=== PATIENT | female | born 1955 | race Caucasian/White ===

== ENCOUNTER 2017-03-30 16:39 | Inpatient (IN) | payer OTHER ==
[2017-03-30 17:48] LABS: ABSOLUTE EOSINOPHILS # (AUTO) 0.2 10^3/uL (0.0-0.6); ABSOLUTE LYMPHOCYTES (AUTO) 2.2 10^3/uL (0.5-4.7); ABSOLUTE MONOCYTES (AUTO) 0.6 10^3/uL (0.1-1.4); ABSOLUTE NEUT (AUTO) 4.8 10^3/uL (1.7-8.2); BASOPHILS % (AUTO) 0.4 % (0-2); EOSINOPHILS % (AUTO) 2.4 % (0-6); HEMATOCRIT 32.3 % (36.0-47.0); HGB HCT DIFFERENCE 0.7; LYMPHOCYTES % (AUTO) 27.9 % (13-45); MEAN CORPUSCULAR HEMOGLOBIN 29.4 pg (27.0-33.4); MEAN CORPUSCULAR VOLUME 87 fl (80-97); MONOCYTES % (AUTO) 7.8 % (3-13); RED BLOOD COUNT 3.74 10^6/uL (3.72-5.28); RED CELL DISTRIBUTION WIDTH 15.4 % (11.5-14.0); SEGMENTED NEUTROPHILS % (AUTO) 61.5 % (42-78); WHITE BLOOD COUNT 7.9 10^3/uL (4.0-10.5)
[2017-03-30 18:05] LABS: ALANINE AMINOTRANSFERASE 32 U/L (9-52); ALKALINE PHOSPHATASE 68 U/L (38-126); ANION GAP 16 (5-19); ASPARTATE AMINO TRANSFERASE 29 U/L (14-36); BILIRUBIN,DIRECT 0.1 mg/dL (0.0-0.4); BILIRUBIN,TOTAL 0.4 mg/dL (0.2-1.3); BLOOD UREA NITROGEN 16 mg/dL (7-20); CALCIUM 9.5 mg/dL (8.4-10.2); CARBON DIOXIDE 19 mmol/L (22-30); CHLORIDE 106 mmol/L (98-107); GLUCOSE 95 mg/dL (75-110); POTASSIUM 5.2 mmol/L (3.6-5.0); SODIUM 140.5 mmol/L (137-145); TOTAL PROTEIN 7.1 g/dL (6.3-8.2)
[2017-03-30] MEDS ORDERED: VANCOMYCIN HCL 0 MG in DEXTROSE 5%-WATER 250 ML IV NR (19:00)
[2017-03-30 19:21] LABS: APPEARANCE,URINE SLIGHTLY-CLOUDY; BILIRUBIN,URINE NEGATIVE (NEGATIVE); GLUCOSE, URINE NEGATIVE (NEGATIVE); KETONES,URINE NEGATIVE (NEGATIVE); LEUKOCYTE ESTERASE,URINE SMALL (NEGATIVE); NITRITE,URINE NEGATIVE (NEGATIVE); PROTEIN,URINE NEGATIVE (NEGATIVE); URINE SPECIFIC GRAVITY 1.008; UROBILINOGEN,URINE NEGATIVE mg/dL (<2.0)
--- NOTE | 2017-03-30 20:20 | PDOC H&P ---
History of Present Illness Admission Date/PCP: 03/30/17 16:39 XIMENA ISAAC MD History of Present Illness: JOSIE BAIRES is a 61 year old female, she was admitted because of severe cellulitis of the left leg and big toe, she was treated in the office for about a week with dual antibiotic when she presented with cellulitis of the left big toe with an ulcer at the base of the toe,, she is a diabetic with history of CVA with right-sided hemiplegia .she was admitted to the hospital for IV antibiotic and also for consultation from surgery for possible debridement. The arterial Doppler was done showed normal velocity, monophasic waveforms at the common femoral artery, occluded femoral artery with monophasic spectrally broadened and diminished reconstituted waveform from the popliteal to the infra geniculate vessels Past Medical History Cardiac Medical History: Reports: Coronary Artery Disease, Myocardial Infarction - STENT X 1, Hyperlipidema, Hypertension - MEDICATED Pulmonary Medical History: Reports: Asthma, Pneumonia Neurological Medical History: Reports: Ischemic CVA Endocrine Medical History: Reports: Diabetes Mellitus Type 2, Hypothyroidism GI Medical History: Reports: Diverticulitis Musculoskeltal Medical History: Reports: Arthritis Psychiatric Medical History: Reports: Depression Hematology: Reports: Anemia - TAKES B12 SHOTS Q MONTH Past Surgical History Past Surgical History: Reports: Cardiac Catheterization, Cholecystectomy, Coronary Stent, Orthopedic Surgery, Tonsillectomy Social History Smoking Status: Never Smoker Frequency of Alcohol Use: Rare Hx Recreational Drug Use: No Hx Prescription Drug Abuse: No Family History Family History: Reviewed & Not Pertinent Parental Family History Reviewed: Yes Children Family History Reviewed: Yes Sibling(s) Family History Reviewed.: Yes Medication/Allergy Home Medications: Alprazolam [Xanax 0.5 mg Tablet] 0.5 mg PO QID PRN 03/21/13 Ferrous Sulfate [Iron] 325 mg PO DAILY 03/21/13 Levothyroxine Sodium [Synthroid] 75 mcg PO DAILY 03/21/13 Metformin HCl [Glumetza] 500 mg PO BID 03/21/13 Metoprolol Succinate [Toprol Xl] 25 mg PO DAILY 03/21/13 Valsartan [Diovan 80 mg Tablet] 160 mg PO DAILY 03/21/13 Atorvastatin Calcium [Lipitor 20 mg Tablet] 20 mg PO QHS 07/26/13 Levocetirizine Dihydrochloride [Xyzal 5 mg Tablet] 5 mg PO QHS 07/26/13 Albuterol Sulfate [Albuterol Sulfate 2.5mg/3 mL] 2 puff IH PRN PRN 12/11/15 Aspirin [Aspirin 325 mg Tablet] 325 mg PO DAILY 12/11/15 Cyanocobalamin (Vitamin B-12) [Vitamin B-12 Inj 1000 Mcg/1 ml Vial] 1,000 mcg IM Q30D 12/11/15 Insulin Glargine,Hum.rec.anlog [Lantus Insulin 100 Unit/mL] 35 unit SUBCUT QHS 12/11/15 Pantoprazole Sodium [Protonix] 40 mg PO DAILY 12/11/15 Calcium Carbonate/Vitamin D3 [Calcium + Vitamin D Tablet] 1 tab PO DAILY Citalopram Hydrobromide [Celexa 20 mg Tablet] 20 mg PO DAILY 02/04/16 Clopidogrel Bisulfate [Plavix 75 mg Tablet] 75 mg PO DAILY 02/04/16 Melatonin 1 mg PO DAILY 02/04/16 Lennon-3 Acid Ethyl Esters [Lovaza 1 gm Capsule] 1 gm PO BID 02/04/16 Exenatide Microspheres [Bydureon Pen] 2 mg SUBCUT TU 03/30/17 Allergies/Adverse Reactions: No Known Allergies Allergy (Verified 02/26/16 16:09) Physical Exam Vital Signs: Intake & Output 03/29/17 03/30/17 03/31/17 06:59 06:59 06:59 Weight 128 kg General appearance: PRESENT: no acute distress, well-developed, well-nourished Head exam: PRESENT: atraumatic, normocephalic Eye exam: PRESENT: conjunctiva pink, EOMI, PERRLA. ABSENT: scleral icterus Ear exam: PRESENT: normal external ear exam Mouth exam: PRESENT: moist, tongue midline Neck exam: PRESENT: full ROM Respiratory exam: PRESENT: clear to auscultation urvashi Cardiovascular exam: PRESENT: RRR, +S1, +S2 Vascular exam: PRESENT: normal capillary refill GI/Abdominal exam: PRESENT: normal bowel sounds, soft Rectal exam: PRESENT: deferred Extremities exam: PRESENT: other - There is redness of the left leg, there is an eschar on the plantar surface of the first digit of the left foot Neurological exam: PRESENT: alert, other - Right-sided paralysis. ABSENT: motor sensory deficit Psychiatric exam: PRESENT: appropriate affect, normal mood Skin exam: PRESENT: dry, intact, warm Results Laboratory Results: 03/30/17 17:35 03/30/17 17:35 03/30/17 03/30/17 03/30/17 17:35 17:35 18:50 WBC 7.9 RBC 3.74 Hgb 11.0 L Hct 32.3 L MCV 87 MCH 29.4 MCHC 34.0 RDW 15.4 H Plt Count 244 Seg Neutrophils % 61.5 Lymphocytes % 27.9 Monocytes % 7.8 Eosinophils % 2.4 Basophils % 0.4 Absolute Neutrophils 4.8 Absolute Lymphocytes 2.2 Absolute Monocytes 0.6 Absolute Eosinophils 0.2 Absolute Basophils 0.0 Sodium 140.5 Potassium 5.2 H Chloride 106 Carbon Dioxide 19 L Anion Gap 16 BUN 16 Creatinine 1.10 Est GFR ( Amer) > 60 Est GFR (Non-Af Amer) 50 L Glucose 95 Calcium 9.5 Total Bilirubin 0.4 AST 29 ALT 32 Alkaline Phosphatase 68 Total Protein 7.1 Albumin 4.0 Urine Color YELLOW Urine Appearance SLIGHTLY-CLOUDY Urine pH 5.0 Ur Specific [place] 1.008 Urine Protein NEGATIVE Urine Glucose (UA) NEGATIVE Urine Ketones NEGATIVE Urine Blood SMALL H Urine Nitrite NEGATIVE Ur Leukocyte Esterase SMALL H Urine WBC (Auto) 6 Urine RBC (Auto) 3 Assessment & Plan - Diagnosis (1) Cellulitis of leg, left Is this a current diagnosis for this admission?: YesPlan: Patient was treated outpatient with IV antibiotic without improvement, she is admitted to the hospital to be treated with IV antibiotic (2) Cellulitis and abscess of toe of left foot Is this a current diagnosis for this admission?: Yes (3) Personal history of cerebrovascular accident with residual effects Is this a current diagnosis for this admission?: Yes (4) Type 2 diabetes mellitus Qualifiers: Diabetes mellitus complication status: with neurologic complications Diabetes mellitus complication detail: with polyneuropathy Diabetes mellitus technician terminal and repeater insulin use: without fpc use Qualified Code(s): E11.42 - Type 2 diabetes mellitus with diabetic polyneuropathy Is this a current diagnosis for this admission?: Yes (5) Failure of outpatient treatment Is this a current diagnosis for this admission?: Yes (6) Peripheral vascular disease due to secondary diabetes Is this a current diagnosis for this admission?: Yes
[2017-03-30] MEDS ORDERED: (PENDING PHARMACY ID) (Melatonin [Melatonin] 1 MG) PO SCH (20:30)
[2017-03-30] MEDS ORDERED: METFORMIN HCL 500 MG PO SCH (20:30)
[2017-03-30] MEDS ORDERED: LEVOTHYROXINE SODIUM 75 MCG PO SCH (20:30)
[2017-03-30] MEDS: OMEGA-3 ACID ETHYL ESTERS 1 GM CAPSULE PO SCH (21:50)
[2017-03-30] MEDS: ATORVASTATIN CALCIUM 20 MG TABLET PO SCH (21:50)
[2017-03-30] MEDS: INSULIN GLARGINE,HUM.REC.ANLOG 300 UNIT/3 ML INSULN.PEN SUBCUT SCH (21:57)
[2017-03-30] MEDS ORDERED: CYANOCOBALAMIN (VITAMIN B-12) INJ 1000 MCG/1 ML VIAL IM SCH (22:00)
[2017-03-30] MEDS ORDERED: (PENDING PHARMACY ID) (Levocetirizine Dihydrochloride [Xyzal 5 Mg Tablet] 5 MG) PO SCH (22:00)
[2017-03-30] MEDS ORDERED: DEXTROSE 50%-WATER 25 GM/50 ML DISP.SYRIN IV PRN ×2 (22:02)
[2017-03-30] MEDS ORDERED: GLUCAGON,HUMAN RECOMB 1 MG INJ SUBCUT PRN (22:02)
[2017-03-30] MEDS ORDERED: DEXTROSE 40% GEL 15 GM TUBE PO PRN ×2 (22:02)
[2017-03-30] MEDS: VANCOMYCIN HCL 1,500 MG in DEXTROSE 5%-WATER 250 ML IV SCH (22:06)
[2017-03-30] MEDS: PIPERACILLIN SODIUM/TAZOBACTAM 3.375 GM in NORMAL SALINE 100 ML IV SCH (22:07)
[2017-03-31] MEDS: PIPERACILLIN SODIUM/TAZOBACTAM 3.375 GM in NORMAL SALINE 100 ML IV SCH ×4 (04:29→22:07)
[2017-03-31] MEDS ORDERED: ONDANSETRON HCL INJ/PF 4 MG/2 ML SDV ONE (07:59)
[2017-03-31] MEDS ORDERED: METOCLOPRAMIDE HCL INJ/PF 10 MG/2 ML SDV ONE (07:59)
[2017-03-31] MEDS ORDERED: LIDOCAINE 2% INJ-PF (20 MG/ML) 10 ML AMPUL ONE (07:59)
[2017-03-31] MEDS: METFORMIN HCL 500 MG TABLET PO SCH ×2 (08:10→16:18)
[2017-03-31] MEDS ORDERED: CYANOCOBALAMIN (VITAMIN B-12) INJ 1000 MCG/1 ML VIAL IM ONE (09:00)
[2017-03-31] MEDS: OMEGA-3 ACID ETHYL ESTERS 1 GM CAPSULE PO SCH ×2 (09:38→22:08)
[2017-03-31] MEDS: VALSARTAN 80 MG TABLET PO SCH (09:38)
[2017-03-31] MEDS: CITALOPRAM HYDROBROMIDE 20 MG TABLET PO SCH (09:38)
[2017-03-31] MEDS: METOPROLOL SUCCINATE 50 MG TAB.SR.24H PO SCH (09:38)
[2017-03-31] MEDS: FERROUS SULFATE 325 MG TABLET PO SCH (09:39)
[2017-03-31] MEDS: LANSOPRAZOLE 30 MG TAB.RAP.DR PO SCH (09:39)
[2017-03-31] MEDS: LEVOTHYROXINE SODIUM 0.075 MG TABLET PO SCH (09:40)
[2017-03-31] MEDS: VANCOMYCIN HCL 1,500 MG in DEXTROSE 5%-WATER 250 ML IV SCH ×2 (09:46→22:08)
[2017-03-31] MEDS ORDERED: CLOPIDOGREL BISULFATE 75 MG TABLET PO SCH (10:00)
[2017-03-31] MEDS ORDERED: ASPIRIN 325 MG TABLET PO SCH (10:00)
[2017-03-31] MEDS ORDERED: INSULIN LISPRO 100 UNIT/ML 3 ML VIAL SUBCUT PRN (11:29)
[2017-03-31] MEDS: TRAMADOL HCL 50 MG TABLET PO PRN (11:40)
--- NOTE | 2017-03-31 13:27 | EKG REPORT ---
SEVERITY:- BORDERLINE ECG - SINUS RHYTHM : Confirmed by: Malcolm Pizarro MD 31-Mar-2017 13:26:43
[2017-03-31] MEDS ORDERED: LIDOCAINE 1% INJ-PF (10 MG/ML) 30 ML SDV ONE (14:04)
[2017-03-31] MEDS ORDERED: BUPIVACAINE HCL 0.5%-EPI 1:200000 INJ/PF 30 ML VIAL ONE (14:04)
[2017-03-31] MEDS ORDERED: FENTANYL CITRATE INJ/PF 100 MCG/2 ML AMPUL ONE (14:06)
[2017-03-31] MEDS ORDERED: PROPOFOL INJ 200 MG/20 ML VIAL IV ONE (14:07)
[2017-03-31] MEDS ORDERED: MIDAZOLAM 2 MG/2 ML INJ ONE (14:07)
[2017-03-31] MEDS ORDERED: DIPHENHYDRAMINE HCL 50 MG/ML VIAL IV PRN (14:36)
[2017-03-31] MEDS ORDERED: FENTANYL CITRATE INJ/PF 100 MCG/2 ML AMPUL IV PRN ×3 (14:36)
[2017-03-31] MEDS ORDERED: MEPERIDINE HCL/PF INJ 25 MG/1 ML DISP.SYRIN IV PRN (14:36)
[2017-03-31] MEDS ORDERED: ONDANSETRON HCL INJ/PF 4 MG/2 ML SDV IV PRN (14:36)
[2017-03-31] MEDS ORDERED: MORPHINE SULFATE 10 MG/ML INJ IV PRN (14:36)
[2017-03-31] MEDS ORDERED: PROMETHAZINE HCL INJ 25 MG/1 ML VIAL IV PRN ×2 (14:36)
--- NOTE | 2017-03-31 15:21 | XCELERA REPORT ---
[address] [address] Lower Extremity Arterial Evaluation Name: JOSIE BAIRES Age: 61 yrs Gender: Female : 1955 Patient Status: Inpatient Patient Location: 4S\S\426\S\B Study Date: 03/31/2017 10:14 AM Procedure: A color flow and duplex scan of the lower extremity arteries was performed on the left with velocity and waveform anaylsis. Reason For Study: left toe cellulitis, diabetic foot Ordering Physician: XIMENA ISAAC Performed By: Abena Ibarra Measurements and Calculations Right Left WAISTLINE JOINER LOCKSTITCH PSV 162.4 cm/sec Prox PFA PSV 123.6 cm/sec Dist SFA PSV -28.3 cm/sec Prox Pop A PSV 53.0 cm/sec Dist GRANT PSV 47.4 cm/sec Prox CATERPILLAR OPERATOR PSV 12.2 cm/sec Mid CATERPILLAR OPERATOR PSV 12.0 cm/sec Dist CATERPILLAR OPERATOR PSV 11.8 cm/sec Andrzej Pedis PSV 29.5 51.1 cm/sec Right Side Arterial Evaluation Limited evaluation, monophasic signal at the Dorsalis Pedis artery. Left Side Arterial Evaluation Normal velocity Monophasic waveforms at the Common Femoral artery. Occluded Femoral artery with monophasic spectrally broadened and diminished reconstituted waveform from the Popliteal to the infrageniculate vessels. 20-49 % stenosis at the inflow with severe sequential disease. Ankle Brachial index was not obtained. Interpretation Summary Severe hemodynamically significant lesions in the left lower extremity only, on duplex imaging, at rest. : XIMENA ISAAC > Judd Agrawal
--- NOTE | 2017-03-31 15:32 | OPERATIVE REPORT E ---
Operative Report NAME: JOSIE BAIRES : 1955 AGE: 61Y DATE OF SURGERY: ROOM: 426 PREOPERATIVE DIAGNOSIS: Left foot infection, mainly first digit, along with eschar. POSTOPERATIVE DIAGNOSIS: Infection, left foot, mainly first digit, without abscess. OPERATION: 1. Debridement of eschar, left foot, plantar surface, first digit. 2. Incision and exploration of left foot first digit infection. SURGEON: CHRIS ABREU M.D. ANESTHESIA: Monitored anesthesia care. INDICATION FOR PROCEDURE: Patient is a 61-year-old female who has diabetes. She has had previous osteo, undergoing surgery many years ago in the left foot first digit. She now presents with pain, swelling, and erythema. She has an eschar being present on the plantar surface of the first toe, along with swelling and erythema. Along the medial portion of the first digit is swelling and some discoloration of tissue worrisome for an abscess. FINDINGS AT SURGERY: The patient had a 2 x 2 cm eschar removed from the plantar surface of the first digit. Incision was made over the area of discoloration of the first digit with no abscess being identified. Cultures were sent, however in case there was an infection that was not able to visualize. PROCEDURE: After informed consent was obtained, the patient was taken to the operating room and placed in a supine position. MAC anesthesia was administered. Her left foot was then prepped and draped in the usual sterile fashion. Patient was essentially insensate in the left foot. The eschar was then removed sharply from the first digit, plantar surface. An incision was then made over the discolored swollen area in the medial portion of the first digit. I did not see any purulent fluid. There was no significant bleeding noted. Neosporin was applied along with a dry dressing. The patient was then awakened and taken from the procedure room in stable condition. ESTIMATED BLOOD LOSS: Minimal. COMPLICATIONS: None. CONDITION OF THE PATIENT DURING THE PROCEDURE: Stable. SPECIMENS: Fluid for Gram stain culture and sensitivity. DICTATING PHYSICIAN: CHRIS ABREU M.D. [id number] PHY#: [id number] ID: [id number] JOB#: [id number] ACCT: [id number] cc:CHRIS ABREU M.D. >
[2017-03-31] MEDS ORDERED: ALBUTEROL SULFATE 0.083% NEB 2.5 MG/3 ML AMPUL NEB PRN (17:37)
[2017-03-31] MEDS ORDERED: ALPRAZOLAM 0.5 MG TABLET PO PRN (17:37)
[2017-03-31] MEDS ORDERED: ALBUTEROL SULFATE HFA (90 MCG/PUFF) 200 PUFF/8.5 GM MDI IH PRN (17:44)
[2017-03-31] MEDS ORDERED: (PENDING PHARMACY ID) (Exenatide Microspheres [Bydureon Pen] 2 MG) SUBCUT SCH (17:45)
[2017-03-31] MEDS ORDERED: (PENDING PHARMACY ID) (Calcium Carbonate/Vitamin D3 [Calcium 600-Vit D3 200 Tablet] 1 TAB) PO SCH (17:45)
[2017-03-31] MEDS ORDERED: CALCIUM CARBONATE 250 MG/VITAMIN D3 125 UNIT TABLET PO ONE (18:30)
--- NOTE | 2017-03-31 19:56 | PDOC PROGRESS REPORT ---
Subjective Progress Note for:: 03/31/17 Subjective:: Patient was admitted yesterday because of cellulitis, she had debridement of eschar the left foot done today by the surgeon Physical Exam Vital Signs: Temp Pulse Resp BP Pulse Ox 98.1 F 73 16 109/46 L 99 03/31/17 17:25 03/31/17 17:25 03/31/17 17:25 03/31/17 17:25 03/31/17 17:25 Intake & Output 03/30/17 03/31/17 04/01/17 06:59 06:59 06:59 Intake Total 1450 Output Total 800 1 Balance -800 1449 Weight 128 kg General appearance: PRESENT: no acute distress Head exam: PRESENT: atraumatic, normocephalic Eye exam: PRESENT: conjunctiva pink, EOMI, PERRLA Ear exam: PRESENT: normal external ear exam Mouth exam: PRESENT: moist, tongue midline Neck exam: PRESENT: full ROM Cardiovascular exam: PRESENT: RRR, +S1, +S2 Vascular exam: PRESENT: normal capillary refill GI/Abdominal exam: PRESENT: normal bowel sounds, soft Rectal exam: PRESENT: deferred Neurological exam: PRESENT: alert Psychiatric exam: PRESENT: appropriate affect, normal mood Skin exam: PRESENT: dry, intact, warm Results Laboratory Results: 03/30/17 17:35 03/31/17 12:57 03/31/17 12:57 Potassium 5.4 H Assessment & Plan - Diagnosis (1) Cellulitis of leg, left Is this a current diagnosis for this admission?: YesPlan: She will continue IV antibiotic (2) Cellulitis and abscess of toe of left foot Is this a current diagnosis for this admission?: Yes (3) Personal history of cerebrovascular accident with residual effects Is this a current diagnosis for this admission?: Yes (4) Type 2 diabetes mellitus Qualifiers: Diabetes mellitus complication status: with neurologic complications Diabetes mellitus complication detail: with polyneuropathy Diabetes mellitus intermediate insulin use: without termite control representative use Qualified Code(s): E11.42 - Type 2 diabetes mellitus with diabetic polyneuropathy; Z79.4 - snf (current) use of insulin Is this a current diagnosis for this admission?: Yes (5) Failure of outpatient treatment Is this a current diagnosis for this admission?: Yes (6) Peripheral vascular disease due to secondary diabetes Is this a current diagnosis for this admission?: Yes
[2017-03-31] MEDS: ATORVASTATIN CALCIUM 20 MG TABLET PO SCH (22:08)
[2017-03-31] MEDS: INSULIN GLARGINE,HUM.REC.ANLOG 300 UNIT/3 ML INSULN.PEN SUBCUT SCH (22:09)
[2017-03-31] MEDS: CETIRIZINE 10 MG TABLET PO SCH (22:09)
[2017-04-01] MEDS: PIPERACILLIN SODIUM/TAZOBACTAM 3.375 GM in NORMAL SALINE 100 ML IV SCH ×4 (04:11→20:25)
[2017-04-01] MEDS: METFORMIN HCL 500 MG TABLET PO SCH ×2 (08:08→15:49)
[2017-04-01] MEDS: METOPROLOL SUCCINATE 50 MG TAB.SR.24H PO SCH (09:24)
[2017-04-01] MEDS: FERROUS SULFATE 325 MG TABLET PO SCH (09:24)
[2017-04-01] MEDS: OMEGA-3 ACID ETHYL ESTERS 1 GM CAPSULE PO SCH ×2 (09:24→22:11)
[2017-04-01] MEDS: CITALOPRAM HYDROBROMIDE 20 MG TABLET PO SCH (09:25)
[2017-04-01] MEDS: LANSOPRAZOLE 30 MG TAB.RAP.DR PO SCH (09:25)
[2017-04-01] MEDS: CALCIUM CARBONATE 250 MG/VITAMIN D3 125 UNIT TABLET PO SCH (09:25)
[2017-04-01] MEDS: VALSARTAN 80 MG TABLET PO SCH (09:25)
[2017-04-01] MEDS: LEVOTHYROXINE SODIUM 0.075 MG TABLET PO SCH (09:25)
[2017-04-01] MEDS: VANCOMYCIN HCL 1,500 MG in DEXTROSE 5%-WATER 250 ML IV SCH (10:15)
--- NOTE | 2017-04-01 16:03 | PDOC PROGRESS REPORT ---
Subjective Progress Note for:: 04/01/17 Subjective:: Patient was seen by the bedside, she will continue IV antibiotic for a few more days before discharge. She has PAD involving the left leg, hopefully on discharge she will will be referred to vascular surgery Physical Exam Vital Signs: Temp Pulse Resp BP Pulse Ox 98.1 F 78 18 137/53 H 99 04/01/17 11:24 04/01/17 11:24 04/01/17 11:24 04/01/17 11:24 04/01/17 11:24 Intake & Output 03/31/17 04/01/17 04/02/17 06:59 06:59 06:59 Intake Total 2125 790 Output Total 800 1 1590 Balance -800 2124 -800 Weight 128 kg General appearance: PRESENT: no acute distress Eye exam: PRESENT: PERRLA Respiratory exam: PRESENT: clear to auscultation urvashi Cardiovascular exam: PRESENT: +S1, +S2 GI/Abdominal exam: PRESENT: soft Neurological exam: PRESENT: alert Results Laboratory Results: 03/30/17 17:35 03/31/17 12:57 03/31/17 04:15 Nasophary (Mrsa Only) MRSA Surveillance Culture - Final NO MRSA RECOVERED Assessment & Plan - Diagnosis (1) Cellulitis of leg, left Is this a current diagnosis for this admission?: Yes (2) Cellulitis and abscess of toe of left foot Is this a current diagnosis for this admission?: Yes (3) Personal history of cerebrovascular accident with residual effects Is this a current diagnosis for this admission?: Yes (4) Type 2 diabetes mellitus Qualifiers: Diabetes mellitus complication status: with neurologic complications Diabetes mellitus complication detail: with polyneuropathy Diabetes mellitus equipment operator intermodal yard insulin use: without equipment operator intermodal yard use Qualified Code(s): E11.42 - Type 2 diabetes mellitus with diabetic polyneuropathy; Z79.4 - termite control representative (current) use of insulin Is this a current diagnosis for this admission?: Yes (5) Failure of outpatient treatment Is this a current diagnosis for this admission?: Yes (6) Peripheral vascular disease due to secondary diabetes Is this a current diagnosis for this admission?: Yes - Plan Summary Plan Summary: Continue IV antibiotic and other treatment
[2017-04-01] MEDS: ATORVASTATIN CALCIUM 20 MG TABLET PO SCH (22:11)
[2017-04-01] MEDS: CETIRIZINE 10 MG TABLET PO SCH (22:12)
[2017-04-01] MEDS: INSULIN GLARGINE,HUM.REC.ANLOG 300 UNIT/3 ML INSULN.PEN SUBCUT SCH (22:12)
--- NOTE | 2017-04-01 23:39 | PROGRESS NOTE E ---
Progress Note NAME: JOSIE BAIRES : 1955 AGE: 61Y DATE: 04/01/2017 ROOM: 426 Patient is postop day 1 of debridement of an eschar on the right foot first digit, along with exploration for infection. SUBJECTIVE: No complaints of pain at the surgical site. OBJECTIVE: Patient has less swelling and almost no erythema in the left foot first digit. ASSESSMENT: 1. Cellulitis with eschar left foot first digit status post debridement and exploration. It does seem to be improving on IV antibiotics. Continue local wound care and IV antibiotics. 2. Severe peripheral vascular disease being present with an arterial exam showing an occluded femoral artery and distal infrageniculate vessels. If she should have trouble healing her wound on the left foot, then consideration for vascular surgery needs to be done. PLAN: 1. Continue local wound care. 2. IV antibiotics. 3. Keep the leg elevated when in bed. DICTATING PHYSICIAN: CHRIS ABREU M.D. [id number] PHY#: [id number] ID: [id number] JOB#: [id number] ACCT: [id number] cc: >
[2017-04-02] MEDS: PIPERACILLIN SODIUM/TAZOBACTAM 3.375 GM in NORMAL SALINE 100 ML IV SCH ×4 (04:01→21:33)
[2017-04-02] MEDS: METFORMIN HCL 500 MG TABLET PO SCH ×2 (08:15→15:11)
[2017-04-02] MEDS: CALCIUM CARBONATE 250 MG/VITAMIN D3 125 UNIT TABLET PO SCH (12:20)
[2017-04-02] MEDS: VALSARTAN 80 MG TABLET PO SCH (12:24)
[2017-04-02] MEDS: LANSOPRAZOLE 30 MG TAB.RAP.DR PO SCH (12:25)
[2017-04-02] MEDS: METOPROLOL SUCCINATE 50 MG TAB.SR.24H PO SCH (12:25)
[2017-04-02] MEDS: FERROUS SULFATE 325 MG TABLET PO SCH (12:25)
[2017-04-02] MEDS: OMEGA-3 ACID ETHYL ESTERS 1 GM CAPSULE PO SCH ×2 (12:25→21:33)
[2017-04-02] MEDS: LEVOTHYROXINE SODIUM 0.075 MG TABLET PO SCH (12:26)
[2017-04-02] MEDS: CITALOPRAM HYDROBROMIDE 20 MG TABLET PO SCH (12:26)
[2017-04-02] MEDS: TRAMADOL HCL 50 MG TABLET PO PRN ×2 (12:26→21:43)
--- NOTE | 2017-04-02 12:44 | PROGRESS NOTE E ---
Progress Note NAME: JOSIE BAIRES : 1955 AGE: 61Y DATE: 04/02/2017 ROOM: 426 SUBJECTIVE: Patient is a 61-year-old diabetic who had an ulceration on her left big toe. It was treated with debridement and incision and drainage. She was noted to have cellulitis on admission. The cellulitis has resolved and the patient has an increased sense of wellbeing. OBJECTIVE: The wound is examined. It is approximately a 1.5 cm area with healthy granulating base. There is no necrosis. Reportedly, this is much improved from before. PLAN: At the present time, we will continue IV antibiotics and local wound care. DICTATING PHYSICIAN: LIZA HOLT M.D. [id number] PHY#: [id number] ID: [id number] JOB#: [id number] ACCT: [id number] cc: >
[2017-04-02] MEDS: VANCOMYCIN HCL 1,000 MG in DEXTROSE 5%-WATER 250 ML IV SCH ×2 (13:21→22:56)
--- NOTE | 2017-04-02 19:15 | PDOC PROGRESS REPORT ---
Subjective Progress Note for:: 04/02/17 Subjective:: Patient seen by the bedside, she was seen by the surgeon hopefully to be discharged home with p.o. antibiotic. Physical Exam Vital Signs: Temp Pulse Resp BP Pulse Ox 98.5 F 75 20 125/54 L 99 04/02/17 15:57 04/02/17 15:57 04/02/17 15:57 04/02/17 15:57 04/02/17 15:57 Intake & Output 04/01/17 04/02/17 04/03/17 06:59 06:59 06:59 Intake Total 2124 175 360 Output Total 1991 1100 Balance 6788 -771 -034 General appearance: PRESENT: no acute distress Eye exam: PRESENT: PERRLA Respiratory exam: PRESENT: clear to auscultation urvashi Cardiovascular exam: PRESENT: +S1, +S2 GI/Abdominal exam: PRESENT: soft Neurological exam: PRESENT: alert, CN II-XII grossly intact Results Laboratory Results: 03/30/17 17:35 03/31/17 12:57 Assessment & Plan - Diagnosis (1) Cellulitis of leg, left Is this a current diagnosis for this admission?: Yes (2) Cellulitis and abscess of toe of left foot Is this a current diagnosis for this admission?: Yes (3) Personal history of cerebrovascular accident with residual effects Is this a current diagnosis for this admission?: Yes (4) Type 2 diabetes mellitus Qualifiers: Diabetes mellitus complication status: with neurologic complications Diabetes mellitus complication detail: with polyneuropathy Diabetes mellitus detention insulin use: without animal trainer use Qualified Code(s): E11.42 - Type 2 diabetes mellitus with diabetic polyneuropathy; 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
[2017-04-02] MEDS: INSULIN GLARGINE,HUM.REC.ANLOG 300 UNIT/3 ML INSULN.PEN SUBCUT SCH (21:32)
[2017-04-02] MEDS: CETIRIZINE 10 MG TABLET PO SCH (21:33)
[2017-04-02] MEDS: ATORVASTATIN CALCIUM 20 MG TABLET PO SCH (21:33)
[2017-04-03] MEDS: PIPERACILLIN SODIUM/TAZOBACTAM 3.375 GM in NORMAL SALINE 100 ML IV SCH ×3 (03:55→14:48)
[2017-04-03] MEDS: LANSOPRAZOLE 30 MG TAB.RAP.DR PO SCH (09:55)
[2017-04-03] MEDS: OMEGA-3 ACID ETHYL ESTERS 1 GM CAPSULE PO SCH (09:55)
[2017-04-03] MEDS: METFORMIN HCL 500 MG TABLET PO SCH ×2 (09:55→15:26)
[2017-04-03] MEDS: LEVOTHYROXINE SODIUM 0.075 MG TABLET PO SCH (09:55)
[2017-04-03] MEDS: FERROUS SULFATE 325 MG TABLET PO SCH (09:55)
[2017-04-03] MEDS: METOPROLOL SUCCINATE 50 MG TAB.SR.24H PO SCH (09:55)
[2017-04-03] MEDS: CALCIUM CARBONATE 250 MG/VITAMIN D3 125 UNIT TABLET PO SCH (09:55)
[2017-04-03] MEDS: VALSARTAN 80 MG TABLET PO SCH (09:55)
[2017-04-03] MEDS: CITALOPRAM HYDROBROMIDE 20 MG TABLET PO SCH (09:55)
[2017-04-03] MEDS: VANCOMYCIN HCL 1,000 MG in DEXTROSE 5%-WATER 250 ML IV SCH (09:56)
--- NOTE | 2017-04-03 11:08 | PROGRESS NOTE E ---
Progress Note NAME: JOSIE BAIRES : 1955 AGE: 61Y DATE: 04/03/2017 ROOM: 426 SUBJECTIVE: Patient's wound is again examined today and appears to be skin loss, but no deep abscess. The toe is slightly red and swollen, but does not indicate any osteomyelitis or further infection. PLAN: 1. We will change her to damp gauze dressings. The patient and nurse indicated that her primary care doctor will followup with her. 2. She also should followup with the surgical clinic for wound care. 3. She should be discharged on wound care with wet-to-dry dressing t.i.d. and an oral antibiotic. DICTATING PHYSICIAN: LIZA HOLT M.D. [id number] PHY#: [id number] ID: [id number] JOB#: [id number] ACCT: [id number] cc: >
--- NOTE | 2017-04-03 18:19 | PDOC DISCHARGE SUMMARY ---
General - Admit/Disc Date/PCP Admission Date/Primary Care Provider: 03/30/17 16:39 XIMENA ISAAC MD Discharge Date: 04/03/17 - Discharge Diagnosis (1) Cellulitis of leg, left Is this a current diagnosis for this admission?: Yes (2) Cellulitis and abscess of toe of left foot Is this a current diagnosis for this admission?: Yes (3) Personal history of cerebrovascular accident with residual effects Is this a current diagnosis for this admission?: Yes (4) Type 2 diabetes mellitus Is this a current diagnosis for this admission?: Yes (5) Failure of outpatient treatment Is this a current diagnosis for this admission?: Yes (6) Peripheral vascular disease due to secondary diabetes Is this a current diagnosis for this admission?: Yes - Additional Information Resuscitation Status: Full Code Discharge Activity: Activity As Tolerated Home Medications: Alprazolam [Xanax 0.5 mg Tablet] 0.5 mg PO QID PRN 03/21/13 Ferrous Sulfate [Iron] 325 mg PO DAILY 03/21/13 Levothyroxine Sodium [Synthroid] 75 mcg PO DAILY 03/21/13 Metformin HCl [Glumetza] 500 mg PO BID 03/21/13 Metoprolol Succinate [Toprol Xl] 25 mg PO DAILY 03/21/13 Valsartan [Diovan 80 mg Tablet] 160 mg PO DAILY 03/21/13 Atorvastatin Calcium [Lipitor 20 mg Tablet] 20 mg PO QHS 07/26/13 Levocetirizine Dihydrochloride [Xyzal 5 mg Tablet] 5 mg PO QHS 07/26/13 Albuterol Sulfate [Albuterol Sulfate 2.5mg/3 mL] 2 puff IH PRN PRN 12/11/15 Aspirin [Aspirin 325 mg Tablet] 325 mg PO DAILY 12/11/15 Cyanocobalamin (Vitamin B-12) [Vitamin B-12 Inj 1000 Mcg/1 ml Vial] 1,000 mcg IM Q30D 12/11/15 Insulin Glargine,Hum.rec.anlog [Lantus Insulin 100 Unit/mL] 35 unit SUBCUT QHS 12/11/15 Pantoprazole Sodium [Protonix] 40 mg PO DAILY 12/11/15 Calcium Carbonate/Vitamin D3 [Calcium 600-Vit D3 200 Tablet] 1 tab PO DAILY 06/14 Citalopram Hydrobromide [Celexa 20 mg Tablet] 20 mg PO DAILY 02/04/16 Clopidogrel Bisulfate [Plavix 75 mg Tablet] 75 mg PO DAILY 02/04/16 Melatonin 1 mg PO DAILY 02/04/16 [place]asnor-3 Acid Ethyl Esters [Lovaza 1 gm Capsule] 1 gm PO BID 02/04/16 Exenatide Microspheres [Bydureon Pen] 2 mg SUBCUT TU 03/30/17 Doxycycline Monohydrate [Mondoxyne Nl] 100 mg PO BID #20 capsule 04/03/17 History of Present Illness History of Present Illness: JOSIE BAIRES is a 61 year old female, she was admitted because of severe cellulitis of the left leg and big toe, she was treated in the office for about a week with dual antibiotic when she presented with cellulitis of the left big toe with an ulcer at the base of the toe,, she is a diabetic with history of CVA with right-sided hemiplegia .she was admitted to the hospital for IV antibiotic and also for consultation from surgery for possible debridement. The arterial Doppler was done showed normal velocity, monophasic waveforms at the common femoral artery, occluded femoral artery with monophasic spectrally broadened and diminished reconstituted waveform from the popliteal to the infra geniculate vessels Hospital Course Hospital Course: She was admitted because of severe cellulitis of left leg,ulcerated left big toe, she was seen by the surgeon and debridement of the foot was done. She was empirically treated with IV antibiotic, Zosyn and vancomycin. She was treated outpatient for 1 week which p.o. antibiotic without improvement and she was admitted to the hospital for IV antibiotic and also to be seen by the surgeon for debridement. Physical Exam Vital Signs: Temp Pulse Resp BP Pulse Ox 98.4 F 76 20 112/54 L 94 04/03/17 15:54 04/03/17 15:54 04/03/17 15:54 04/03/17 15:54 04/03/17 15:54 Intake & Output 04/02/17 04/03/17 04/04/17 06:59 06:59 06:59 Intake Total 1695 1435 510 Output Total 1991 6520 700 Balance -237 -465 -190 General appearance: PRESENT: no acute distress Eye exam: PRESENT: PERRLA Respiratory exam: PRESENT: clear to auscultation urvashi Cardiovascular exam: PRESENT: +S1, +S2 GI/Abdominal exam: PRESENT: soft Neurological exam: PRESENT: alert Results Laboratory Results: 03/30/17 17:35 03/31/17 12:57
[2017-04-03 18:25] LABS: ABSOLUTE EOSINOPHILS # (AUTO) 0.2 10^3/uL (0.0-0.6); ABSOLUTE LYMPHOCYTES (AUTO) 2.4 10^3/uL (0.5-4.7); ABSOLUTE MONOCYTES (AUTO) 0.7 10^3/uL (0.1-1.4); ABSOLUTE NEUT (AUTO) 5.1 10^3/uL (1.7-8.2); BASOPHILS % (AUTO) 0.5 % (0-2); EOSINOPHILS % (AUTO) 2.5 % (0-6); HEMATOCRIT 32.9 % (36.0-47.0); HEMOGLOBIN 11.1 g/dL (12.0-15.5); HGB HCT DIFFERENCE 0.4; LYMPHOCYTES % (AUTO) 28.3 % (13-45); MEAN CORPUSCULAR HEMOGLOBIN 29.4 pg (27.0-33.4); MEAN CORPUSCULAR HGB CONC 33.8 g/dL (32.0-36.0); MEAN CORPUSCULAR VOLUME 87 fl (80-97); MONOCYTES % (AUTO) 8.2 % (3-13); RED BLOOD COUNT 3.77 10^6/uL (3.72-5.28); RED CELL DISTRIBUTION WIDTH 14.8 % (11.5-14.0); SEGMENTED NEUTROPHILS % (AUTO) 60.5 % (42-78); WHITE BLOOD COUNT 8.5 10^3/uL (4.0-10.5)
[2017-04-03 18:42] VITALS: BP 136/56
[2017-04-03 18:51] LABS: ALANINE AMINOTRANSFERASE 33 U/L (9-52); ALBUMIN 3.6 g/dL (3.5-5.0); ALKALINE PHOSPHATASE 56 U/L (38-126); ANION GAP 15 (5-19); ASPARTATE AMINO TRANSFERASE 22 U/L (14-36); BILIRUBIN,DIRECT 0.2 mg/dL (0.0-0.4); BILIRUBIN,TOTAL 0.3 mg/dL (0.2-1.3); BLOOD UREA NITROGEN 11 mg/dL (7-20); CALCIUM 8.9 mg/dL (8.4-10.2); CARBON DIOXIDE 19 mmol/L (22-30); CHLORIDE 109 mmol/L (98-107); CREATININE RESULT 1.04 mg/dL (0.52-1.25); GLUCOSE 117 mg/dL (75-110); POTASSIUM 4.2 mmol/L (3.6-5.0); SODIUM 142.6 mmol/L (137-145); TOTAL PROTEIN 6.7 g/dL (6.3-8.2)
== END 2017-04-03 19:59 | disposition home or self-care (01) | DRG 623 ==
LOC: 4S 16:39
PROVIDERS: ADMIT Internal Medicine; ATTEND Internal Medicine
PROC: 0HBNXZZ Excision of Left Foot Skin, External Approach (ICD-10-PCS; principal; 2017-03-30)
DX: E11.621 Type 2 diabetes mellitus with foot ulcer (principal); L03.116 Cellulitis of left lower limb; L02.612 Cutaneous abscess of left foot; I69.351 Hemiplegia and hemiparesis following cerebral infarction affecting right dominant side; L03.032 Cellulitis of left toe; E11.51 Type 2 diabetes mellitus with diabetic peripheral angiopathy without gangrene; L97.529 Non-pressure chronic ulcer of other part of left foot with unspecified severity; I25.10 Atherosclerotic heart disease of native coronary artery without angina pectoris; E78.5 Hyperlipidemia, unspecified; I10 Essential (primary) hypertension; J45.909 Unspecified asthma, uncomplicated; E03.9 Hypothyroidism, unspecified; M19.90 Unspecified osteoarthritis, unspecified site; F32.9 Major depressive disorder, single episode, unspecified; D64.9 Anemia, unspecified; I25.2 Old myocardial infarction; Z79.4 Long term (current) use of insulin; Z79.82 Long term (current) use of aspirin; Z79.899 Other long term (current) drug therapy
CPT/HCPCS: 36415; 400; 80048; 80053; 80076; 80202; 81001; 82962; 83036; 84132; 85025; 87070; 87075; 87077; 87186; 87205; 93005; 93010; 93926; J1815; J2250; J2405; J2543; J2704; J2765; J3010; J3370; J3490; J7060

== ENCOUNTER → 2017-03-30 | Outpatient (CLI) | payer OTHER | LOC: WI 13:34 | PROVIDERS: ATTEND Internal Medicine | DX: Z12.31 Encounter for screening mammogram for malignant neoplasm of breast (principal) | CPT/HCPCS: 77067; G0202 ==

== ENCOUNTER → 2017-05-19 | Outpatient (CLI) | payer OTHER ==
[2017-05-19 11:51] LABS: CREATININE RESULT 0.99 mg/dL (0.52-1.25)
== END ==
LOC: LB 11:00
PROVIDERS: ATTEND Surgery Vascular Surgery
DX: Z51.81 Encounter for therapeutic drug level monitoring (principal); Z79.899 Other long term (current) drug therapy
CPT/HCPCS: 36415; 82565

== ENCOUNTER → 2017-05-22 | Outpatient (CLI) | payer OTHER ==
--- NOTE | 2017-05-22 18:57 | RADIOLOGY REPORT (SQ) ---
EXAM DESCRIPTION: CHEST PA/LAT COMPLETED DATE/TIME: 05/22/2017 6:14 pm REASON FOR STUDY: Encounter for other preprocedural examination;Non-pressure chronic ulcer of COMPARISON: 12/11/2015 EXAM PARAMETERS: NUMBER OF VIEWS: two views TECHNIQUE: Digital Frontal and Lateral radiographic views of the chest acquired. RADIATION DOSE: NA LIMITATIONS: none FINDINGS: LUNGS AND PLEURA: No opacities, masses or pneumothorax. No pleural effusion. MEDIASTINUM AND HILAR STRUCTURES: No masses or contour abnormalities. HEART AND VASCULAR STRUCTURES: Heart normal size. No evidence for failure. BONES: No acute findings. HARDWARE: Sternotomy wires. OTHER: No other significant finding. IMPRESSION: NO SIGNIFICANT RADIOGRAPHIC FINDING IN THE CHEST. TECHNICAL DOCUMENTATION: JOB ID: [id number] [employer]- All Rights Reserved
--- NOTE | 2017-05-22 18:59 | RADIOLOGY REPORT (SQ) ---
EXAM DESCRIPTION: FOOT LEFT COMPLETE COMPLETED DATE/TIME: 05/22/2017 6:14 pm REASON FOR STUDY: Encounter for other preprocedural examination;Non-pressure chronic ulcer of COMPARISON: None. NUMBER OF VIEWS: Three views. TECHNIQUE: AP, lateral and oblique radiographic images acquired of the left foot. LIMITATIONS: None. FINDINGS: MINERALIZATION: Osteopenia. BONES: No acute fracture or dislocation. There are large plantar and dorsal calcaneal spurs. JOINTS: Mild degenerative joint changes seen in the 1st metatarsal-phalangeal joint. SOFT TISSUES: Dense calcifications are seen in the plantar fascia. OTHER: No other significant finding. IMPRESSION: There is no acute abnormality in the foot. Findings as described. TECHNICAL DOCUMENTATION: JOB ID: [id number] [employer]- All Rights Reserved
== END ==
LOC: RAD 17:31
PROVIDERS: ATTEND Surgery
DX: Z01.818 Encounter for other preprocedural examination (principal); L97.522 Non-pressure chronic ulcer of other part of left foot with fat layer exposed; M77.32 Calcaneal spur, left foot
CPT/HCPCS: 71020

== ENCOUNTER → 2017-05-22 | Outpatient (CLI) | payer OTHER ==
[2017-05-22 19:04] LABS: ABSOLUTE EOSINOPHILS # (AUTO) 0.2 10^3/uL (0.0-0.6); ABSOLUTE LYMPHOCYTES (AUTO) 2.4 10^3/uL (0.5-4.7); ABSOLUTE MONOCYTES (AUTO) 0.5 10^3/uL (0.1-1.4); ABSOLUTE NEUT (AUTO) 3.7 10^3/uL (1.7-8.2); BASOPHILS % (AUTO) 0.3 % (0-2); EOSINOPHILS % (AUTO) 2.5 % (0-6); HEMATOCRIT 31.4 % (36.0-47.0); HEMOGLOBIN 10.3 g/dL (12.0-15.5); HGB HCT DIFFERENCE -0.5; LYMPHOCYTES % (AUTO) 35.3 % (13-45); MEAN CORPUSCULAR HEMOGLOBIN 29.2 pg (27.0-33.4); MEAN CORPUSCULAR HGB CONC 32.6 g/dL (32.0-36.0); MEAN CORPUSCULAR VOLUME 90 fl (80-97); MONOCYTES % (AUTO) 7.8 % (3-13); RED BLOOD COUNT 3.51 10^6/uL (3.72-5.28); RED CELL DISTRIBUTION WIDTH 14.1 % (11.5-14.0); SEGMENTED NEUTROPHILS % (AUTO) 54.1 % (42-78); WHITE BLOOD COUNT 6.9 10^3/uL (4.0-10.5)
[2017-05-22 19:40] LABS: ERYTHROCYTE SEDIMENTATION RATE 69 mm/hr (0-30)
== END ==
LOC: WC 18:14
PROVIDERS: ATTEND Surgery
DX: E10.21 Type 1 diabetes mellitus with diabetic nephropathy (principal); L97.522 Non-pressure chronic ulcer of other part of left foot with fat layer exposed
CPT/HCPCS: 36415; 83036; 85025; 85652; 86140

== ENCOUNTER 2017-09-09 17:27 | Emergency (ER) | payer OTHER ==
[2017-09-09] MEDS ORDERED: METOCLOPRAMIDE HCL INJ/PF 10 MG/2 ML SDV IV ONE (18:02)
--- NOTE | 2017-09-09 18:13 | ER Document Report ---
ED General - General Chief Complaint: Nausea/Vomiting Stated Complaint: ABDOMINAL PAIN Time Seen by Provider: 09/09/17 17:41 Mode of Arrival: Ambulatory Information source: Patient Notes: 61-year-old female who has been in either the hospital or a care facility for the past month and half presents with complaints of nausea vomiting and diarrhea. Patient states she had normal bowel movements a few days ago but over the past 5 days she has been been vomiting multiple times denies any fevers or chills TRAVEL OUTSIDE OF THE [place] IN LAST 30 DAYS: No - HPI Onset: Last week Onset/Duration: Persistent Quality of pain: Cramping Severity: Mild Pain Level: 1 Associated symptoms: Diarrhea, Nausea, Vomiting Exacerbated by: Denies Relieved by: Denies Similar symptoms previously: No Recently seen / treated by doctor: No - Related Data Allergies/Adverse Reactions: No Known Allergies Allergy (Verified 02/26/16 16:09) Past Medical History - Social History Smoking Status: Never Smoker Cigarette use (# per day): No Chew tobacco use (# tins/day): No Smoking Education Provided: No Family History: Reviewed & Not Pertinent - Past Medical History Cardiac Medical History: Reports: Hx Coronary Artery Disease, Hx Heart Attack - STENT X 1, Hx Hypercholesterolemia, Hx Hypertension - MEDICATED Pulmonary Medical History: Reports: Hx Asthma, Hx Pneumonia Denies: Hx Bronchitis, Hx COPD Neurological Medical History: Reports: 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 Denies: Hx Seizures Endocrine Medical History: Reports: Hx Diabetes Mellitus Type 2, Hx Graves' Disease, Hx Hypothyroidism GI Medical History: Reports: Hx Diverticulitis, Hx Gastritis. Denies: Hx Hepatitis, Hx Hiatal Hernia, Hx Ulcer Musculoskeltal Medical History: Reports Hx Arthritis, Reports Hx Musculoskeletal Deformity, Reports Hx Musculoskeletal Trauma Psychiatric Medical History: Reports: Hx Depression Traumatic Medical History: Reports: Hx Fractures Infectious Medical History: Denies: Hx Hepatitis Past Surgical History: Reports: Hx Cardiac Catheterization, Hx Cholecystectomy, Hx Coronary Stent, Hx Dilation and Curettage, Hx Orthopedic Surgery, Hx Tonsillectomy. Denies: Hx Hysterectomy, Hx Mastectomy, Hx Open Heart Surgery, Hx Pacemaker - Immunizations Immunizations up to date: No Hx Diphtheria, Pertussis, Tetanus Vaccination: No Hx Pneumococcal Vaccination: 09/30/12 Review of Systems - Review of Systems Notes: REVIEW OF SYSTEMS: CONSTITUTIONAL : Denies fever, chills, or sweats. Denies recent illness. EENT: Denies eye, ear, throat, or mouth pain or symptoms. Denies nasal or sinus congestion or discharge. Denies throat, tongue, or mouth swelling or difficulty swallowing. CARDIOVASCULAR: Denies chest pain. Denies palpitations or racing or irregular heart beat. Denies ankle edema. RESPIRATORY: Denies cough, cold, or chest congestion. Denies shortness of breath, difficulty breathing, or wheezing. GASTROINTESTINAL: Admits to abdominal cramping nausea vomiting diarrhea GENITOURINARY: Denies difficulty urinating, painful urination, burning, frequency, blood in urine, or discharge. FEMALE GENITOURINARY: Denies vaginal bleeding, heavy or abnormal periods, irregular periods. Denies vaginal discharge or odor. MUSCULOSKELETAL: Denies back or neck pain or stiffness. Denies joint pain or swelling. SKIN: Denies rash, lesions or sores. HEMATOLOGIC : Denies easy bruising or bleeding. LYMPHATIC: Denies swollen, enlarged glands. NEUROLOGICAL: Denies confusion or altered mental status. Denies passing out or loss of consciousness. Denies dizziness or lightheadedness. Denies headache. Denies weakness or paralysis or loss of use of either side. Denies problems with gait or speech. Denies sensory loss, numbness, or tingling. Denies seizures. PSYCHIATRIC: Denies anxiety or stress. Denies depression, suicidal ideation, or homicidal ideation. ALL OTHER SYSTEMS REVIEWED AND NEGATIVE. PHYSICAL EXAMINATION: GENERAL: Well-appearing, well-nourished and in no acute distress. HEAD: Atraumatic, normocephalic. EYES: Pupils equal round and reactive to light, extraocular movements intact, conjunctiva are normal. ENT: Nares patent, oropharynx clear without exudates. Moist mucous membranes. NECK: Normal range of motion, supple without lymphadenopathy LUNGS: Breath sounds clear to auscultation bilaterally and equal. No wheezes rales or rhonchi. HEART: Regular rate and rhythm without murmurs ABDOMEN: Soft, nontender, nondistended abdomen. No guarding, no rebound. No masses appreciated. Female : deferred Musculoskeletal: Normal range of motion, no pitting or edema. No cyanosis. NEUROLOGICAL: Cranial nerves grossly intact. Normal speech, normal gait. Normal sensory, motor exams PSYCH: Normal mood, normal affect. SKIN: Warm, Dry, normal turgor, no rashes or lesions noted. Dictation was performed using [employer] voice recognition software Physical Exam - Vital signs Vitals: Temp Pulse Resp BP Pulse Ox 98.5 F 85 18 174/85 H 98 09/09/17 17:35 09/09/17 17:35 09/09/17 17:35 09/09/17 17:35 09/09/17 17:35 Course - Re-evaluation Re-evalutation: 09/09/17 18:13 Initial concern for obstruction, however patient denies any difficulty with bowel movements 09/09/17 23:29 Patient noted to have high white count, I believe this is all secondary to nausea vomiting and pain. CT was performed no acute abnormality was noted patient was given 2 L of IV fluids wishes to be discharged home and will be discharged with Zofran at her request After performing a Medical Screening Examination, I estimate there is LOW risk for ACUTE APPENDICITIS, BOWEL OBSTRUCTION, ACUTE CHOLECYSTITIS, PERFORATED DIVERTICULITIS, INCARCERATED HERNIA, PANCREATITIS, PELVIC INFLAMMATORY DISEASE, PERFORATED ULCER, ECTOPIC , or TUBO-OVARIAN ABSCESS, thus I consider the discharge disposition reasonable. Also, there is no evidence or peritonitis , sepsis, or toxicity. I have reevaluated this patient multiple times and no significant life threatening changes are noted. The patient and I have discussed the diagnosis and risks, and we agree with discharging home with close follow-up with the understanding that symptoms and presentations can change. We also discussed returning to the Emergency Department immediately if new or worsening symptoms occur. We have discussed the symptoms which are most concerning (e.g., bloody stool, fever, changing or worsening pain, vomiting) that necessitate immediate return. - Vital Signs Vital signs: Temp Pulse Resp BP Pulse Ox 98.5 F 85 18 174/85 H 98 09/09/17 17:35 09/09/17 17:35 09/09/17 17:35 09/09/17 17:35 09/09/17 17:35 - Laboratory Result Diagrams: 09/09/17 20:10 09/09/17 21:00 Laboratory results interpreted by me: 09/09/17 09/09/17 20:10 21:00 WBC 20.4 H RBC 3.31 L Hgb 9.7 L Hct 28.9 L RDW 14.1 H Plt Count 542 H Seg Neuts % (Manual) 86 H Lymphocytes % (Manual) 10 L Abs Neuts (Manual) 17.5 H Carbon Dioxide 18 L BUN 29 H Est GFR ( Amer) 55 L Est GFR (Non-Af Amer) 45 L Glucose 141 H Direct Bilirubin 0.5 H Albumin 3.4 L - Diagnostic Test Radiology reviewed: Image reviewed, Reports reviewed - No acute abnormality Discharge - Discharge Clinical Impression: Dehydration Nausea & vomiting Qualifiers: Vomiting type: unspecified Vomiting Intractability: non-intractable Qualified Code(s): R11.2 - Nausea with vomiting, unspecified Condition: Stable Disposition: HOME, SELF-CARE Instructions: Vomiting ([facility]) Prescriptions: Hydrocodone/Acetaminophen [[place]on 5-325 mg Tablet] 1 tab PO Q6 #10 tablet Ondansetron [Zofran Odt 4 mg Tablet] 1 - 2 tab PO Q4H PRN #20 tab.rapdis PRN Reason: For Nausea/Vomiting Promethazine HCl 25 mg PO Q6 #14 tablet Promethazine HCl 25 mg RC Q6 #14 supp.rect Referrals: JERAD HA, [facility] [Primary Care Provider] - Follow up tomorrow
--- NOTE | 2017-09-09 19:19 | RADIOLOGY REPORT (SQ) ---
EXAM DESCRIPTION: ACUTE ABDOMEN SERIES COMPLETED DATE/TIME: 09/09/2017 6:57 pm REASON FOR STUDY: vomiting COMPARISON: None. NUMBER OF VIEWS: Three views. TECHNIQUE: PA chest, supine abdomen and upright/decubitus abdomen radiographic images acquired. LIMITATIONS: None. FINDINGS: CHEST: Lungs clear of infiltrates. FREE AIR: None. No abnormal gas collections. BOWEL GAS PATTERN: Few scattered small bowel loops with air fluid levels. No distended large or small bowel loops. CALCIFICATIONS: No suspicious calcifications. HARDWARE: Cholecystectomy clips. SOFT TISSUES: No gross mass or suggestion of organomegaly. BONES: No acute fracture. No worrisome bone lesions. OTHER: No other significant finding. IMPRESSION: NONSPECIFIC BOWEL GAS PATTERN WITHOUT EVIDENCE FOR OBSTRUCTION. TECHNICAL DOCUMENTATION: JOB ID: [id number] [employer]- All Rights Reserved
[2017-09-09] MEDS ORDERED: KETOROLAC TROMETHAMINE 60 MG/2 ML SDV IM ONE (19:59)
[2017-09-09] MEDS ORDERED: ONDANSETRON 4 MG TAB.RAPDIS PO ONE (19:59)
[2017-09-09] MEDS ORDERED: METOCLOPRAMIDE HCL INJ/PF 10 MG/2 ML SDV ONE (20:02)
[2017-09-09] MEDS ORDERED: ONDANSETRON HCL INJ/PF 4 MG/2 ML SDV ONE (20:05)
[2017-09-09] MEDS ORDERED: ONDANSETRON HCL INJ/PF 4 MG/2 ML SDV IV ONE (20:15)
[2017-09-09] MEDS ORDERED: DICYCLOMINE HCL INJ 20 MG/2 ML AMPULE IM ONE (20:16)
[2017-09-09 20:33] LABS: HEMATOCRIT 28.9 % (36.0-47.0); HEMOGLOBIN 9.7 g/dL (12.0-15.5); HGB HCT DIFFERENCE 0.2; MEAN CORPUSCULAR HEMOGLOBIN 29.2 pg (27.0-33.4); MEAN CORPUSCULAR HGB CONC 33.5 g/dL (32.0-36.0); MEAN CORPUSCULAR VOLUME 87 fl (80-97); RED BLOOD COUNT 3.31 10^6/uL (3.72-5.28); RED CELL DISTRIBUTION WIDTH 14.1 % (11.5-14.0); WHITE BLOOD COUNT 20.4 10^3/uL (4.0-10.5)
[2017-09-09] MEDS ORDERED: MORPHINE SULFATE 10 MG/ML INJ IV ONE (20:57)
[2017-09-09 20:58] LABS: BASOPHILS % (MANUAL) 0 % (0-2); EOSINOPHILS % (MANUAL) 0 % (0-6); LYMPHOCYTES % (MANUAL) 10 % (13-45); TOTAL CELLS COUNTED 100
[2017-09-09 21:00] LABS: ANISOCYTOSIS SLIGHT; OVALOCYTES SLIGHT; POLYCHROMASIA SLIGHT
[2017-09-09 21:25] LABS: ALANINE AMINOTRANSFERASE 27 U/L (9-52); ALBUMIN 3.4 g/dL (3.5-5.0); ALKALINE PHOSPHATASE 60 U/L (38-126); ANION GAP 17 (5-19); ASPARTATE AMINO TRANSFERASE 17 U/L (14-36); BILIRUBIN,DIRECT 0.5 mg/dL (0.0-0.4); BILIRUBIN,TOTAL 0.8 mg/dL (0.2-1.3); BLOOD UREA NITROGEN 29 mg/dL (7-20); CALCIUM 8.9 mg/dL (8.4-10.2); CARBON DIOXIDE 18 mmol/L (22-30); CHLORIDE 102 mmol/L (98-107); GLUCOSE 141 mg/dL (75-110); LIPASE 64.2 U/L (23-300); POTASSIUM 4.8 mmol/L (3.6-5.0); SODIUM 137.2 mmol/L (137-145); TOTAL PROTEIN 6.6 g/dL (6.3-8.2)
[2017-09-09] MEDS ORDERED: NORMAL SALINE 1000 ML 1,000 ML IV PRN (21:26)
--- NOTE | 2017-09-09 22:55 | RADIOLOGY REPORT (SQ) ---
EXAM DESCRIPTION: CT ABD/PELVIS WITH IV ONLY COMPLETED DATE/TIME: 09/09/2017 10:34 pm REASON FOR STUDY: abd pain COMPARISON: None. TECHNIQUE: CT scan of the abdomen and pelvis performed using helical scanning technique with dynamic intravenous contrast injection. No oral contrast. Images reviewed with lung, soft tissue, and bone windows. Reconstructed coronal and sagittal MPR images reviewed. Delayed images for evaluation of the urinary system also acquired. All images stored on PACS. All CT scanners at this facility use dose modulation, iterative reconstruction, and/or weight based d osing when appropriate to reduce radiation dose to as low as reasonably achievable (ALARA). [facility]: Dose Right [facility]: CareDose [facility]: Dose Right [facility]: Teradose 4D [facility]: Locaweb CONTRAST TYPE AND DOSE: contrast/concentration: Isovue 370.00 mg/ml; Total Contrast Delivered: 100.0 ml; Total Saline Delivered: 35.0 ml RENAL FUNCTION: GFR > 60. RADIATION DOSE: Up-to-date CT equipment and radiation dose reduction techniques were employed. CTDIv ol: 21.1 - 21.1 mGy. DLP: 2250 mGy-cm.. LIMITATIONS: None. FINDINGS: LOWER CHEST: Minimal linear subsegmental atelectasis in the left lower lobe. LIVER: Normal size. No masses. No dilated ducts. SPLEEN: Normal size. No focal lesions. PANCREAS: No masses. No significant calcifications. No adjacent inflammation or peripancreatic fluid collections. Pancreatic duct not dilated. GALLBLADDER: Surgically absent. ADRENAL GLANDS: No significant masses or asymmetry. RIGHT KIDNEY AND URETER: No solid masses. No significant calcifications. No hydronephrosis or hyd roureter. LEFT KIDNEY AND URETER: No solid masses. No significant calcifications. No hydronephrosis or hydr oureter. AORTA AND VESSELS: No aneurysm. No dissection. Renal arteries, SMA, celiac without stenosis. RETROPERITONEUM: No retroperitoneal adenopathy, hemorrhage or masses. BOWEL AND PERITONEAL CAVITY: No masses or inflammatory changes. No free fluid or peritoneal masses. APPENDIX: Normal. PELVIS: No mass. No free fluid. Normal bladder. ABDOMINAL WALL: No masses. No hernias. BONES: No acute findings. OTHER: No other significant finding. IMPRESSION: NO ACUTE FINDING IN THE ABDOMEN OR PELVIS ON CT SCAN WITH IV CONTRAST. TECHNICAL DOCUMENTATION: JOB ID: [id number] Quality ID # [id number]: Final reports with documentation of one or more dose reduction techniques (e.g., Au tomated exposure control, adjustment of the mA and/or kV according to patient size, use of iterative reconstruction technique) 2010 [employer]- All Rights Reserved
[2017-09-09 23:37] VITALS: BP 145/90
== END 2017-09-09 23:46 | disposition home or self-care (01) ==
LOC: ER 17:27
DX: E86.0 Dehydration (principal); R11.2 Nausea with vomiting, unspecified; R10.9 Unspecified abdominal pain
CPT/HCPCS: 99284; 96372; 96361; 96374; 96375; 36415; 83690; 85025; 80053; 74022; 74177; J0500; J1885; J2270; J2405; J7030

== ENCOUNTER 2017-09-11 14:40 | Emergency (ER) | payer OTHER ==
[2017-09-11] MEDS ORDERED: ONDANSETRON HCL 8 MG TABLET PO ONE (18:45)
[2017-09-11] MEDS ORDERED: NORMAL SALINE 500 ML IV ONE (18:45)
[2017-09-11] MEDS ORDERED: MORPHINE SULFATE 10 MG/ML INJ IM ONE (18:45)
[2017-09-11 19:30] LABS: APPEARANCE,URINE SLIGHTLY-CLOUDY; BILIRUBIN,URINE NEGATIVE (NEGATIVE); GLUCOSE, URINE NEGATIVE (NEGATIVE); KETONES,URINE 20 mg/dL (NEGATIVE); LEUKOCYTE ESTERASE,URINE NEGATIVE (NEGATIVE); NITRITE,URINE NEGATIVE (NEGATIVE); PROTEIN,URINE NEGATIVE (NEGATIVE); URINE SPECIFIC GRAVITY 1.015; UROBILINOGEN,URINE NEGATIVE mg/dL (<2.0)
--- NOTE | 2017-09-11 19:49 | ER Document Report ---
ED Medical Screen (RME) - General Mode of Arrival: Ambulatory Information source: Patient TRAVEL OUTSIDE OF THE [place] IN LAST 30 DAYS: No - General Chief Complaint: Nausea/Vomiting Stated Complaint: NAUSEA, STOMACH PAIN Time Seen by Provider: 09/11/17 18:45 Notes: Patient reports 2 days of persistent vomiting. Patient states she was seen here 2 days ago for the same thing and was discharged home with Zofran and "another medication" but she reports that she has not been getting her medications very often from staff at [facility]. Patient had recent vascular surgery on the 25 of August secondary to poor perfusion to toes on the left foot. Patient denies abdominal pain. (ROB RUSSELL) - Related Data Allergies/Adverse Reactions: metoclopramide [From Reglan] Allergy (Verified 09/11/17 15:37) Past Medical History - General Information source: COUNT INCLUDES THE [facility] Records - Social History Cigarette use (# per day): No Chew tobacco use (# tins/day): No Frequency of alcohol use: None Drug Abuse: None - Past Medical History Cardiac Medical History: Reports: Hx Coronary Artery Disease, Hx Heart Attack - STENT X 1, Hx Hypercholesterolemia, Hx Hypertension - MEDICATED Pulmonary Medical History: Reports: Hx Asthma, Hx Pneumonia Denies: Hx Bronchitis, Hx COPD Neurological Medical History: Reports: 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 Denies: Hx Seizures Endocrine Medical History: Reports: Hx Diabetes Mellitus Type 2, Hx Graves' Disease, Hx Hypothyroidism Renal/ Medical History: Denies: Hx Peritoneal Dialysis GI Medical History: Reports: Hx Diverticulitis, Hx Gastritis. Denies: Hx Hepatitis, Hx Hiatal Hernia, Hx Ulcer Musculoskeltal Medical History: Reports Hx Arthritis, Reports Hx Musculoskeletal Deformity, Reports Hx Musculoskeletal Trauma Psychiatric Medical History: Reports: Hx Depression Traumatic Medical History: Reports: Hx Fractures Infectious Medical History: Denies: Hx Hepatitis Past Surgical History: Reports: Hx Cardiac Catheterization, Hx Cholecystectomy, Hx Coronary Stent, Hx Dilation and Curettage, Hx Orthopedic Surgery, Hx Tonsillectomy. Denies: Hx Hysterectomy, Hx Mastectomy, Hx Open Heart Surgery, Hx Pacemaker - Immunizations Immunizations up to date: No Hx Diphtheria, Pertussis, Tetanus Vaccination: No Review of Systems - Review of Systems Gastrointestinal: See HPI, Vomiting. denies: Abdominal pain Musculoskeletal: See HPI, Other - left leg pain Physical Exam - Vital signs Vitals: Temp Pulse Resp BP Pulse Ox 99.3 F 69 16 168/108 H 100 09/11/17 15:37 09/11/17 15:37 09/11/17 15:37 09/11/17 15:37 09/11/17 15:37 - Notes Notes: Physical Exam: General: Alert, appears well. HEENT: Normocephalic. Atraumatic. PERRLA. Extraocular movements intact. Oropharynx clear. Neck: Supple. Respiratory: No respiratory distress. Abdominal: Normal Inspection. No distension. Extremities: Fresh stabled incisions to left leg. Moves all four extremities. Neurological: Normal cognition. AAOx4. Normal speech. Psychological: Normal affect. Normal Mood. Skin: Warm. Dry. Normal color. (ROB RUSSELL) Course - Re-evaluation Re-evalutation: 09/11/17 21:10 I have greeted this patient and performed a rapid initial assessment. A comprehensive evaluation will be performed by another physician within the emergency department, including review of any tests I may have ordered. ( LIZA EGAN) - Vital Signs Vital signs: Temp Pulse Resp BP Pulse Ox 99.3 F 69 16 168/108 H 100 09/11/17 15:37 09/11/17 15:37 09/11/17 15:37 09/11/17 15:37 09/11/17 15:37 - Laboratory Laboratory results interpreted by me: 09/11/17 18:50 Urine Ketones 20 H Urine Blood SMALL H Scribe Documentation - Scribe Written by Scribe:: Rob Russell, Flores, [id number]/11/20171951 acting as scribe for :: Alicia
[2017-09-11 23:04] LABS: ABSOLUTE BASOPHILS # (AUTO) 0.1 10^3/uL (0.0-0.2); ABSOLUTE EOSINOPHILS # (AUTO) 0.1 10^3/uL (0.0-0.6); ABSOLUTE MONOCYTES (AUTO) 0.9 10^3/uL (0.1-1.4); ABSOLUTE NEUT (AUTO) 6.4 10^3/uL (1.7-8.2); BASOPHILS % (AUTO) 0.8 % (0-2); EOSINOPHILS % (AUTO) 1.4 % (0-6); HEMATOCRIT 29.4 % (36.0-47.0); HEMOGLOBIN 10.1 g/dL (12.0-15.5); HGB HCT DIFFERENCE 0.9; LYMPHOCYTES % (AUTO) 28.7 % (13-45); MEAN CORPUSCULAR HEMOGLOBIN 29.7 pg (27.0-33.4); MEAN CORPUSCULAR HGB CONC 34.4 g/dL (32.0-36.0); MEAN CORPUSCULAR VOLUME 87 fl (80-97); MONOCYTES % (AUTO) 8.2 % (3-13); RED CELL DISTRIBUTION WIDTH 13.8 % (11.5-14.0); SEGMENTED NEUTROPHILS % (AUTO) 60.9 % (42-78); WHITE BLOOD COUNT 10.6 10^3/uL (4.0-10.5)
[2017-09-11 23:09] LABS: ALANINE AMINOTRANSFERASE 24 U/L (9-52); ALBUMIN 3.7 g/dL (3.5-5.0); ALKALINE PHOSPHATASE 64 U/L (38-126); ANION GAP 17 (5-19); ASPARTATE AMINO TRANSFERASE 25 U/L (14-36); BILIRUBIN,DIRECT 0.6 mg/dL (0.0-0.4); BILIRUBIN,TOTAL 0.7 mg/dL (0.2-1.3); BLOOD UREA NITROGEN 21 mg/dL (7-20); CALCIUM 9.7 mg/dL (8.4-10.2); CARBON DIOXIDE 18 mmol/L (22-30); CHLORIDE 107 mmol/L (98-107); CREATININE RESULT 1.05 mg/dL (0.52-1.25); GLUCOSE 77 mg/dL (75-110); LIPASE 185.3 U/L (23-300); POTASSIUM 4.6 mmol/L (3.6-5.0); SODIUM 141.5 mmol/L (137-145); TOTAL PROTEIN 7.1 g/dL (6.3-8.2)
--- NOTE | 2017-09-12 01:01 | ER Document Report ---
ED General - General Chief Complaint: Nausea/Vomiting Stated Complaint: NAUSEA, STOMACH PAIN Time Seen by Provider: 09/11/17 18:45 Mode of Arrival: Ambulatory Notes: Patient is a 61-year-old female sent from senior living because of vomiting. Patient says that since her surgery she has had nausea and some vomiting. She says when she gets Zofran the nausea goes away and she is able to hold down foods. She is prescribed Zofran however she says senior living is only given it to her once a day. I did review her Brenden from the senior living and it also shows that she only received it once today. According to the senior living paperwork is prescribed every 6 hours. She did recently have surgery on her left leg. She has a wound VAC over left inguinal area. She denies any recent fevers. She was on antibiotics but no longer is. She admits to some mild abdominal pain and left upper quadrant. TRAVEL OUTSIDE OF THE [place] IN LAST 30 DAYS: No - Related Data Allergies/Adverse Reactions: metoclopramide [From Reglan] Allergy (Verified 09/11/17 15:37) Past Medical History - General Information source: [facility] Records - Social History Smoking Status: Never Smoker Cigarette use (# per day): No Chew tobacco use (# tins/day): No Frequency of alcohol use: None Drug Abuse: None Family History: Reviewed & Not Pertinent Patient has suicidal ideation: No Patient has homicidal ideation: No - Past Medical History Cardiac Medical History: Reports: Hx Coronary Artery Disease, Hx Heart Attack - STENT X 1, Hx Hypercholesterolemia, Hx Hypertension - MEDICATED Pulmonary Medical History: Reports: Hx Asthma, Hx Pneumonia Denies: Hx Bronchitis, Hx COPD Neurological Medical History: Reports: 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 Denies: Hx Seizures Endocrine Medical History: Reports: Hx Diabetes Mellitus Type 2, Hx Graves' Disease, Hx Hypothyroidism Renal/ Medical History: Denies: Hx Peritoneal Dialysis GI Medical History: Reports: Hx Diverticulitis, Hx Gastritis. Denies: Hx Hepatitis, Hx Hiatal Hernia, Hx Ulcer Musculoskeltal Medical History: Reports Hx Arthritis, Reports Hx Musculoskeletal Deformity, Reports Hx Musculoskeletal Trauma Psychiatric Medical History: Reports: Hx Depression Traumatic Medical History: Reports: Hx Fractures Infectious Medical History: Denies: Hx Hepatitis Past Surgical History: Reports: Hx Cardiac Catheterization, Hx Cholecystectomy, Hx Coronary Stent, Hx Dilation and Curettage, Hx Orthopedic Surgery, Hx Tonsillectomy. Denies: Hx Hysterectomy, Hx Mastectomy, Hx Open Heart Surgery, Hx Pacemaker - Immunizations Immunizations up to date: No Hx Diphtheria, Pertussis, Tetanus Vaccination: No Hx Pneumococcal Vaccination: 09/30/12 Review of Systems - Review of Systems Notes: My Normal Review Basic REVIEW OF SYSTEMS: CONSTITUTIONAL : Denies fever, chills, or sweats. Denies recent illness. RESPIRATORY: Denies cough, cold, or chest congestion. Denies shortness of breath, difficulty breathing, or wheezing. GASTROINTESTINAL: Some left upper quadrant abdominal pain. Nausea vomiting.: GENITOURINARY: Denies difficulty urinating, painful urination, burning, frequency, or blood in urine. MUSCULOSKELETAL: Denies neck or back pain or joint pain or swelling. SKIN: Denies rash or skin lesions. NEUROLOGICAL: Denies altered mental status or loss of consciousness. Denies headache. Denies weakness or paralysis or loss of use of either side. Denies problems with gait or speech. Denies sensory or motor loss. ALL OTHER SYSTEMS REVIEWED AND NEGATIVE. Physical Exam - Vital signs Vitals: Temp Pulse Resp BP Pulse Ox 99.3 F 69 16 168/108 H 100 09/11/17 15:37 09/11/17 15:37 09/11/17 15:37 09/11/17 15:37 09/11/17 15:37 - Notes Notes: General Appearance: Well nourished, alert, cooperative, no acute distress, no obvious discomfort. Well-appearing. Vitals: reviewed, See vital signs table. Head: no swelling or tenderness to the head Eyes: PERRL, EOMI, Conjuctiva clear Mouth: No decreasd moisture Lungs: No wheezing, No rales, No rhonci, No accessory muscle use, good air exchange bilaterally. Heart: Normal rate, Regular rythm, No murmur, no rub Abdomen: Normal BS, soft, No rigidity, when I push over the patient's abdomen she is says that it just makes her feel nauseous but does not actually hurt., No guarding, no rebound, no abdominal masses, no organomegaly Extremities: strength 5/5 in all extremities, good pulses in all extremities, patient has 2 incision sites on the left leg as well as a wound with a wound VAC. Skin edges around the wound VAC sponge are normal appearing. The surgical incision sites have just very mild localized erythema which is expected postoperatively. No spreading erythema. No abnormal drainage. No signs of infection. Skin: warm, dry, appropriate color, no rash Neuro: speech clear, oriented x 3, normal affect, responds appropriately to questions. Course - Re-evaluation Re-evalutation: 09/12/17 05:52 Kael the patient safe to be discharged home. She says her nausea is completely resolved after the Zofran we gave her here. I did give her some IV fluids asked her chemistry panel showed a mild acidosis suggesting some dehydration. I did call and speak with Marisa Son. I informed him the importance of actually giving the patient the medication as as prescribed. I will increase to every 4 hours. They agreed to start giving the patient her medication for her nausea as it is prescribed. Encourage patient to return to ER if she has recurrent vomiting, pain in her abdomen, fevers, or she feels unwell. Patient agrees with plan will be discharged home. Dictation of this chart was performed using voice recognition software; therefore, there may be some unintended grammatical errors. - Vital Signs Vital signs: Temp Pulse Resp BP Pulse Ox 98.4 F 69 18 142/81 H 100 09/12/17 01:00 09/11/17 15:37 09/12/17 01:01 09/12/17 01:01 09/12/17 01:01 - Laboratory Result Diagrams: 09/11/17 22:48 09/11/17 22:48 Laboratory results interpreted by me: 09/11/17 09/11/17 09/11/17 18:50 22:48 22:48 WBC 10.6 H RBC 3.40 L Hgb 10.1 L Hct 29.4 L Carbon Dioxide 18 L BUN 21 H Est GFR (Non-Af Amer) 53 L Direct Bilirubin 0.6 H Urine Ketones 20 H Urine Blood SMALL H Discharge - Discharge Clinical Impression: Vomiting Qualifiers: Vomiting type: unspecified Vomiting Intractability: unspecified Nausea presence : with nausea Qualified Code(s): R11.2 - Nausea with vomiting, unspecified Condition: Good Disposition: HOME, SELF-CARE Additional Instructions: Please take your Zofran every 4 hours to help prevent nausea and vomiting. Please return to the ER immediately if you have intractable vomiting, abdominal pain, fevers, or feel that you are worsening. Prescriptions: Ondansetron [Zofran Odt 4 mg Tablet] 1 tab PO Q4H PRN #30 tab.rapdis PRN Reason: For Nausea/Vomiting Referrals: XIMENA ISAAC MD [Primary Care Provider] - Follow up as needed
[2017-09-12 01:16] VITALS: BP 142/81
== END 2017-09-12 01:15 | disposition home or self-care (01) ==
LOC: ER 14:40
DX: R11.2 Nausea with vomiting, unspecified (principal); R10.12 Left upper quadrant pain; I25.10 Atherosclerotic heart disease of native coronary artery without angina pectoris; E78.00 Pure hypercholesterolemia, unspecified; I10 Essential (primary) hypertension; E11.9 Type 2 diabetes mellitus without complications; I69.954 Hemiplegia and hemiparesis following unspecified cerebrovascular disease affecting left non-dominant side; Z90.49 Acquired absence of other specified parts of digestive tract; I25.2 Old myocardial infarction
CPT/HCPCS: 99284; 96372; 36415; 83690; 85025; 80053; 81001; J2270; S0119

== ENCOUNTER 2017-11-08 15:40 | Observation (INO) | payer OTHER ==
[2017-11-08 17:31] LABS: ABSOLUTE EOSINOPHILS # (AUTO) 0.1 10^3/uL (0.0-0.6); ABSOLUTE LYMPHOCYTES (AUTO) 1.2 10^3/uL (0.5-4.7); ABSOLUTE MONOCYTES (AUTO) 0.4 10^3/uL (0.1-1.4); ABSOLUTE NEUT (AUTO) 3.1 10^3/uL (1.7-8.2); BASOPHILS % (AUTO) 0.5 % (0-2); EOSINOPHILS % (AUTO) 2.8 % (0-6); HEMATOCRIT 29.1 % (36.0-47.0); HEMOGLOBIN 9.7 g/dL (12.0-15.5); LYMPHOCYTES % (AUTO) 24.7 % (13-45); MEAN CORPUSCULAR HEMOGLOBIN 30.3 pg (27.0-33.4); MEAN CORPUSCULAR HGB CONC 33.3 g/dL (32.0-36.0); MEAN CORPUSCULAR VOLUME 91 fl (80-97); MONOCYTES % (AUTO) 7.3 % (3-13); RED CELL DISTRIBUTION WIDTH 19.3 % (11.5-14.0); SEGMENTED NEUTROPHILS % (AUTO) 64.7 % (42-78); WHITE BLOOD COUNT 4.9 10^3/uL (4.0-10.5)
[2017-11-08 17:41] LABS: ANION GAP 13 (5-19); BLOOD UREA NITROGEN 17 mg/dL (7-20); CALCIUM 9.5 mg/dL (8.4-10.2); CARBON DIOXIDE 25 mmol/L (22-30); CHLORIDE 103 mmol/L (98-107); CREATININE RESULT 0.99 mg/dL (0.52-1.25); GLUCOSE 166 mg/dL (75-110); POTASSIUM 4.7 mmol/L (3.6-5.0); SODIUM 141.2 mmol/L (137-145)
--- NOTE | 2017-11-08 17:48 | ER Document Report ---
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 Patient was discharged from rehab a few days ago. Patient states she changes her bandages daily herself. Patient states she developed a fever today. Patient states she has had some dysuria and suprapubic discomfort with urination for 8-9 weeks. For the last 3 days she has aslo had some slight pain and some redness around the scar site. She denies any discharge to the site. She states she has a chronic appearing ulcer to the anterior part of her jamison. She states that has not changed in size. She states she did have a fever of 101 today. Patient denies any fever sore such as runny nose, congestion, sore throat, or cough. She states she was treated for urinary tract infection but the pain is persisted since that time. She denies any nausea, vomiting, or diarrhea. She states the surgeon at [facility] was Dr. Erickson. TRAVEL OUTSIDE OF THE [place] IN LAST 30 DAYS: No - HPI Onset: Other - See above Onset/Duration: Gradual Quality of pain: Achy Severity: Mild Pain Level: 1 Associated symptoms: Other - See above Exacerbated by: Denies Relieved by: Denies Similar symptoms previously: Yes Recently seen / treated by doctor: Yes - Related Data Allergies/Adverse Reactions: metoclopramide [From Reglan] Allergy (Verified 09/11/17 15:37) Past Medical History - General Information source: Patient - Social History Smoking Status: Former Smoker Cigarette use (# per day): No Chew tobacco use (# tins/day): No Smoking Education Provided: No Frequency of alcohol use: None Drug Abuse: None Family History: Reviewed & Not Pertinent Patient has suicidal ideation: No Patient has homicidal ideation: No - Past Medical History Cardiac Medical History: Reports: Hx Coronary Artery Disease, Hx Heart Attack - STENT X 1, Hx Hypercholesterolemia, Hx Hypertension - MEDICATED Pulmonary Medical History: Reports: Hx Asthma, Hx Pneumonia Denies: Hx Bronchitis, Hx COPD Neurological Medical History: Reports: 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 Denies: Hx Seizures Endocrine Medical History: Reports: Hx Diabetes Mellitus Type 2, Hx Graves' Disease, Hx Hypothyroidism Renal/ Medical History: Denies: Hx Peritoneal Dialysis GI Medical History: Reports: Hx Diverticulitis, Hx Gastritis. Denies: Hx Hepatitis, Hx Hiatal Hernia, Hx Ulcer Musculoskeltal Medical History: Reports Hx Arthritis, Reports Hx Musculoskeletal Deformity, Reports Hx Musculoskeletal Trauma Psychiatric Medical History: Reports: Hx Depression Traumatic Medical History: Reports: Hx Fractures Infectious Medical History: Denies: Hx Hepatitis Past Surgical History: Reports: Hx Cardiac Catheterization, Hx Cholecystectomy, Hx Coronary Stent, Hx Dilation and Curettage, Hx Orthopedic Surgery, Hx Tonsillectomy. Denies: Hx Hysterectomy, Hx Mastectomy, Hx Open Heart Surgery, Hx Pacemaker - Immunizations Immunizations up to date: No Hx Diphtheria, Pertussis, Tetanus Vaccination: No Hx Pneumococcal Vaccination: 09/30/12 Review of Systems - Review of Systems Constitutional: Fever EENT: denies: Eye discharge, Nose congestion, Nose discharge Cardiovascular: denies: Chest pain, Palpitations, Dizziness, Lightheaded Respiratory: denies: Cough, Short of breath Gastrointestinal: denies: Vomiting Genitourinary: Dysuria Musculoskeletal: denies: Leg swelling Skin: Other - no hives. denies: Rash Neurological/Psychological: Other - no slurred speech -: Yes All other systems reviewed and negative Physical Exam - Vital signs Notes: Reviewed vital signs and nursing note as charted by RN. CONSTITUTIONAL: Alert and oriented and responds appropriately to questions. Well -appearing; well-nourished HEAD: Normocephalic; atraumatic EYES: PERRL; Conjunctivae clear, sclerae non-icteric ENT: Normal nose; no rhinorrhea; moist mucous membranes; pharynx without lesions noted NECK: Supple without meningismus; non-tender CARD: Regular rate and rhythm; no murmurs; pt has excellent capillary refill to bilateral hands and right foot RESP: Normal chest excursion without splinting or tachypnea; breath sounds clear and equal bilaterally; no wheezes, no rhonchi, no rales ABD/GI: Normal bowel sounds; non-distended; soft, non-tender BACK: The back appears normal and is non-tender to palpation, there is no CVA tenderness EXT: Patient has a left BKA. Arash are clean dry and intact. There is minimal erythema without fluctuance or discharge around the wound closure site. There is a left anterior medial ulcer-like lesion that the patient states has not increased in size recently and is actually shrunken since surgery SKIN: See above NEURO: Moves all other extremities equally; Motor and sensory function intact PSYCH: The patient's mood and manner are appropriate. Grooming and personal hygiene are appropriate. Course - Re-evaluation Re-evalutation: 11/08/17 17:46 Given the above history and physical examination, we will perform basic labs, blood cultures, catheterized urine specimen, and an x-ray of the left BKA. I would like to evaluate for any possible obvious osteomyelitis. I would also like to determine if the patient's fever source is urinary tract infection. 11/08/17 18:16 I do not detect any pelvic lesions, prolapse, or skin breakdown at this time on exam. 11/08/17 18:35 X-ray shows no obvious osteomyelitis. Normal white blood cell count. Normal chemistry. 11/08/17 18:58 Lactic acid is recorded. We are still awaiting the urine analysis. 11/08/17 19:07 Patient's catheterized urine shows a urinalysis as recorded with white blood cell clumps. BP is stable. Given the catheterized urine analysis as recorded, urine culture has been sent. Rocephin has been started. No obvious osteomyelitis on x-ray. I believe given the catheterized urine analysis site, and the appearance of the left leg, that we were able to be able to treat the patient at this facility at this time. 11/08/17 19:20 Dr. Bishop has accepted for Dr. Hernandez. Patient states she has a history of mild congestive heart failure. I have provided two Liters of fluid and believe that this is sufficient at this time. - Laboratory Result Diagrams: 11/08/17 16:22 11/08/17 16:22 Laboratory results interpreted by me: 11/08/17 11/08/17 11/08/17 16:22 16:22 16:22 RBC 3.20 L Hgb 9.7 L Hct 29.1 L RDW 19.3 H Est GFR (Non-Af Amer) 57 L Glucose 166 H Lactic Acid 2.3 H Urine Protein Urine Blood Ur Leukocyte Esterase 11/08/17 18:16 RBC Hgb Hct RDW Est GFR (Non-Af Amer) Glucose Lactic Acid Urine Protein 100 H Urine Blood MODERATE H Ur Leukocyte Esterase LARGE H Discharge - Discharge Clinical Impression: UTI (urinary tract infection) Qualifiers: Urinary tract infection type: site unspecified Hematuria presence: without hematuria Qualified Code(s): N39.0 - Urinary tract infection, site not specified Sepsis Qualifiers: Sepsis type: sepsis due to unspecified organism Qualified Code(s): A41.9 - Sepsis, unspecified organism Condition: Fair Disposition: ADMITTED INPATIENT Admitting Provider: [facility] Admitted: Medical Floor Referrals: XIMENA ISAAC MD [Primary Care Provider] - Follow up as needed
[2017-11-08] MEDS ORDERED: ACETAMINOPHEN 325 MG TABLET PO ONE (18:17)
[2017-11-08] MEDS ORDERED: MORPHINE SULFATE 10 MG/ML INJ IV ONE (18:19)
--- NOTE | 2017-11-08 18:33 | RADIOLOGY REPORT (SQ) ---
EXAM DESCRIPTION: KNEE LEFT 4 VIEW COMPLETED DATE/TIME: 11/08/2017 6:23 pm REASON FOR STUDY: 8, eval for osteo s/p AKA COMPARISON: None. NUMBER OF VIEWS: Four views. TECHNIQUE: AP, lateral, and both oblique radiographic images acquired of the left knee. LIMITATIONS: None. FINDINGS: MINERALIZATION: Normal. BONES: No acute fracture or dislocation. No radiographic evidence for osteomyelitis.. JOINT: No effusion. SOFT TISSUES: Mild soft tissue swelling. Postsurgical changes from recent below the knee amputation. Multiple vascular clips and surgical citlali. OTHER: No other significant finding. IMPRESSION: No radiographic evidence for osteomyelitis. TECHNICAL DOCUMENTATION: JOB ID: [id number] [id number] 2010 [employer]- All Rights Reserved
[2017-11-08 18:55] LABS: APPEARANCE,URINE CLOUDY; BILIRUBIN,URINE NEGATIVE (NEGATIVE); GLUCOSE, URINE NEGATIVE (NEGATIVE); KETONES,URINE NEGATIVE (NEGATIVE); LEUKOCYTE ESTERASE,URINE LARGE (NEGATIVE); NITRITE,URINE NEGATIVE (NEGATIVE); PROTEIN,URINE 100 mg/dL (NEGATIVE); URINE SPECIFIC GRAVITY 1.019; UROBILINOGEN,URINE NEGATIVE mg/dL (<2.0)
[2017-11-08] MEDS ORDERED: CEFTRIAXONE 1 GM/D5W RTU 1 GM/50 ML RTUPB IV ONE (18:58)
[2017-11-08] MEDS ORDERED: NORMAL SALINE 1000 ML 1,000 ML IV ONE ×2 (19:03→19:13)
[2017-11-09] MEDS ORDERED: OXYCODONE-ACETAMINOPHEN 5-325 MG TABLET ONE (04:39)
[2017-11-09] MEDS: OXYCODONE-ACETAMINOPHEN 5-325 MG TABLET PO PRN ×4 (04:47→20:36)
[2017-11-09] MEDS ORDERED: INSULIN LISPRO 100 UNIT/ML 3 ML VIAL SUBCUT PRN (13:06)
[2017-11-09] MEDS ORDERED: DEXTROSE 40% GEL 15 GM TUBE PO PRN ×2 (13:06)
[2017-11-09] MEDS ORDERED: DEXTROSE 50%-WATER 25 GM/50 ML DISP.SYRIN IV PRN ×2 (13:06)
[2017-11-09] MEDS ORDERED: GLUCAGON,HUMAN RECOMB 1 MG INJ IM PRN (13:06)
[2017-11-09] MEDS ORDERED: NORMAL SALINE 1000 ML 1,000 ML IV PRN (13:13)
[2017-11-09] MEDS: HEPARIN SOD (PORCINE) 5,000 UNIT/ML 1 ML SYRINGE SUBCUT SCH ×2 (16:13→21:22)
[2017-11-09] MEDS ORDERED: ALBUTEROL SULFATE HFA (90 MCG/PUFF) 8 GM MDI (1 MDI/ER DISP) IH PRN (16:28)
[2017-11-09] MEDS ORDERED: ALPRAZOLAM 0.5 MG TABLET PO PRN (16:28)
[2017-11-09] MEDS ORDERED: DOCUSATE SODIUM 100 MG CAPSULE PO PRN (16:28)
[2017-11-09] MEDS ORDERED: (PENDING PHARMACY ID) (Solifenacin Succinate [Vesicare] 10 MG) PO SCH (16:30)
[2017-11-09] MEDS ORDERED: (PENDING PHARMACY ID) (Levothyroxine Sodium [Synthroid] 175 MCG) PO SCH (16:30)
[2017-11-09] MEDS ORDERED: (PENDING PHARMACY ID) (Iron Ps Complex/B12/Folic Acid [Poly-Iron 150 Forte Capsule] 1 CAP) PO SCH (16:30)
--- NOTE | 2017-11-09 17:08 | PDOC H&P ---
History of Present Illness Admission Date/PCP: 11/08/17 19:27 XIMENA ISAAC MD History of Present Illness: JOSIE BAIRES is a 61 year old female, she recently had a left [id number] amputation she could emergency room last night because she feels feverish and because there is erythema at the stump, there is still citlali in place from recent surgery. He was also found to have abnormal urinalysis that suggest urinary tract infection. She was evaluated in the emergency room, there was no leukocytosis when she arrived, the electrolytes are normal. She has no chest pain or shortness of breath Past Medical History Cardiac Medical History: Reports: Coronary Artery Disease, Myocardial Infarction , Hyperlipidema, Hypertension Pulmonary Medical History: Reports: Asthma, Pneumonia Endocrine Medical History: Reports: Diabetes Mellitus Type 2, Hypothyroidism GI Medical History: Reports: Diverticulitis Musculoskeltal Medical History: Reports: Arthritis Hematology: Reports: Anemia Past Surgical History Past Surgical History: Reports: Cardiac Catheterization, Cholecystectomy, Coronary Stent, Orthopedic Surgery, Tonsillectomy Social History Smoking Status: Never Smoker Frequency of Alcohol Use: Rare Hx Recreational Drug Use: No Drugs: None Hx Prescription Drug Abuse: No Family History Family History: Reviewed & Not Pertinent Parental Family History Reviewed: Yes Children Family History Reviewed: Yes Sibling(s) Family History Reviewed.: Yes Medication/Allergy Home Medications: Albuterol Sulfate [Proventil Hfa] 2 puff IN Q4HP PRN 11/09/17 Alprazolam [Xanax 0.5 mg Tablet] 0.5 mg PO Q8HP PRN 11/09/17 Atorvastatin Calcium [Lipitor 20 mg Tablet] 20 mg PO QHS 11/09/17 Citalopram Hydrobromide [Celexa 20 mg Tablet] 20 mg PO DAILY 11/09/17 Clopidogrel Bisulfate [Plavix 75 mg Tablet] 75 mg PO DAILY 11/09/17 Cyanocobalamin (Vitamin B-12) [Vitamin B-12 Inj 1000 Mcg/1 ml Vial] 1,000 mcg IM [id number] 11/09/17 Docusate Sodium [Colace 100 mg Capsule] 100 mg PO DAILYP PRN 11/09/17 Insulin Glargine,Hum.rec.anlog [Lantus Insulin 100 Unit/1 ml 10 ml] 35 unit SQ DAILY 11/09/17 Iron Ps Complex/B12/Folic Acid [Poly-Iron 150 Forte Capsule] 1 cap PO DAILY 10/16 Isosorbide Mononitrate [Imdur 60 mg Tablet.er] 60 mg PO DAILY 11/09/17 Levocetirizine Dihydrochloride [Xyzal] 5 mg PO QPM 11/09/17 Levothyroxine Sodium [Synthroid] 175 mcg PO Q6AM 11/09/17 Linaclotide [Linzess] 290 mcg PO DAILY 11/09/17 Lisinopril [Prinivil] 20 mg PO DAILY 11/09/17 Metoprolol Tartrate [Lopressor 25 mg Tablet] 37.5 mg PO Q12 11/09/17 Montelukast Sodium [Singulair 10 mg Tablet] 10 mg PO QPM 11/09/17 [place]-3 Acid Ethyl Esters [Lovaza 1 gm Capsule] 2 gm PO BID 11/09/17 Pantoprazole Sodium [Protonix] 40 mg PO DAILY 11/09/17 Solifenacin Succinate [Vesicare] 10 mg PO DAILY 11/09/17 Valsartan [Diovan 160 mg Tablet] 160 mg PO DAILY 11/09/17 Allergies/Adverse Reactions: metoclopramide [From Reglan] Allergy (Verified 09/11/17 15:37) Review of Systems Constitutional: PRESENT: fever(s) Eyes: ABSENT: visual disturbances Ears: ABSENT: hearing changes Cardiovascular: ABSENT: chest pain, dyspnea on exertion, edema, orthropnea, palpitations Respiratory: ABSENT: cough, hemoptysis Gastrointestinal: ABSENT: abdominal pain, constipation, diarrhea, hematemesis, hematochezia, nausea, vomiting Genitourinary: PRESENT: dysuria Musculoskeletal: ABSENT: joint swelling Integumentary: ABSENT: rash, wounds Neurological: ABSENT: abnormal gait, abnormal speech, confusion, dizziness, focal weakness, syncope Psychiatric: ABSENT: anxiety, depression, homidical ideation, suicidal ideation Endocrine: ABSENT: cold intolerance, heat intolerance, menstrual abnormalities, polydipsia, polyuria Hematologic/Lymphatic: ABSENT: easy bleeding, easy bruising, lymphadenopathy Physical Exam Vital Signs: Temp Pulse Resp BP Pulse Ox 98.2 F 85 18 116/96 H 100 11/09/17 13:53 11/09/17 14:00 11/09/17 13:53 11/09/17 13:53 11/09/17 13:53 General appearance: PRESENT: no acute distress, well-developed, well-nourished Head exam: PRESENT: atraumatic, normocephalic Eye exam: PRESENT: PERRLA Ear exam: PRESENT: normal external ear exam Mouth exam: PRESENT: moist, tongue midline Neck exam: PRESENT: full ROM Respiratory exam: PRESENT: clear to auscultation urvashi Cardiovascular exam: PRESENT: RRR, +S1, +S2 Pulses: PRESENT: normal dorsalis pedis pul, +2 pedal pulses bilateral Vascular exam: PRESENT: normal capillary refill GI/Abdominal exam: PRESENT: normal bowel sounds, soft Rectal exam: PRESENT: deferred Extremities exam: PRESENT: right BKA, other - There is erythema, oval shaped ulcer in the medial aspect of the stump, it is well granulated, there is stapled in place Neurological exam: PRESENT: alert, other - Left sided weakness. ABSENT: motor sensory deficit Psychiatric exam: PRESENT: appropriate affect, normal mood. ABSENT: homicidal ideation, suicidal ideation Skin exam: PRESENT: dry, intact, warm. ABSENT: cyanosis, rash Results Laboratory Results: 11/08/17 22:30 Lactic Acid 1.1 Impressions: Knee X-Ray 11/08/17 17:11 IMPRESSION: No radiographic evidence for osteomyelitis. Assessment & Plan - Diagnosis (1) UTI (urinary tract infection) Qualifiers: Urinary tract infection type: site unspecified Hematuria presence: without hematuria Qualified Code(s): N39.0 - Urinary tract infection, site not specified Is this a current diagnosis for this admission?: Yes Plan: Patient is admitted into the hospital for management with IV antibiotic for observation (2) Wound cellulitis Is this a current diagnosis for this admission?: Yes Plan: Consultation will be requested from surgery for evaluation of this stump (3) Status post below knee amputation of left lower extremity Is this a current diagnosis for this admission?: Yes
[2017-11-09] MEDS ORDERED: ALBUTEROL SULFATE HFA (90 MCG/PUFF) 200 PUFF/8.5 GM MDI IH PRN (17:29)
[2017-11-09] MEDS ORDERED: VALSARTAN 160 MG TABLET PO ONE (17:30)
[2017-11-09] MEDS ORDERED: CITALOPRAM HYDROBROMIDE 20 MG TABLET PO ONE (17:30)
[2017-11-09] MEDS ORDERED: CLOPIDOGREL BISULFATE 75 MG TABLET PO ONE (17:30)
[2017-11-09] MEDS ORDERED: INSULIN GLARGINE,HUM.REC.ANLOG 1,000 UNIT/10 ML UNIT SUBCUT ONE (18:00)
[2017-11-09] MEDS ORDERED: ISOSORBIDE MONONITRATE 60 MG TAB.ER.24H PO ONE (18:00)
[2017-11-09] MEDS ORDERED: LEVOTHYROXINE SODIUM 0.1 MG TABLET PO ONE (18:00)
[2017-11-09] MEDS ORDERED: LEVOTHYROXINE SODIUM 0.075 MG TABLET PO ONE (18:00)
[2017-11-09] MEDS: MONTELUKAST SODIUM 10 MG TABLET PO SCH (18:24)
[2017-11-09] MEDS: METOPROLOL TARTRATE 25 MG TABLET PO SCH (18:25)
[2017-11-09] MEDS: OMEGA-3 ACID ETHYL ESTERS 1 GM CAPSULE PO SCH (18:26)
[2017-11-09] MEDS: CEFTRIAXONE 1 GM/D5W RTU 1 GM/50 ML RTUPB IV SCH (18:28)
[2017-11-09] MEDS ORDERED: LANSOPRAZOLE 30 MG TAB.RAP.DR PO ONE (18:30)
[2017-11-09] MEDS ORDERED: IRON POLYSACCHARIDES COMPLEX 150 MG CAPSULE PO ONE (18:30)
[2017-11-09] MEDS ORDERED: CETIRIZINE 5 MG TABLET PO ONE (19:00)
[2017-11-09] MEDS ORDERED: LIDOCAINE 1% INJ-PF (10 MG/ML) 30 ML SDV ONE (19:07)
--- NOTE | 2017-11-09 20:50 | Operative Report ---
Operative Report DATE OF SURGERY: 11/09/17 PREOPERATIVE DIAGNOSIS: Status post left BKA with wound infection and eschar POSTOPERATIVE DIAGNOSIS: Same OPERATION: Excisional debridement of wound eschar, washout wound and packing. SURGEON: WILLIAM GARCIA ANESTHESIA: Local TISSUE REMOVED OR ALTERED: tissue COMPLICATIONS: None ESTIMATED BLOOD LOSS: Scant INTRAOPERATIVE FINDINGS: See below PROCEDURE: Patient was evaluated at bedside on the evening of 11/09/2017. Patient status post left below the knee amputation by Larissa Montgomery. She is status post failed revascularization attempts of the left lower extremity. These procedures were performed approximately 1 month ago at [facility]. Patient recovered at a fdc and was discharged to her house approximately 3 days ago. She fell on her stump, developed pain and redness and was admitted to the hospital for stump complications. Consent was provided. The patient's left BKA stump was exposed. All citlali in place. Inferior skin flap viable however there is a triangular-shaped nonviable section of tissue midsection of the superior skin flap. There is generalized erythema of the stump. The medial aspect of the stump has an open wound 2 x 4 cm consistent with open chronically granulating wound by secondary intention at the site of previous pass grafting; some nonviable eschar in this wound One half of all citlali removed. Skin anesthetized with 1% plain lidocaine. Using pickups and #10 blade, nonviable eschar from the medial wound was excisionally debrided. Also the triangular-shaped tissue approximately 2 x 2 x 2 cm involving the superior skin flap prolate was debrided. Underlying subcutaneous tissue at some which was evacuated. This was cultured sent for Gram stain and sensitivity. Wounds are irrigated with saline, packed with moist gauze and Xeroform through the approximated staple lines. 4 x 4's Kerlix applied. Tolerated procedure well Orders for dressing changes
[2017-11-09] MEDS: ATORVASTATIN CALCIUM 20 MG TABLET PO SCH (21:22)
[2017-11-09] MEDS: TOLTERODINE TARTRATE 1 MG TABLET PO SCH (21:23)
[2017-11-10] MEDS ORDERED: LANSOPRAZOLE 30 MG TAB.RAP.DR PO SCH (06:00)
[2017-11-10] MEDS: HEPARIN SOD (PORCINE) 5,000 UNIT/ML 1 ML SYRINGE SUBCUT SCH ×3 (06:44→21:04)
[2017-11-10] MEDS: METOPROLOL TARTRATE 25 MG TABLET PO SCH ×2 (06:44→17:51)
[2017-11-10] MEDS: LEVOTHYROXINE SODIUM 0.1 MG TABLET PO SCH (06:45)
[2017-11-10] MEDS: LEVOTHYROXINE SODIUM 0.075 MG TABLET PO SCH (06:45)
[2017-11-10] MEDS: OXYCODONE-ACETAMINOPHEN 5-325 MG TABLET PO PRN ×2 (06:46→15:58)
[2017-11-10] MEDS: LANSOPRAZOLE 30 MG TAB.RAP.DR PO SCH (06:46)
--- NOTE | 2017-11-10 08:51 | Physician Advisory Note ---
Physician Advisor ProgressNote .: Pursuant to the plan for [facility], I have reviewed the medical record for this patient. Physician Advisor Statement: Please consider documenting, if you agree: 1. "Left hemiparesis due to CVA" [chronic) 2. "Obesity with BMI 42.7" STatus: pt with relatively low severity of illness initially. Appropriately brought in as Obs status. If pt cannot go home today for clinical reasons, please document clearly the issues requiring ongoing hospital care & monitoring , such as "cellulitis not yet sufficiently improved", "I am concerned about ____ ". Behavioral Services Tech: pt really doesn't appear to have had sepsis this visit from review of documentation so far. I would not query for that. CK
[2017-11-10] MEDS: INSULIN GLARGINE,HUM.REC.ANLOG 1,000 UNIT/10 ML UNIT SUBCUT SCH (10:06)
[2017-11-10] MEDS: CITALOPRAM HYDROBROMIDE 20 MG TABLET PO SCH (10:09)
[2017-11-10] MEDS: ISOSORBIDE MONONITRATE 60 MG TAB.ER.24H PO SCH (10:09)
[2017-11-10] MEDS: VALSARTAN 160 MG TABLET PO SCH (10:10)
[2017-11-10] MEDS: OMEGA-3 ACID ETHYL ESTERS 1 GM CAPSULE PO SCH ×2 (10:11→17:50)
[2017-11-10] MEDS: TOLTERODINE TARTRATE 1 MG TABLET PO SCH ×2 (10:11→21:04)
[2017-11-10] MEDS: IRON POLYSACCHARIDES COMPLEX 150 MG CAPSULE PO SCH (10:12)
[2017-11-10] MEDS: CLOPIDOGREL BISULFATE 75 MG TABLET PO SCH (10:12)
[2017-11-10] MEDS: CEFTRIAXONE 1 GM/D5W RTU 1 GM/50 ML RTUPB IV SCH (17:50)
[2017-11-10] MEDS: MONTELUKAST SODIUM 10 MG TABLET PO SCH (17:51)
[2017-11-10] MEDS ORDERED: CETIRIZINE 5 MG TABLET PO SCH (18:00)
[2017-11-10] MEDS: ATORVASTATIN CALCIUM 20 MG TABLET PO SCH (21:04)
--- NOTE | 2017-11-10 21:06 | PDOC DISCHARGE SUMMARY ---
General - Admit/Disc Date/PCP Admission Date/Primary Care Provider: 11/08/17 19:27 XIMENA ISAAC MD Discharge Date: 11/11/17 - Discharge Diagnosis (1) UTI due to Klebsiella species Is this a current diagnosis for this admission?: Yes (2) UTI (urinary tract infection) Is this a current diagnosis for this admission?: Yes (3) Wound cellulitis Is this a current diagnosis for this admission?: Yes (4) Status post below knee amputation of left lower extremity Is this a current diagnosis for this admission?: Yes - Additional Information Discharge Diet: Diabetic Home Medications: Albuterol Sulfate [Proventil Hfa] 2 puff IN Q4HP PRN 11/09/17 Alprazolam [Xanax 0.5 mg Tablet] 0.5 mg PO Q8HP PRN 11/09/17 Atorvastatin Calcium [Lipitor 20 mg Tablet] 20 mg PO QHS 11/09/17 Citalopram Hydrobromide [Celexa 20 mg Tablet] 20 mg PO DAILY 11/09/17 Clopidogrel Bisulfate [Plavix 75 mg Tablet] 75 mg PO DAILY 11/09/17 Cyanocobalamin (Vitamin B-12) [Vitamin B-12 Inj 1000 Mcg/1 ml Vial] 1,000 mcg IM [id number] 11/09/17 Docusate Sodium [Colace 100 mg Capsule] 100 mg PO DAILYP PRN 11/09/17 Insulin Glargine,Hum.rec.anlog [Lantus Insulin 100 Unit/1 ml 10 ml] 35 unit SQ DAILY 11/09/17 Iron Ps Complex/B12/Folic Acid [Poly-Iron 150 Forte Capsule] 1 cap PO DAILY 10/16 Isosorbide Mononitrate [Imdur 60 mg Tablet.er] 60 mg PO DAILY 11/09/17 Levocetirizine Dihydrochloride [Xyzal] 5 mg PO QPM 11/09/17 Levothyroxine Sodium [Synthroid] 175 mcg PO Q6AM 11/09/17 Linaclotide [Linzess] 290 mcg PO DAILY 11/09/17 Lisinopril [Prinivil] 20 mg PO DAILY 11/09/17 Metoprolol Tartrate [Lopressor 25 mg Tablet] 37.5 mg PO Q12 11/09/17 Montelukast Sodium [Singulair 10 mg Tablet] 10 mg PO QPM 11/09/17 [place]-3 Acid Ethyl Esters [Lovaza 1 gm Capsule] 2 gm PO BID 11/09/17 Pantoprazole Sodium [Protonix] 40 mg PO DAILY 11/09/17 Solifenacin Succinate [Vesicare] 10 mg PO DAILY 11/09/17 Valsartan [Diovan 160 mg Tablet] 160 mg PO DAILY 11/09/17 Ciprofloxacin HCl [Cipro 500 mg Tablet] 500 mg PO BID #20 tablet 11/10/17 History of Present Illness History of Present Illness: JOSIE BAIRES is a 61 year old female, she recently had a left [id number] amputation she could emergency room last night because she feels feverish and because there is erythema at the stump, there is still citlali in place from recent surgery. He was also found to have abnormal urinalysis that suggest urinary tract infection. She was evaluated in the emergency room, there was no leukocytosis when she arrived, the electrolytes are normal. She has no chest pain or shortness of breath Hospital Course Hospital Course: Patient was admitted for the management of urinary tract infection and wound infection of the left AKA stump. She was treated empirically with IV antibiotic , Rocephin, the urine culture grew Klebsiella specie with significant colonic count. She was seen in consultation by the surgeon regarding the wound infection of the stump, she underwent excisional debridement of the stump, culture from the wound infection is growing gram-negative rods specific species pending. She was admitted for observation, she will be discharged home with home health, physical therapy, she will follow with wound clinic Physical Exam Vital Signs: Temp Pulse Resp BP Pulse Ox 98.5 F 80 16 147/59 H 99 11/10/17 15:53 11/10/17 19:00 11/10/17 15:53 11/10/17 15:53 11/10/17 15:53 Intake & Output 11/09/17 11/10/17 11/11/17 06:59 06:59 06:59 Intake Total 1657 896 Balance 1657 896 Weight 116.3 kg Eye exam: PRESENT: PERRLA Respiratory exam: PRESENT: clear to auscultation urvashi Cardiovascular exam: PRESENT: +S1, +S2 GI/Abdominal exam: PRESENT: soft Neurological exam: PRESENT: alert Results Impressions: Knee X-Ray 11/08/17 17:11 IMPRESSION: No radiographic evidence for osteomyelitis.
[2017-11-11] MEDS: HEPARIN SOD (PORCINE) 5,000 UNIT/ML 1 ML SYRINGE SUBCUT SCH (06:27)
[2017-11-11] MEDS: METOPROLOL TARTRATE 25 MG TABLET PO SCH (06:27)
[2017-11-11] MEDS: LEVOTHYROXINE SODIUM 0.075 MG TABLET PO SCH (06:27)
[2017-11-11] MEDS: LANSOPRAZOLE 30 MG TAB.RAP.DR PO SCH (06:28)
[2017-11-11] MEDS: LEVOTHYROXINE SODIUM 0.1 MG TABLET PO SCH (06:28)
[2017-11-11] MEDS: INSULIN GLARGINE,HUM.REC.ANLOG 1,000 UNIT/10 ML UNIT SUBCUT SCH (10:20)
[2017-11-11] MEDS: CITALOPRAM HYDROBROMIDE 20 MG TABLET PO SCH (10:23)
[2017-11-11] MEDS: TOLTERODINE TARTRATE 1 MG TABLET PO SCH (10:23)
[2017-11-11] MEDS: OMEGA-3 ACID ETHYL ESTERS 1 GM CAPSULE PO SCH (10:23)
[2017-11-11] MEDS: CLOPIDOGREL BISULFATE 75 MG TABLET PO SCH (10:24)
[2017-11-11] MEDS: ISOSORBIDE MONONITRATE 60 MG TAB.ER.24H PO SCH (10:24)
[2017-11-11] MEDS: IRON POLYSACCHARIDES COMPLEX 150 MG CAPSULE PO SCH (10:24)
[2017-11-11] MEDS: VALSARTAN 160 MG TABLET PO SCH (10:24)
[2017-11-11 12:28] VITALS: BP 116/96
[2017-11-30] MEDS ORDERED: CYANOCOBALAMIN (VITAMIN B-12) INJ 1000 MCG/1 ML VIAL IM SCH (10:00)
== END 2017-11-11 13:13 | disposition home health service (06) ==
LOC: ER 15:40 → INTOOBSV 19:27 → EH 19:27 → UNDOADMIN 19:27 → 3N 11-09 13:51
PROVIDERS: ADMIT Internal Medicine; ATTEND Internal Medicine
PROC: 0JBP0ZZ Excision of Left Lower Leg Subcutaneous Tissue and Fascia, Open Approach (ICD-10-PCS; principal; 2017-11-09)
DX: N39.0 Urinary tract infection, site not specified (principal); B96.1 Klebsiella pneumoniae [K. pneumoniae] as the cause of diseases classified elsewhere; T87.44 Infection of amputation stump, left lower extremity; L03.116 Cellulitis of left lower limb; W19.XXXA Unspecified fall, initial encounter; I25.10 Atherosclerotic heart disease of native coronary artery without angina pectoris; E11.52 Type 2 diabetes mellitus with diabetic peripheral angiopathy with gangrene; I11.0 Hypertensive heart disease with heart failure; I50.9 Heart failure, unspecified; I69.354 Hemiplegia and hemiparesis following cerebral infarction affecting left non-dominant side; Z95.5 Presence of coronary angioplasty implant and graft; Z90.49 Acquired absence of other specified parts of digestive tract; Z79.4 Long term (current) use of insulin; Z79.899 Other long term (current) drug therapy; Z79.02 Long term (current) use of antithrombotics/antiplatelets; Z87.891 Personal history of nicotine dependence
CPT/HCPCS: 99285; 96374; 36415; 87040; 87086; 87070 ×2; 87205; 82962 ×3; 85025; 87077; 87088; 80048; 81001; 87186 ×2; 83605; 73562; 97110; 97163; 11042; G0378 ×4; J1815 ×2; J1644 ×3; J3490 ×3; J2270; J7030 ×2; J0696 ×3

== ENCOUNTER 2017-11-29 00:16 | Emergency (ER) | payer OTHER ==
--- NOTE | 2017-11-29 01:28 | ER Document Report ---
HPI - HPI Pain Level: 3 Notes: Patient is a 61-year-old female who presents to the ED with a chronic BKA amputation wound since early August status post surgery. Patient has a medical history significant for hypertension, cardiac bypass, cardiac stent placement, diabetes, and peripheral artery disease. Patient states that she has been seeing her surgeon in [place] for her wound. She is scheduled to see him again early next week. Patient states that she was admitted about a week and a half ago for a urinary infection and mild cellulitis to that area. Patient states that she finished Cipro about 4 days ago for a urine infection. Patient states that she has noticed some increased redness and serous drainage to her wound. Patient has also noticed increased swelling and increased pain. Patient states that otherwise she has felt well and is eating and drinking without any difficulties. She has not had any other recent illness. She is urinating normally and having normal bowel movements. Denies any headache, fever, neck pain, URI, sore throat, chest pain, palpitations, syncope, cough, shortness of breath, wheeze, dyspnea, abdominal pain, nausea/vomiting/diarrhea, urinary retention, dysuria, hematuria. - ROS Notes: REVIEW OF SYSTEMS: CONSTITUTIONAL : Denies fever, chills, or sweats. Denies recent illness. EENT: Denies eye, ear, throat, or mouth pain or symptoms. Denies nasal or sinus congestion or discharge. Denies throat, tongue, or mouth swelling or difficulty swallowing. CARDIOVASCULAR: Denies chest pain. Denies palpitations or racing or irregular heart beat. Denies ankle edema. RESPIRATORY: Denies cough, cold, or chest congestion. Denies shortness of breath, difficulty breathing, or wheezing. GASTROINTESTINAL: Denies abdominal pain or distention. Denies nausea, vomiting , or diarrhea. Denies blood in vomitus, stools, or per rectum. Denies black, tarry stools. Denies constipation. GENITOURINARY: Denies difficulty urinating, painful urination, burning, frequency, blood in urine, or discharge. MUSCULOSKELETAL: see hpi SKIN: see hpi NEUROLOGICAL: Denies passing out or loss of consciousness. Denies dizziness or lightheadedness. Denies headache. ALL OTHER SYSTEMS REVIEWED AND NEGATIVE. Dictation was performed using [employer] voice recognition software - REPRODUCTIVE LMP: na Reproductive: DENIES: : Past Medical History - Social History Smoking Status: Unknown if Ever Smoked Family History: Reviewed & Not Pertinent - Past Medical History Cardiac Medical History: Reports: Hx Coronary Artery Disease, Hx Heart Attack, Hx Hypercholesterolemia, Hx Hypertension Denies: Hx Congestive Heart Failure Pulmonary Medical History: Reports: Hx Asthma, Hx Pneumonia Denies: Hx Bronchitis, Hx COPD, Hx Tuberculosis Neurological Medical History: Reports: 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 Denies: Hx Seizures Endocrine Medical History: Reports: Hx Diabetes Mellitus Type 2, Hx Graves' Disease, Hx Hypothyroidism Renal/ Medical History: Denies: Hx End Stage Renal Disease, Hx Kidney Stones, Hx Peritoneal Dialysis GI Medical History: Reports: Hx Diverticulitis, Hx Gastritis, Hx Ulcer. Denies : Hx Cirrhosis, Hx Gastroesophageal Reflux Disease, Hx Hepatitis, Hx Hiatal Hernia Musculoskeltal Medical History: Reports Hx Arthritis, Denies Hx Multiple Sclerosis, Reports Hx Musculoskeletal Deformity, Reports Hx Musculoskeletal Trauma Psychiatric Medical History: Reports: Hx Depression Denies: Hx Bipolar Disorder, Hx Schizophrenia Traumatic Medical History: Reports: Hx Fractures Infectious Medical History: Denies: Hx Hepatitis Past Surgical History: Reports: Hx Cardiac Catheterization, Hx Cholecystectomy, Hx Coronary Stent, Hx Dilation and Curettage, Hx Orthopedic Surgery, Hx Tonsillectomy. Denies: Hx Hysterectomy, Hx Mastectomy, Hx Open Heart Surgery, Hx Pacemaker - Immunizations Immunizations up to date: No Hx Diphtheria, Pertussis, Tetanus Vaccination: No Hx Pneumococcal Vaccination: 09/30/15 Vertical Provider Document - CONSTITUTIONAL Agree With Documented VS: Yes Notes: PHYSICAL EXAMINATION: GENERAL: Well-appearing, well-nourished and in no acute distress. A&Ox4 LUNGS: Breath sounds clear to auscultation bilaterally and equal. No wheezes rales or rhonchi. HEART: Regular rate and rhythm without murmurs, rubs, gallops. Musculoskeletal: Left BKA noted. See skin exam. Extremities: No cyanosis, clubbing, or edema b/l. Peripheral pulses 2+. Capillary refill less than 3 seconds. NEUROLOGICAL: Cranial nerves grossly intact. Normal speech, normal gait. Normal sensory, motor exams PSYCH: Normal mood, normal affect. SKIN: Lt BKA: There are several large open chronic wounds noted with healthy granular tissue noted and serous drainage. There are several areas around the wound that have mild erythema, w/o streaks. There is + warmth and mild swelling noted to those areas w/o signs of abscess or purulence. - INFECTION CONTROL TRAVEL OUTSIDE OF THE [place] IN LAST 30 DAYS: No - RESPIRATORY O2 Sat by Pulse Oximetry: 96 Course - Re-evaluation Re-evalutation: 11/29/17 01:32 Patient is an afebrile, well-hydrated, 61-year-old female who presents to the ED with a mild cellulitis to the wound of her left BKA. Vitals are stable. PE is otherwise unremarkable. I have a low suspicion for any sepsis, osteomyelitis , lymphangitis, severe dehydration, or other systemic emergent condition at this time. No other labs or imaging warranted at this time based on H&P. Patient is scheduled to meet with the surgeon on Thursday (3 days from now). Patient is tolerating p.o. and has not been running any fevers. There is no evidence of streaks, abscess, or large necrotic areas. I will send her home with a prescription for clindamycin to take as directed. Wound dressing was placed today. Wound instructions reviewed. Recheck with the surgeon on Thursday as scheduled. Recheck with your PCM next week as well. Return to the ED with any worsening/concerning symptoms otherwise as reviewed in discharge. Patient is in agreement. - Vital Signs Vital signs: Temp Pulse Resp BP Pulse Ox 99 F 75 18 152/57 H 96 11/29/17 00:46 11/29/17 00:46 11/29/17 00:46 11/29/17 00:46 11/29/17 00:46 Discharge - Discharge Clinical Impression: Infection of left below knee amputation Condition: Stable Disposition: HOME, SELF-CARE Instructions: Soap Cleansing ([facility]) Additional Instructions: Keep the skin clean Wash with soap and water Tylenol/ibuprofen if needed wound dressing as directed Take medication as directed Monitor for any worsening symptoms Recheck with your PCM in 3-5 days Keep appointment with your Surgeon next week Return to the ED with any worsening symptoms and/or development of fever, headache, chest pain, palpitations, syncope, shortness of breath, trouble breathing, abdominal pain, n/v/d, abscess, purulent discharge, red streaks, worsening swelling, or other worsening symptoms that are concerning to you. Prescriptions: Clindamycin HCl [Cleocin 300 mg Capsule] 300 mg PO TID #30 capsule Forms: Elevated Blood Pressure Referrals: XIMENA ISAAC MD [Primary Care Provider] - Follow up in 1 week
[2017-11-29 02:27] VITALS: BP 153/50
== END 2017-11-29 02:25 | disposition home or self-care (01) ==
LOC: ER 00:16
DX: T87.44 Infection of amputation stump, left lower extremity (principal); Z89.519 Acquired absence of unspecified leg below knee
CPT/HCPCS: 99283

== ENCOUNTER 2017-12-04 23:19 | Inpatient (IN) | payer OTHER ==
--- NOTE | 2017-12-04 23:50 | ER Document Report ---
ED Medical Screen (RME) - General Chief Complaint: Post Surgical Pain Stated Complaint: POSSIBLE WOUND INFECTION Time Seen by Provider: 12/04/17 23:49 Mode of Arrival: Wheelchair Information source: Patient Notes: 61-year-old diabetic obese female complaining of increased malodorous drainage and pain from her chronic wound of the left below the knee amputation done in [place] by Dr. Geronimo Dias, symptoms worsened tonight. PCP is Dr. Haynes. She was admitted early October until the treated with antibiotics. She came to the emergency room November 29 and was seen by Dr. Ordaz for drainage. No wound cx done since 11-09, taking clindamycin po at this time. TRAVEL OUTSIDE OF THE [place] IN LAST 30 DAYS: No - Related Data Allergies/Adverse Reactions: metoclopramide [From Reglan] Allergy (Verified 09/11/17 15:37) Past Medical History - Past Medical History Cardiac Medical History: Reports: Hx Coronary Artery Disease, Hx Heart Attack, Hx Hypercholesterolemia, Hx Hypertension Denies: Hx Congestive Heart Failure Pulmonary Medical History: Reports: Hx Asthma, Hx Pneumonia Denies: Hx Bronchitis, Hx COPD, Hx Tuberculosis Neurological Medical History: Reports: 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 Denies: Hx Seizures Endocrine Medical History: Reports: Hx Diabetes Mellitus Type 2, Hx Graves' Disease, Hx Hypothyroidism Renal/ Medical History: Denies: Hx End Stage Renal Disease, Hx Kidney Stones, Hx Peritoneal Dialysis GI Medical History: Reports: Hx Diverticulitis, Hx Gastritis, Hx Ulcer. Denies : Hx Cirrhosis, Hx Gastroesophageal Reflux Disease, Hx Hepatitis, Hx Hiatal Hernia Musculoskeltal Medical History: Reports Hx Arthritis, Denies Hx Multiple Sclerosis, Reports Hx Musculoskeletal Deformity, Reports Hx Musculoskeletal Trauma Psychiatric Medical History: Reports: Hx Depression Denies: Hx Bipolar Disorder, Hx Schizophrenia Traumatic Medical History: Reports: Hx Fractures Infectious Medical History: Denies: Hx Hepatitis Past Surgical History: Reports: Hx Cardiac Catheterization, Hx Cholecystectomy, Hx Coronary Stent, Hx Dilation and Curettage, Hx Orthopedic Surgery, Hx Tonsillectomy. Denies: Hx Hysterectomy, Hx Mastectomy, Hx Open Heart Surgery, Hx Pacemaker - Immunizations Immunizations up to date: No Hx Diphtheria, Pertussis, Tetanus Vaccination: No History of Influenza Vaccine for 08/2017 - 01/2018 Season: Refused Physical Exam - Vital signs Vitals: Temp Pulse Resp BP Pulse Ox 99.1 F 65 18 141/62 H 100 12/04/17 23:28 12/04/17 23:28 12/04/17 23:28 12/04/17 23:28 12/04/17 23:28 Course - Vital Signs Vital signs: Temp Pulse Resp BP Pulse Ox 99.1 F 65 18 141/62 H 100 12/04/17 23:28 12/04/17 23:28 12/04/17 23:28 12/04/17 23:28 12/04/17 23:28
[2017-12-05 00:39] LABS: ALANINE AMINOTRANSFERASE 15 U/L (9-52); ALBUMIN 3.7 g/dL (3.5-5.0); ALKALINE PHOSPHATASE 80 U/L (38-126); ANION GAP 11 (5-19); ASPARTATE AMINO TRANSFERASE 19 U/L (14-36); BILIRUBIN,DIRECT 0.1 mg/dL (0.0-0.4); BILIRUBIN,TOTAL 0.1 mg/dL (0.2-1.3); BLOOD UREA NITROGEN 15 mg/dL (7-20); CARBON DIOXIDE 24 mmol/L (22-30); CHLORIDE 102 mmol/L (98-107); GLUCOSE 149 mg/dL (75-110); POTASSIUM 5.1 mmol/L (3.6-5.0); SODIUM 136.6 mmol/L (137-145); TOTAL PROTEIN 7.4 g/dL (6.3-8.2)
[2017-12-05] MEDS ORDERED: PIPERACILLIN/TAZOBACTAM 3.375 GM VIAL IV ONE ×2 (01:24→05:50)
[2017-12-05] MEDS ORDERED: VANCOMYCIN HCL INJ 1000 MG VIAL IV ONE (01:24)
--- NOTE | 2017-12-05 01:27 | ER Document Report ---
ED General - General Chief Complaint: Post Surgical Pain Stated Complaint: POSSIBLE WOUND INFECTION Time Seen by Provider: 12/04/17 23:49 Mode of Arrival: Wheelchair Notes: Patient is a 61-year-old female who presents with several days of progressively worsening drainage and spreading redness from the wound on her left BKA. Patient was seen in the emergency room several days ago for this complaint which time she was placed on clindamycin. She states she has been taking his antibiotic as directed but has not noticed any improvement and is actually noted significant worsening of the drainage and redness from the area. She also noticed notes an increase in pain Over the past several days. She describes it as a dull, constant, throbbing pain. Nothing improves or worsens that pain. She denies any fever or constitutional symptoms. She has not yet followed up with her primary doctor regarding today's concerns. TRAVEL OUTSIDE OF THE [place] IN LAST 30 DAYS: No - Related Data Allergies/Adverse Reactions: metoclopramide [From Reglan] Allergy (Verified 09/11/17 15:37) Past Medical History - General Information source: Patient - Social History Smoking Status: Never Smoker Frequency of alcohol use: None Drug Abuse: None Lives with: Spouse/Significant other Family History: Reviewed & Not Pertinent Patient has suicidal ideation: No Patient has homicidal ideation: No - Past Medical History Cardiac Medical History: Reports: Hx Coronary Artery Disease, Hx Heart Attack, Hx Hypercholesterolemia, Hx Hypertension Denies: Hx Congestive Heart Failure Pulmonary Medical History: Reports: Hx Asthma, Hx Pneumonia Denies: Hx Bronchitis, Hx COPD, Hx Tuberculosis Neurological Medical History: Reports: 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 Denies: Hx Seizures Endocrine Medical History: Reports: Hx Diabetes Mellitus Type 2, Hx Graves' Disease, Hx Hypothyroidism Renal/ Medical History: Denies: Hx End Stage Renal Disease, Hx Kidney Stones, Hx Peritoneal Dialysis GI Medical History: Reports: Hx Diverticulitis, Hx Gastritis, Hx Ulcer. Denies : Hx Cirrhosis, Hx Gastroesophageal Reflux Disease, Hx Hepatitis, Hx Hiatal Hernia Musculoskeltal Medical History: Reports Hx Arthritis, Denies Hx Multiple Sclerosis, Reports Hx Musculoskeletal Deformity, Reports Hx Musculoskeletal Trauma Psychiatric Medical History: Reports: Hx Depression Denies: Hx Bipolar Disorder, Hx Schizophrenia Traumatic Medical History: Reports: Hx Fractures Infectious Medical History: Denies: Hx Hepatitis Past Surgical History: Reports: Hx Cardiac Catheterization, Hx Cholecystectomy, Hx Coronary Stent, Hx Dilation and Curettage, Hx Orthopedic Surgery, Hx Tonsillectomy. Denies: Hx Hysterectomy, Hx Mastectomy, Hx Open Heart Surgery, Hx Pacemaker - Immunizations Immunizations up to date: No Hx Diphtheria, Pertussis, Tetanus Vaccination: No Hx Pneumococcal Vaccination: 09/30/15 Review of Systems - Review of Systems Notes: Constitutional: Negative for fever. HENT: Negative for sore throat. Eyes: Negative for visual changes. Cardiovascular: Negative for chest pain. Respiratory: Negative for shortness of breath. Gastrointestinal: Negative for abdominal pain, vomiting or diarrhea. Genitourinary: Negative for dysuria. Musculoskeletal: Positive for left BKA pain Skin: Positive for rash. Neurological: Negative for headaches, weakness or numbness. 10 point ROS negative except as marked above and in HPI. Physical Exam - Vital signs Vitals: Temp Pulse Resp BP Pulse Ox 99.1 F 65 18 141/62 H 100 12/04/17 23:28 12/04/17 23:28 12/04/17 23:28 12/04/17 23:28 12/04/17 23:28 Interpretation: Normal Notes: PHYSICAL EXAMINATION: GENERAL: Well-appearing, well-nourished and in no acute distress. HEAD: Atraumatic, normocephalic. EYES: Pupils equal round and reactive to light, extraocular movements intact, sclera anicteric, conjunctiva are normal. ENT: nares patent, oropharynx clear without exudates. Moist mucous membranes. NECK: Normal range of motion, supple without lymphadenopathy LUNGS: Breath sounds clear to auscultation bilaterally and equal. No wheezes rales or rhonchi. HEART: Regular rate and rhythm without murmurs ABDOMEN: Soft, nontender, normoactive bowel sounds. No guarding, no rebound. No masses appreciated. EXTREMITIES: Left BKA stump with a gaping 5 x 7 cm wound with copious amounts of purulent drainage and spreading erythema from all wound edges. NEUROLOGICAL: No focal neurological deficits. Moves all extremities spontaneously and on command. PSYCH: Normal mood, normal affect. SKIN: Warm, Dry, normal turgor, no rashes or lesions noted. Course - Re-evaluation Re-evalutation: 12/05/17 01:30 Patient presents with a wound that appears acutely infected possibly with wet gangrene given the extremely strong odor, necrotic bone edges, and purulent drainage. There is a spreading cellulitis from the area. Patient is otherwise nontoxic in appearance but unfortunately has ready been on appropriate outpatient antibiotics for the past 1 week without any resolution is actually had significant worsening of spreading erythema from the wound as well as wound drainage. Patient was hospitalized several weeks ago for the same requiring IV antibiotics at that time. Will proceed with labs, x-ray and initiation of IV antibiotics 12/05/17 03:06 I have discussed the case with Dr. Shepherd who is accepted the patient for admission. He has discussed Dr. Puckett be consulted and I have also spoken with Dr. Puckett who will assess the patient. - Vital Signs Vital signs: Temp Pulse Resp BP Pulse Ox 99.1 F 65 18 141/62 H 100 12/04/17 23:28 12/04/17 23:28 12/04/17 23:28 12/04/17 23:28 12/04/17 23:28 - Laboratory Result Diagrams: 12/05/17 01:30 12/05/17 00:00 Laboratory results interpreted by me: 12/05/17 12/05/17 00:00 01:30 RBC 3.38 L Hgb 9.5 L Hct 28.8 L RDW 17.7 H Sodium 136.6 L Potassium 5.1 H Est GFR (Non-Af Amer) 55 L Glucose 149 H Total Bilirubin 0.1 L - Diagnostic Test Radiology reviewed: Image reviewed, Reports reviewed Radiology results interpreted by me: 12/05/17 03:06 Left knee x-ray: No acute osteomyelitis Discharge - Discharge Clinical Impression: Wound infection, Failure of outpatient treatment, Wound cellulitis, Cellulitis of leg, left Condition: Fair Disposition: ADMITTED INPATIENT Admitting Provider: Joao Unit Admitted: Medical Floor Referrals: XIMENA ISAAC MD [Primary Care Provider] - Follow up as needed
[2017-12-05 01:58] LABS: ABSOLUTE BASOPHILS # (AUTO) 0.1 10^3/uL (0.0-0.2); ABSOLUTE EOSINOPHILS # (AUTO) 0.2 10^3/uL (0.0-0.6); ABSOLUTE LYMPHOCYTES (AUTO) 2.6 10^3/uL (0.5-4.7); ABSOLUTE MONOCYTES (AUTO) 0.4 10^3/uL (0.1-1.4); ABSOLUTE NEUT (AUTO) 3.6 10^3/uL (1.7-8.2); BASOPHILS % (AUTO) 0.9 % (0-2); EOSINOPHILS % (AUTO) 3.5 % (0-6); HEMATOCRIT 28.8 % (36.0-47.0); HEMOGLOBIN 9.5 g/dL (12.0-15.5); MEAN CORPUSCULAR HEMOGLOBIN 28.1 pg (27.0-33.4); MONOCYTES % (AUTO) 6.3 % (3-13); PLATELET COUNT 405 10^3/uL (150-450); RED BLOOD COUNT 3.38 10^6/uL (3.72-5.28); RED CELL DISTRIBUTION WIDTH 17.7 % (11.5-14.0); SEGMENTED NEUTROPHILS % (AUTO) 52.3 % (42-78); TOTAL CELLS COUNTED % (AUTO) 100 %; WHITE BLOOD COUNT 6.9 10^3/uL (4.0-10.5)
[2017-12-05 02:03] LABS: MEAN CORPUSCULAR VOLUME 85 fl (80-97)
--- NOTE | 2017-12-05 02:45 | RADIOLOGY REPORT (SQ) ---
EXAM DESCRIPTION: KNEE LEFT 2 VIEWS CLINICAL HISTORY: 61 years, Female, osteomylitis? COMPARISON: 11.08.17 FINDINGS: No direct radiographic evidence of osteomyelitis, as queried. Amputation of the proximal left lower leg at the level of the proximal tibial and fibular shafts, skin clips at the amputation stump, atherosclerosis, surgical clips of the medial soft tissues, and intact left knee joint. IMPRESSION: No acute findings. 2010 [employer]- All Rights Reserved
[2017-12-05] MEDS ORDERED: ACETAMINOPHEN 325 MG TABLET PO PRN (03:41)
[2017-12-05] MEDS ORDERED: DEXTROSE 40% GEL 15 GM TUBE PO PRN ×2 (03:45)
[2017-12-05] MEDS ORDERED: GLUCAGON,HUMAN RECOMB 1 MG INJ IM PRN (03:45)
[2017-12-05] MEDS ORDERED: INSULIN LISPRO 100 UNIT/ML 3 ML VIAL SUBCUT PRN (03:45)
[2017-12-05] MEDS ORDERED: DEXTROSE 50%-WATER 25 GM/50 ML DISP.SYRIN IV PRN ×2 (03:45)
[2017-12-05] MEDS ORDERED: PIPERACILLIN/TAZOBACTAM 3.375 GM VIAL IV PRN (04:28)
[2017-12-05] MEDS: HEPARIN SOD (PORCINE) 5,000 UNIT/ML 1 ML SYRINGE SUBCUT SCH ×2 (06:12→13:15)
[2017-12-05] MEDS: PIPERACILLIN SODIUM/TAZOBACTAM 3.375 GM in NORMAL SALINE 100 ML IV SCH ×2 (06:18→12:24)
--- NOTE | 2017-12-05 08:11 | PDOC CONSULTATION ---
History of Present Illness Admission Date/PCP: 12/05/17 03:19 XIMENA ISAAC MD Patient complains of: pains left BKA stump and foul smelling discharge History of Present Illness: JOSIE BAIRES is a 61 year old female had failed revascularization left leg and had left BKA done in [place] in . She apparently fell on her stump int he [place] [facility] and got admitted to [facility] in . The left BKA stump was debrided by Dr Toledo and placed patient on antibiotics. Pt came back to the ED last night for increasing pains,redness and foul smelling discharge. Past Medical History Cardiac Medical History: Reports: Coronary Artery Disease, Myocardial Infarction , Hyperlipidema, Hypertension Denies: Congestive Heart Failure Pulmonary Medical History: Reports: Asthma, Pneumonia Denies: Bronchitis, Chronic Obstructive Pulmonary Disease (COPD), Tuberculosis Neurological Medical History: Denies: Seizures Endocrine Medical History: Reports: Diabetes Mellitus Type 2, Hypothyroidism Renal/ Medical History: Denies: End Stage Renal Disease GI Medical History: Reports: Diverticulitis Denies: Cirrhosis, Gastroesophageal Reflux Disease, Hepatitis, Hiatal Hernia Musculoskeltal Medical History: Reports: Arthritis Psychiatric Medical History: Reports: Depression Denies: Bipolar Disorder Hematology: Reports: Anemia Denies: Bleeding Tendencies Past Surgical History Past Surgical History: Reports: Cardiac Catheterization, Cholecystectomy, Coronary Stent, Orthopedic Surgery, Tonsillectomy Denies: Hysterectomy, Mastectomy, Pacemaker Social History Lives with: Spouse/Significant other Smoking Status: Never Smoker Frequency of Alcohol Use: None Hx Recreational Drug Use: No Drugs: None Hx Prescription Drug Abuse: No - Advance Directive Resuscitation Status: Full Code Family History Family History: Reviewed & Not Pertinent Parental Family History Reviewed: Yes Children Family History Reviewed: No Sibling(s) Family History Reviewed.: No Medication/Allergy Home Medications: Albuterol Sulfate [Proventil Hfa] 2 puff IH Q4HP PRN 12/05/17 Alprazolam [Xanax 0.5 mg Tablet] 0.5 mg PO QHS 12/05/17 Atorvastatin Calcium [Lipitor 20 mg Tablet] 20 mg PO QHS 12/05/17 Citalopram Hydrobromide [Celexa 20 mg Tablet] 20 mg PO DAILY 12/05/17 Clindamycin HCl [Cleocin 300 mg Capsule] 300 mg PO Q8 12/05/17 Clopidogrel Bisulfate [Plavix 75 mg Tablet] 75 mg PO DAILY 12/05/17 Cyanocobalamin (Vitamin B-12) [Vitamin B-12 Inj 1000 Mcg/1 ml Vial] 1,000 mcg IM .MONTHLY 12/05/17 Docusate Sodium [Colace 100 mg Capsule] 100 mg PO QHS 12/05/17 Exenatide Microspheres [Bydureon Pen] 2 mg SQ TU@0800 12/05/17 Iron Ps Complex/B12/Folic Acid [Poly-Iron 150 Forte Capsule] 1 ea PO DAILY 12/05 Isosorbide Mononitrate [Imdur 60 mg Tablet.er] 60 mg PO DAILY 12/05/17 Levocetirizine Dihydrochloride [Xyzal] 5 mg PO QHS 12/05/17 Levothyroxine Sodium [Synthroid] 175 mcg PO Q6AM 12/05/17 Linaclotide [Linzess] 290 mcg PO DAILY 12/05/17 Lisinopril [Prinivil] 20 mg PO DAILY 12/05/17 Metformin HCl [Glucophage 500 mg Tablet] 1,000 mg PO BIDACBS 12/05/17 Metoprolol Tartrate [Lopressor 25 mg Tablet] 37.5 mg PO Q12 12/05/17 Montelukast Sodium [Singulair 10 mg Tablet] 10 mg PO QHS 12/05/17 Bagley-3 Acid Ethyl Esters [Lovaza 1 gm Capsule] 2 gm PO BID 12/05/17 Pantoprazole Sodium [Protonix] 40 mg PO Q6AM 12/05/17 Solifenacin Succinate [Vesicare] 10 mg PO QAM 12/05/17 Valsartan [Diovan 160 mg Tablet] 160 mg PO DAILY 12/05/17 Allergies/Adverse Reactions: metoclopramide [From Reglan] Allergy (Verified 09/11/17 15:37) Review of Systems Constitutional: PRESENT: other - no fever/chills Eyes: PRESENT: other - no visual/hearing changes Nose, Mouth, and Throat: PRESENT: other - no sore throat Cardiovascular: PRESENT: other - no chest pains Respiratory: PRESENT: other - no cough Gastrointestinal: PRESENT: other - no abdominal pains,N/V Genitourinary: PRESENT: other - no dysuria Musculoskeletal: PRESENT: other - pains left BKA stump Integumentary: PRESENT: erythema - left BKA stump Neurological: PRESENT: weakness - left side Psychiatric: PRESENT: other - no hallucinations Endocrine: PRESENT: other - no polyuria Hematologic/Lymphatic: PRESENT: other - no easy bruisability Physical Exam Vital Signs: Temp Pulse Resp BP Pulse Ox 98.3 F 63 20 148/43 H 100 12/05/17 04:55 12/05/17 04:55 12/05/17 04:55 12/05/17 04:55 12/05/17 04:55 Intake & Output 12/04/17 12/05/17 12/06/17 06:59 06:59 06:59 Output Total 400 Balance -400 Weight 122 kg General appearance: PRESENT: mild distress Head exam: PRESENT: atraumatic Eye exam: PRESENT: conjunctiva pink Mouth exam: PRESENT: moist, tongue midline Neck exam: PRESENT: full ROM Respiratory exam: PRESENT: clear to auscultation urvashi Cardiovascular exam: PRESENT: RRR Pulses: PRESENT: normal radial pulses Vascular exam: PRESENT: normal capillary refill GI/Abdominal exam: PRESENT: soft - nontender Rectal exam: PRESENT: deferred Extremities exam: PRESENT: other - left BKA erythematous, with wound dehiscence and marked tenderness with foul smelling discharge Musculoskeletal exam: PRESENT: tenderness - left BKA stump Neurological exam: PRESENT: alert, oriented to person, oriented to place, oriented to time, oriented to situation Psychiatric exam: PRESENT: appropriate affect Skin exam: PRESENT: other - erythema left BKA stump with wound dehiscence. Very tender left lateral end of incision with dark discoloration with citlali about 3x3 cm. Results Impressions: Knee X-Ray 12/04/17 23:49 IMPRESSION: No acute findings. 2010 [employer]- All Rights Reserved Assessment & Plan - Diagnosis (1) cellulitis left BKA stump Is this a current diagnosis for this admission?: Yes - Time Time Spent: 30 to 50 Minutes - Inpatient Certification Medical Necessity: Failure to Improve With Outpatient Therapy, Need Close Monitoring Due to Risk of Patient Decompensation, Need For IV Fluids, Need for Pain Control, Need for IV Antibiotics, Need for Surgery, Risk of Diagnosis Which Will Require Inpatient Eval/Care/Monitoring - Plan Summary Plan Summary: Continue IV antibiotics. Gm stain showed 4+ g+ cocci. Will need definitive left AKA Had a lenthy discussion with the patient as far as options including debridement which unlikely going to save BKA vs definitive left AKA. Also given choice to transfer to [place] to her original surgeon but this needs to be done today because the danger of cellulitis going above the knee making left AKA wound closure questionable. Will also discuss with PMD.
--- NOTE | 2017-12-05 08:41 | RADIOLOGY REPORT (SQ) ---
EXAM DESCRIPTION: CHEST SINGLE VIEW COMPLETED DATE/TIME: 12/05/2017 8:30 am REASON FOR STUDY: preop COMPARISON: 05/22/2017 EXAM PARAMETERS: NUMBER OF VIEWS: One view. TECHNIQUE: Single frontal radiographic view of the chest acquired. RADIATION DOSE: NA LIMITATIONS: None. FINDINGS: LUNGS AND PLEURA: No new opacities, masses or pneumothorax. No pleural effusion. MEDIASTINUM AND HILAR STRUCTURES: No masses. Contour normal. HEART AND VASCULAR STRUCTURES: Heart stable in size. Normal vasculature. BONES: No acute findings. HARDWARE: Stable. OTHER: No other significant finding. IMPRESSION: NO ACUTE RADIOGRAPHIC FINDING IN THE CHEST. NO SIGNIFICANT CHANGE FROM PRIOR STUDY TECHNICAL DOCUMENTATION: JOB ID: [id number] [employer]- All Rights Reserved
[2017-12-05] MEDS: OXYCODONE-ACETAMINOPHEN 5-325 MG TABLET PO PRN ×2 (09:54→14:24)
[2017-12-05] MEDS ORDERED: DOCUSATE SODIUM 100 MG CAPSULE PO SCH (10:00)
[2017-12-05 11:22] LABS: CREATINE KINASE MB 0.56 ng/mL (<4.55)
[2017-12-05 11:27] LABS: TROPONIN I < 0.012 ng/mL
--- NOTE | 2017-12-05 11:47 | EKG REPORT ---
SEVERITY:- NORMAL ECG - SINUS RHYTHM : Confirmed by: Virgilio Nuñez 05-Dec-2017 11:47:38
--- NOTE | 2017-12-05 13:05 | PDOC H&P ---
History of Present Illness Admission Date/PCP: 12/05/17 03:19 XIMENA ISAAC MD Patient complains of: Lower extremity wound History of Present Illness: JOSIE BAIRES is a 61 year old female had failed revascularization left leg and had left BKA done in [place] in . She apparently fell on her stump int he intermediate and got admitted to [place] in . The left BKA stump was debrided by Dr [place] and placed patient on antibiotics. Pt came back to the ED last night for increasing pains,redness and foul smelling discharge. Patient also have a history of the coronary artery bypass surgery Currently all stable Patient's denied any chest pain denied any shortness of the breath Discussed with the surgeon and the patient's prefer to go back to the surgeon at [place] and the patient is waiting for the bed Past Medical History Cardiac Medical History: Reports: Coronary Artery Disease, Myocardial Infarction , Hyperlipidema, Hypertension Denies: Congestive Heart Failure Pulmonary Medical History: Reports: Asthma, Pneumonia Denies: Bronchitis, Chronic Obstructive Pulmonary Disease (COPD), Tuberculosis Neurological Medical History: Denies: Seizures Endocrine Medical History: Reports: Diabetes Mellitus Type 2, Hypothyroidism Renal/ Medical History: Denies: End Stage Renal Disease GI Medical History: Reports: Diverticulitis Denies: Cirrhosis, Gastroesophageal Reflux Disease, Hepatitis, Hiatal Hernia Musculoskeltal Medical History: Reports: Arthritis Psychiatric Medical History: Reports: Depression Denies: Bipolar Disorder Hematology: Reports: Anemia Denies: Bleeding Tendencies Past Surgical History Past Surgical History: Reports: Cardiac Catheterization, Cholecystectomy, Coronary Stent, Orthopedic Surgery, Tonsillectomy Denies: Hysterectomy, Mastectomy, Pacemaker Social History Lives with: Spouse/Significant other Smoking Status: Never Smoker Frequency of Alcohol Use: None Hx Recreational Drug Use: No Drugs: None Hx Prescription Drug Abuse: No - Advance Directive Resuscitation Status: Full Code Family History Family History: Reviewed & Not Pertinent Parental Family History Reviewed: Yes Children Family History Reviewed: Yes Sibling(s) Family History Reviewed.: Yes Medication/Allergy Home Medications: Albuterol Sulfate [Proventil Hfa] 2 puff IH Q4HP PRN 12/05/17 Alprazolam [Xanax 0.5 mg Tablet] 0.5 mg PO QHS 12/05/17 Atorvastatin Calcium [Lipitor 20 mg Tablet] 20 mg PO QHS 12/05/17 Citalopram Hydrobromide [Celexa 20 mg Tablet] 20 mg PO DAILY 12/05/17 Clindamycin HCl [Cleocin 300 mg Capsule] 300 mg PO Q8 12/05/17 Clopidogrel Bisulfate [Plavix 75 mg Tablet] 75 mg PO DAILY 12/05/17 Cyanocobalamin (Vitamin B-12) [Vitamin B-12 Inj 1000 Mcg/1 ml Vial] 1,000 mcg IM .MONTHLY 12/05/17 Docusate Sodium [Colace 100 mg Capsule] 100 mg PO QHS 12/05/17 Exenatide Microspheres [Bydureon Pen] 2 mg SQ TU@0800 12/05/17 Iron Ps Complex/B12/Folic Acid [Poly-Iron 150 Forte Capsule] 1 ea PO DAILY 12/05 Isosorbide Mononitrate [Imdur 60 mg Tablet.er] 60 mg PO DAILY 12/05/17 Levocetirizine Dihydrochloride [Xyzal] 5 mg PO QHS 12/05/17 Levothyroxine Sodium [Synthroid] 175 mcg PO Q6AM 12/05/17 Linaclotide [Linzess] 290 mcg PO DAILY 12/05/17 Lisinopril [Prinivil] 20 mg PO DAILY 12/05/17 Metformin HCl [Glucophage 500 mg Tablet] 1,000 mg PO BIDACBS 12/05/17 Metoprolol Tartrate [Lopressor 25 mg Tablet] 37.5 mg PO Q12 12/05/17 Montelukast Sodium [Singulair 10 mg Tablet] 10 mg PO QHS 12/05/17 [place]-3 Acid Ethyl Esters [Lovaza 1 gm Capsule] 2 gm PO BID 12/05/17 Pantoprazole Sodium [Protonix] 40 mg PO Q6AM 12/05/17 Solifenacin Succinate [Vesicare] 10 mg PO QAM 12/05/17 Valsartan [Diovan 160 mg Tablet] 160 mg PO DAILY 12/05/17 Allergies/Adverse Reactions: metoclopramide [From Reglan] Allergy (Verified 09/11/17 15:37) Review of Systems Constitutional: ABSENT: chills, fever(s), headache(s), weight gain, weight loss Eyes: ABSENT: visual disturbances Ears: ABSENT: hearing changes Cardiovascular: ABSENT: chest pain, dyspnea on exertion, edema, orthropnea, palpitations Respiratory: ABSENT: cough, hemoptysis Gastrointestinal: ABSENT: abdominal pain, constipation, diarrhea, hematemesis, hematochezia, nausea, vomiting Genitourinary: ABSENT: dysuria, hematuria Musculoskeletal: ABSENT: joint swelling Integumentary: ABSENT: rash, wounds Neurological: ABSENT: abnormal gait, abnormal speech, confusion, dizziness, focal weakness, syncope Psychiatric: ABSENT: anxiety, depression, homidical ideation, suicidal ideation Endocrine: ABSENT: cold intolerance, heat intolerance, menstrual abnormalities, polydipsia, polyuria Hematologic/Lymphatic: ABSENT: easy bleeding, easy bruising, lymphadenopathy Physical Exam Vital Signs: Temp Pulse Resp BP Pulse Ox 97.8 F 67 18 135/54 H 99 12/05/17 08:00 12/05/17 08:00 12/05/17 08:00 12/05/17 08:00 12/05/17 08:00 Intake & Output 12/04/17 12/05/17 12/06/17 06:59 06:59 06:59 Output Total 400 Balance -400 Weight 122 kg General appearance: PRESENT: no acute distress, well-developed, well-nourished Head exam: PRESENT: atraumatic, normocephalic Eye exam: PRESENT: conjunctiva pink, EOMI, PERRLA. ABSENT: scleral icterus Ear exam: PRESENT: normal external ear exam Mouth exam: PRESENT: moist, tongue midline Neck exam: PRESENT: full ROM. ABSENT: carotid bruit, JVD, lymphadenopathy, thyromegaly Respiratory exam: PRESENT: clear to auscultation urvashi Cardiovascular exam: PRESENT: RRR. ABSENT: diastolic murmur, rubs, systolic murmur Pulses: PRESENT: normal dorsalis pedis pul, +2 pedal pulses bilateral Vascular exam: PRESENT: normal capillary refill GI/Abdominal exam: PRESENT: normal bowel sounds, soft. ABSENT: distended, guarding, mass, organolmegaly, rebound, tenderness Rectal exam: PRESENT: deferred Extremities exam: PRESENT: left BKA Additional comments: On the left BKA stem some draining and the redness is present Neurological exam: PRESENT: alert, awake, oriented to person, oriented to place , oriented to time, oriented to situation, CN II-XII grossly intact. ABSENT: motor sensory deficit Psychiatric exam: PRESENT: appropriate affect, normal mood. ABSENT: homicidal ideation, suicidal ideation Skin exam: PRESENT: dry, intact, warm. ABSENT: cyanosis, rash Results Laboratory Results: 12/05/17 10:23 Blood Type AB NEGATIVE Antibody Screen NEGATIVE 12/05/17 12/05/17 10:23 10:23 Creatine Kinase 28 L CK-MB (CK-2) 0.56 Troponin I < 0.012 Impressions: Knee X-Ray 12/04/17 23:49 IMPRESSION: No acute findings. 2010 [employer]- All Rights Reserved Chest X-Ray 12/05/17 00:00 IMPRESSION: NO ACUTE RADIOGRAPHIC FINDING IN THE CHEST. NO SIGNIFICANT CHANGE FROM PRIOR STUDY Assessment & Plan - Diagnosis (1) cellulitis left BKA stump Is this a current diagnosis for this admission?: Yes Plan: Continues to IV antibiotic patient is transferring to the [place] (2) Coronary artery disease Qualifiers: Coronary Disease-Associated Artery/Lesion type: unspecified vessel or lesion type Is this a current diagnosis for this admission?: Yes Plan: all stable (3) Peripheral vascular disease due to secondary diabetes Is this a current diagnosis for this admission?: Yes Plan: Patient also see a vascular surgeon in [place] (5) Type 2 diabetes mellitus Qualifiers: Diabetes mellitus complication status: with neurologic complications Diabetes mellitus complication detail: with polyneuropathy Diabetes mellitus salvage determiner insulin use: without salvage determiner use Qualified Code(s): E11.42 - Type 2 diabetes mellitus with diabetic polyneuropathy Is this a current diagnosis for this admission?: Yes Plan: Continues a sliding scale with [facility] protocol - Time Time Spent: 30 to 50 Minutes Medications reviewed and adjusted accordingly: Yes Anticipated discharge: Home Within: Other - Inpatient Certification Medical Necessity: Need for IV Antibiotics Post Hospital Care: D/C Internal Review And Audit Compliance Documentation - Plan Summary Plan Summary: With the patient in telemetry bed consult the surgery
--- NOTE | 2017-12-05 13:07 | PDOC TRANSFER SUMMARY ---
General Admission Date/PCP: 12/05/17 03:19 XIMENA ISAAC MD Transfer Date: 12/05/17 Accepting Facility: [facility] Resuscitation Status: Full Code - Transfer Diagnosis (1) cellulitis left BKA stump Is this a current diagnosis for this admission?: Yes (2) Coronary artery disease Is this a current diagnosis for this admission?: Yes (3) Peripheral vascular disease due to secondary diabetes Is this a current diagnosis for this admission?: Yes (5) Type 2 diabetes mellitus Is this a current diagnosis for this admission?: Yes - Transfer Medications Home Medications: Albuterol Sulfate [Proventil Hfa] 2 puff IH Q4HP PRN 12/05/17 Alprazolam [Xanax 0.5 mg Tablet] 0.5 mg PO QHS 12/05/17 Atorvastatin Calcium [Lipitor 20 mg Tablet] 20 mg PO QHS 12/05/17 Citalopram Hydrobromide [Celexa 20 mg Tablet] 20 mg PO DAILY 12/05/17 Clindamycin HCl [Cleocin 300 mg Capsule] 300 mg PO Q8 12/05/17 Clopidogrel Bisulfate [Plavix 75 mg Tablet] 75 mg PO DAILY 12/05/17 Cyanocobalamin (Vitamin B-12) [Vitamin B-12 Inj 1000 Mcg/1 ml Vial] 1,000 mcg IM .MONTHLY 12/05/17 Docusate Sodium [Colace 100 mg Capsule] 100 mg PO QHS 12/05/17 Exenatide Microspheres [Bydureon Pen] 2 mg SQ TU@0800 12/05/17 Iron Ps Complex/B12/Folic Acid [Poly-Iron 150 Forte Capsule] 1 ea PO DAILY 12/05 Isosorbide Mononitrate [Imdur 60 mg Tablet.er] 60 mg PO DAILY 12/05/17 Levocetirizine Dihydrochloride [Xyzal] 5 mg PO QHS 12/05/17 Levothyroxine Sodium [Synthroid] 175 mcg PO Q6AM 12/05/17 Linaclotide [Linzess] 290 mcg PO DAILY 12/05/17 Lisinopril [Prinivil] 20 mg PO DAILY 12/05/17 Metformin HCl [Glucophage 500 mg Tablet] 1,000 mg PO BIDACBS 12/05/17 Metoprolol Tartrate [Lopressor 25 mg Tablet] 37.5 mg PO Q12 12/05/17 Montelukast Sodium [Singulair 10 mg Tablet] 10 mg PO QHS 12/05/17 [place]-3 Acid Ethyl Esters [Lovaza 1 gm Capsule] 2 gm PO BID 12/05/17 Pantoprazole Sodium [Protonix] 40 mg PO Q6AM 12/05/17 Solifenacin Succinate [Vesicare] 10 mg PO QAM 12/05/17 Valsartan [Diovan 160 mg Tablet] 160 mg PO DAILY 12/05/17 Transfer Medications: Current Medications Acetaminophen (Tylenol 325 Mg Tablet) 650 mg PO Q4HP PRN Stop: 01/04/18 03:40 Dextrose (Dextrose Inj 50% Syringe (25 Gm/50 Ml)) 25 gm IV PRN PRN PRN Reason: Protocol Stop: 01/04/18 03:44 Dextrose (Dextrose Inj 50% Syringe (25 Gm/50 Ml)) 12.5 gm IV PRN PRN; Protocol PRN Reason: FOR BG 50-69 IN ALERT PATIENT Stop: 01/04/18 03:44 Docusate Sodium (Colace 100 Mg Capsule) 100 mg PO DAILY [facility] Stop: 01/04/18 09:59 Last Admin: 12/05/17 09:56 Dose: Not Given Glucagon (Glucagen Inj 1 Mg Vial) 1 mg IM PRN PRN; Protocol PRN Reason: Evaluate for BG < 70 Stop: 01/04/18 03:44 Glucose (Glutose 40% Gel 15 Gm Tube) 15 gm PO PRN PRN; Protocol PRN Reason: FOR BG 50-69 IN ALERT PATIENT Stop: 01/04/18 03:44 Glucose (Glutose 40% Gel 15 Gm Tube) 30 gm PO PRN PRN; Protocol PRN Reason: FOR BG < 50 IN ALERT PATIENT Stop: 01/04/18 03:44 Heparin Sodium (Porcine) (Heparin Inj 5,000 Units/Ml 1 Ml Syringe) 5,000 unit SUBCUT Q8 [facility] Stop: 01/04/18 05:59 Last Admin: 12/05/17 06:12 Dose: 5,000 unit Piperacillin Sod/Tazobactam (Sod 3.375 gm/ Sodium Chloride) 100 mls @ 200 mls/ hr IV Q6 [facility] Stop: 12/12/17 05:59 Last Admin: 12/05/17 12:24 Dose: 3.375 gm Insulin Human Lispro (Humalog Insulin 100 Unit/1 Ml 3 Ml Vial) 0 - 12 unit SUBCUT [id number] PRN PRN Reason: Protocol Stop: 01/04/18 03:44 Oxycodone/Acetaminophen (Percocet 5-325 Mg Tablet) 1 tab PO Q4HP PRN PRN Reason: PAIN Stop: 12/12/17 03:40 Last Admin: 12/05/17 09:54 Dose: 1 tab - Allergies Allergies/Adverse Reactions: metoclopramide [From Reglan] Allergy (Verified 09/11/17 15:37) Hospital Course Hospital Course: This is a 61-year-old female with ongoing left BKA and with the draining wound and several wound dressing was done but is still not getting better and patients came to the emergency department with the above complaint and admitting in the hospital for IV antibiotic and further evaluations. General surgery was consulted and suggest the patient's need a above knee amputations and patients prefer to do that tertiary center at the [facility] see the vascular surgeon over there and patient's transfer procedures over the Is otherwise medically currently stable Physical Exam Vital Signs: Temp Pulse Resp BP Pulse Ox 97.8 F 67 18 135/54 H 99 12/05/17 08:00 12/05/17 08:00 12/05/17 08:00 12/05/17 08:00 12/05/17 08:00 Intake & Output 12/04/17 12/05/17 12/06/17 06:59 06:59 06:59 Output Total 400 Balance -400 Weight 122 kg General appearance: PRESENT: no acute distress, well-developed, well-nourished Head exam: PRESENT: atraumatic, normocephalic Eye exam: PRESENT: conjunctiva pink, EOMI, PERRLA. ABSENT: scleral icterus Ear exam: PRESENT: normal external ear exam Mouth exam: PRESENT: moist, tongue midline Neck exam: ABSENT: carotid bruit, JVD, lymphadenopathy, thyromegaly Respiratory exam: PRESENT: clear to auscultation urvashi. ABSENT: rales, rhonchi, wheezes Cardiovascular exam: PRESENT: RRR. ABSENT: diastolic murmur, rubs, systolic murmur Pulses: PRESENT: normal dorsalis pedis pul Vascular exam: PRESENT: normal capillary refill GI/Abdominal exam: PRESENT: normal bowel sounds, soft. ABSENT: distended, guarding, mass, organolmegaly, rebound, tenderness Rectal exam: PRESENT: deferred Extremities exam: ABSENT: calf tenderness, clubbing, pedal edema Musculoskeletal exam: PRESENT: deformity - Left BKA Neurological exam: PRESENT: alert, awake, oriented to person, oriented to place , oriented to time, oriented to situation, CN II-XII grossly intact. ABSENT: motor sensory deficit Psychiatric exam: PRESENT: appropriate affect, normal mood. ABSENT: homicidal ideation, suicidal ideation Skin exam: PRESENT: dry, intact, warm. ABSENT: cyanosis, rash Results Laboratory Results: 12/05/17 10:23 Blood Type AB NEGATIVE Antibody Screen NEGATIVE 12/05/17 12/05/17 10:23 10:23 Creatine Kinase 28 L CK-MB (CK-2) 0.56 Troponin I < 0.012 Impressions: Knee X-Ray 12/04/17 23:49 IMPRESSION: No acute findings. 2010 [employer]- All Rights Reserved Chest X-Ray 12/05/17 00:00 IMPRESSION: NO ACUTE RADIOGRAPHIC FINDING IN THE CHEST. NO SIGNIFICANT CHANGE FROM PRIOR STUDY Plan Time Spent: Less than 30 Minutes - Patient's transfer when the bed is available
[2017-12-05 13:46] VITALS: BP 143/48
== END 2017-12-05 15:37 | disposition short-term general hospital (02) | DRG 565 ==
LOC: ER 23:19 → EH 12-05 03:19 → 5 12-05 04:40
PROVIDERS: ADMIT Internal Medicine; ATTEND Internal Medicine
DX: T87.44 Infection of amputation stump, left lower extremity (principal); I69.354 Hemiplegia and hemiparesis following cerebral infarction affecting left non-dominant side; L03.116 Cellulitis of left lower limb; B99.8 Other infectious disease; G89.18 Other acute postprocedural pain; T81.4XXD Infection following a procedure, subsequent encounter; E11.42 Type 2 diabetes mellitus with diabetic polyneuropathy; E11.51 Type 2 diabetes mellitus with diabetic peripheral angiopathy without gangrene; E11.69 Type 2 diabetes mellitus with other specified complication; E03.9 Hypothyroidism, unspecified; I25.10 Atherosclerotic heart disease of native coronary artery without angina pectoris; E78.5 Hyperlipidemia, unspecified; I10 Essential (primary) hypertension; Z95.1 Presence of aortocoronary bypass graft; Z79.01 Long term (current) use of anticoagulants; Z79.84 Long term (current) use of oral hypoglycemic drugs; Z79.51 Long term (current) use of inhaled steroids; Z79.899 Other long term (current) drug therapy
CPT/HCPCS: 36415; 71045; 80053; 82550; 82553; 82962; 84484; 85025; 86850; 86900; 86901; 87040; 87070; 87077; 87186; 87205; 93005; 93010; 96365; 96367; 99285; J1644; J2543; J3370

== ENCOUNTER → 2018-05-31 | Outpatient (CLI) | payer OTHER ==
--- NOTE | 2018-06-01 12:08 | WOMENS IMAGING REPORT ---
EXAM DESCRIPTION: BILAT SCREENING MAMMO W/CAD COMPLETED DATE/TIME: 05/31/2018 3:10 pm REASON FOR STUDY: SCREENING MAMMO Z12.31 ENCNTR SCREEN MAMMOGRAM FOR MALIGNANT NEOPLASM OF SEVEN COMPARISON: 03/30/2017 and 04/17/2016 TECHNIQUE: Standard craniocaudal and mediolateral oblique views of each breast recorded using [employer] acquisition. LIMITATIONS: None. FINDINGS: Findings present which are benign by mammographic criteria. No suspicious masses, calcifi cations or architectural distortion. Read with the assistance of CAD. .[facility] - R2 [employer]ova Version 1.3 .[facility] Imaging - R2 Cenova Version 1.3 .[facility] - R2 Cenova Version 2.4 .[facility] - R2 Cenova Version 2.4 .[facility] - R2 [employer] Specialist Version 9.2 Benign mammographic findings may include one or more of the following: Smooth masses, popcorn/rim/co arse calcifications, asymmetries, post-procedure changes, and lesions with long-standing stability. IMPRESSION: BENIGN MAMMOGRAPHIC FINDINGS. BIRADS 2 BREAST DENSITY: a. The breasts are almost entirely fatty. BIRAD: 2 BENIGN FINDING(S) RECOMMENDATION: ROUTINE SCREENING COMMENT: The patient has been notified of the results by letter per SA requirements. Additional no tification policies are in place for contacting patient with suspicious or incomplete findings. Quality ID #[id number]: The [employer] recommends an annual screening mammogram for women aged 40 years or over. This facility utilizes a reminder system to ensure that all patients receive reminder letters, and/or direct phone calls for appointments. This includes reminders for routine scr eening mammograms, diagnostic mammograms, or other Breast Imaging Interventions when appropriate. Th is patient will be placed in the appropriate reminder system. The [employer] (ACR) has developed recommendations for screening MRI of the breast s in certain patient populations, to be used in conjunction with mammography. Breast MRI surveillanc e may be appropriate for women with more than 20% lifetime risk of developing breast cancer as deter mined by genetic testing, significant family history of the disease, or history of mantle radiation f or Hodgkins Disease. ACR Practice Guidelines 2008. TECHNICAL DOCUMENTATION: FINDING NUMBER: (1) ASSESSMENT: (1) JOB ID: [id number] [employer]- All Rights Reserved Reading location - IP/workstation name: [email or web address]
== END ==
LOC: WI 14:15
PROVIDERS: ATTEND Internal Medicine
DX: Z12.31 Encounter for screening mammogram for malignant neoplasm of breast (principal)
CPT/HCPCS: 77067

== ENCOUNTER → 2018-06-07 | Outpatient (CLI) | payer OTHER ==
--- NOTE | 2018-06-07 17:04 | RADIOLOGY REPORT (SQ) ---
EXAM DESCRIPTION: WRIST BILATERAL 2 VIEWS COMPLETED DATE/TIME: 06/07/2018 4:00 pm REASON FOR STUDY: M25.531, RIGHT WRIST PAIN M25.531 PAIN IN RIGHT WRIST COMPARISON: None. NUMBER OF VIEWS: Two views of each wrist TECHNIQUE: AP and lateral radiographic images acquired of the right and left wrist. LIMITATIONS: None. FINDINGS: MINERALIZATION: Normal. BONES: No acute fracture or dislocation. No worrisome bone lesions. Normal alignment. SOFT TISSUES: No metallic foreign bodies. Arterial calcification is noted. OTHER: If an occult fracture suspected clinically, consider followup imaging. IMPRESSION: Nothing acute. TECHNICAL DOCUMENTATION: JOB ID: [id number] [employer]- All Rights Reserved Reading location - IP/workstation name: [email or web address]
== END ==
LOC: OD 15:40
PROVIDERS: ATTEND Internal Medicine
DX: M25.531 Pain in right wrist (principal)

== ENCOUNTER 2018-08-28 16:53 | Emergency (ER) | payer OTHER ==
[2018-08-28] MEDS ORDERED: NORMAL SALINE 1000 ML 1,000 ML IV ONE ×2 (17:55)
--- NOTE | 2018-08-28 17:55 | ER Document Report ---
ED Medical Screen (RME) - General Chief Complaint: Vomiting Stated Complaint: VOMITING, BACK PAIN Time Seen by Provider: 08/28/18 17:47 Notes: 62 years old female with a history of diabetes, with complications, gastroparesis, presents today with nausea vomiting many times. Fearing dehydration. Having right flank pain. Morbid obesity, on powered wheelchair, left below-knee amputation TRAVEL OUTSIDE OF THE [place] IN LAST 30 DAYS: No - Related Data Allergies/Adverse Reactions: metoclopramide [From Reglan] Allergy (Verified 08/28/18 16:54) Past Medical History - Social History Chew tobacco use (# tins/day): No Frequency of alcohol use: None Drug Abuse: None - Past Medical History Cardiac Medical History: Reports: Hx Coronary Artery Disease, Hx Heart Attack, Hx Hypercholesterolemia, Hx Hypertension Denies: Hx Congestive Heart Failure Pulmonary Medical History: Reports: Hx Asthma, Hx Pneumonia Denies: Hx Bronchitis, Hx COPD, Hx Tuberculosis Neurological Medical History: Reports: 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 Denies: Hx Seizures Endocrine Medical History: Reports: Hx Diabetes Mellitus Type 2, Hx Graves' Disease, Hx Hypothyroidism Renal/ Medical History: Denies: Hx End Stage Renal Disease, Hx Kidney Stones, Hx Peritoneal Dialysis GI Medical History: Reports: Hx Diverticulitis, Hx Gastritis, Hx Ulcer. Denies : Hx Cirrhosis, Hx Gastroesophageal Reflux Disease, Hx Hepatitis, Hx Hiatal Hernia Musculoskeltal Medical History: Reports Hx Arthritis, Denies Hx Multiple Sclerosis, Reports Hx Musculoskeletal Deformity, Reports Hx Musculoskeletal Trauma Psychiatric Medical History: Reports: Hx Depression Denies: Hx Bipolar Disorder, Hx Schizophrenia Traumatic Medical History: Reports: Hx Fractures Infectious Medical History: Denies: Hx Hepatitis Past Surgical History: Reports: Hx Cardiac Catheterization, Hx Cholecystectomy, Hx Coronary Stent, Hx Dilation and Curettage, Hx Orthopedic Surgery, Hx Tonsillectomy. Denies: Hx Hysterectomy, Hx Mastectomy, Hx Open Heart Surgery, Hx Pacemaker - Immunizations Immunizations up to date: No Hx Diphtheria, Pertussis, Tetanus Vaccination: No History of Influenza Vaccine for 08/2017 - 01/2018 Season: Refused Physical Exam - Vital signs Vitals: Temp Pulse Resp BP Pulse Ox 98.5 F 82 18 170/85 H 96 08/28/18 16:56 08/28/18 16:56 08/28/18 16:56 08/28/18 16:56 08/28/18 16:56 Course - Vital Signs Vital signs: Temp Pulse Resp BP Pulse Ox 98.5 F 82 18 170/85 H 96 08/28/18 16:56 08/28/18 16:56 08/28/18 16:56 08/28/18 16:56 08/28/18 16:56 Doctor's Discharge - Discharge Referrals: XIMENA ISAAC MD [Primary Care Provider] - Follow up as needed
[2018-08-28] MEDS ORDERED: KETOROLAC TROMETHAMINE INJ/PF 30 MG/1 ML SDV IV ONE (18:20)
[2018-08-28] MEDS ORDERED: ONDANSETRON HCL INJ/PF 4 MG/2 ML SDV IV ONE ×2 (18:20→20:12)
--- NOTE | 2018-08-28 19:08 | ER Document Report ---
ED General - General Chief Complaint: Vomiting Stated Complaint: VOMITING, BACK PAIN Time Seen by Provider: 08/28/18 17:47 Notes: Patient is a 62-year-old female with past medical history of diabetes, peripheral vascular disease, hypertension, obesity, who presents with 24 hours of nausea, vomiting, and feelings of dehydration. She states she did have some mild abdominal pain earlier but that this has since resolved. Nothing improves or worsens her symptoms. She states that she has had similar symptoms many times in the past including a recent hospitalization at [facility] - [place], [place] for the same. She states that it has been diagnosed as being related to her gastroparesis. The patient states that she has been unable to tolerate oral intake since onset of her symptoms. She does have an abdominal surgical history of a cholecystectomy, prior C-sections but no additional abdominal surgeries. She has never had a bowel obstruction in the past. She has not contacted her general doctor regarding today's concerns. She denies fever or constitutional symptoms. TRAVEL OUTSIDE OF THE [place] IN LAST 30 DAYS: No - Related Data Allergies/Adverse Reactions: metoclopramide [From Reglan] Allergy (Verified 08/28/18 16:54) Past Medical History - General Information source: Patient - Social History Smoking Status: Never Smoker Chew tobacco use (# tins/day): No Frequency of alcohol use: None Drug Abuse: None Lives with: Spouse/Significant other Family History: Reviewed & Not Pertinent Patient has suicidal ideation: No Patient has homicidal ideation: No - Past Medical History Cardiac Medical History: Reports: Hx Coronary Artery Disease, Hx Heart Attack, Hx Hypercholesterolemia, Hx Hypertension Denies: Hx Congestive Heart Failure Pulmonary Medical History: Reports: Hx Asthma, Hx Pneumonia Denies: Hx Bronchitis, Hx COPD, Hx Tuberculosis Neurological Medical History: Reports: 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 Denies: Hx Seizures Endocrine Medical History: Reports: Hx Diabetes Mellitus Type 2, Hx Graves' Disease, Hx Hypothyroidism Renal/ Medical History: Denies: Hx End Stage Renal Disease, Hx Kidney Stones, Hx Peritoneal Dialysis GI Medical History: Reports: Hx Diverticulitis, Hx Gastritis, Hx Ulcer. Denies : Hx Cirrhosis, Hx Gastroesophageal Reflux Disease, Hx Hepatitis, Hx Hiatal Hernia Musculoskeletal Medical History: Reports Hx Arthritis, Denies Hx Multiple Sclerosis, Reports Hx Musculoskeletal Deformity, Reports Hx Musculoskeletal Trauma Psychiatric Medical History: Reports: Hx Depression Denies: Hx Bipolar Disorder, Hx Schizophrenia Traumatic Medical History: Reports: Hx Fractures Infectious Medical History: Denies: Hx Hepatitis Past Surgical History: Reports: Hx Cardiac Catheterization, Hx Cholecystectomy, Hx Coronary Stent, Hx Dilation and Curettage, Hx Orthopedic Surgery, Hx Tonsillectomy. Denies: Hx Hysterectomy, Hx Mastectomy, Hx Open Heart Surgery, Hx Pacemaker - Immunizations Immunizations up to date: No Hx Diphtheria, Pertussis, Tetanus Vaccination: No Hx Pneumococcal Vaccination: 09/30/15 Review of Systems - Review of Systems Notes: Constitutional: Negative for fever. HENT: Negative for sore throat. Eyes: Negative for visual changes. Cardiovascular: Negative for chest pain. Respiratory: Negative for shortness of breath. Gastrointestinal: Positive for abdominal pain and vomiting Genitourinary: Negative for dysuria. Musculoskeletal: Negative for back pain. Skin: Negative for rash. Neurological: Negative for headaches, weakness or numbness. 10 point ROS negative except as marked above and in HPI. Physical Exam - Vital signs Vitals: Temp Pulse Resp BP Pulse Ox 98.5 F 82 18 170/85 H 96 08/28/18 16:56 08/28/18 16:56 08/28/18 16:56 08/28/18 16:56 08/28/18 16:56 Interpretation: Hypertensive Notes: PHYSICAL EXAMINATION: GENERAL: Well-appearing, well-nourished and in no acute distress. HEAD: Atraumatic, normocephalic. EYES: Pupils equal round and reactive to light, extraocular movements intact, sclera anicteric, conjunctiva are normal. ENT: nares patent, oropharynx clear without exudates. Moderately dry mucous membranes. NECK: Normal range of motion, supple without lymphadenopathy LUNGS: Breath sounds clear to auscultation bilaterally and equal. No wheezes rales or rhonchi. HEART: Regular rate and rhythm without murmurs ABDOMEN: Soft, nontender, normoactive bowel sounds. No guarding, no rebound. No masses appreciated. EXTREMITIES: Left BKA. No cyanosis. NEUROLOGICAL: No focal neurological deficits. Moves all extremities spontaneously and on command. PSYCH: Normal mood, normal affect. SKIN: Warm, Dry, normal turgor, no rashes or lesions noted. Course - Re-evaluation Re-evalutation: 08/28/18 19:07 Patient presents with nausea, vomiting, feelings of dehydration. She reports that she has a history of similar symptoms many times in the past with epigastric region feels that this is likely the same. She denies any abdominal pain. Abdominal exam is benign without any focal areas of tenderness, rebound or guarding. She is status post cholecystectomy and has had several C-sections with denies additional abdominal surgeries. No history of bowel obstructions. On exam she is dehydrated but otherwise very well in appearance, conversing and very pleasant on exam. She denies chest pain or shortness of breath. No fever or constitutional symptoms. Vitals are within normal lives at the time my assessment. Will provide patient with IV fluids, antiemetics, and obtain a two- view of the abdomen to further exclude an acute bowel obstruction. Very low clinical suspicion for acute pancreatitis, appendicitis, nephrolithiasis, given the absence of any pain and her characterization of her symptoms as being repetitive in nature. 08/28/18 22:49 Patient's urinalysis is consistent with an acute urinary tract infection. Her x -ray does not show evidence of obstruction, does show evidence of significant constipation. Patient has now been able to tolerate oral intake. She has been given a dose of lactulose here in the emergency department and has been instructed to start MiraLAX at home. She is also been given a dose of IV ceftriaxone and will go home her repeat abdominal exam remains very benign. Vitals remain within normal limits. She is overall quite well in appearance. At this time will discharge with return precautions and follow-up recommendations. Verbal discharge instructions given a the bedside and opportunity for questions given. Medication warnings reviewed. Patient is in agreement with this plan and has verbalized understanding of return precautions and the need for primary care follow-up in the next 24-72 hours. - Vital Signs Vital signs: Temp Pulse Resp BP Pulse Ox 98.5 F 82 18 170/85 H 96 08/28/18 16:56 08/28/18 16:56 08/28/18 16:56 08/28/18 16:56 08/28/18 16:56 - Laboratory Result Diagrams: 08/28/18 19:40 08/28/18 19:40 Laboratory results interpreted by me: 08/28/18 08/28/18 19:40 20:24 Est GFR (Non-Af Amer) 53 L Glucose 150 H Direct Bilirubin 0.5 H AST 51 H ALT 65 H Urine Protein 100 H Urine Glucose (UA) 50 H Urine Ketones TRACE H Urine Blood MODERATE H Urine Nitrite POSITIVE H Ur Leukocyte Esterase MODERATE H - Diagnostic Test Radiology reviewed: Image reviewed, Reports reviewed Radiology results interpreted by me: 08/28/18 22:51 Abdominal 2 view: No evidence of obstruction or perforation Discharge - Discharge Clinical Impression: Nausea and vomiting Qualifiers: Vomiting type: unspecified Vomiting Intractability: non-intractable Qualified Code(s): R11.2 - Nausea with vomiting, unspecified Urinary tract infection Qualifiers: Urinary tract infection type: acute cystitis Hematuria presence: without hematuria Qualified Code(s): N30.00 - Acute cystitis without hematuria Type 2 diabetes mellitus Qualifiers: Diabetes mellitus long term care pharmacist insulin use: without senior care use Diabetes mellitus complication status: with unspecified complications Qualified Code(s): E11.8 - Type 2 diabetes mellitus with unspecified complications Condition: Good Disposition: HOME, SELF-CARE Additional Instructions: Your urine shows findings consistent with a urinary tract infection. Please take all the antibiotics as directed even if your symptoms have improved. Please follow-up with your primary care physician as needed. Return to emergency room if you develop fever >101F, persistent vomiting, become lethargic , have severe pain in your sides, or any other symptoms that are concerning to you. You have been seen in the Emergency Department (ED) today for nausea and vomiting. Your work up today has not shown a clear cause for your symptoms is likely related to underlying urinary tract infection and significant constipation. For your constipation: You should take 8 caps of MiraLAX and placed in 1 liter of Gatorade. Drink one half of the solution and wait 4 hours. If you do not have a bowel movement take the remaining half of the solution. You have been prescribed Zofran; please use as prescribed as needed for your nausea. Follow up with your doctor as soon as possible regarding today's emergent visit and your symptoms of nausea. Return to the Emergency Department (ED) if you develop abdominal pain, bloody vomiting, bloody diarrhea, if you are unable to tolerate fluids due to vomiting , or if you develop other symptoms that concern you. Prescriptions: Cephalexin Monohydrate [Keflex 500 mg Capsule] 500 mg PO Q6H 7 Days capsule Referrals: XIMENA ISAAC MD [Primary Care Provider] - Follow up tomorrow
[2018-08-28 19:56] LABS: ABSOLUTE EOSINOPHILS # (AUTO) 0.4 10^3/uL (0.0-0.6); ABSOLUTE LYMPHOCYTES (AUTO) 1.9 10^3/uL (0.5-4.7); ABSOLUTE MONOCYTES (AUTO) 0.4 10^3/uL (0.1-1.4); ABSOLUTE NEUT (AUTO) 4.9 10^3/uL (1.7-8.2); BASOPHILS % (AUTO) 0.5 % (0-2); EOSINOPHILS % (AUTO) 5.1 % (0-6); LYMPHOCYTES % (AUTO) 24.7 % (13-45); MEAN CORPUSCULAR HGB CONC 35.1 g/dL (32.0-36.0); MEAN CORPUSCULAR VOLUME 88 fl (80-97); MONOCYTES % (AUTO) 5.1 % (3-13); PLATELET COUNT 245 10^3/uL (150-450); RED BLOOD COUNT 4.19 10^6/uL (3.72-5.28); RED CELL DISTRIBUTION WIDTH 13.5 % (11.5-14.0); SEGMENTED NEUTROPHILS % (AUTO) 64.6 % (42-78); TOTAL CELLS COUNTED % (AUTO) 100 %; WHITE BLOOD COUNT 7.5 10^3/uL (4.0-10.5)
[2018-08-28 19:57] LABS: VENOUS BLOOD HCO3 24.7 mmol/L (20-32); VENOUS BLOOD PCO2 44.9 mmHg (35-63); VENOUS BLOOD PH 7.36 (7.30-7.42)
--- NOTE | 2018-08-28 20:07 | RADIOLOGY REPORT (SQ) ---
EXAM DESCRIPTION: ABDOMEN 2 VIEWS COMPLETED DATE/TIME: 08/28/2018 7:32 pm REASON FOR STUDY: n/v eval obstruction COMPARISON: 09/09/2017 NUMBER OF VIEWS: Three views. TECHNIQUE: Frontal chest, supine abdomen and upright/decubitus abdomen radiographic images acquired. LIMITATIONS: None. FINDINGS: CHEST: Lungs clear of infiltrates. FREE AIR: None. No abnormal gas collections. BOWEL GAS PATTERN: Nonobstructive pattern. No dilated loops or air fluid levels. CONSTIPATION: mild. CALCIFICATIONS: No suspicious calcifications. HARDWARE: None in the abdomen. SOFT TISSUES: No gross mass or suggestion of organomegaly. BONES: No acute fracture. No worrisome bone lesions. OTHER: No other significant finding. IMPRESSION: NO RADIOGRAPHIC EVIDENCE FOR ACUTE ABDOMINAL DISEASE. CONSTIPATION. TECHNICAL DOCUMENTATION: JOB ID: [id number] [id number] 2010 [employer]- All Rights Reserved Reading location - IP/workstation name: [email or web address]
[2018-08-28 20:18] LABS: ALANINE AMINOTRANSFERASE 65 U/L (9-52); ALBUMIN 4.3 g/dL (3.5-5.0); ALKALINE PHOSPHATASE 65 U/L (38-126); ANION GAP 12 (5-19); ASPARTATE AMINO TRANSFERASE 51 U/L (14-36); BILIRUBIN,DIRECT 0.5 mg/dL (0.0-0.4); BILIRUBIN,TOTAL 0.7 mg/dL (0.2-1.3); BLOOD UREA NITROGEN 20 mg/dL (7-20); CALCIUM 9.8 mg/dL (8.4-10.2); CARBON DIOXIDE 23 mmol/L (22-30); CHLORIDE 106 mmol/L (98-107); GLUCOSE 150 mg/dL (75-110); POTASSIUM 4.4 mmol/L (3.6-5.0); SODIUM 140.8 mmol/L (137-145)
[2018-08-28] MEDS ORDERED: MAGNESIUM CITRATE 296 ML BOTTLE PO ONE (21:00)
[2018-08-28 21:21] LABS: APPEARANCE,URINE CLOUDY; BILIRUBIN,URINE NEGATIVE (NEGATIVE); COLOR,URINE YELLOW; GLUCOSE, URINE 50 mg/dL (NEGATIVE); KETONES,URINE TRACE mg/dL (NEGATIVE); LEUKOCYTE ESTERASE,URINE MODERATE (NEGATIVE); NITRITE,URINE POSITIVE (NEGATIVE); PROTEIN,URINE 100 mg/dL (NEGATIVE); URINE SPECIFIC GRAVITY 1.019; UROBILINOGEN,URINE NEGATIVE mg/dL (<2.0)
[2018-08-28] MEDS ORDERED: LACTULOSE SYRUP 20 GM/30 ML UDCUP PO ONE (22:47)
[2018-08-28] MEDS ORDERED: CEFTRIAXONE INJ 1000 MG VIAL IV ONE (22:47)
[2018-08-28] MEDS ORDERED: ONDANSETRON ODT 4 MG TAB (6 TAB/ER DISP) PO PRN (22:55)
[2018-08-28 23:57] VITALS: BP 164/89
== END 2018-08-28 23:57 | disposition home or self-care (01) ==
LOC: ER 16:53
DX: E11.43 Type 2 diabetes mellitus with diabetic autonomic (poly)neuropathy (principal); K31.84 Gastroparesis; E11.51 Type 2 diabetes mellitus with diabetic peripheral angiopathy without gangrene; K59.00 Constipation, unspecified; N30.00 Acute cystitis without hematuria; R11.2 Nausea with vomiting, unspecified; E86.0 Dehydration; I10 Essential (primary) hypertension; I25.10 Atherosclerotic heart disease of native coronary artery without angina pectoris; J45.909 Unspecified asthma, uncomplicated; Z90.49 Acquired absence of other specified parts of digestive tract; Z88.8 Allergy status to other drugs, medicaments and biological substances
CPT/HCPCS: 36591; 96376; 99284; 96361; 96375; 96365; 36415; 87086; 83690; 85025; 87088; 80053; 81001; 87186; 82803; 74019; J3490; J1885; J0696; J2405

== ENCOUNTER 2018-12-23 18:13 | Observation (INO) | payer OTHER ==
--- NOTE | 2018-12-23 20:54 | ER Document Report ---
ED Medical Screen (RME) - General Chief Complaint: Eye Pain Stated Complaint: RIGHT EYE PAIN Time Seen by Provider: 12/23/18 20:50 Primary Care Provider: XIMENA ISAAC MD [Primary Care Provider] - Follow up as needed Mode of Arrival: Wheelchair Information source: Patient Notes: This is a 32-year-old female with a history of brainstem infarct, left hemiparesis, diabetes with left AKA. Patient presents to the emergency room with diplopia. Patient denies any vertigo. Patient denies any fever, chills, nausea or vomiting. Symptoms started earlier today. She does complain of some grittiness in the right eye. In triage: Patient appears to have monocular diplopia: Pt Has diplopia which is horizontal when both eyes are open. When the left eye is covered, the diplopia stays. When the right eye is covered, the diplopia goes away. It is in the right eye that the patient has grittiness. She has no pupil dilation and both her pupils are reactive to light. Sensory to the V1 and V2 distribution looks intact. Extraocular muscles are intact. There is no ptosis. She has left upper extremity hemiparesis after the stroke. She has left AKA. TRAVEL OUTSIDE OF THE [place] 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 Denies: Hx Seizures Endocrine Medical History: Reports: Hx Diabetes Mellitus Type 2, Hx Graves' Disease, Hx Hypothyroidism Renal/ Medical History: Denies: Hx End Stage Renal Disease, Hx Kidney Stones, Hx Peritoneal Dialysis GI Medical History: Reports: Hx Diverticulitis, Hx Gastritis, Hx Ulcer. Denies: Hx Cirrhosis, Hx Gastroesophageal Reflux Disease, Hx Hepatitis, Hx Hiatal Hernia Musculoskeltal Medical History: Reports Hx Arthritis, Denies Hx Multiple Sclerosis, Reports Hx Musculoskeletal Deformity, Reports Hx Musculoskeletal Tr auma Psychiatric Medical History: Reports: Hx Depression Denies: Hx Bipolar Disorder, Hx Schizophrenia Traumatic Medical History: Reports: Hx Fractures Infectious Medical History: Denies: Hx Hepatitis Past Surgical History: Reports: Hx Cardiac Catheterization, Hx Cholecystectomy, Hx Coronary Stent, Hx Dilation and Curettage, Hx Orthopedic Surgery, Hx Tonsillectomy. Denies: Hx Hysterectomy, Hx Mastectomy, Hx Open Heart Surgery, Hx Pacemaker - Immunizations Immunizations up to date: No Hx Diphtheria, Pertussis, Tetanus Vaccination: No History of Influenza Vaccine for 08/2017 - 01/2018 Season: Refused Physical Exam - Vital signs Vitals: Temp Pulse Resp BP Pulse Ox 99.7 F 76 16 142/61 H 97 12/23/18 18:37 12/23/18 18:37 12/23/18 18:37 12/23/18 18:37 12/23/18 18:37 Course - Vital Signs Vital signs: Temp Pulse Resp BP Pulse Ox 99.7 F 76 16 142/61 H 97 12/23/18 18:37 12/23/18 18:37 12/23/18 18:37 12/23/18 18:37 12/23/18 18:37 Doctor's Discharge - Discharge Referrals: XIMENA ISAAC MD [Primary Care Provider] - Follow up as needed
--- NOTE | 2018-12-23 21:53 | RADIOLOGY REPORT (SQ) ---
EXAM DESCRIPTION: CT HEAD WITHOUT IV CONTRAST COMPLETED DATE/TME: 12/23/2018 20:54 CLINICAL HISTORY: 62 years, Female, right sided headache, diplopia COMPARISON: Prior CT brain 12/11/2015 TECHNIQUE: 194 Images stored on PACS. All CT scanners at this facility use dose modulation, iterative reconstruction, and/or weight based dosing when appropriate to reduce radiation dose to as low as reasonably achievable (ALARA). [facility]: Dose Right [facility]: CareDose [facility]: Dose Right [facility]: Teradose 4D [facility]: [employer] LIMITATIONS: None. FINDINGS: Globes are intact. Mucosal thickening of the maxillary sinuses. No displaced or depressed skull fracture. No intra or extra-axial hemorrhage. CT is limited for evaluation of acute infarct. No CT evidence for large or territorial acute infarct. No mass or midline shift. IMPRESSION: Negative for acute intracranial abnormality TECHNICAL DOCUMENTATION: Quality ID # [id number]: Final reports with documentation of one or more dose reduction techniques (e.g., Automated exposure control, adjustment of the mA and/or kV according to patient size, use of iterative reconstruction technique) copyright 2011 [employer]- All Rights Reserved
[2018-12-23] MEDS ORDERED: TETRACAINE HCL 0.5% OPH SOLN 4 ML OD ONE (22:23)
--- NOTE | 2018-12-23 22:50 | ER Document Report ---
ED General - General Chief Complaint: Eye Pain Stated Complaint: RIGHT EYE PAIN Time Seen by Provider: 12/23/18 20:50 Primary Care Provider: XIMENA ISAAC MD [Primary Care Provider] - Follow up as needed Mode of Arrival: Wheelchair Notes: Patient is a 62-year-old female with a history of previous stroke who presents with diplopia in the right eye. It started earlier in the day today. Patient says that she stays [facility] in [place]. She saw the nurse to look at her eye and said that I looked fine. Symptoms continued therefore she eventually came to the ER. She says she is concerned because she has a history of a previous stroke that left her paralyzed on the left side. This previous stroke also started out with the probably in the eye. She says that she does not have any true pain in eye but says that the eye feels "a little bit gritty". She denies any focal neurologic deficits. She denies any recent trauma to the eye. TRAVEL OUTSIDE OF THE [place] IN LAST 30 DAYS: No - Related Data Allergies/Adverse Reactions: metoclopramide [From Reglan] Allergy (Verified 08/28/18 16:54) Past Medical History - General Information source: Patient - Social History Smoking Status: Never Smoker Frequency of alcohol use: Occasional Drug Abuse: None Family History: Reviewed & Not Pertinent Patient has suicidal ideation: No Patient has homicidal ideation: No - Past Medical History Cardiac Medical History: Reports: Hx Coronary Artery Disease, Hx Heart Attack, Hx Hypercholesterolemia, Hx Hypertension Denies: Hx Congestive Heart Failure Pulmonary Medical History: Reports: Hx Asthma, Hx Pneumonia Denies: Hx Bronchitis, Hx COPD, Hx Tuberculosis Neurological Medical History: Reports: 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 Denies: Hx Seizures Endocrine Medical History: Reports: Hx Diabetes Mellitus Type 2, Hx Graves' Disease, Hx Hypothyroidism Renal/ Medical History: Denies: Hx End Stage Renal Disease, Hx Kidney Stones, Hx Peritoneal Dialysis GI Medical History: Reports: Hx Diverticulitis, Hx Gastritis, Hx Ulcer. Denies: Hx Cirrhosis, Hx Gastroesophageal Reflux Disease, Hx Hepatitis, Hx Hiatal Hernia Musculoskeletal Medical History: Reports Hx Arthritis, Denies Hx Multiple Sclerosis, Reports Hx Musculoskeletal Deformity, Reports Hx Musculoskeletal Trauma Psychiatric Medical History: Reports: Hx Depression Denies: Hx Bipolar Disorder, Hx Schizophrenia Traumatic Medical History: Reports: Hx Fractures Infectious Medical History: Denies: Hx Hepatitis Past Surgical History: Reports: Hx Cardiac Catheterization, Hx Cholecystectomy, Hx Coronary Stent, Hx Dilation and Curettage, Hx Orthopedic Surgery, Hx Tonsillectomy. Denies: Hx Hysterectomy, Hx Mastectomy, Hx Open Heart Surgery, Hx Pacemaker - Immunizations Immunizations up to date: No Hx Diphtheria, Pertussis, Tetanus Vaccination: No Hx Pneumococcal Vaccination: 09/30/15 Review of Systems - Review of Systems Notes: My Normal Review Basic REVIEW OF SYSTEMS: CONSTITUTIONAL : Denies fever, chills, or sweats. Denies recent illness. EENT: Double vision in right eye. RESPIRATORY: Denies cough, cold, or chest congestion. Denies shortness of breath, difficulty breathing, or wheezing. GASTROINTESTINAL: Denies abdominal pain. Denies nausea, vomiting, or diarrhea. GENITOURINARY: Denies difficulty urinating, painful urination, burning, frequency, or blood in urine. MUSCULOSKELETAL: Denies neck or back pain or joint pain or swelling. SKIN: Denies rash or skin lesions. NEUROLOGICAL: Denies altered mental status or loss of consciousness. Denies headache. chronic left-sided weakness. No new weakness on the right side. ALL OTHER SYSTEMS REVIEWED AND NEGATIVE. Physical Exam - Vital signs Vitals: Temp Pulse Resp BP Pulse Ox 99.7 F 76 16 142/61 H 97 12/23/18 18:37 12/23/18 18:37 12/23/18 18:37 12/23/18 18:37 12/23/18 18:37 - Notes Notes: General Appearance: Well nourished, alert, cooperative, no acute distress, no obvious discomfort. Vitals: reviewed, See vital signs table. Head: no swelling or tenderness to the head Eyes: Conjunctive is clear bilaterally except for may be just very slight redness to the right conjunctival. Pupils are equal reactive to light. Good extraocular motion. Dani-Pen pressure of right eye is 18. Fluorescein staining shows no uptake of fluorescein stain and no evidence of corneal abrasions. Mouth: No decreasd moisture Throat: No tonsillar inflammation, No airway obstruction, No lymphadenopathy Neck: Supple, no neck tenderness, No thyromegaly Lungs: No wheezing, No rales, No rhonci, No accessory muscle use, good air exchange bilaterally. Heart: Normal rate, Regular rythm, No murmur, no rub Abdomen: Normal BS, soft, No rigidity, No abdominal tenderness, No guarding, no rebound, no abdominal masses, no organomegaly Extremities: good pulses in all extremities, no swelling or tenderness in the extremities, no edema. Patient has a amputation of left lower leg. Skin: warm, dry, appropriate color, no rash Neuro: speech clear, oriented x 3, normal affect, responds appropriately to questions. Patient cranial nerves II through XII are intact except for the probably in the right eye. Patient has good strength in right upper extremity. Good strength in right lower extremity. She has paralysis of her left upper and lower extremities from previous stroke that occurred in 2006. Course - Re-evaluation Re-evalutation: 12/24/18 00:19 Patient has the possibly of the right eye. She has no other associated symptoms. I did do fluorescein staining of the eye and there is no evidence of abrasions. I did do Dani-Pen pressures and her pressures are normal at 18. She has no other focal neurologic deficits; however, the concern is that with her previous stroke her symptoms started with isolated diplopia and eventually she progressed to having complete paralysis to the left side. I therefore is concerned that this could be signs of an stroke as per her history with her previous stroke. We will give her aspirin. I did discuss the case with Dr. Isaac who agrees to admit the patient for further workup. Dictation of this chart was performed using voice recognition software; therefore, there may be some unintended grammatical errors. - Vital Signs Vital signs: Temp Pulse Resp BP Pulse Ox 99.7 F 76 16 142/61 H 97 12/23/18 18:37 12/23/18 18:37 12/23/18 18:37 12/23/18 18:37 12/23/18 18:37 - Laboratory Result Diagrams: 12/23/18 22:55 12/23/18 22:55 Laboratory results interpreted by me: 12/23/18 12/23/18 22:55 22:55 Hct 35.1 L Seg Neutrophils % 39.9 L Lymphocytes % 48.2 H ESR 36 H BUN 24 H Est GFR (Non-Af Amer) 49 L Glucose 173 H Discharge - Discharge Clinical Impression: Diplopia Condition: Stable Disposition: ADMITTED OBSERVATION Admitting Provider: [facility] Admitted: Telemetry Referrals: XIMENA ISAAC MD [Primary Care Provider] - Follow up as needed
[2018-12-23 23:10] LABS: ABSOLUTE EOSINOPHILS # (AUTO) 0.2 10^3/uL (0.0-0.6); ABSOLUTE LYMPHOCYTES (AUTO) 3.1 10^3/uL (0.5-4.7); ABSOLUTE MONOCYTES (AUTO) 0.6 10^3/uL (0.1-1.4); ABSOLUTE NEUT (AUTO) 2.6 10^3/uL (1.7-8.2); BASOPHILS % (AUTO) 0.6 % (0-2); EOSINOPHILS % (AUTO) 2.4 % (0-6); HEMATOCRIT 35.1 % (36.0-47.0); HEMOGLOBIN 12.3 g/dL (12.0-15.5); LYMPHOCYTES % (AUTO) 48.2 % (13-45); MEAN CORPUSCULAR HGB CONC 35.1 g/dL (32.0-36.0); MEAN CORPUSCULAR VOLUME 88 fl (80-97); MONOCYTES % (AUTO) 8.9 % (3-13); PLATELET COUNT 238 10^3/uL (150-450); RED BLOOD COUNT 3.97 10^6/uL (3.72-5.28); RED CELL DISTRIBUTION WIDTH 13.1 % (11.5-14.0); SEGMENTED NEUTROPHILS % (AUTO) 39.9 % (42-78); TOTAL CELLS COUNTED % (AUTO) 100 %; WHITE BLOOD COUNT 6.5 10^3/uL (4.0-10.5)
[2018-12-23 23:24] LABS: ALANINE AMINOTRANSFERASE 44 U/L (9-52); ALBUMIN 4.2 g/dL (3.5-5.0); ALKALINE PHOSPHATASE 76 U/L (38-126); ANION GAP 11 (5-19); ASPARTATE AMINO TRANSFERASE 25 U/L (14-36); BILIRUBIN,DIRECT 0.1 mg/dL (0.0-0.4); BILIRUBIN,TOTAL 0.2 mg/dL (0.2-1.3); BLOOD UREA NITROGEN 24 mg/dL (7-20); CALCIUM 9.3 mg/dL (8.4-10.2); CARBON DIOXIDE 26 mmol/L (22-30); CHLORIDE 103 mmol/L (98-107); GLUCOSE 173 mg/dL (75-110); POTASSIUM 4.1 mmol/L (3.6-5.0); SODIUM 139.5 mmol/L (137-145); TOTAL PROTEIN 7.2 g/dL (6.3-8.2)
[2018-12-23 23:49] LABS: ERYTHROCYTE SEDIMENTATION RATE 36 mm/hr (0-30)
[2018-12-24] MEDS ORDERED: ASPIRIN 325 MG TABLET PO ONE (00:19)
[2018-12-24] MEDS ORDERED: LANSOPRAZOLE 30 MG TAB.RAP.DR PO SCH (06:00)
[2018-12-24] MEDS: LEVOTHYROXINE SODIUM 0.075 MG TABLET PO SCH (06:49)
[2018-12-24] MEDS: LEVOTHYROXINE SODIUM 0.1 MG TABLET PO SCH (06:50)
[2018-12-24] MEDS: METFORMIN HCL 500 MG TABLET PO SCH ×2 (07:02→16:01)
--- NOTE | 2018-12-24 08:48 | RADIOLOGY REPORT (SQ) ---
EXAM DESCRIPTION: MRI HEAD WITHOUT COMPLETED DATE/TIME: 12/24/2018 8:17 am REASON FOR STUDY: diplopia double vision started yesterday COMPARISON: MRI brain 12/11/2015, 03/21/2013 CT brain 12/23/2018 TECHNIQUE: Multiplanar imaging includes non-contrasted T1, T2, FLAIR, and diffusion with ADC map seq uences. Images stored on PACS. LIMITATIONS: None. FINDINGS: ANATOMY: No developmental anomalies. Normal vascular flow voids. Pituitary fossa normal. CSF SPACES: Normal in size and contour. No hemorrhage. CEREBRUM: No MR evidence of acute large territory ischemic change, acute intracranial hemorrhage, mas s effect, or midline shift. There is spotty increased FLAIR/T2 signal throughout temporal, parietal, and frontal deep white matter and subcortical white matter, from small vessel ischemic change or rem ote demyelinating disease. This is stable. POSTERIOR FOSSA: Focal encephalomalacia right cerebral peduncle/janeth axial image 12 unchanged. No he morrhage. No edema, masses or mass effect. Internal auditory canals, cerebello-pontine angles, masto ids normal. DIFFUSION IMAGING: Negative for acute or sub-acute infarction. ORBITS: Post cataract surgery bilaterally PARANASAL SINUSES: No fluid levels. Mucosa normal. OTHER: No other significant finding. IMPRESSION: Multiple white matter lesions likely old infarcts including of moderate size right ponti ne/ cerebral peduncle chronic infarct. No acute findings. EVIDENCE OF ACUTE STROKE: NO. TECHNICAL DOCUMENTATION: JOB ID: [id number] [employer]- All Rights Reserved Reading location - IP/workstation name: [email or web address]
[2018-12-24] MEDS ORDERED: TOLTERODINE TARTRATE 1 MG TABLET PO SCH (10:00)
[2018-12-24] MEDS ORDERED: CLOPIDOGREL BISULFATE 75 MG TABLET PO SCH (10:00)
[2018-12-24] MEDS ORDERED: ISOSORBIDE MONONITRATE 60 MG TAB.ER.24H PO SCH (10:00)
[2018-12-24] MEDS ORDERED: FERROUS SULFATE 325 MG TABLET PO SCH (10:00)
[2018-12-24] MEDS: TOLTERODINE TARTRATE 1 MG TABLET PO SCH ×2 (10:16→23:24)
[2018-12-24] MEDS: METOPROLOL TARTRATE 25 MG TABLET PO SCH (10:16)
[2018-12-24] MEDS: IRON POLYSACCHARIDES COMPLEX 150 MG CAPSULE PO SCH (10:16)
[2018-12-24] MEDS: LISINOPRIL 10 MG TABLET PO SCH (10:19)
[2018-12-24] MEDS: OMEGA-3 ACID ETHYL ESTERS 1 GM CAPSULE PO SCH ×2 (10:19→23:13)
[2018-12-24] MEDS ORDERED: ONDANSETRON 4 MG TAB.RAPDIS PO ONE (18:07)
[2018-12-24] MEDS ORDERED: DOCUSATE SODIUM 100 MG CAPSULE PO SCH (22:00)
[2018-12-24] MEDS ORDERED: CYANOCOBALAMIN (VITAMIN B-12) INJ 1000 MCG/1 ML VIAL IM SCH (22:00)
[2018-12-24] MEDS ORDERED: ALPRAZOLAM 0.5 MG TABLET PO SCH (22:00)
[2018-12-24] MEDS ORDERED: ATORVASTATIN CALCIUM 20 MG TABLET PO SCH (22:00)
[2018-12-24] MEDS: OXYCODONE-ACETAMINOPHEN 5-325 MG TABLET PO PRN (23:23)
[2018-12-24] MEDS ORDERED: GABAPENTIN 300 MG CAPSULE PO ONE (23:30)
[2018-12-25] MEDS: METOPROLOL TARTRATE 25 MG TABLET PO SCH (03:48)
[2018-12-25] MEDS: OXYCODONE-ACETAMINOPHEN 5-325 MG TABLET PO PRN (04:00)
[2018-12-25] MEDS: LEVOTHYROXINE SODIUM 0.075 MG TABLET PO SCH (05:04)
[2018-12-25] MEDS: LEVOTHYROXINE SODIUM 0.1 MG TABLET PO SCH (05:04)
[2018-12-25] MEDS: GABAPENTIN 300 MG CAPSULE PO SCH ×2 (05:04→13:14)
[2018-12-25] MEDS ORDERED: LEVOTHYROXINE SODIUM 0.075 MG TABLET PO SCH (06:00)
[2018-12-25] MEDS ORDERED: LANSOPRAZOLE 30 MG TAB.RAP.DR PO SCH ×2 (06:00)
[2018-12-25] MEDS ORDERED: METFORMIN HCL 500 MG TABLET PO SCH (08:00)
[2018-12-25] MEDS ORDERED: LOSARTAN POTASSIUM 50 MG TABLET PO SCH (10:00)
[2018-12-25] MEDS ORDERED: CITALOPRAM HYDROBROMIDE 20 MG TABLET PO SCH (10:00)
[2018-12-25] MEDS ORDERED: OMEGA-3 ACID ETHYL ESTERS 1 GM CAPSULE PO SCH (10:00)
[2018-12-25] MEDS ORDERED: ISOSORBIDE MONONITRATE 60 MG TAB.ER.24H PO SCH (10:00)
[2018-12-25] MEDS ORDERED: CLOPIDOGREL BISULFATE 75 MG TABLET PO SCH (10:00)
[2018-12-25] MEDS ORDERED: METOPROLOL TARTRATE 25 MG TABLET PO SCH (10:00)
[2018-12-25] MEDS: TOLTERODINE TARTRATE 1 MG TABLET PO SCH (10:47)
[2018-12-25] MEDS: IRON POLYSACCHARIDES COMPLEX 150 MG CAPSULE PO SCH (10:49)
--- NOTE | 2018-12-25 12:04 | PDOC H&P ---
History of Present Illness Admission Date/PCP: 12/24/18 00:41 XIMENA ISAAC MD History of Present Illness: JOSIE BAIRES is a 62 year old female, she has a history of CVA with residual left-sided hemiplegia, she came to the emergency room for evaluation of double vision in the right eye she was concerned because she stated that when she had previous stroke is started with visual symptoms with blurry vision and double vision. She is presently residing in assisted living facility when she was experiencing the symptoms she had a nurse look at the eyes and it was stated that they were normal so she came to the emergency room for evaluation. She had CT head done in the emergency room, it was negative, subsequent MRI done demonstrated no acute large territory ischemic change, no acute intracranial hemorrhage mass-effect or midline shift. There is spotty increased signal thr oughout the temporal, parietal or frontal deep white matter. There is focal encephalomalacia in the right cerebral peduncle Past Medical History Cardiac Medical History: Reports: Coronary Artery Disease, Myocardial Infarction, Hyperlipidema, Hypertension Pulmonary Medical History: Reports: Asthma, Pneumonia Endocrine Medical History: Reports: Diabetes Mellitus Type 2, Hypothyroidism GI Medical History: Reports: Diverticulitis Musculoskeltal Medical History: Reports: Arthritis Psychiatric Medical History: Reports: Depression Hematology: Reports: Anemia Past Surgical History Past Surgical History: Reports: Cardiac Catheterization, Cholecystectomy, Coronary Stent, Orthopedic Surgery, Tonsillectomy Social History Smoking Status: Never Smoker Frequency of Alcohol Use: None Hx Recreational Drug Use: No Drugs: None Hx Prescription Drug Abuse: No Family History Family History: Reviewed & Not Pertinent Parental Family History Reviewed: Yes Children Family History Reviewed: Yes Sibling(s) Family History Reviewed.: Yes Medication/Allergy Home Medications: Alprazolam [Xanax 0.5 mg Tablet] 0.5 mg PO QHS 12/05/17 Atorvastatin Calcium [Lipitor 20 mg Tablet] 40 mg PO QHS 12/05/17 Citalopram Hydrobromide [Celexa 20 mg Tablet] 20 mg PO DAILY 12/05/17 Clopidogrel Bisulfate [Plavix 75 mg Tablet] 75 mg PO DAILY 12/05/17 Cyanocobalamin (Vitamin B-12) [Vitamin B-12 Inj 1000 Mcg/1 ml Vial] 1,000 mcg IM .MONTHLY 12/05/17 Exenatide Microspheres [Bydureon Pen] 2 mg SQ TU@0800 12/05/17 Isosorbide Mononitrate [Imdur 60 mg Tablet.er] 60 mg PO DAILY 12/05/17 Levocetirizine Dihydrochloride [Xyzal] 5 mg PO QPM 12/05/17 Levothyroxine Sodium [Synthroid] 175 mcg PO Q6AM 12/05/17 Linaclotide [Linzess] 290 mcg PO DAILY 12/05/17 Metformin HCl [Glucophage 500 mg Tablet] 1,000 mg PO BIDACBS 12/05/17 Metoprolol Tartrate [Lopressor 25 mg Tablet] 37.5 mg PO Q12 12/05/17 Montelukast Sodium [Singulair 10 mg Tablet] 10 mg PO QHS 12/05/17 [place]-3 Acid Ethyl Esters [Lovaza 1 gm Capsule] 2 gm PO BID 12/05/17 Pantoprazole Sodium [Protonix] 40 mg PO Q6AM 12/05/17 Solifenacin Succinate [Vesicare] 10 mg PO QAM 12/05/17 Gabapentin [Neurontin 300 mg Capsule] 300 mg PO Q8 12/24/18 Losartan Potassium [Cozaar 100 mg Tablet] 100 mg PO DAILY 12/24/18 Allergies/Adverse Reactions: metoclopramide [From Reglan] Allergy (Verified 08/28/18 16:54) Review of Systems Constitutional: ABSENT: chills, fever(s), headache(s), weight gain, weight loss Eyes: ABSENT: visual disturbances Ears: ABSENT: hearing changes Cardiovascular: ABSENT: chest pain, dyspnea on exertion, edema, orthropnea, palpitations Respiratory: ABSENT: cough, hemoptysis Gastrointestinal: ABSENT: abdominal pain, constipation, diarrhea, hematemesis, hematochezia, nausea, vomiting Genitourinary: ABSENT: dysuria, hematuria Musculoskeletal: ABSENT: joint swelling Integumentary: ABSENT: rash, wounds Neurological: PRESENT: other - double vision. ABSENT: abnormal gait, abnormal speech, confusion, dizziness, focal weakness, syncope Psychiatric: ABSENT: anxiety, depression, homidical ideation, suicidal ideation Endocrine: ABSENT: cold intolerance, heat intolerance, menstrual abnormalities, polydipsia, polyuria Hematologic/Lymphatic: ABSENT: easy bleeding, easy bruising, lymphadenopathy Physical Exam Vital Signs: Temp Pulse Resp BP Pulse Ox 97.9 F 77 16 100/40 L 97 12/25/18 07:45 12/25/18 10:45 12/25/18 07:45 12/25/18 10:45 12/25/18 10:45 Intake & Output 12/24/18 12/25/18 12/26/18 06:59 06:59 06:59 Intake Total 200 Balance 200 Weight 124.1 kg 120 kg General appearance: PRESENT: no acute distress Head exam: PRESENT: atraumatic, normocephalic Eye exam: PRESENT: conjunctiva pink, EOMI, PERRLA Ear exam: PRESENT: normal external ear exam Mouth exam: PRESENT: moist, tongue midline Neck exam: PRESENT: full ROM Respiratory exam: PRESENT: clear to auscultation urvashi Cardiovascular exam: PRESENT: RRR, +S1, +S2 Pulses: PRESENT: normal dorsalis pedis pul, +2 pedal pulses bilateral Vascular exam: PRESENT: normal capillary refill GI/Abdominal exam: PRESENT: normal bowel sounds, soft Rectal exam: PRESENT: deferred Neurological exam: PRESENT: alert, motor sensory deficit - There is left-sided hemiplegia Psychiatric exam: PRESENT: appropriate affect, normal mood Skin exam: PRESENT: dry, intact, warm Results Laboratory Results: 12/23/18 22:55 12/23/18 22:55 Impressions: Head CT 12/23/18 20:54 IMPRESSION: Negative for acute intracranial abnormality TECHNICAL DOCUMENTATION: Quality ID # [id number]: Final reports with documentation of one or more dose reduction techniques (e.g., Automated exposure control, adjustment of the mA and/or kV according to patient size, use of iterative reconstruction technique) copyright 2011 [employer]- All Rights Reserved Head MRI 12/24/18 00:00 IMPRESSION: Multiple white matter lesions likely old infarcts including of moderate size right pontine/ cerebral peduncle chronic infarct. No acute findings. EVIDENCE OF ACUTE STROKE: NO. 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 Qualified Code(s): H49.21 - Sixth [abducent] nerve palsy, right eye Is this a current diagnosis for this admission?: Yes Plan: She has abducens nerve palsy, transient, she is regained full function, MRI nega tive for acute stroke, patient observed in the hospital (2) Personal history of cerebrovascular accident with current residual effects Is this a current diagnosis for this admission?: Yes (3) History of MD (myocardial infarction) Is this a current diagnosis for this admission?: Yes (4) Type 2 diabetes mellitus Qualifiers: Diabetes mellitus intermediate insulin use: with rat exterminator use Diabetes mellitus complication status: with neurologic complications Diabetes mellitus complication detail: with polyneuropathy Qualified Code(s): E11.42 - Type 2 diabetes mellitus with diabetic polyneuropathy; Z79.4 - long-term (current) use of insulin Is this a current diagnosis for this admission?: Yes
[2018-12-25] MEDS: LISINOPRIL 10 MG TABLET PO SCH (12:10)
--- NOTE | 2018-12-25 12:31 | PDOC TRANSFER SUMMARY ---
General - Admit/Disc Date/PCP Admission Date/Primary Care Provider: 12/24/18 00:41 XIMENA ISAAC MD Discharge Date: 12/25/18 - Discharge Diagnosis (1) Abducens nerve palsy Is this a current diagnosis for this admission?: Yes (2) Personal history of cerebrovascular accident with current residual effects Is this a current diagnosis for this admission?: Yes (3) History of NV (myocardial infarction) Is this a current diagnosis for this admission?: Yes (4) Type 2 diabetes mellitus Is this a current diagnosis for this admission?: Yes - Additional Information Home Medications: Alprazolam [Xanax 0.5 mg Tablet] 0.5 mg PO QHS 12/05/17 Atorvastatin Calcium [Lipitor 20 mg Tablet] 40 mg PO QHS 12/05/17 Citalopram Hydrobromide [Celexa 20 mg Tablet] 20 mg PO DAILY 12/05/17 Clopidogrel Bisulfate [Plavix 75 mg Tablet] 75 mg PO DAILY 12/05/17 Cyanocobalamin (Vitamin B-12) [Vitamin B-12 Inj 1000 Mcg/1 ml Vial] 1,000 mcg IM .MONTHLY 12/05/17 Exenatide Microspheres [Bydureon Pen] 2 mg SQ TU@0800 12/05/17 Isosorbide Mononitrate [Imdur 60 mg Tablet.er] 60 mg PO DAILY 12/05/17 Levocetirizine Dihydrochloride [Xyzal] 5 mg PO QPM 12/05/17 Levothyroxine Sodium [Synthroid] 175 mcg PO Q6AM 12/05/17 Linaclotide [Linzess] 290 mcg PO DAILY 12/05/17 Metformin HCl [Glucophage 500 mg Tablet] 1,000 mg PO BIDACBS 12/05/17 Metoprolol Tartrate [Lopressor 25 mg Tablet] 37.5 mg PO Q12 12/05/17 Montelukast Sodium [Singulair 10 mg Tablet] 10 mg PO QHS 12/05/17 [place]-3 Acid Ethyl Esters [Lovaza 1 gm Capsule] 2 gm PO BID 12/05/17 Pantoprazole Sodium [Protonix] 40 mg PO Q6AM 12/05/17 Solifenacin Succinate [Vesicare] 10 mg PO QAM 12/05/17 Gabapentin [Neurontin 300 mg Capsule] 300 mg PO Q8 12/24/18 Losartan Potassium [Cozaar 100 mg Tablet] 100 mg PO DAILY 12/24/18 History of Present Illness Admission Date/PCP: 12/24/18 00:41 XIMENA ISAAC MD History of Present Illness: JOSIE BAIRES is a 62 year old female, she has a history of CVA with residual left-sided hemiplegia, she came to the emergency room for evaluation of double vision in the right eye she was concerned because she stated that when she had previous stroke is started with visual symptoms with blurry vision and double vision. She is presently residing in assisted living facility when she was experiencing the symptoms she had a nurse look at the eyes and it was stated that they were normal so she came to the emergency room for evaluation. She had CT head done in the emergency room, it was negative, subsequent MRI done demonstrated no acute large territory ischemic change, no acute intracranial hemorrhage mass-effect or midline shift. There is spotty increased signal throughout the temporal, parietal or frontal deep white matter. There is focal encephalomalacia in the right cerebral peduncle Hospital Course Hospital Course: Patient was admitted for the management of diplopia due to abducens nerve palsy, she was managed conservatively, MRI brain negative for any acute pathology, patient is improved, she is no longer experiencing diplopia Physical Exam Vital Signs: Temp Pulse Resp BP Pulse Ox 97.9 F 77 16 100/40 L 97 12/25/18 07:45 12/25/18 10:45 12/25/18 07:45 12/25/18 10:45 12/25/18 10:45 Intake & Output 12/24/18 12/25/18 12/26/18 06:59 06:59 06:59 Intake Total 200 Balance 200 Weight 124.1 kg 120 kg General appearance: PRESENT: no acute distress Eye exam: PRESENT: PERRLA Respiratory exam: PRESENT: clear to auscultation urvashi Cardiovascular exam: PRESENT: +S1, +S2 GI/Abdominal exam: PRESENT: soft Neurological exam: PRESENT: alert Results Laboratory Results: 12/23/18 22:55 12/23/18 22:55 Impressions: Head CT 12/23/18 20:54 IMPRESSION: Negative for acute intracranial abnormality TECHNICAL DOCUMENTATION: Quality ID # 436: Final reports with documentation of one or more dose reduction techniques (e.g., Automated exposure control, adjustment of the mA and/or kV according to patient size, use of iterative reconstruction technique) copyright 2011 [employer]- All Rights Reserved Head MRI 12/24/18 00:00 IMPRESSION: Multiple white matter lesions likely old infarcts including of moderate size right pontine/ cerebral peduncle chronic infarct. No acute findings. EVIDENCE OF ACUTE STROKE: NO. Qualifiers - * PATIENT BEING DISCHARGED WITH ANY OF THE FOLLOWING DIAGNOSIS: No
[2018-12-25 13:52] VITALS: BP 95/71
[2018-12-25] MEDS ORDERED: CETIRIZINE 5 MG TABLET PO SCH (18:00)
[2018-12-25] MEDS ORDERED: ALPRAZOLAM 0.5 MG TABLET PO SCH (22:00)
[2018-12-25] MEDS ORDERED: MONTELUKAST SODIUM 10 MG TABLET PO SCH (22:00)
[2018-12-25] MEDS ORDERED: ATORVASTATIN CALCIUM 20 MG TABLET PO SCH (22:00)
[2018-12-28] MEDS ORDERED: (PENDING PHARMACY ID) (Exenatide Microspheres [Bydureon Pen] 2 MG) SQ SCH (08:00)
== END 2018-12-25 14:20 | disposition other institution (70) ==
LOC: ER 18:13 → UNDOADMOB 12-24 00:41 → EH 12-24 00:41 → 3W 12-24 23:43
PROVIDERS: ADMIT Emergency Medicine; ATTEND Internal Medicine
DX: H49.21 Sixth [abducent] nerve palsy, right eye (principal); E11.42 Type 2 diabetes mellitus with diabetic polyneuropathy; I69.354 Hemiplegia and hemiparesis following cerebral infarction affecting left non-dominant side; I25.10 Atherosclerotic heart disease of native coronary artery without angina pectoris; E78.5 Hyperlipidemia, unspecified; E03.9 Hypothyroidism, unspecified; I10 Essential (primary) hypertension; I25.2 Old myocardial infarction; Z79.899 Other long term (current) drug therapy; Z79.02 Long term (current) use of antithrombotics/antiplatelets; Z90.49 Acquired absence of other specified parts of digestive tract; Z95.5 Presence of coronary angioplasty implant and graft; Z79.84 Long term (current) use of oral hypoglycemic drugs; Z79.4 Long term (current) use of insulin; Z89.612 Acquired absence of left leg above knee; Z23 Encounter for immunization
CPT/HCPCS: 99285; 36415 ×2; 82962; 85025; 85652; 80053; 83036; 70551; 70450; 90686; G0378 ×2; S0119

== ENCOUNTER 2019-03-09 08:26 | Emergency (ER) | payer MEDICARE, OTHER ==
[2019-03-09] MEDS ORDERED: ACETAMINOPHEN SOLN 325 MG/10.15 ML UDCUP PO ONE (09:31)
[2019-03-09] MEDS ORDERED: KETOROLAC TROMETHAMINE 60 MG/2 ML SDV IM ONE (09:31)
--- NOTE | 2019-03-09 09:59 | ER Document Report ---
ED Hip Pain/Injury - General Chief Complaint: Hip Pain Stated Complaint: HIP PAIN Time Seen by Provider: 03/09/19 09:18 Primary Care Provider: XIMENA ISAAC MD [Primary Care Provider] - Follow up as needed Notes: Pleasant 63-year-old female who is a resident of the [facility] with history of a left leg amputation presents to the emergency department with times 1 week. She states it is much worse on the right side and saw Dr. Isaac a week ago when she was diagnosed with sciatica. She states the pain is the same. She is also complaining of right hand pain states it hurts to open and close her hand. No trauma or falls noted. She denies fever, chills, nausea, vomiting, diarrhea, urinary retention, saddle paresthesia. Patient states that she is not ambulatory, is incontinent of urine, has a prosthetic for which she has been going to physical therapy for but is not tolerating it at this time. TRAVEL OUTSIDE OF THE [place] IN LAST 30 DAYS: No - Related Data Allergies/Adverse Reactions: metoclopramide [From Reglan] Allergy (Verified 08/28/18 16:54) Past Medical History - Social History Smoking Status: Unknown if Ever Smoked Family History: Reviewed & Not Pertinent Patient has suicidal ideation: No Patient has homicidal ideation: No - Past Medical History Cardiac Medical History: Reports: Hx Coronary Artery Disease, Hx Heart Attack, Hx Hypercholesterolemia, Hx Hypertension Denies: Hx Congestive Heart Failure Pulmonary Medical History: Reports: Hx Asthma, Hx Pneumonia Denies: Hx Bronchitis, Hx COPD, Hx Tuberculosis Neurological Medical History: Reports: 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 Denies: Hx Seizures Endocrine Medical History: Reports: Hx Diabetes Mellitus Type 2, Hx Graves' Disease, Hx Hypothyroidism Renal/ Medical History: Denies: Hx End Stage Renal Disease, Hx Kidney Stones, Hx Peritoneal Dialysis GI Medical History: Reports: Hx Diverticulitis, Hx Gastritis, Hx Ulcer. Denies: Hx Cirrhosis, Hx Gastroesophageal Reflux Disease, Hx Hepatitis, Hx Hiatal Hernia Musculoskeletal Medical History: Reports Hx Arthritis, Denies Hx Multiple Sclerosis, Reports Hx Musculoskeletal Deformity, Reports Hx Musculoskeletal Tra ángel Psychiatric Medical History: Reports: Hx Depression Denies: Hx Bipolar Disorder, Hx Schizophrenia Traumatic Medical History: Reports: Hx Fractures Infectious Medical History: Denies: Hx Hepatitis Past Surgical History: Reports: Hx Cardiac Catheterization, Hx Cholecystectomy, Hx Coronary Stent, Hx Dilation and Curettage, Hx Orthopedic Surgery, Hx Tonsillectomy. Denies: Hx Hysterectomy, Hx Mastectomy, Hx Open Heart Surgery, Hx Pacemaker - Immunizations Immunizations up to date: No Hx Diphtheria, Pertussis, Tetanus Vaccination: No Hx Pneumococcal Vaccination: 09/30/15 Review of Systems - Review of Systems Constitutional: See HPI EENT: No symptoms reported Cardiovascular: See HPI Respiratory: See HPI Gastrointestinal: See HPI Genitourinary: No symptoms reported Female Genitourinary: No symptoms reported Musculoskeletal: See HPI Skin: No symptoms reported Hematologic/Lymphatic: No symptoms reported Neurological/Psychological: No symptoms reported Physical Exam - Vital signs Vitals: Temp Pulse Resp BP Pulse Ox 98.5 F 16 L 18 117/50 L 97 03/09/19 08:43 03/09/19 08:43 03/09/19 08:43 03/09/19 08:43 03/09/19 08:43 - Notes Notes: PHYSICAL EXAMINATION: Reviewed vital signs and charting by RN GENERAL: Alert, interacts well. No acute distress. HEAD: Normocephalic, atraumatic. EYES: Pupils equal and round. Extraocular movements intact. LUNGS: Clear to auscultation bilaterally, no wheezes, rales, or rhonchi. No respiratory distress. HEART: Regular rate and rhythm. No murmur ABDOMEN: soft, non-tender. Non-distended. Bowel sounds present. no McBurney's point tenderness, no Brown sign. EXTREMITIES: Moves all 4 extremities spontaneously with a left AKA. No edema, No cyanosis. Normal distal neurovascular exam BACK: No CVAT, point tenderness left ASIS with invoked radiating pain to left knee NEUROLOGIC: Oriented and appropriate. Normal speech. PSYCH: Normal affect, normal mood. Course - Re-evaluation Re-evalutation: 03/09/19 09:59 Overall well-appearing, symptoms most consistent with sciatic nerve pain. Patient is obese and sedentary. I will get a urinalysis 03/09/19 13:46 Urinalysis positive for UTI. We will give her a am here and a prescription for Keflex outpatient. Patient is stable for discharge and no concerns for any spinal injury like epidural abscess, meningitis or any other concerning infectious symptoms. Stable for discharge to facility. - Vital Signs Vital signs: Temp Pulse Resp BP Pulse Ox 98.5 F 16 L 18 117/50 L 97 03/09/19 08:43 03/09/19 08:43 03/09/19 08:43 03/09/19 08:43 03/09/19 08:43 - Laboratory Laboratory results interpreted by me: 03/09/19 12:45 Urine Protein 30 H Urine Blood LARGE H Urine Nitrite POSITIVE H Ur Leukocyte Esterase LARGE H Discharge - Discharge Clinical Impression: Back pain Qualifiers: Back pain location: low back pain Chronicity: acute Back pain laterality: left Sciatica presence: with sciatica Sciatica laterality: sciatica of left side Qualified Code(s): M54.42 - Lumbago with sciatica, left side Urinary tract infection Qualifiers: Urinary tract infection type: acute cystitis Hematuria presence: without hematuria Qualified Code(s): N30.00 - Acute cystitis without hematuria Condition: Good Disposition: HOME-SNF (ED ONLY) Instructions: Sciatica ([facility]), Urinary Tract Infection ([facility]), Cephalexin ([facility]) Additional Instructions: You have been seen in the Emergency Department (ED) today for back pain. Your workup and exam have not shown any acute abnormalities and you are likely suffering from muscle strain or possible problems with your discs, but there is no treatment that will fix your symptoms at this time. Please take the naproxen that has been prescribed as directed. You should also purchase a local lidocaine cream such as "aspercreme with lidocaine" and use per bottle instructions to the affected area. Apply heat to the area as often as you are able. Continue to keep active and avoid prolonged periods of bed rest. Please follow up with your doctor as soon as possible regarding today's ED visit and your back pain. Return to the ED for worsening back pain, fever, weakness or numbness of either leg, or if you develop either (1) an inability to urinate or have bowel movements, or (2) loss of your ability to control your bathroom functions (if you start having "accidents"), or if you develop other new symptoms that concern you.concern you. Your urine shows findings consistent with a urinary tract infection. Please take all the antibiotics as directed even if your symptoms have improved. Please follow-up with your primary care physician as needed. Return to emergency room if you develop fever >101F, persistent vomiting, become lethargic, have severe pain in your sides, or any other symptoms that are concerning to you. Prescriptions: Cephalexin Monohydrate [Keflex 500 mg Capsule] 500 mg PO BID 7 Days #14 capsule Referrals: XIMENA ISAAC MD [Primary Care Provider] - Follow up as needed
[2019-03-09] MEDS ORDERED: LIDOCAINE 5% (700 MG) TRANSDERMAL ADH..PATCH TP ONE (10:01)
[2019-03-09 13:11] LABS: APPEARANCE,URINE TURBID; BILIRUBIN,URINE NEGATIVE (NEGATIVE); GLUCOSE, URINE NEGATIVE (NEGATIVE); KETONES,URINE NEGATIVE (NEGATIVE); LEUKOCYTE ESTERASE,URINE LARGE (NEGATIVE); NITRITE,URINE POSITIVE (NEGATIVE); PROTEIN,URINE 30 mg/dL (NEGATIVE); URINE SPECIFIC GRAVITY 1.014; UROBILINOGEN,URINE NEGATIVE mg/dL (<2.0)
[2019-03-09 13:13] LABS: COLOR,URINE YELLOW
[2019-03-09] MEDS ORDERED: CEFTRIAXONE INJ 1000 MG VIAL IM ONE (13:44)
[2019-03-09 18:19] VITALS: BP 135/74
== END 2019-03-09 18:13 ==
LOC: ER 08:26
DX: N30.00 Acute cystitis without hematuria (principal); M54.42 Lumbago with sciatica, left side; M79.641 Pain in right hand; E66.9 Obesity, unspecified; R32 Unspecified urinary incontinence; I25.10 Atherosclerotic heart disease of native coronary artery without angina pectoris; I10 Essential (primary) hypertension; J45.909 Unspecified asthma, uncomplicated; E11.9 Type 2 diabetes mellitus without complications; Z89.612 Acquired absence of left leg above knee; Z88.8 Allergy status to other drugs, medicaments and biological substances
CPT/HCPCS: 99284; 96372; 81001; J1885; J0696; J3490

== ENCOUNTER 2019-04-12 11:54 | Inpatient (IN) | payer MEDICARE, OTHER ==
[2019-04-12] MEDS ORDERED: NORMAL SALINE 1000 ML 1,000 ML IV ONE ×2 (12:36→14:39)
--- NOTE | 2019-04-12 12:39 | ER Document Report ---
ED Medical Screen (RME) - General Chief Complaint: Abnormal Lab Results Stated Complaint: ABNORMAL LABS Time Seen by Provider: 04/12/19 12:33 Primary Care Provider: XIMENA ISAAC MD [Primary Care Provider] - Follow up as needed Mode of Arrival: Wheelchair Information source: Patient Notes: 63-year-old female presents to ED for abnormal labs sent by her MD. 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 She currently lives in assisted living due to the amputation and stroke with left-sided weakness hugh betes. Patient is alert and oriented multiple family members are with her. She has a Port-A-Cath which needs to be accessed blood work and IV fluids started. She does have an elevated potassium on the labs she has with her. She does need to be seen her port access labs sent and IV fluids started. I have informed the charge nurse that this patient needs a bed so she can get her labs drawn IV f luids started. I have greeted and performed a rapid initial assessment of this patient. A comprehensive ED assessment and evaluation of the patient, analysis of test results and completion of medical decision making process will be conducted by an additional ED providers. Dictation of this chart was performed using voice recognition software; therefore, there may be some unintended grammatical errors. TRAVEL OUTSIDE OF THE [place] IN LAST 30 DAYS: No - Related Data Allergies/Adverse Reactions: metoclopramide [From Reglan] Allergy (Verified 08/28/18 16:54) Past Medical History - Social History Frequency of alcohol use: None Drug Abuse: None - Past Medical History Cardiac Medical History: Reports: Hx Coronary Artery Disease, Hx Heart Attack, Hx Hypercholesterolemia, Hx Hypertension Denies: Hx Congestive Heart Failure Pulmonary Medical History: Reports: Hx Asthma, Hx Pneumonia Denies: Hx Bronchitis, Hx COPD, Hx Tuberculosis Neurological Medical History: Reports: 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 Denies: Hx Seizures Endocrine Medical History: Reports: Hx Diabetes Mellitus Type 2, Hx Graves' Disease, Hx Hypothyroidism Renal/ Medical History: Denies: Hx End Stage Renal Disease, Hx Kidney Stones, Hx Peritoneal Dialysis GI Medical History: Reports: Hx Diverticulitis, Hx Gastritis, Hx Ulcer. Denies: Hx Cirrhosis, Hx Gastroesophageal Reflux Disease, Hx Hepatitis, Hx Hiatal Hernia Musculoskeltal Medical History: Reports Hx Arthritis, Denies Hx Multiple Sclerosis, Reports Hx Musculoskeletal Deformity, Reports Hx Musculoskeletal Trauma Psychiatric Medical History: Reports: Hx Depression Denies: Hx Bipolar Disorder, Hx Schizophrenia Traumatic Medical History: Reports: Hx Fractures Infectious Medical History: Denies: Hx Hepatitis Past Surgical History: Reports: Hx Cardiac Catheterization, Hx Cardiac Surgery - single bypass, Hx Cholecystectomy, Hx Coronary Stent, Hx Dilation and Curettage, Hx Orthopedic Surgery - L leg amputation, Hx Tonsillectomy. Denies: Hx Hysterectomy, Hx Mastectomy, Hx Open Heart Surgery, Hx Pacemaker - Immunizations Immunizations up to date: No Hx Diphtheria, Pertussis, Tetanus Vaccination: No History of Influenza Vaccine for 08/2017 - 01/2018 Season: Refused Doctor's Discharge - Discharge Referrals: XIMENA ISAAC MD [Primary Care Provider] - Follow up as needed
[2019-04-12 13:39] LABS: ABSOLUTE BASOPHILS # (AUTO) 0.1 10^3/uL (0.0-0.2); ABSOLUTE EOSINOPHILS # (AUTO) 0.2 10^3/uL (0.0-0.6); ABSOLUTE LYMPHOCYTES (AUTO) 2.2 10^3/uL (0.5-4.7); ABSOLUTE MONOCYTES (AUTO) 0.6 10^3/uL (0.1-1.4); ABSOLUTE NEUT (AUTO) 5.7 10^3/uL (1.7-8.2); BASOPHILS % (AUTO) 0.6 % (0-2); HEMATOCRIT 33.8 % (36.0-47.0); HEMOGLOBIN 11.4 g/dL (12.0-15.5); LYMPHOCYTES % (AUTO) 24.9 % (13-45); MEAN CORPUSCULAR HEMOGLOBIN 30.2 pg (27.0-33.4); MEAN CORPUSCULAR HGB CONC 33.6 g/dL (32.0-36.0); MEAN CORPUSCULAR VOLUME 90 fl (80-97); MONOCYTES % (AUTO) 6.5 % (3-13); PLATELET COUNT 250 10^3/uL (150-450); RED BLOOD COUNT 3.76 10^6/uL (3.72-5.28); RED CELL DISTRIBUTION WIDTH 13.5 % (11.5-14.0); TOTAL CELLS COUNTED % (AUTO) 100 %; WHITE BLOOD COUNT 8.7 10^3/uL (4.0-10.5)
[2019-04-12 14:15] LABS: ALANINE AMINOTRANSFERASE 38 U/L (9-52); ALBUMIN 4.2 g/dL (3.5-5.0); ALKALINE PHOSPHATASE 81 U/L (38-126); ANION GAP 10 (5-19); ASPARTATE AMINO TRANSFERASE 23 U/L (14-36); BILIRUBIN,TOTAL 0.4 mg/dL (0.2-1.3); BLOOD UREA NITROGEN 45 mg/dL (7-20); CALCIUM 9.7 mg/dL (8.4-10.2); CARBON DIOXIDE 16 mmol/L (22-30); CHLORIDE 111 mmol/L (98-107); CREATINE KINASE 35 U/L (30-135); GLUCOSE 101 mg/dL (75-110); SODIUM 136.9 mmol/L (137-145)
[2019-04-12 14:26] LABS: POTASSIUM 6.8 mmol/L (3.6-5.0)
[2019-04-12] MEDS ORDERED: SODIUM BICARBONATE 8.4% INJ 50 MEQ/50 ML DISP.SYRIN IV ONE (14:41)
[2019-04-12] MEDS ORDERED: INSULIN REG, HUMAN 100 UNIT/ML 3 ML VIAL (PYX) IV ONE (14:41)
[2019-04-12] MEDS ORDERED: CALCIUM GLUCONATE 1000 MG/10 ML INJ IV ONE (14:41)
[2019-04-12] MEDS ORDERED: DEXTROSE 50%-WATER 25 GM/50 ML DISP.SYRIN IV ONE (14:41)
--- NOTE | 2019-04-12 14:43 | ER Document Report ---
ED General - General Chief Complaint: Abnormal Lab Results Stated Complaint: ABNORMAL LABS Time Seen by Provider: 04/12/19 12:33 Mode of Arrival: Wheelchair Notes: Patient is a 63-year-old female with diabetes mellitus and hypertension that presents to the emergency department for chief complaint of abnormal outpatient blood work. Patient states that she has been having blood work drawn, because she was noted to have an increase in her kidney function, and an elevation in potassium, most recently she had blood work done on Thursday, that demonstrated a potassium of 6.3, and a elevation in her creatinine, she is switched over to a new doctor and is why she is to have this blood work. She denies having any new nausea or vomiting, but states she has chronic diarrhea, and has been going on for about 6 months, she states that her p.o. intake has gone down over the last few days. She states she has a history of UTIs, but denies any dysuria or hematuria at this time. Denies any recent lightheadedness, dizziness, chest pain or shortness of breath. Past Medical History: Diabetes mellitus, hypertension, peripheral vascular disease Past Surgical History: [id number] amputation, CABG, cholecystectomy, C-se ction Social History: Denies tobacco, alcohol or drug use. Family History: Reviewed and noncontributory for presenting illness Allergies: Reviewed, see documented allergy list. REVIEW OF SYSTEMS: Other than noted above, the 12 point review of systems was reviewed with the patient and were negative, all pertinent findings are included in the HPI. PHYSICAL EXAMINATION: Vital signs reviewed, nursing noted reviewed. GENERAL: Well-appearing, well-nourished and in no acute distress. HEAD: Atraumatic, normocephalic. EYES: Eyes appear normal, extraocular movements intact, sclera anicteric, con junctiva are normal. ENT: nares patent, oropharynx clear without exudates. Moist mucous membranes. NECK: Normal range of motion, supple without lymphadenopathy LUNGS: Breath sounds clear to auscultation bilaterally and equal. No wheezes rales or rhonchi. HEART: Regular rate and rhythm without murmurs ABDOMEN: Soft, obese, nontender, normoactive bowel sounds. No rebound, guarding, or rigidity. No masses appreciated. EXTREMITIES: Left [id number] amputation, otherwise extremities are u nremarkable, good range of motion, nontender, distal pulses are palpable. NEUROLOGICAL: No focal neurological deficits. Moves all extremities spontaneously Motor and sensory grossly intact on exam. PSYCH: Normal mood, normal affect. SKIN: Warm, Dry, normal turgor, no rashes or lesions noted on exposed skin TRAVEL OUTSIDE OF THE [place] IN LAST 30 DAYS: No - Related Data Allergies/Adverse Reactions: metoclopramide [From Reglan] Allergy (Verified 08/28/18 16:54) Past Medical History - General Information source: Patient - Social History Smoking Status: Never Smoker Frequency of alcohol use: None Drug Abuse: None Family History: Reviewed & Not Pertinent Patient has suicidal ideation: No Patient has homicidal ideation: No - Past Medical History Cardiac Medical History: Reports: Hx Coronary Artery Disease, Hx Heart Attack, Hx Hypercholesterolemia, Hx Hypertension Denies: Hx Congestive Heart Failure Pulmonary Medical History: Reports: Hx Asthma, Hx Pneumonia Denies: Hx Bronchitis, Hx COPD, Hx Tuberculosis Neurological Medical History: Reports: 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 Denies: Hx Seizures Endocrine Medical History: Reports: Hx Diabetes Mellitus Type 2, Hx Graves' Disease, Hx Hypothyroidism Renal/ Medical History: Denies: Hx End Stage Renal Disease, Hx Kidney Stones, Hx Peritoneal Dialysis GI Medical History: Reports: Hx Diverticulitis, Hx Gastritis, Hx Ulcer. Denies: Hx Cirrhosis, Hx Gastroesophageal Reflux Disease, Hx Hepatitis, Hx Hiatal Hernia Musculoskeletal Medical History: Reports Hx Arthritis, Denies Hx Multiple Sclerosis, Reports Hx Musculoskeletal Deformity, Reports Hx Musculoskeletal Trauma Psychiatric Medical History: Reports: Hx Depression Denies: Hx Bipolar Disorder, Hx Schizophrenia Traumatic Medical History: Reports: Hx Fractures Infectious Medical History: Denies: Hx Hepatitis Past Surgical History: Reports: Hx Cardiac Catheterization, Hx Cardiac Surgery - single bypass, Hx Cholecystectomy, Hx Coronary Stent, Hx Dilation and Curettage, Hx Orthopedic Surgery - L leg amputation, Hx Tonsillectomy. Denies: Hx Hysterectomy, Hx Mastectomy, Hx Open Heart Surgery, Hx Pacemaker - Immunizations Immunizations up to date: No Hx Diphtheria, Pertussis, Tetanus Vaccination: No Hx Pneumococcal Vaccination: 09/30/15 Physical Exam - Vital signs Vitals: Temp Pulse Resp BP Pulse Ox 98.3 F 63 16 120/59 L 97 04/12/19 12:23 04/12/19 12:23 04/12/19 12:23 04/12/19 12:23 04/12/19 12:23 Course - Re-evaluation Re-evalutation: Patient seen and examined vital signs reviewed. Laboratory data and imaging were ordered as appropriate for the patient's presenting symptoms and complaint, with consideration of any critical or life threatening conditions that may be associated with their obtained history and exam as noted above. Patient was treated with IV fluids, IV calcium gluconate, IV bicarb, IV insulin, to acutely treat the patient's hyperkalemia and acute kidney injury. Results were reviewed when available and demonstrated hyperkalemia, of 6.8, elevated from her recent labs, and her creatinine had worsened as well to 1.9. The patient was re-evaluated and was stable Evaluation was most consistent with hyperkalemia, with acute kidney injury, requiring admission to the hospital, suspect that the patient's cause of hyperkalemia and FLORES secondary to prerenal azotemia, dehydration, as well as chronic bicarbonate losses secondary to chronic diarrhea. Results were discussed with the patient at this point after careful consideration I feel that that patient should be admitted to the hospital. This was discussed with the patient that it is in the best interest for their care to be admitted for further evaluation and management. Patient agreed with this plan of care. A call was placed to the admitted physician, Lorraine Sánchez CNP who graciously accepted the patient onto their service. *Note is created using voice recognition software and may contain spelling, syntax or grammatical errors. Laboratory 04/12/19 04/12/19 13:30 13:30 WBC 8.7 RBC 3.76 Hgb 11.4 L Hct 33.8 L MCV 90 MCH 30.2 MCHC 33.6 RDW 13.5 Plt Count 250 Seg Neutrophils % 66.0 Lymphocytes % 24.9 Monocytes % 6.5 Eosinophils % 2.0 Basophils % 0.6 Absolute Neutrophils 5.7 Absolute Lymphocytes 2.2 Absolute Monocytes 0.6 Absolute Eosinophils 0.2 Absolute Basophils 0.1 Sodium 136.9 L Potassium 6.8 H* Chloride 111 H Carbon Dioxide 16 L Anion Gap 10 BUN 45 H Creatinine 1.97 H Est GFR ( Amer) 31 L Est GFR (Non-Af Amer) 25 L Glucose 101 Calcium 9.7 Total Bilirubin 0.4 Direct Bilirubin 0.0 Neonat Total Bilirubin Not Reportable Neonat Direct Bilirubin Not Reportable Neonat Indirect Bili Not Reportable AST 23 ALT 38 Alkaline Phosphatase 81 Creatine Kinase 35 Total Protein 8.0 Albumin 4.2 - Vital Signs Vital signs: Temp Pulse Resp BP Pulse Ox 98.3 F 63 16 116/56 L 96 04/12/19 12:23 04/12/19 12:23 04/12/19 19:13 04/12/19 19:13 04/12/19 19:13 - Laboratory Result Diagrams: 04/12/19 13:30 04/12/19 22:22 Laboratory results interpreted by me: 04/12/19 04/12/19 13:30 13:30 Hgb 11.4 L Hct 33.8 L Sodium 136.9 L Potassium 6.8 H* Chloride 111 H Carbon Dioxide 16 L BUN 45 H Creatinine 1.97 H Est GFR ( Amer) 31 L Est GFR (Non-Af Amer) 25 L - EKG Interpretation by Me Additional EKG results interpreted by me: EKG demonstrates sinus rhythm with a ventricular rate of 63 bpm, normal axis, QTC 430 ms, no ST elevation on this EKG. Critical Care Note - Critical Care Note Total time excluding time spent on procedures (mins): 35 Comments: Critical care time 35 minutes exclusive from separate billable procedures for a patient requiring complex medical decision making, and high potential for clinical deterioration. In a patient with significant hyperkalemia requiring acute management, and admission to the hospital for further management and treatment. Time spent obtaining history from patient or surrogate, discussions with consultants, development of treatment plan with patient or surrogate, evaluation of patient's response to treatment, examination of patient, ordering and performing treatments and interventions, ordering and review of laboratory studies, re-evaluation of patient's condition, ordering and review of radiographic studies and review of old charts Discharge - Discharge Clinical Impression: Hyperkalemia, FLORES (acute kidney injury) Diarrhea Qualifiers: Diarrhea type: unspecified type Qualified Code(s): R19.7 - Diarrhea, unspecified Condition: Stable Disposition: ADMITTED INPATIENT Admitting Provider: LORRAINE SÁNCHEZ SMOKE EATER Unit Admitted: Telemetry
[2019-04-12] MEDS ORDERED: SODIUM BICARBONATE 8.4% INJ 50 MEQ/50 ML DISP.SYRIN ONE (15:03)
[2019-04-12] MEDS ORDERED: ONDANSETRON 4 MG TAB.RAPDIS PO PRN (16:00)
[2019-04-12] MEDS ORDERED: ACETAMINOPHEN 325 MG TABLET PO PRN (16:00)
--- NOTE | 2019-04-12 16:27 | PDOC H&P ---
History of Present Illness Admission Date/PCP: 04/12/19 15:30 CHUY Boyce KEIKO BRIANC Patient complains of: Abnormal labs History of Present Illness: JOSIE BAIRES is a 63 year old female with a PMH of diabetes type 2, hypertension, chronic back pain, CVA, left AKA. She was sent to the emergency department by her primary care doctor's office for abnormal labs. The patient recently switched physicians and Dr. Newberry ordered baseline lab work. 04/07/2019 Creatinine and serum potassium were both elevated (creatinine 1.4 potassium 5.9), on 04/11/2019 the patient's labs were done again and creatinine and serum potassium were worse (creatinine 1.5 potassium > 6.0). Dr. Newberry instructed the patient to come to the emergency department for evaluation. Upon arrival, labor atory studies reveal hyperkalemia (K 6.8), acute kidney injury (creatinine 1.9), hyponatremia (NA 134), metabolic acidosis (bicarb 16). EKG shows NSR, no evidence of ischemia or infarction. For hyperkalemia, the patient was treated with IV insulin, D50 and calcium gluconate. For her acidosis the patient was given bicarb. Upon assessment, the patient is resting comfortably in the bed on room air. She is awake, alert and oriented x3. She is able to answer all questions appropriately. The patient's only complaint is UTI-like symptoms. She endorses dysuria and frequency. Patient states that she has a history of urinary tract infections, has been to see a urologist "years ago" but all he told her to "drink more water." Additionally, the patient endorses a 6-month history of chronic diarrhea. She states that her stools are watery. Occur 3-5 times per 24 hours. The patient believes that her diarrhea is related to iron tablets that she recently started taking. I explained to her that iron typically causes constipation, but the patient states that her diarrhea began around the same time that she started taking these particular iron tablets. Plan to admit to hospitalist service for hyperkalemia and FLORES. Past Medical History Cardiac Medical History: Reports: Coronary Artery Disease, Myocardial Infarction, Hyperlipidema, Hypertension Denies: Congestive Heart Failure Pulmonary Medical History: Reports: Asthma, Pneumonia Denies: Bronchitis, Chronic Obstructive Pulmonary Disease (COPD), Tuberculosis Neurological Medical History: Denies: Seizures Endocrine Medical History: Reports: Diabetes Mellitus Type 2, Hypothyroidism Renal/ Medical History: Denies: End Stage Renal Disease GI Medical History: Reports: Diverticulitis Denies: Cirrhosis, Gastroesophageal Reflux Disease, Hepatitis, Hiatal Hernia Musculoskeltal Medical History: Reports: Arthritis Psychiatric Medical History: Reports: Depression Denies: Bipolar Disorder Hematology: Reports: Anemia Denies: Bleeding Tendencies Past Surgical History Past Surgical History: Reports: Cardiac Catheterization, Cholecystectomy, Coron mika Stent, Orthopedic Surgery - L leg amputation, Tonsillectomy Denies: Hysterectomy, Mastectomy, Pacemaker Social History Information Source: Patient Lives with: Family Smoking Status: Never Smoker Frequency of Alcohol Use: None Hx Recreational Drug Use: No Drugs: None Hx Prescription Drug Abuse: No - Advance Directive Resuscitation Status: Full Code Family History Family History: CAD, DM, Hyperlipidemia, Hypertension Parental Family History Reviewed: Yes Children Family History Reviewed: Unknown Sibling(s) Family History Reviewed.: Yes Medication/Allergy Home Medications: Alprazolam [Xanax 0.5 mg Tablet] 0.5 mg PO QHS 12/05/17 Atorvastatin Calcium [Lipitor 20 mg Tablet] 40 mg PO QHS 12/05/17 Citalopram Hydrobromide [Celexa 20 mg Tablet] 20 mg PO DAILY 12/05/17 Clopidogrel Bisulfate [Plavix 75 mg Tablet] 75 mg PO DAILY 12/05/17 Cyanocobalamin (Vitamin B-12) [Vitamin B-12 Inj 1000 Mcg/1 ml Vial] 1,000 mcg IM .MONTHLY 12/05/17 Exenatide Microspheres [Bydureon Pen] 2 mg SQ TU@0800 12/05/17 Isosorbide Mononitrate [Imdur 60 mg Tablet.er] 60 mg PO DAILY 12/05/17 Levocetirizine Dihydrochloride [Xyzal] 5 mg PO QPM 12/05/17 Levothyroxine Sodium [Synthroid] 175 mcg PO Q6AM 12/05/17 Linaclotide [Linzess] 290 mcg PO DAILY 12/05/17 Metformin HCl [Glucophage 500 mg Tablet] 1,000 mg PO BIDACBS 12/05/17 Metoprolol Tartrate [Lopressor 25 mg Tablet] 37.5 mg PO Q12 12/05/17 Montelukast Sodium [Singulair 10 mg Tablet] 10 mg PO QHS 12/05/17 [place]-3 Acid Ethyl Esters [Lovaza 1 gm Capsule] 2 gm PO BID 12/05/17 Pantoprazole Sodium [Protonix] 40 mg PO Q6AM 12/05/17 Solifenacin Succinate [Vesicare] 10 mg PO QAM 12/05/17 Gabapentin [Neurontin 300 mg Capsule] 300 mg PO Q8 12/24/18 Losartan Potassium [Cozaar 100 mg Tablet] 100 mg PO DAILY 12/24/18 Cephalexin Monohydrate [Keflex 500 mg Capsule] 500 mg PO BID 7 Days #14 capsule 03/09/19 Allergies/Adverse Reactions: metoclopramide [From Reglan] Allergy (Verified 08/28/18 16:54) Review of Systems All systems: reviewed and no additional remarkable complaints except as stated Physical Exam Vital Signs: Temp Pulse Resp BP Pulse Ox 98.3 F 63 16 120/59 L 97 04/12/19 12:23 04/12/19 12:23 04/12/19 12:23 04/12/19 12:23 04/12/19 12:23 Intake & Output 04/11/19 04/12/19 04/13/19 06:59 06:59 06:59 Intake Total 1000 Balance 1000 General appearance: PRESENT: morbidly obese Head exam: PRESENT: atraumatic Eye exam: PRESENT: conjunctiva pink, PERRLA Mouth exam: PRESENT: moist, tongue midline Teeth exam: ABSENT: dental caries Neck exam: PRESENT: full ROM Respiratory exam: PRESENT: clear to auscultation urvashi, symmetrical, unlabored Cardiovascular exam: PRESENT: RRR Pulses: PRESENT: normal radial pulses, normal dorsalis pedis pul Vascular exam: PRESENT: normal capillary refill GI/Abdominal exam: PRESENT: normal bowel sounds, soft, other - Obese. Rotund.. ABSENT: distended Rectal exam: PRESENT: deferred Extremities exam: PRESENT: full ROM Musculoskeletal exam: PRESENT: deformity - Left AKA, full ROM Neurological exam: PRESENT: alert, awake, oriented to person, oriented to place, oriented to time, oriented to situation Psychiatric exam: PRESENT: appropriate affect Skin exam: PRESENT: dry, intact, normal color Results Laboratory Results: 04/12/19 13:30 04/12/19 13:30 04/12/19 04/12/19 13:30 13:30 WBC 8.7 RBC 3.76 Hgb 11.4 L Hct 33.8 L MCV 90 MCH 30.2 MCHC 33.6 RDW 13.5 Plt Count 250 Seg Neutrophils % 66.0 Lymphocytes % 24.9 Monocytes % 6.5 Eosinophils % 2.0 Basophils % 0.6 Absolute Neutrophils 5.7 Absolute Lymphocytes 2.2 Absolute Monocytes 0.6 Absolute Eosinophils 0.2 Absolute Basophils 0.1 Sodium 136.9 L Potassium 6.8 H* Chloride 111 H Carbon Dioxide 16 L Anion Gap 10 BUN 45 H Creatinine 1.97 H Est GFR ( Amer) 31 L Est GFR (Non-Af Amer) 25 L Glucose 101 Calcium 9.7 Total Bilirubin 0.4 AST 23 ALT 38 Alkaline Phosphatase 81 Total Protein 8.0 Albumin 4.2 04/12/19 13:30 Creatine Kinase 35 Status: Imported from PACS Assessment and Plan - Diagnosis (1) FLORES (acute kidney injury) Is this a current diagnosis for this admission?: Yes Plan: Creatinine 1.9 baseline < 1.0 Likely secondary to dehydration stemming from chronic diarrhea as well as diabetes type 2 Plan for maintenance IVF Glucose control with [employer] coverage If creatinine remains elevated, consider consulting nephrology (2) Hyperkalemia Is this a current diagnosis for this admission?: Yes Plan: Secondary to dehydration and FLORES Received insulin, D50 and calcium gluconate in the emergency department Treating dehydration with maintenance IVF Continue to monitor with serial chemistries (3) Coronary artery disease Qualifiers: Coronary Disease-Associated Artery/Lesion type: bypass graft Is this a current diagnosis for this admission?: Yes Plan: Endorses history of single-vessel CABG and previous [place] Continue home dose antiplatelet agent, Plavix (4) Type 2 diabetes mellitus Qualifiers: Diabetes mellitus bulb brander insulin use: with bulb brander use Diabetes mellitus complication status: without complication Qualified Code(s): E11.9 - Type 2 diabetes mellitus without complications; 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 labs Accu-Cheks AC at bedtime Humalog sliding scale insulin (5) Diarrhea Qualifiers: Diarrhea type: unspecified type Qualified Code(s): R19.7 - Diarrhea, unspecified Is this a current diagnosis for this admission?: Yes Plan: Unclear etiology Patient believes diarrhea is related to iron tablets, although, these typically cause constipation - Time Time Spent with patient: 15-24 minutes Medications reviewed and adjusted accordingly: Yes Anticipated discharge: Home Within: within 48 hours - Inpatient Certification Based on my medical assessment, after consideration of the patient's comorbidities, presenting symptoms, or acuity I expect that the services needed warrant INPATIENT care.: Yes I certify that my determination is in accordance with my understanding of Medicare's requirements for reasonable and necessary INPATIENT services [42 CFR 412.3e].: Yes Medical Necessity: Need For Continuous Telemetry Monitoring, Risk of Complication if Not Cared For in Hospital
[2019-04-12] MEDS: ENOXAPARIN SODIUM INJ 30 MG/0.3 ML DISP.SYRIN SUBCUT SCH (19:10)
[2019-04-12 23:01] LABS: ANION GAP 10 (5-19); BLOOD UREA NITROGEN 41 mg/dL (7-20); CALCIUM 9.3 mg/dL (8.4-10.2); CARBON DIOXIDE 16 mmol/L (22-30); CHLORIDE 113 mmol/L (98-107); GLUCOSE 106 mg/dL (75-110); SODIUM 138.5 mmol/L (137-145)
[2019-04-12 23:04] LABS: POTASSIUM 6.1 mmol/L (3.6-5.0)
[2019-04-13 06:04] LABS: HEMATOCRIT 30.5 % (36.0-47.0); HEMOGLOBIN 10.2 g/dL (12.0-15.5); MEAN CORPUSCULAR HEMOGLOBIN 30.3 pg (27.0-33.4); MEAN CORPUSCULAR HGB CONC 33.4 g/dL (32.0-36.0); MEAN CORPUSCULAR VOLUME 91 fl (80-97); PLATELET COUNT 210 10^3/uL (150-450); RED BLOOD COUNT 3.37 10^6/uL (3.72-5.28); RED CELL DISTRIBUTION WIDTH 13.9 % (11.5-14.0); WHITE BLOOD COUNT 6.2 10^3/uL (4.0-10.5)
[2019-04-13 06:34] LABS: ALANINE AMINOTRANSFERASE 20 U/L (9-52); ALBUMIN 3.5 g/dL (3.5-5.0); ALKALINE PHOSPHATASE 71 U/L (38-126); ANION GAP 9 (5-19); ASPARTATE AMINO TRANSFERASE 17 U/L (14-36); BILIRUBIN,DIRECT 0.2 mg/dL (0.0-0.4); BILIRUBIN,TOTAL 0.3 mg/dL (0.2-1.3); BLOOD UREA NITROGEN 37 mg/dL (7-20); CALCIUM 9.2 mg/dL (8.4-10.2); CARBON DIOXIDE 17 mmol/L (22-30); CHLORIDE 115 mmol/L (98-107); CHOLESTEROL 159.67 mg/dL (0-200); GLUCOSE 113 mg/dL (75-110); PHOSPHORUS 4.2 mg/dL (2.5-4.5); SODIUM 141.1 mmol/L (137-145); TOTAL PROTEIN 6.8 g/dL (6.3-8.2); TRIGLYCERIDES 295 mg/dL (<150)
[2019-04-13 06:45] LABS: DIRECT LDL 43 mg/dL (<100)
--- NOTE | 2019-04-13 07:45 | EKG REPORT ---
SEVERITY:- OTHERWISE NORMAL ECG - SINUS RHYTHM BORDERLINE LEFT AXIS DEVIATION : Confirmed by: Malcolm Pizarro MD 13-Apr-2019 07:44:45
--- NOTE | 2019-04-13 07:45 | EKG REPORT ---
SEVERITY:- NORMAL ECG - SINUS RHYTHM : Confirmed by: Malcolm Pizarro MD 13-Apr-2019 07:44:54
[2019-04-13] MEDS: ENOXAPARIN SODIUM INJ 30 MG/0.3 ML DISP.SYRIN SUBCUT SCH (09:12)
[2019-04-13] MEDS: METOPROLOL TARTRATE 25 MG TABLET PO SCH ×2 (09:13→21:52)
[2019-04-13] MEDS: MULTIVITAMIN TABLET PO SCH (09:13)
[2019-04-13] MEDS: ASPIRIN 81 MG TABLET, ENT COATED PO SCH (09:13)
[2019-04-13] MEDS: ISOSORBIDE MONONITRATE 60 MG TAB.ER.24H PO SCH (09:13)
[2019-04-13] MEDS: FERROUS SULFATE 325 MG TABLET PO SCH (09:13)
[2019-04-13] MEDS: OMEGA-3 ACID ETHYL ESTERS 1 GM CAPSULE PO SCH ×2 (09:15→17:42)
[2019-04-13] MEDS: NORMAL SALINE 1000 ML 1,000 ML IV PRN (09:19)
[2019-04-13] MEDS ORDERED: SODIUM POLYSTYRENE SULFONATE 15 GM/60 ML PO ONE (09:45)
[2019-04-13] MEDS ORDERED: CALCIUM GLUCONATE 1000 MG/10 ML INJ IV ONE (09:45)
[2019-04-13] MEDS ORDERED: (PENDING PHARMACY ID) (Calcium Carbonate [Calcium] 600 MG) PO SCH (10:00)
[2019-04-13] MEDS ORDERED: DEXTROSE 50%-WATER 25 GM/50 ML DISP.SYRIN IV PRN ×2 (10:48)
[2019-04-13] MEDS ORDERED: GLUCAGON,HUMAN RECOMB 1 MG INJ IM PRN (10:48)
[2019-04-13] MEDS ORDERED: DEXTROSE 40% GEL 15 GM TUBE PO PRN ×2 (10:48)
--- NOTE | 2019-04-13 11:05 | PDOC PROGRESS REPORT ---
Subjective Progress Note for:: 04/13/19 Subjective:: JOSIE BAIRES is a 63 year old female with a PMH of diabetes type 2, hypertension, chronic back pain, CVA, left AKA. She was sent to the emergency department by her primary care doctor's office for abnormal labs. The patient recently switched physicians and Dr. Newberry ordered baseline lab work. 04/07/2019 Creatinine and serum potassium were both elevated (creatinine 1.4 potassium 5.9), on 04/11/2019 the patient's labs were done again and creatinine and serum potassium were worse (creatinine 1.5 potassium > 6.0). Dr. Newberry instructed the patient to come to the emergency department for evaluation. Upon arrival, laboratory studies reveal hyperkalemia (K 6.8), acute kidney injury (creatinine 1.9), hyponatremia (NA 134), metabolic acidosis (bicarb 16). EKG shows NSR, no evidence of ischemia or infarction. For hyperkalemia, the patient was treated with IV insulin, D50 and calcium gluconate. For her acidosis the patient was given bicarb. Upon assessment, the patient is resting comfortably in the bed on room air. She is awake, alert and oriented x3. She is able to answer all questions appropriately. The patient's only complaint is UTI-like symptoms. She endorses dysuria and frequency. Patient states that she has a history of urinary tract infections, has been to see a urologist "years ago" but all he told her to "drink more water." Additionally, the patient endorses a 6-month history of chronic diarrhea. She states that her stools are watery. Occur 3-5 times per 24 hours. The patient believes that her diarrhea is related to iron tablets therese t she recently started taking. I explained to her that iron typically causes constipation, but the patient states that her diarrhea began around the same time that she started taking these particular iron tablets. Plan to admit to hospitalist service for hyperkalemia and FLORES. Reason For Visit: AECOPD,HYPERTENSIVE URGENCY Physical Exam Vital Signs: Temp Pulse Resp BP Pulse Ox 99.1 F 73 18 154/52 H 98 04/13/19 03:47 04/13/19 03:47 04/13/19 03:47 04/13/19 03:47 04/13/19 03:47 Intake & Output 04/12/19 04/13/19 04/14/19 06:59 06:59 06:59 Intake Total 2119 Balance 2119 Weight 109.9 kg General appearance: PRESENT: no acute distress, obese, well-developed, well- nourished Head exam: PRESENT: atraumatic, normocephalic Neck exam: ABSENT: carotid bruit, JVD, lymphadenopathy, thyromegaly Respiratory exam: PRESENT: clear to auscultation urvashi. ABSENT: rales, rhonchi, wheezes Cardiovascular exam: PRESENT: RRR. ABSENT: diastolic murmur, rubs, systolic murmur GI/Abdominal exam: PRESENT: normal bowel sounds, soft. ABSENT: distended, guarding, mass, organolmegaly, rebound, tenderness Extremities exam: PRESENT: full ROM, other - Left AKA. Right anterior big toe necrotic skin, no active discharge Lateral malleolus scab.. ABSENT: calf tenderness, clubbing, pedal edema Skin exam: PRESENT: dry, intact, warm. ABSENT: cyanosis, rash Results Laboratory Results: 04/13/19 05:56 04/13/19 05:56 04/12/19 04/12/19 04/12/19 13:30 13:30 22:22 WBC 8.7 RBC 3.76 Hgb 11.4 L Hct 33.8 L MCV 90 MCH 30.2 MCHC 33.6 RDW 13.5 Plt Count 250 Seg Neutrophils % 66.0 Lymphocytes % 24.9 Monocytes % 6.5 Eosinophils % 2.0 Basophils % 0.6 Absolute Neutrophils 5.7 Absolute Lymphocytes 2.2 Absolute Monocytes 0.6 Absolute Eosinophils 0.2 Absolute Basophils 0.1 Sodium 136.9 L 138.5 Potassium 6.8 H* 6.1 H* Chloride 111 H 113 H Carbon Dioxide 16 L 16 L Anion Gap 10 10 BUN 45 H 41 H Creatinine 1.97 H 1.68 H Est GFR ( Amer) 31 L 37 L Est GFR (Non-Af Amer) 25 L 31 L Glucose 101 106 Calcium 9.7 9.3 Phosphorus Magnesium Total Bilirubin 0.4 AST 23 ALT 38 Alkaline Phosphatase 81 Total Protein 8.0 Albumin 4.2 Triglycerides Cholesterol LDL Cholesterol Direct VLDL Cholesterol HDL Cholesterol TSH 04/13/19 04/13/19 04/13/19 05:56 05:56 05:56 WBC 6.2 RBC 3.37 L Hgb 10.2 L Hct 30.5 L MCV 91 MCH 30.3 MCHC 33.4 RDW 13.9 Plt Count 210 Seg Neutrophils % Lymphocytes % Monocytes % Eosinophils % Basophils % Absolute Neutrophils Absolute Lymphocytes Absolute Monocytes Absolute Eosinophils Absolute Basophils Sodium 141.1 Potassium 6.0 H* Chloride 115 H Carbon Dioxide 17 L Anion Gap 9 BUN 37 H Creatinine 1.45 H Est GFR ( Amer) 44 L Est GFR (Non-Af Amer) 36 L Glucose 113 H Calcium 9.2 Phosphorus 4.2 Magnesium 1.4 L Total Bilirubin 0.3 AST 17 ALT 20 Alkaline Phosphatase 71 Total Protein 6.8 Albumin 3.5 Triglycerides 295 H Cholesterol 159.67 LDL Cholesterol Direct 43 VLDL Cholesterol 59.0 H HDL Cholesterol 27 L TSH 0.48 04/12/19 04/13/19 13:30 05:56 Creatine Kinase 35 NT-Pro-B Natriuret Pep 138 Assessment and Plan - Diagnosis (1) FLORES (acute kidney injury) Is this a current diagnosis for this admission?: Yes Plan: Nonoliguric. Most likely prerenal, caused by dehydration due to chronic diarrhea. Creatinine 1.9 on admission, baseline 1.45. Improving. 04/13/2019: Sodium 138.5, potassium 6.1, bicarb 16, creatinine 1.45 down from 1.97 on admission, baseline 1.45 Continue IV fluids, guided by volume status. Renal ultrasound. (2) Hyperkalemia Is this a current diagnosis for this admission?: Yes Plan: Secondary to #1. Hyperkalemia protocol. BMP at 1 PM. 04/13/2019: Sodium 138.5, potassium 6.1, bicarb 16, creatinine 1.45 down from 1.97 on admission, baseline (3) Chronic diarrhea Is this a current diagnosis for this admission?: Yes Plan: Patient endorses watery diarrhea for the last 6 months. No work-up has been done. Denies laxative abuse, recent travel laboratory bowel disease. Endorses history of recurrent UTIs and antibiotic use. Will order C. difficile stool parasite, stool white blood cell, stool culture, stool Gram stain. Continue IV fluids, monitor volume status. (4) Foot ulcer, right Qualifiers: Non-pressure ulcer stage: limited to breakdown of skin Qualified Code(s): L97.511 - Non-pressure chronic ulcer of other part of right foot limited to breakdown of skin Is this a current diagnosis for this admission?: Yes Plan: CRP, sed rate, x-ray to rule out osteomyelitis. Right lower extremity arterial Doppler to rule out PAD. Wound care for right now. (5) Coronary artery disease Qualifiers: Coronary Disease-Associated Artery/Lesion type: bypass graft Is this a current diagnosis for this admission?: Yes Plan: CABG and PCI status post stent placement. Continue DAPT, beta-blockers, statins. No recent echo available. Denies any anginal symptoms. Patient could benefit from MAYO however no echo available. Patient also has FLORES at this moment. Cardiac diet. Outpatient PCP and cardiology follow-up. (6) Peripheral vascular disease due to secondary diabetes Is this a current diagnosis for this admission?: No Plan: History of left AKA. Patient has a ulcer on the right big toe which is concerning for osteomyelitis. We will do CRP, sed rate, x-ray. Arterial Doppler to rule out any PAD. (7) Type 2 diabetes mellitus Qualifiers: Diabetes mellitus nursing home insulin use: with intermediate project manager use Diabetes mellitus complication status: without complication Qualified Code(s): E11.9 - Type 2 diabetes mellitus without complications; Z79.4 - intermodal customer service (current) use of insulin Is this a current diagnosis for this admission?: Yes Plan: Controlled. FBG 113, POC 123, A1c 69 point 0.9%, Diabetic diet, sliding scale insulin, pre-meal insulin, long-acting insulin. (8) Obesity, morbid, BMI 40.0-49.9 Is this a current diagnosis for this admission?: No Plan: Diet and lifestyle modification.
[2019-04-13] MEDS: INSULIN LISPRO 100 UNIT/ML 3 ML VIAL SUBCUT SCH ×3 (12:23→21:53)
[2019-04-13] MEDS: GABAPENTIN 300 MG CAPSULE PO SCH ×2 (13:51→21:52)
[2019-04-13 14:44] LABS: ANION GAP 10 (5-19); BLOOD UREA NITROGEN 31 mg/dL (7-20); CALCIUM 9.7 mg/dL (8.4-10.2); CARBON DIOXIDE 18 mmol/L (22-30); CHLORIDE 111 mmol/L (98-107); GLUCOSE 163 mg/dL (75-110); POTASSIUM 5.6 mmol/L (3.6-5.0); SODIUM 139.4 mmol/L (137-145)
--- NOTE | 2019-04-13 15:01 | RADIOLOGY REPORT (SQ) ---
EXAM DESCRIPTION: FOOT RIGHT 2 VIEWS COMPLETED DATE/TIME: 04/13/2019 2:19 pm REASON FOR STUDY: Rt Toe Ulcer r/o osteo COMPARISON: None. NUMBER OF VIEWS: Two views. TECHNIQUE: AP and lateral radiographic images acquired of the right foot. LIMITATIONS: None. FINDINGS: MINERALIZATION: Osteopenia. BONES: No acute fracture or dislocation. No worrisome bone lesions. Degenerative changes with midfo ot osteophytosis. Plantar and superior calcaneal enthesophytes. JOINTS: No effusions. SOFT TISSUES: Extensive vascular calcifications. 6 mm curvilinear metallic density overlies plantar aspect at the midfoot possibly foreign body. OTHER: No other significant finding. IMPRESSION: No acute bony abnormality. 6 mm curvilinear metallic density overlies plantar aspect at the midfoot, possibly foreign body. Osteopenia with degenerative changes at the midfoot. TECHNICAL DOCUMENTATION: JOB ID: [id number] [employer]- All Rights Reserved Reading location - IP/workstation name: [email or web address]
[2019-04-13 16:09] LABS: APPEARANCE,URINE CLOUDY; BILIRUBIN,URINE NEGATIVE (NEGATIVE); COLOR,URINE YELLOW; GLUCOSE, URINE >=500 mg/dL (NEGATIVE); KETONES,URINE NEGATIVE (NEGATIVE); LEUKOCYTE ESTERASE,URINE LARGE (NEGATIVE); NITRITE,URINE POSITIVE (NEGATIVE); PROTEIN,URINE NEGATIVE (NEGATIVE); URINE SPECIFIC GRAVITY 1.013; UROBILINOGEN,URINE NEGATIVE mg/dL (<2.0)
[2019-04-13] MEDS: CALCIUM CARBONATE 500 MG TABLET PO SCH (17:41)
[2019-04-13] MEDS: CLOPIDOGREL BISULFATE 75 MG TABLET PO SCH (17:42)
[2019-04-13] MEDS: ATORVASTATIN CALCIUM 20 MG TABLET PO SCH (21:52)
[2019-04-13] MEDS: MONTELUKAST SODIUM 10 MG TABLET PO SCH (21:52)
[2019-04-13] MEDS: ALPRAZOLAM 0.5 MG TABLET PO SCH (21:52)
[2019-04-13] MEDS: TOLTERODINE TARTRATE 1 MG TABLET PO SCH (21:52)
[2019-04-13] MEDS: MELATONIN 5 MG TABLET PO SCH (21:54)
[2019-04-14] MEDS: NORMAL SALINE 1000 ML 1,000 ML IV PRN ×2 (00:33→12:52)
--- NOTE | 2019-04-14 05:29 | RADIOLOGY REPORT (SQ) ---
CLINICAL DATA: Acute renal failure. TECHNICAL DATA: Grayscale and Doppler ultrasound imaging of the retroperitoneum was performed to further evaluate the kidneys and bladder. Comparison: The abdomen and pelvis performed on 09/09/2017. FINDINGS: The right kidney measures 11.5 x 4.2 x 4.8 cm. The renal cortex is grossly normal. There is no evidence of renal mass, calculi or perinephric fluid collection. There is no pelvocaliectasis. The left kidney measures 11.6 x 5.2 x 6.5 cm. The renal cortex is grossly normal. There is no evidence of renal mass, calculi or perinephric fluid collection. There is no pelvocaliectasis. There is no free fluid in the abdomen. The bladder is partially distended. The ureteral jets were not clearly demonstrated on this examination. IMPRESSION: No focal renal abnormality is identified as time.
[2019-04-14] MEDS ORDERED: (PENDING PHARMACY ID) (Levothyroxine Sodium [Synthroid] 175 MCG) PO SCH (06:00)
[2019-04-14] MEDS: PANTOPRAZOLE SODIUM 40 MG TABLET.DR PO SCH (06:03)
[2019-04-14] MEDS: LEVOTHYROXINE SODIUM 0.1 MG TABLET PO SCH (06:03)
[2019-04-14] MEDS: GABAPENTIN 300 MG CAPSULE PO SCH ×3 (06:03→21:16)
[2019-04-14] MEDS: LEVOTHYROXINE SODIUM 0.075 MG TABLET PO SCH (06:04)
[2019-04-14 06:57] LABS: ABSOLUTE EOSINOPHILS # (AUTO) 0.3 10^3/uL (0.0-0.6); ABSOLUTE LYMPHOCYTES (AUTO) 1.7 10^3/uL (0.5-4.7); ABSOLUTE MONOCYTES (AUTO) 0.6 10^3/uL (0.1-1.4); ABSOLUTE NEUT (AUTO) 3.5 10^3/uL (1.7-8.2); BASOPHILS % (AUTO) 0.6 % (0-2); EOSINOPHILS % (AUTO) 4.8 % (0-6); HEMATOCRIT 30.4 % (36.0-47.0); HEMOGLOBIN 10.2 g/dL (12.0-15.5); LYMPHOCYTES % (AUTO) 27.9 % (13-45); MEAN CORPUSCULAR HEMOGLOBIN 30.3 pg (27.0-33.4); MEAN CORPUSCULAR HGB CONC 33.6 g/dL (32.0-36.0); MEAN CORPUSCULAR VOLUME 90 fl (80-97); MONOCYTES % (AUTO) 10.4 % (3-13); PLATELET COUNT 216 10^3/uL (150-450); RED BLOOD COUNT 3.37 10^6/uL (3.72-5.28); RED CELL DISTRIBUTION WIDTH 13.9 % (11.5-14.0); SEGMENTED NEUTROPHILS % (AUTO) 56.3 % (42-78); TOTAL CELLS COUNTED % (AUTO) 100 %; WHITE BLOOD COUNT 6.2 10^3/uL (4.0-10.5)
[2019-04-14 07:16] LABS: ALANINE AMINOTRANSFERASE 26 U/L (9-52); ALBUMIN 3.6 g/dL (3.5-5.0); ALKALINE PHOSPHATASE 65 U/L (38-126); ANION GAP 10 (5-19); ASPARTATE AMINO TRANSFERASE 18 U/L (14-36); BILIRUBIN,DIRECT 0.2 mg/dL (0.0-0.4); BILIRUBIN,TOTAL 0.4 mg/dL (0.2-1.3); BLOOD UREA NITROGEN 25 mg/dL (7-20); CALCIUM 9.2 mg/dL (8.4-10.2); CARBON DIOXIDE 18 mmol/L (22-30); CHLORIDE 113 mmol/L (98-107); GLUCOSE 130 mg/dL (75-110); POTASSIUM 5.2 mmol/L (3.6-5.0); SODIUM 140.8 mmol/L (137-145); TOTAL PROTEIN 6.8 g/dL (6.3-8.2)
[2019-04-14] MEDS ORDERED: (PENDING PHARMACY ID) (Solifenacin Succinate [Vesicare] 10 MG) PO SCH (08:00)
[2019-04-14] MEDS: INSULIN LISPRO 100 UNIT/ML 3 ML VIAL SUBCUT SCH ×4 (08:17→22:57)
[2019-04-14] MEDS: CALCIUM CARBONATE 500 MG TABLET PO SCH ×2 (09:18→17:08)
[2019-04-14] MEDS: TOLTERODINE TARTRATE 1 MG TABLET PO SCH ×2 (09:18→21:16)
[2019-04-14] MEDS: OMEGA-3 ACID ETHYL ESTERS 1 GM CAPSULE PO SCH ×2 (09:18→17:08)
[2019-04-14] MEDS: ISOSORBIDE MONONITRATE 60 MG TAB.ER.24H PO SCH (09:19)
[2019-04-14] MEDS: ASPIRIN 81 MG TABLET, ENT COATED PO SCH (09:19)
[2019-04-14] MEDS: METOPROLOL TARTRATE 25 MG TABLET PO SCH ×2 (09:19→21:16)
[2019-04-14] MEDS: MULTIVITAMIN TABLET PO SCH (09:20)
[2019-04-14] MEDS: FERROUS SULFATE 325 MG TABLET PO SCH (09:20)
[2019-04-14] MEDS: ENOXAPARIN SODIUM INJ 30 MG/0.3 ML DISP.SYRIN SUBCUT SCH (09:24)
--- NOTE | 2019-04-14 09:25 | PDOC CONSULTATION ---
Consultation Consult Date: 04/14/19 Provider Consulted: CINDY SINGH Consult reason:: diabetic toe infection right foot History of Present Illness Admission Date/PCP: 04/12/19 15:30 CHUY BRIAN, KEIKOC History of Present Illness: JOSIE BAIRES is a 63 year old female, longtime diabetic is post left [id number] amputation who is managed with oral anti-hyperglycemics. Is been admitted to the hospital for treatment of her hypokalemia. Call physician this morning noticed a ulceration of the right great toe tip surgery was consulted for management and assessment. Currently she denies any pain in her right foot she states that it feels numb as it usually does secondary to her peripheral neuropathy. Also status post a left suewk-efy-nmba amputation done by Dr. Erickson and attempted a femoral-popliteal bypass surgery failed. Past Medical History Cardiac Medical History: Reports: Coronary Artery Disease, Myocardial Infarction, Hyperlipidema, Hypertension Denies: Congestive Heart Failure Pulmonary Medical History: Reports: Asthma, Pneumonia Denies: Bronchitis, Chronic Obstructive Pulmonary Disease (COPD), Tubercul osis Neurological Medical History: Denies: Seizures Endocrine Medical History: Reports: Diabetes Mellitus Type 2, Hypothyroidism Renal/ Medical History: Denies: End Stage Renal Disease GI Medical History: Reports: Diverticulitis Denies: Cirrhosis, Gastroesophageal Reflux Disease, Hepatitis, Hiatal Hernia Musculoskeltal Medical History: Reports: Arthritis Psychiatric Medical History: Reports: Depression Denies: Bipolar Disorder Hematology: Reports: Anemia Denies: Bleeding Tendencies Past Surgical History Past Surgical History: Reports: Cardiac Catheterization, Cholecystectomy, Coronary Stent, Orthopedic Surgery - L leg amputation, Tonsillectomy, Other - Left aspvp-uli-[id number] amputation status post failed revascularization Denies: Hysterectomy, Mastectomy, Pacemaker Social History Lives with: Family Smoking Status: Never Smoker Frequency of Alcohol Use: None Hx Recreational Drug Use: No Drugs: None Hx Prescription Drug Abuse: No - Advance Directive Resuscitation Status: Full Code Family History Family History: Reviewed & Not Pertinent Parental Family History Reviewed: No Children Family History Reviewed: NA Sibling(s) Family History Reviewed.: NA Medication/Allergy Home Medications: Alprazolam [Xanax 0.5 mg Tablet] 0.5 mg PO QHS 12/05/17 Clopidogrel Bisulfate [Plavix 75 mg Tablet] 75 mg PO QPM 12/05/17 Isosorbide Mononitrate [Imdur 60 mg Tablet.er] 60 mg PO DAILY 12/05/17 Levocetirizine Dihydrochloride [Xyzal] 5 mg PO QPM 12/05/17 Levothyroxine Sodium [Synthroid] 175 mcg PO Q6AM 12/05/17 Linaclotide [Linzess] 290 mcg PO DAILY 12/05/17 Metformin HCl [Glucophage 500 mg Tablet] 1,000 mg PO BIDACBS 12/05/17 Metoprolol Tartrate [Lopressor 25 mg Tablet] 37.5 mg PO Q12 12/05/17 Montelukast Sodium [Singulair 10 mg Tablet] 10 mg PO QHS 12/05/17 [place]-3 Acid Ethyl Esters [Lovaza 1 gm Capsule] 2 gm PO BID 12/05/17 Pantoprazole Sodium [Protonix] 40 mg PO Q6AM 12/05/17 Solifenacin Succinate [Vesicare] 10 mg PO QAM 12/05/17 Gabapentin [Neurontin 300 mg Capsule] 300 mg PO Q8 12/24/18 Aspirin [Ecotrin 81 mg EC Tablet] 81 mg PO DAILY 04/12/19 Atorvastatin Calcium [Lipitor 20 mg Tablet] 20 mg PO QHS 04/12/19 Calcium Carbonate [Calcium] 600 mg PO BID 04/12/19 Cranberry [Cranberry 1000 mg Capsule] 2,000 mg PO DAILY 04/12/19 Ferrous Sulfate [Feosol 325 mg Tablet] 325 mg PO DAILY 04/12/19 Loratadine [Claritin 10 mg Tablet] 10 mg PO DAILY 04/12/19 Melatonin [Melatonin 5 mg Tablet] 10 mg PO QHS 04/12/19 Multivitamin [Tab-A-Janeen (Multiple Vitamin) Tablet] 1 tab PO DAILY 04/12/19 Allergies/Adverse Reactions: metoclopramide [From Reglan] Allergy (Verified 08/28/18 16:54) Review of Systems Constitutional: PRESENT: weakness Eyes: ABSENT: visual disturbances Ears: ABSENT: hearing changes Nose, Mouth, and Throat: ABSENT: as per HPI, headache(s), mouth pain, sore throat, vertigo, other Breasts: ABSENT: as per HPI, other Cardiovascular: ABSENT: chest pain, dyspnea on exertion, edema, orthropnea, palpitations Respiratory: ABSENT: cough, hemoptysis Gastrointestinal: ABSENT: abdominal pain, constipation, diarrhea, hematemesis, hematochezia, nausea, vomiting Genitourinary: ABSENT: dysuria, hematuria Musculoskeletal: PRESENT: other - Peripheral numbness. ABSENT: joint swelling Neurological: PRESENT: numbness, weakness Psychiatric: ABSENT: anxiety, depression, homidical ideation, suicidal ideation Endocrine: ABSENT: cold intolerance, heat intolerance, polydipsia, polyuria Hematologic/Lymphatic: ABSENT: easy bleeding, easy bruising Physical Exam Vital Signs: Temp Pulse Resp BP Pulse Ox 98.3 F 62 17 106/47 L 97 04/14/19 04:30 04/14/19 07:00 04/14/19 04:30 04/14/19 04:30 04/14/19 04:30 Intake & Output 04/13/19 04/14/19 04/15/19 06:59 06:59 06:59 Intake Total 2120 1750 Output Total 600 Balance 2120 1150 Weight 109.9 kg 109.6 kg General appearance: PRESENT: no acute distress Head exam: PRESENT: normocephalic Eye exam: PRESENT: EOMI Ear exam: PRESENT: normal external ear exam Mouth exam: PRESENT: moist Teeth exam: PRESENT: poor dentation Neck exam: PRESENT: full ROM Respiratory exam: PRESENT: clear to auscultation urvashi Cardiovascular exam: PRESENT: RRR Pulses: PRESENT: normal radial pulses, other - Palpable right dorsal pedis pulse nonpalpable posterior tibial pulse plus popliteal pulse minimally palpable pulse GI/Abdominal exam: PRESENT: soft Rectal exam: PRESENT: deferred Extremities exam: PRESENT: full ROM, other - Status post left xobyg-nfg-fqpz amputation Right lower extremity has weakly palpable distal pulses she has a 1+ dorsal pedis pulse nonpalpable posterior tibial pulse she has a 1+ popliteal pulse I cannot palpate a femoral pulse She has a 2 cm diameter distal phalanx ulcer on her great toe on the right side is dry is no evidence of cellulitis or purulent drainage At the root on the right dorsum laterally there is a 0.5 to 1 cm area of skin necrosis that also is dry. No cellulitis or evidence of abscess. Skin exam: PRESENT: dry Results Laboratory Results: 04/14/19 06:02 04/14/19 06:02 04/13/19 04/13/19 04/13/19 12:00 13:49 13:49 WBC RBC Hgb Hct MCV MCH MCHC RDW Plt Count Seg Neutrophils % Lymphocytes % Monocytes % Eosinophils % Basophils % Absolute Neutrophils Absolute Lymphocytes Absolute Monocytes Absolute Eosinophils Absolute Basophils Sodium 139.4 Potassium 5.6 H Chloride 111 H Carbon Dioxide 18 L Anion Gap 10 BUN 31 H Creatinine 1.46 H Est GFR ( Amer) 44 L Est GFR (Non-Af Amer) 36 L Glucose 163 H Calcium 9.7 Magnesium Total Bilirubin AST ALT Alkaline Phosphatase C-Reactive Protein 25.8 H Total Protein Albumin Urine Color YELLOW Urine Appearance CLOUDY Urine pH 5.0 Ur Specific [place] 1.013 Urine Protein NEGATIVE Urine Glucose (UA) >=500 H Urine Ketones NEGATIVE Urine Blood LARGE H Urine Nitrite POSITIVE H Ur Leukocyte Esterase LARGE H Urine WBC (Auto) >182 Urine RBC (Auto) 51 04/14/19 04/14/19 06:02 06:02 WBC 6.2 RBC 3.37 L Hgb 10.2 L Hct 30.4 L MCV 90 MCH 30.3 MCHC 33.6 RDW 13.9 Plt Count 216 Seg Neutrophils % 56.3 Lymphocytes % 27.9 Monocytes % 10.4 Eosinophils % 4.8 Basophils % 0.6 Absolute Neutrophils 3.5 Absolute Lymphocytes 1.7 Absolute Monocytes 0.6 Absolute Eosinophils 0.3 Absolute Basophils 0.0 Sodium 140.8 Potassium 5.2 H Chloride 113 H Carbon Dioxide 18 L Anion Gap 10 BUN 25 H Creatinine 1.24 Est GFR ( Amer) 53 L Est GFR (Non-Af Amer) 43 L Glucose 130 H Calcium 9.2 Magnesium 1.3 L Total Bilirubin 0.4 AST 18 ALT 26 Alkaline Phosphatase 65 C-Reactive Protein Total Protein 6.8 Albumin 3.6 Urine Color Urine Appearance Urine pH Ur Specific [place] Urine Protein Urine Glucose (UA) Urine Ketones Urine Blood Urine Nitrite Ur Leukocyte Esterase Urine WBC (Auto) Urine RBC (Auto) 04/12/19 04/13/19 13:30 05:56 Creatine Kinase 35 NT-Pro-B Natriuret Pep 138 Impressions: Foot X-Ray 04/13/19 00:00 IMPRESSION: No acute bony abnormality. 6 mm curvilinear metallic density overlies plantar aspect at the midfoot, possibly foreign body. Osteopenia with degenerative changes at the midfoot. Renal Ultrasound 04/13/19 11:01 IMPRESSION: No focal renal abnormality is identified as time. 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 He is status post the a failed revascularization on her left leg was which resulted in a left zqesy-axo-tope amputation She has seen Dr. Erickson in [place] vascular surgeon she also has a organic search lead that she follows with. Recommend Would obtain the arterial studies are pending First treatment of the right great toe ulcer is no evidence of infection or drainage therefore consistent with dry gangrene would only do local wound care right foot there is no need for surgical intervention at this time The patient should follow-up with a vascular surgeon after the arterial studies are done.
--- NOTE | 2019-04-14 11:41 | XCELERA REPORT ---
[address] [address] Lower Extremity Arterial Evaluation Name: JOSIE BAIRES Age: 63 yrs Gender: Female : 1955 Patient Status: [facility] Study Date: 04/13/2019 02:13 PM Procedure: A color flow and duplex scan of the lower extremity arteries was performed on the right with velocity and waveform anaylsis. Reason For Study: Rt foot chronic wound r/o PAD Ordering Physician: DANDY SHARP Performed By: [place] Measurements and Calculations Right Left DIRECTOR OF GROUP SALES PSV 158.0 118.6 cm/sec Prox PFA PSV -84.9 cm/sec Prox SFA PSV 143.9 cm/sec Mid SFA PSV -211.0 cm/sec Dist SFA PSV -131.3 cm/sec Prox Pop A PSV 125.7 cm/sec Dist Pop A PSV -130.6 cm/sec Dist GRANT PSV 117.5 cm/sec Prox RECYCLING PROGRAM MANAGER PSV 28.7 cm/sec Mid RECYCLING PROGRAM MANAGER PSV 28.3 cm/sec Andrzej Pedis PSV 71.7 cm/sec Right Side Arterial Evaluation Normal velocity and triphasic waveforms noted in the Common Femoral artery. Biphasic with normal velocity to the Anterior Tibial. Occluded Posterior Tibial artery distally. Ankle Brachial index not obtained. Interpretation Summary Moderate hemodynamically significant lesions in the right lower extremity only, on duplex imaging, at rest. Multilevel disease, probably starting in the Femoral, sequential disease in the Posterior Tibial. : DANDY SHARP > Judd Agrawal
[2019-04-14] MEDS: PATIROMER 8.4 GM SUSP PACKET PO SCH (16:29)
[2019-04-14] MEDS: CLOPIDOGREL BISULFATE 75 MG TABLET PO SCH (17:07)
[2019-04-14] MEDS: MONTELUKAST SODIUM 10 MG TABLET PO SCH (21:16)
[2019-04-14] MEDS: ATORVASTATIN CALCIUM 20 MG TABLET PO SCH (21:17)
[2019-04-14] MEDS: ALPRAZOLAM 0.5 MG TABLET PO SCH (21:17)
[2019-04-14] MEDS: MELATONIN 5 MG TABLET PO SCH (22:54)
[2019-04-15] MEDS: LEVOTHYROXINE SODIUM 0.1 MG TABLET PO SCH (05:56)
[2019-04-15] MEDS: GABAPENTIN 300 MG CAPSULE PO SCH ×3 (05:56→22:49)
[2019-04-15] MEDS: PANTOPRAZOLE SODIUM 40 MG TABLET.DR PO SCH (05:56)
[2019-04-15] MEDS: LEVOTHYROXINE SODIUM 0.075 MG TABLET PO SCH (05:56)
[2019-04-15 06:22] LABS: ABSOLUTE EOSINOPHILS # (AUTO) 0.2 10^3/uL (0.0-0.6); ABSOLUTE LYMPHOCYTES (AUTO) 1.7 10^3/uL (0.5-4.7); ABSOLUTE MONOCYTES (AUTO) 0.5 10^3/uL (0.1-1.4); ABSOLUTE NEUT (AUTO) 2.6 10^3/uL (1.7-8.2); BASOPHILS % (AUTO) 0.7 % (0-2); EOSINOPHILS % (AUTO) 4.9 % (0-6); HEMATOCRIT 30.3 % (36.0-47.0); HEMOGLOBIN 10.2 g/dL (12.0-15.5); MEAN CORPUSCULAR HEMOGLOBIN 30.2 pg (27.0-33.4); MEAN CORPUSCULAR HGB CONC 33.8 g/dL (32.0-36.0); MEAN CORPUSCULAR VOLUME 90 fl (80-97); MONOCYTES % (AUTO) 10.4 % (3-13); PLATELET COUNT 217 10^3/uL (150-450); RED BLOOD COUNT 3.38 10^6/uL (3.72-5.28); RED CELL DISTRIBUTION WIDTH 13.8 % (11.5-14.0); TOTAL CELLS COUNTED % (AUTO) 100 %; WHITE BLOOD COUNT 5.1 10^3/uL (4.0-10.5)
[2019-04-15 06:40] LABS: ANION GAP 10 (5-19); BLOOD UREA NITROGEN 20 mg/dL (7-20); CALCIUM 9.1 mg/dL (8.4-10.2); CARBON DIOXIDE 19 mmol/L (22-30); CHLORIDE 113 mmol/L (98-107); GLUCOSE 143 mg/dL (75-110); POTASSIUM 4.6 mmol/L (3.6-5.0); SODIUM 141.5 mmol/L (137-145)
[2019-04-15] MEDS: INSULIN LISPRO 100 UNIT/ML 3 ML VIAL SUBCUT SCH ×4 (08:29→22:51)
[2019-04-15] MEDS: OMEGA-3 ACID ETHYL ESTERS 1 GM CAPSULE PO SCH ×2 (09:11→17:16)
[2019-04-15] MEDS: MULTIVITAMIN TABLET PO SCH (09:12)
[2019-04-15] MEDS: METOPROLOL TARTRATE 25 MG TABLET PO SCH ×2 (09:12→22:49)
[2019-04-15] MEDS: CALCIUM CARBONATE 500 MG TABLET PO SCH ×2 (09:12→17:16)
[2019-04-15] MEDS: FERROUS SULFATE 325 MG TABLET PO SCH (09:12)
[2019-04-15] MEDS: ASPIRIN 81 MG TABLET, ENT COATED PO SCH (09:13)
[2019-04-15] MEDS: ISOSORBIDE MONONITRATE 60 MG TAB.ER.24H PO SCH (09:13)
[2019-04-15] MEDS: TOLTERODINE TARTRATE 1 MG TABLET PO SCH ×2 (09:13→22:50)
[2019-04-15] MEDS: ENOXAPARIN SODIUM INJ 30 MG/0.3 ML DISP.SYRIN SUBCUT SCH (09:17)
[2019-04-15] MEDS: LEVOFLOXACIN 500 MG TABLET PO SCH (10:14)
[2019-04-15] MEDS ORDERED: MAGNESIUM SULFATE/D5W 1 GM/100 ML RTUPB IV ONE ×2 (10:30→14:45)
--- NOTE | 2019-04-15 15:42 | PDOC PROGRESS REPORT ---
Subjective Progress Note for:: 04/14/19 Subjective:: JOSIE BAIRES is a 63 year old female with a PMH of diabetes type 2, hypertension, chronic back pain, CVA, left AKA. She was sent to the emergency department by her primary care doctor's office for abnormal labs. The patient recently switched physicians and Dr. Newberry ordered baseline lab work. 04/07/2019 Creatinine and serum potassium were both elevated (creatinine 1.4 potassium 5.9), on 04/11/2019 the patient's labs were done again and creatinine and serum potassium were worse (creatinine 1.5 potassium > 6.0). Dr. Newberry instructed the patient to come to the emergency department for evaluation. Upon arrival, laboratory studies reveal hyperkalemia (K 6.8), acute kidney injury (creatinine 1.9), hyponatremia (NA 134), metabolic acidosis (bicarb 16). EKG shows NSR, no evidence of ischemia or infarction. For hyperkalemia, the patient was treated with IV insulin, D50 and calcium gluconate. For her acidosis the patient was given bicarb. Upon assessment, the patient is resting comfortably in the bed on room air. She is awake, alert and oriented x3. She is able to answer all questions appropriately. The patient's only complaint is UTI-like symptoms. She endorses dysuria and frequency. Patient states that she has a history of urinary tract infections, has been to see a urologist "years ago" but all he told her to "drink more water." Additionally, the patient endorses a 6-month history of chronic diarrhea. She states that her stools are watery. Occur 3-5 times per 24 hours. The patient believes that her diarrhea is related to iron tablets therese t she recently started taking. I explained to her that iron typically causes constipation, but the patient states that her diarrhea began around the same time that she started taking these particular iron tablets. Plan to admit to hospitalist service for hyperkalemia and FLORES. 04/14/2019. No acute events overnight. 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 Surgery was consulted for possible intervention right big toe ulcer. She was evaluated by them and it was determined that she had dry gangrene which did not need to be addressed at this point,just wound dressing. Arterial Doppler of the right lower extremity was done which showed severe artery stenosis. Arterial stent on the left lower extremity prior to amputation by Dr. Erickson at [facility] is recommending follow-up with him as outpatient. On admission patient was complaining of chronic diarrhea however since admission patient has not had any diarrhea. Stool work-up actually is pending because she has not had a bowel movement. Reason For Visit: AECOPD,HYPERTENSIVE URGENCY Physical Exam Vital Signs: Temp Pulse Resp BP Pulse Ox 98.5 F 64 18 115/56 L 95 04/15/19 12:00 04/15/19 14:00 04/15/19 12:00 04/15/19 12:00 04/15/19 12:00 Intake & Output 04/14/19 04/15/19 04/16/19 06:59 06:59 06:59 Intake Total 1750 924 100 Output Total 600 Balance 1150 924 100 Weight 109.6 kg 108.7 kg General appearance: PRESENT: no acute distress, obese, well-developed, well- nourished Head exam: PRESENT: atraumatic, normocephalic Respiratory exam: PRESENT: clear to auscultation urvashi. ABSENT: rales, rhonchi, wheezes Cardiovascular exam: PRESENT: RRR. ABSENT: diastolic murmur, rubs, systolic m urmur GI/Abdominal exam: PRESENT: normal bowel sounds, soft. ABSENT: distended, guarding, mass, organolmegaly, rebound, tenderness Extremities exam: PRESENT: full ROM, other - Left AKA. Right toe dorsal aspect dry gangrene, no active discharge no tenderness.. ABSENT: calf tenderness, clubbing, pedal edema Neurological exam: PRESENT: alert, awake, oriented to person, oriented to place, oriented to time, oriented to situation, CN II-XII grossly intact. ABSENT: motor sensory deficit Results Laboratory Results: 04/15/19 05:40 04/15/19 05:40 04/15/19 04/15/19 04/15/19 05:40 05:40 12:48 WBC 5.1 RBC 3.38 L Hgb 10.2 L Hct 30.3 L MCV 90 MCH 30.2 MCHC 33.8 RDW 13.8 Plt Count 217 Seg Neutrophils % 51.0 Lymphocytes % 33.0 Monocytes % 10.4 Eosinophils % 4.9 Basophils % 0.7 Absolute Neutrophils 2.6 Absolute Lymphocytes 1.7 Absolute Monocytes 0.5 Absolute Eosinophils 0.2 Absolute Basophils 0.0 Sodium 141.5 Potassium 4.6 Chloride 113 H Carbon Dioxide 19 L Anion Gap 10 BUN 20 Creatinine 1.20 Est GFR ( Amer) 55 L Est GFR (Non-Af Amer) 45 L Glucose 143 H Calcium 9.1 Magnesium 1.2 L* 1.5 L 04/12/19 04/13/19 13:30 05:56 Creatine Kinase 35 NT-Pro-B Natriuret Pep 138 Impressions: Foot X-Ray 04/13/19 00:00 IMPRESSION: No acute bony abnormality. 6 mm curvilinear metallic density overlies plantar aspect at the midfoot, possibly foreign body. Osteopenia with degenerative changes at the midfoot. Renal Ultrasound 04/13/19 11:01 IMPRESSION: No focal renal abnormality is identified as time. Assessment and Plan - Diagnosis (1) FLORES (acute kidney injury) Is this a current diagnosis for this admission?: Yes Plan: Nonoliguric. Most likely prerenal, caused by dehydration due to chronic diarrhea. Creatinine 1.9 on admission, baseline 1.45. Improving. 04/14/2019: Sodium 140.8, potassium 5.2, bicarb 18, creatinine 1.24, HBG 130, POC glucose 649884. A1c 6.9. 04/13/2019: Sodium 138.5, potassium 6.1, bicarb 16, creatinine 1.45 down from 1.97 on admission, baseline 1.45 Continue IV fluids, guided by volume status. 04/14/2019. Renal ultrasound negative for any acute abnormalities. (2) Hyperkalemia Is this a current diagnosis for this admission?: Yes Plan: Improving. Secondary to #1. Hyperkalemia protocol. 04/14/2019: Sodium 140.8, potassium 5.2, bicarb 18, creatinine 1.24, HBG 130, POC glucose 768651. A1c 6.9. 04/13/2019: Sodium 138.5, potassium 6.1, bicarb 16, creatinine 1.45 down from 1.97 on admission, baseline (3) Chronic diarrhea Is this a current diagnosis for this admission?: Yes Plan: Patient endorses watery diarrhea for the last 6 months. But has not had any diarrhea since admission. Denies laxative abuse, recent travel laboratory bowel disease. Endorses history of recurrent UTIs and antibiotic use. Work-up has been ordered for C. difficile stool parasite, stool white blood cell, stool culture, stool Gram stain patient has not had a bowel movement. Continue IV fluids, monitor volume status. (4) Foot ulcer, right Qualifiers: Non-pressure ulcer stage: limited to breakdown of skin Qualified Code(s): L97.511 - Non-pressure chronic ulcer of other part of right foot limited to breakdown of skin Is this a current diagnosis for this admission?: Yes Plan: ESR 48 right foot x-ray negative for any osteomyelitis. 04/14/2019: Right lower extremity arterial Doppler moderate hemodynamically sign ificant lesions in the right lower extremity only. Multivessel disease probably starting in the femoral, posterior tibial. Surgery was consulted and evaluated right foot and as per their note likely dry gangrene with no evidence of infection or drainage. Surgical intervention needed. Recommending outpatient local wound care. We will arrange to follow-up with rail car welder and Dr. Erickson vascular surgeon for possible vascular intervention. (5) Coronary artery disease Qualifiers: Coronary Disease-Associated Artery/Lesion type: bypass graft Is this a current diagnosis for this admission?: Yes Plan: CABG and PCI status post stent placement. Continue DAPT, beta-blockers, statins. No recent echo available. Denies any anginal symptoms. Patient could benefit from MAYO however no echo available. Patient also has FLORES at this moment. Cardiac diet. Outpatient PCP and cardiology follow-up. (6) Peripheral vascular disease due to secondary diabetes Is this a current diagnosis for this admission?: No Plan: History of left AKA due to PAD. 04/14/2019: Right lower extremity arterial Doppler moderate hemodynamically significant lesions in the right lower extremity only. Multivessel disease probably starting in the femoral, posterior tibial. Surgery was consulted and evaluated right foot and as per their note likely dry gangrene with no evidence of infection or drainage. Surgical intervention needed. Recommending outpatient local wound care. Will up with rail car welder and Dr. Erickson care surgeon at [facility] who had evaluated the patient and had done vascular intervention on the left lower extremity before AKA the past. We will arrange to follow-up with rail car welder and Dr. Erickson vascular surgeon for possible vascular intervention. (7) Type 2 diabetes mellitus Qualifiers: Diabetes mellitus manager long term care insulin use: with jail use Diabetes mellitus complication status: without complication Qualified Code(s): E11.9 - Type 2 diabetes mellitus without complications; Z79.4 - alf (current) use of insulin Is this a current diagnosis for this admission?: Yes Plan: Controlled. FBG 113, POC 123, A1c 6.9%, Diabetic diet, sliding scale insulin, pre-meal insulin, long-acting insulin. (8) Obesity, morbid, BMI 40.0-49.9 Is this a current diagnosis for this admission?: No Plan: Diet and lifestyle modification.
--- NOTE | 2019-04-15 16:05 | PDOC PROGRESS REPORT ---
Subjective Progress Note for:: 04/15/19 Subjective:: JOSIE BAIRES is a 63 year old female with a PMH of diabetes type 2, hypertension, chronic back pain, CVA, left AKA. She was sent to the emergency department by her primary care doctor's office for abnormal labs. The patient recently switched physicians and Dr. Newberry ordered baseline lab work. 04/07/2019 Creatinine and serum potassium were both elevated (creatinine 1.4 potassium 5.9), on 04/11/2019 the patient's labs were done again and creatinine and serum potassium were worse (creatinine 1.5 potassium > 6.0). Dr. Newberry instructed the patient to come to the emergency department for evaluation. Upon arrival, laboratory studies reveal hyperkalemia (K 6.8), acute kidney injury (creatinine 1.9), hyponatremia (NA 134), metabolic acidosis (bicarb 16). EKG shows NSR, no evidence of ischemia or infarction. For hyperkalemia, the patient was treated with IV insulin, D50 and calcium gluconate. For her acidosis the patient was given bicarb. Upon assessment, the patient is resting comfortably in the bed on room air. She is awake, alert and oriented x3. She is able to answer all questions appropriately. The patient's only complaint is UTI-like symptoms. She endorses dysuria and frequency. Patient states that she has a history of urinary tract infections, has been to see a urologist "years ago" but all he told her to "drink more water." Additionally, the patient endorses a 6-month history of chronic diarrhea. She states that her stools are watery. Occur 3-5 times per 24 hours. The patient believes that her diarrhea is related to iron tablets therese t she recently started taking. I explained to her that iron typically causes constipation, but the patient states that her diarrhea began around the same time that she started taking these particular iron tablets. Plan to admit to hospitalist service for hyperkalemia and FLORES. 04/14/2019. No acute events overnight. Potassium still high, Therapist Respiratory improving. Surgery was consulted for possible intervention right big toe ulcer. She was evaluated by them and it was determined that she had dry gangrene which did not need to be addressed at this point,just wound dressing. Arterial Doppler of the right lower extremity was done which showed severe artery stenosis. Arterial stent on the left lower extremity prior to amputation by Dr. Erickson at [facility] is recommending follow-up with him as outpatient. On admission patient was complaining of chronic diarrhea however since admission patient has not had any diarrhea. Stool work-up actually is pending because she has not had a bowel movement. 04/15/2019. No acute events overnight. Potassium within normal limits. Creatinine back. Low magnesium, will replace if normal will DC home today. Denies any fever, chills, nausea, vomiting, diarrhea or any urinary symptoms. Reason For Visit: AECOPD,HYPERTENSIVE URGENCY Physical Exam Vital Signs: Temp Pulse Resp BP Pulse Ox 98.6 F 65 16 101/71 96 04/15/19 15:08 04/15/19 15:08 04/15/19 15:08 04/15/19 15:08 04/15/19 15:08 Intake & Output 04/14/19 04/15/19 04/16/19 06:59 06:59 06:59 Intake Total 1750 924 100 Output Total 600 Balance 1150 924 100 Weight 109.6 kg 108.7 kg General appearance: PRESENT: no acute distress, well-developed, well-nourished Head exam: PRESENT: atraumatic, normocephalic Respiratory exam: PRESENT: clear to auscultation urvashi. ABSENT: rales, rhonchi, wheezes Cardiovascular exam: PRESENT: RRR. ABSENT: diastolic murmur, rubs, systolic murmur GI/Abdominal exam: PRESENT: normal bowel sounds, soft. ABSENT: distended, guarding, mass, organolmegaly, rebound, tenderness Musculoskeletal exam: PRESENT: other - LT AKA, Rt Toe dry gagnrene, no discharge, or sign of infection. Neurological exam: PRESENT: alert, awake, oriented to person, oriented to place, oriented to time, oriented to situation, CN II-XII grossly intact. ABSENT: motor sensory deficit Results Laboratory Results: 04/15/19 05:40 04/15/19 05:40 04/15/19 04/15/19 04/15/19 05:40 05:40 12:48 WBC 5.1 RBC 3.38 L Hgb 10.2 L Hct 30.3 L MCV 90 MCH 30.2 MCHC 33.8 RDW 13.8 Plt Count 217 Seg Neutrophils % 51.0 Lymphocytes % 33.0 Monocytes % 10.4 Eosinophils % 4.9 Basophils % 0.7 Absolute Neutrophils 2.6 Absolute Lymphocytes 1.7 Absolute Monocytes 0.5 Absolute Eosinophils 0.2 Absolute Basophils 0.0 Sodium 141.5 Potassium 4.6 Chloride 113 H Carbon Dioxide 19 L Anion Gap 10 BUN 20 Creatinine 1.20 Est GFR ( Amer) 55 L Est GFR (Non-Af Amer) 45 L Glucose 143 H Calcium 9.1 Magnesium 1.2 L* 1.5 L 04/12/19 04/13/19 13:30 05:56 Creatine Kinase 35 NT-Pro-B Natriuret Pep 138 Impressions: Foot X-Ray 04/13/19 00:00 IMPRESSION: No acute bony abnormality. 6 mm curvilinear metallic density overlies plantar aspect at the midfoot, possibly foreign body. Osteopenia with degenerative changes at the midfoot. Renal Ultrasound 04/13/19 11:01 IMPRESSION: No focal renal abnormality is identified as time. Assessment and Plan - Diagnosis (1) FLORES (acute kidney injury) Is this a current diagnosis for this admission?: Yes Plan: Resolved. Nonoliguric. Most likely prerenal, caused by dehydration due to chronic diarrhea. Creatinine 1.9 on admission, baseline 1.45. 04/15/2019. Potassium 4.6, creatinine 1.2, magnesium 1.2. 04/14/2019: Sodium 140.8, potassium 5.2, bicarb 18, creatinine 1.24, HBG 130, POC glucose [id number]. A1c 6.9. 04/13/2019: Sodium 138.5, potassium 6.1, bicarb 16, creatinine 1.45 down from 1.97 on admission, baseline 1.45 Continue IV fluids, guided by volume status. 04/14/2019. Renal ultrasound negative for any acute abnormalities. (2) Hyperkalemia Is this a current diagnosis for this admission?: Yes Plan: Resolved. Secondary to #1. 04/15/2019. Potassium 4.6, creatinine 1.2, magnesium 1.2. 04/14/2019: Sodium 140.8, potassium 5.2, bicarb 18, creatinine 1.24, HBG 130, POC glucose [id number]. A1c 6.9. 04/13/2019: Sodium 138.5, potassium 6.1, bicarb 16, creatinine 1.45 down from 1.97 on admission, baseline (3) Chronic diarrhea Is this a current diagnosis for this admission?: Yes Plan: Patient endorses watery diarrhea for the last 6 months. But has not had any diarrhea since admission. Denies laxative abuse, recent travel laboratory bowel disease. Endorses history of recurrent UTIs and antibiotic use. Work-up has been ordered for C. difficile stool parasite, stool white blood cell, stool culture, stool Gram stain patient has not had a bowel movement. Continue IV fluids, monitor volume status. (4) Foot ulcer, right Qualifiers: Non-pressure ulcer stage: limited to breakdown of skin Qualified Code(s): L97.511 - Non-pressure chronic ulcer of other part of right foot limited to breakdown of skin Is this a current diagnosis for this admission?: Yes Plan: ESR 48 right foot x-ray negative for any osteomyelitis. 04/14/2019: Right lower extremity arterial Doppler moderate hemodynamically significant lesions in the right lower extremity only. Multivessel disease probably starting in the femoral, posterior tibial. Surgery was consulted and evaluated right foot and as per their note likely dry gangrene with no evidence of infection or drainage. Surgical intervention needed. Recommending outpatient local wound care. We will arrange to follow-up with echo vascular technologist and Dr. Erickson vascular surgeon for possible vascular intervention. (5) Coronary artery disease Qualifiers: Coronary Disease-Associated Artery/Lesion type: bypass graft Is this a current diagnosis for this admission?: No Plan: CABG and PCI status post stent placement. Continue DAPT, beta-blockers, statins. No recent echo available. Denies any anginal symptoms. Patient could benefit from MAYO however no echo available. Patient also has FLORES at this moment. Cardiac diet. Outpatient PCP and cardiology follow-up. (6) Peripheral vascular disease due to secondary diabetes Is this a current diagnosis for this admission?: No Plan: History of left AKA due to PAD. 04/14/2019: Right lower extremity arterial Doppler moderate hemodynamically significant lesions in the right lower extremity only. Multivessel disease probably starting in the femoral, posterior tibial. Surgery was consulted and evaluated right foot and as per their note likely dry gangrene with no evidence of infection or drainage. Surgical intervention needed. Recommending outpatient local wound care. Will up with echo vascular technologist and Dr. Erickson care surgeon at [facility] who had evaluated the patient and had done vascular intervention on the left lower extremity before AKA the past. We will arrange to follow-up with echo vascular technologist and Dr. Erickson vascular surgeon for possible vascular intervention. (7) Type 2 diabetes mellitus Qualifiers: Diabetes mellitus terminal gauger insulin use: with alf use Diabetes mellitus complication status: without complication Qualified Code(s): E11.9 - Type 2 diabetes mellitus without complications; Z79.4 - terminal gauger (current) use of insulin Is this a current diagnosis for this admission?: Yes Plan: Controlled. FBG 113, POC 123, A1c 6.9%, Diabetic diet, sliding scale insulin, pre-meal insulin, long-acting insulin. (8) Obesity, morbid, BMI 40.0-49.9 Is this a current diagnosis for this admission?: No Plan: Diet and lifestyle modification. (9) Hypomagnesemia Is this a current diagnosis for this admission?: Yes Plan: Replaced. BMP in the afternoon. If within normal limits will discharge home.
[2019-04-15] MEDS: PATIROMER 8.4 GM SUSP PACKET PO SCH (16:13)
[2019-04-15] MEDS: CLOPIDOGREL BISULFATE 75 MG TABLET PO SCH (17:16)
[2019-04-15] MEDS: NORMAL SALINE 1000 ML 1,000 ML IV PRN (19:19)
[2019-04-15] MEDS: ATORVASTATIN CALCIUM 20 MG TABLET PO SCH (22:49)
[2019-04-15] MEDS: MELATONIN 5 MG TABLET PO SCH (22:49)
[2019-04-15] MEDS: MONTELUKAST SODIUM 10 MG TABLET PO SCH (22:49)
[2019-04-15] MEDS: ALPRAZOLAM 0.5 MG TABLET PO SCH (22:50)
[2019-04-16 05:20] LABS: ANION GAP 10 (5-19); BLOOD UREA NITROGEN 17 mg/dL (7-20); CALCIUM 9.1 mg/dL (8.4-10.2); CARBON DIOXIDE 22 mmol/L (22-30); CHLORIDE 111 mmol/L (98-107); GLUCOSE 139 mg/dL (75-110); POTASSIUM 4.7 mmol/L (3.6-5.0); SODIUM 142.8 mmol/L (137-145)
[2019-04-16] MEDS: LEVOTHYROXINE SODIUM 0.075 MG TABLET PO SCH (05:20)
[2019-04-16] MEDS: PANTOPRAZOLE SODIUM 40 MG TABLET.DR PO SCH (05:20)
[2019-04-16] MEDS: LEVOTHYROXINE SODIUM 0.1 MG TABLET PO SCH (05:20)
[2019-04-16] MEDS: GABAPENTIN 300 MG CAPSULE PO SCH ×2 (05:20→14:35)
[2019-04-16] MEDS: INSULIN LISPRO 100 UNIT/ML 3 ML VIAL SUBCUT SCH ×2 (08:03→13:18)
[2019-04-16 08:33] VITALS: BP 138/55
[2019-04-16] MEDS: NORMAL SALINE 1000 ML 1,000 ML IV PRN (08:34)
[2019-04-16] MEDS: OMEGA-3 ACID ETHYL ESTERS 1 GM CAPSULE PO SCH (09:16)
[2019-04-16] MEDS: METOPROLOL TARTRATE 25 MG TABLET PO SCH (09:16)
[2019-04-16] MEDS: ASPIRIN 81 MG TABLET, ENT COATED PO SCH (09:16)
[2019-04-16] MEDS: LEVOFLOXACIN 500 MG TABLET PO SCH (09:16)
[2019-04-16] MEDS: FERROUS SULFATE 325 MG TABLET PO SCH (09:16)
[2019-04-16] MEDS: CALCIUM CARBONATE 500 MG TABLET PO SCH (09:16)
[2019-04-16] MEDS: TOLTERODINE TARTRATE 1 MG TABLET PO SCH (09:16)
[2019-04-16] MEDS: ISOSORBIDE MONONITRATE 60 MG TAB.ER.24H PO SCH (09:16)
[2019-04-16] MEDS: ENOXAPARIN SODIUM INJ 30 MG/0.3 ML DISP.SYRIN SUBCUT SCH (09:17)
[2019-04-16] MEDS: MULTIVITAMIN TABLET PO SCH (09:20)
--- NOTE | 2019-04-16 13:25 | PDOC DISCHARGE SUMMARY ---
General - Admit/Disc Date/PCP Admission Date/Primary Care Provider: 04/12/19 15:30 [facility] Discharge Date: 04/16/19 - Discharge Diagnosis (1) FLORES (acute kidney injury) Is this a current diagnosis for this admission?: Yes (2) UTI (urinary tract infection) Is this a current diagnosis for this admission?: Yes (3) Hyperkalemia Is this a current diagnosis for this admission?: Yes (4) Chronic diarrhea Is this a current diagnosis for this admission?: Yes (5) Foot ulcer, right Is this a current diagnosis for this admission?: Yes (6) Coronary artery disease Is this a current diagnosis for this admission?: Yes (7) Peripheral vascular disease due to secondary diabetes Is this a current diagnosis for this admission?: No (8) Type 2 diabetes mellitus Is this a current diagnosis for this admission?: Yes (9) Obesity, morbid, BMI 40.0-49.9 Is this a current diagnosis for this admission?: No - Additional Information Resuscitation Status: Full Code Discharge Diet: As Tolerated Discharge Activity: Activity As Tolerated Prescriptions: Atorvastatin Calcium [Lipitor 20 mg Tablet] 40 mg PO QHS 30 Days #30 tablet Levofloxacin [Levaquin 500 mg Tablet] 500 mg PO DAILY 4 Days #4 tablet Magnesium Oxide [Mag-Oxide Magnesium] 400 mg PO DAILY 7 Days #7 tablet Home Medications: Alprazolam [Xanax 0.5 mg Tablet] 0.5 mg PO QHS 12/05/17 Clopidogrel Bisulfate [Plavix 75 mg Tablet] 75 mg PO QPM 12/05/17 Isosorbide Mononitrate [Imdur 60 mg Tablet.er] 60 mg PO DAILY 12/05/17 Levocetirizine Dihydrochloride [Xyzal] 5 mg PO QPM 12/05/17 Levothyroxine Sodium [Synthroid] 175 mcg PO Q6AM 12/05/17 Linaclotide [Linzess] 290 mcg PO DAILY 12/05/17 Metformin HCl [Glucophage 500 mg Tablet] 1,000 mg PO BIDACBS 12/05/17 Metoprolol Tartrate [Lopressor 25 mg Tablet] 37.5 mg PO Q12 12/05/17 Montelukast Sodium [Singulair 10 mg Tablet] 10 mg PO QHS 12/05/17 [place]-3 Acid Ethyl Esters [Lovaza 1 gm Capsule] 2 gm PO BID 12/05/17 Pantoprazole Sodium [Protonix] 40 mg PO Q6AM 12/05/17 Solifenacin Succinate [Vesicare] 10 mg PO QAM 12/05/17 Gabapentin [Neurontin 300 mg Capsule] 300 mg PO Q8 12/24/18 Aspirin [Ecotrin 81 mg EC Tablet] 81 mg PO DAILY 04/12/19 Calcium Carbonate [Calcium] 600 mg PO BID 04/12/19 Cranberry [Cranberry 1000 mg Capsule] 2,000 mg PO DAILY 04/12/19 Ferrous Sulfate [Feosol 325 mg Tablet] 325 mg PO DAILY 04/12/19 Loratadine [Claritin 10 mg Tablet] 10 mg PO DAILY 04/12/19 Melatonin [Melatonin 5 mg Tablet] 10 mg PO QHS 04/12/19 Multivitamin [Tab-A-Janeen (Multiple Vitamin) Tablet] 1 tab PO DAILY 04/12/19 Atorvastatin Calcium [Lipitor 20 mg Tablet] 40 mg PO QHS 30 Days #30 tablet 04/16/19 Levofloxacin [Levaquin 500 mg Tablet] 500 mg PO DAILY 4 Days #4 tablet 04/16/19 Magnesium Oxide [Mag-Oxide Magnesium] 400 mg PO DAILY 7 Days #7 tablet 04/16/19 History of Present Illness History of Present Illness: JOSIE BAIRES is a 63 year old female with a PMH of diabetes type 2, hypertension, chronic back pain, CVA, left AKA. She was sent to the emergency department by her primary care doctor's office for abnormal labs. The patient recently switched physicians and Dr. Newberry ordered baseline lab work. 04/07/2019 Creatinine and serum potassium were both elevated (creatinine 1.4 potassium 5.9), on 04/11/2019 the patient's labs were done again and creatinine and serum potassium were worse (creatinine 1.5 potassium > 6.0). Dr. Newberry instructed the patient to come to the emergency department for evaluation. Upon arrival, laboratory studies reveal hyperkalemia (K 6.8), acute kidney injury (creatinine 1.9), hyponatremia (NA 134), metabolic acidosis (bicarb 16). EKG shows NSR, no evidence of ischemia or infarction. For hyperkalemia, the patient was treated with IV insulin, D50 and calcium gluconate. For her acidosis the patient was given bicarb. Upon assessment, the patient is resting comfortably in the bed on room air. She is awake, alert and oriented x3. She is able to answer all questions appropriately. The patient's only complaint is UTI-like symptoms. She endorses dysuria and frequency. Patient states that she has a history of urinary tract infections, has been to see a urologist "years ago" but all he told her to "drink more water." Additionally, the patient endorses a 6-month history of chronic diarrhea. She states that her stools are watery. Occur 3-5 times per 24 hours. The patient believes that her diarrhea is related to iron tablets that she recently started taking. I explained to her that iron typically causes constipation, but the patient states that her diarrhea began around the same time that she started taking these particular iron tablets. Plan to admit to hospitalist service for hyperkalemia and FLORES. Hospital Course Hospital Course: (1) FLORES (acute kidney injury) Resolved. Nonoliguric. Most likely prerenal, caused by dehydration due to chronic diarrhea. Creatinine 1.9 on admission, baseline 1.45. 04/15/2019. Potassium 4.6, creatinine 1.2, magnesium 1.2. 04/14/2019: Sodium 140.8, potassium 5.2, bicarb 18, creatinine 1.24, HBG 130, POC glucose 090017. A1c 6.9. 04/13/2019: Sodium 138.5, potassium 6.1, bicarb 16, creatinine 1.45 down from 1.97 on admission, baseline 1.45 Continued on IV fluids, and monitored volume status. 04/14/2019. Renal ultrasound negative for any acute abnormalities. (2) UTI (urinary tract infection) Urine Cultures growing GNR, likely Ecoli. Day 2 of Levofloxacin. Discharged on Levofloxacin PO 500 daily to complete total of 5 days. Sensitivity pending. Will follow and update patient if not sensitive to Levofl oxacin. (3) Hyperkalemia Resolved. Secondary to #1. 04/15/2019. Potassium 4.6, creatinine 1.2, magnesium 1.2. 04/14/2019: Sodium 140.8, potassium 5.2, bicarb 18, creatinine 1.24, HBG 130, POC glucose [id number]. A1c 6.9. 04/13/2019: Sodium 138.5, potassium 6.1, bicarb 16, creatinine 1.45 down from 1.97 on admission, baseline (4) Chronic diarrhea Resolved. Patient endorses watery diarrhea for the last 6 months. But has not had any diarrhea since admission. Denies laxative abuse, recent travel laboratory bowel disease. Endorses history of recurrent UTIs and antibiotic use. Work-up has been ordered for C. difficile stool parasite, stool white blood cell, stool culture, stool Gram stain patient has not had a bowel movement. Continue IV fluids, monitor volume status. (5) Foot ulcer, right ESR 48 right foot x-ray negative for any osteomyelitis. 04/14/2019: Right lower extremity arterial Doppler moderate hemodynamically significant lesions in the right lower extremity only. Multivessel disease probably starting in the femoral, posterior tibial. Surgery was consulted and evaluated right foot and as per their note likely dry gangrene with no evidence of infection or drainage. Surgical intervention needed. Recommending outpatient local wound care. Please follow up with Dr. Erickson vascular surgeon and Dr Nye Chemical Educator as out patient. Both appointments have been set up. (6) Coronary artery disease CABG and PCI status post stent placement. Continued on DAPT, beta-blockers, statins. No recent echo available. Denies any anginal symptoms. Patient could benefit from MAYO however no echo available. Patient also has FLORES at this moment. Cardiac diet. Outpatient PCP and cardiology follow-up. (7) Peripheral vascular disease due to secondary diabetes History of left AKA due to PAD. 04/14/2019: Right lower extremity arterial Doppler moderate hemodynamically significant lesions in the right lower extremity only. Multivessel disease probably starting in the femoral, posterior tibial. Surgery was consulted and evaluated right foot and as per their note likely dry gangrene with no evidence of infection or drainage. Surgical intervention needed. Recommending outpatient local wound care. Will up with tailman and Dr. Erickson care surgeon at [place] who had evaluated the patient and had done vascular intervention on the left lower extremity before AKA the past. Please follow up with Dr. Erickson vascular surgeon and Dr Nye Chemical Educator as out patient. Both appointments have been set up. (8) Type 2 diabetes mellitus Controlled. FBG 113, POC 123, A1c 6.9%, Diabetic diet, sliding scale insulin, pre-meal insulin, long-acting insulin while in patient. Restart home meds on discharge. Follow up with PCP. (9) Obesity, morbid, BMI 40.0-49.9 Diet and lifestyle modification. (10) Hypomagnesemia Replaced. Discharged on MgOx 400 daily for another week. Follow up with PCP. Physical Exam Vital Signs: Temp Pulse Resp BP Pulse Ox 97.7 F 59 L 15 138/55 H 100 04/16/19 10:15 04/16/19 10:15 04/16/19 10:15 04/16/19 10:15 04/16/19 10:15 Intake & Output 04/15/19 04/16/19 04/17/19 06:59 06:59 06:59 Intake Total 1924 520 994 Output Total 600 Balance 1924 -80 994 Weight 108.7 kg 108.4 kg General appearance: PRESENT: no acute distress, obese, well-developed, well- nourished Head exam: PRESENT: atraumatic, normocephalic Eye exam: PRESENT: conjunctiva pink, EOMI, PERRLA. ABSENT: scleral icterus Ear exam: PRESENT: normal external ear exam Neck exam: ABSENT: carotid bruit, JVD, lymphadenopathy, thyromegaly Respiratory exam: PRESENT: clear to auscultation urvashi. ABSENT: rales, rhonchi, wheezes Cardiovascular exam: PRESENT: RRR. ABSENT: diastolic murmur, rubs, systolic murmur Pulses: PRESENT: normal carotid pulses, normal radial pulses, normal femoral pulses, other - Diminished DP Extremities exam: PRESENT: full ROM, other - LT AKA, Rt 1st toe dry gangren, non infected, nontender.. ABSENT: calf tenderness, clubbing, pedal edema Neurological exam: PRESENT: alert, awake, oriented to person, oriented to place, oriented to time, oriented to situation, CN II-XII grossly intact. ABSENT: motor sensory deficit Results Laboratory Results: 04/15/19 05:40 04/16/19 04:00 04/15/19 04/15/19 04/16/19 12:48 17:30 04:00 Sodium 142.8 Potassium 4.7 Chloride 111 H Carbon Dioxide 22 Anion Gap 10 BUN 17 Creatinine 1.16 Est GFR ( Amer) 57 L Est GFR (Non-Af Amer) 47 L Glucose 139 H Calcium 9.1 Magnesium 1.5 L 1.6 1.6 04/12/19 04/13/19 13:30 05:56 Creatine Kinase 35 NT-Pro-B Natriuret Pep 138 Impressions: Foot X-Ray 04/13/19 00:00 IMPRESSION: No acute bony abnormality. 6 mm curvilinear metallic density overlies plantar aspect at the midfoot, possibly foreign body. Osteopenia with degenerative changes at the midfoot. Renal Ultrasound 04/13/19 11:01 IMPRESSION: No focal renal abnormality is identified as time. Qualifiers - * PATIENT BEING DISCHARGED WITH ANY OF THE FOLLOWING DIAGNOSIS: No Acute Heart Failure Is this a Heart Failure Patient?: No
== END 2019-04-16 14:57 | DRG 683 ==
LOC: ER 11:54 → EH 15:30 → 5 19:42
PROVIDERS: ADMIT Family Medicine; ATTEND Family Medicine
DX: N17.9 Acute kidney failure, unspecified (principal); E87.1 Hypo-osmolality and hyponatremia; E87.2 Acidosis; I96 Gangrene, not elsewhere classified; E11.52 Type 2 diabetes mellitus with diabetic peripheral angiopathy with gangrene; I69.354 Hemiplegia and hemiparesis following cerebral infarction affecting left non-dominant side; K57.92 Diverticulitis of intestine, part unspecified, without perforation or abscess without bleeding; Z68.41 Body mass index [BMI] 40.0-44.9, adult; N39.0 Urinary tract infection, site not specified; E11.621 Type 2 diabetes mellitus with foot ulcer; E11.51 Type 2 diabetes mellitus with diabetic peripheral angiopathy without gangrene; E66.01 Morbid (severe) obesity due to excess calories; L97.511 Non-pressure chronic ulcer of other part of right foot limited to breakdown of skin; E83.42 Hypomagnesemia; E87.5 Hyperkalemia; Z89.612 Acquired absence of left leg above knee; I10 Essential (primary) hypertension; M54.9 Dorsalgia, unspecified; G89.29 Other chronic pain; K52.9 Noninfective gastroenteritis and colitis, unspecified; I25.10 Atherosclerotic heart disease of native coronary artery without angina pectoris; E78.5 Hyperlipidemia, unspecified; J45.909 Unspecified asthma, uncomplicated; E03.9 Hypothyroidism, unspecified; M19.90 Unspecified osteoarthritis, unspecified site; F32.9 Major depressive disorder, single episode, unspecified; D64.9 Anemia, unspecified; B96.20 Unspecified Escherichia coli [E. coli] as the cause of diseases classified elsewhere; Z87.440 Personal history of urinary (tract) infections; I25.2 Old myocardial infarction; Z95.5 Presence of coronary angioplasty implant and graft; Z79.84 Long term (current) use of oral hypoglycemic drugs; Z88.8 Allergy status to other drugs, medicaments and biological substances; Z95.1 Presence of aortocoronary bypass graft; Z83.438 Family history of other disorder of lipoprotein metabolism and other lipidemia; Z82.49 Family history of ischemic heart disease and other diseases of the circulatory system; Z83.3 Family history of diabetes mellitus
CPT/HCPCS: 36415; 76775; 80048; 80053; 80061; 81001; 82550; 82962; 83036; 83735; 83880; 84100; 84443; 85025; 85027; 85652; 86140; 87086; 87088; 87186; 93005; 93010; 93926; 96361; 96374; 96375; 99291; J0610; J1642; J1650; J1815; J3475; J3490; J7030

== ENCOUNTER 2019-05-12 01:57 | Inpatient (IN) | payer MEDICARE, OTHER ==
[2019-05-12 03:46] LABS: ANION GAP 9 (5-19); BLOOD UREA NITROGEN 53 mg/dL (7-20); CALCIUM 9.3 mg/dL (8.4-10.2); CARBON DIOXIDE 17 mmol/L (22-30); CHLORIDE 109 mmol/L (98-107); GLUCOSE 159 mg/dL (75-110); POTASSIUM 5.8 mmol/L (3.6-5.0); SODIUM 134.8 mmol/L (137-145)
[2019-05-12] MEDS ORDERED: NORMAL SALINE 1000 ML 1,000 ML IV ONE ×3 (04:47→09:15)
--- NOTE | 2019-05-12 04:55 | ER Document Report ---
ED General - General Chief Complaint: Fall Stated Complaint: WEAKNESS Time Seen by Provider: 05/12/19 02:22 Primary Care Provider: CHUY BRIAN NP-C [Primary Care Provider] - Follow up as needed Notes: Patient is a pleasant 63-year-old female who presents with complaint of falling out of bed and falling. Patient says that she fell a bed at this is living place. They sent her here. Patient does take sedating medications at night and therefore was low bit sleepy. Patient is now awake alert and answers questions appropriately. She does mention that she is please get her labs rechecked yesterday at her doctor's office however apparently her dog growled at the doctor and therefore the doctor made her leave the office before checking her labs. She supposed to get her potassium and magnesium levels checked. She denies any fevers. She denies infections. She denies any pain. She does have chronic diarrhea which has not changed. She has no other complaints at this time. She denies any pain or injuries from the fall. TRAVEL OUTSIDE OF THE [place] IN LAST 30 DAYS: No - Related Data Allergies/Adverse Reactions: metoclopramide [From Reglan] Allergy (Verified 05/12/19 07:53) Past Medical History - Social History Smoking Status: Unknown if Ever Smoked Chew tobacco use (# tins/day): No Frequency of alcohol use: None Drug Abuse: None Family History: Reviewed & Not Pertinent Patient has suicidal ideation: No Patient has homicidal ideation: No - Past Medical History Cardiac Medical History: Reports: Hx Coronary Artery Disease, Hx Heart Attack, Hx Hypercholesterolemia, Hx Hypertension Denies: Hx Congestive Heart Failure Pulmonary Medical History: Reports: Hx Asthma, Hx Pneumonia Denies: Hx Bronchitis, Hx COPD, Hx Tuberculosis Neurological Medical History: Reports: 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 Denies: Hx Seizures Endocrine Medical History: Reports: Hx Diabetes Mellitus Type 2, Hx Graves' Disease, Hx Hypothyroidism Renal/ Medical History: Denies: Hx End Stage Renal Disease, Hx Kidney Stones, Hx Peritoneal Dialysis GI Medical History: Reports: Hx Diverticulitis, Hx Gastritis, Hx Ulcer. Denies: Hx Cirrhosis, Hx Gastroesophageal Reflux Disease, Hx Hepatitis, Hx Hiatal Hernia Musculoskeletal Medical History: Reports Hx Arthritis, Denies Hx Multiple Sclerosis, Reports Hx Musculoskeletal Deformity, Reports Hx Musculoskeletal Trauma Psychiatric Medical History: Reports: Hx Depression Denies: Hx Bipolar Disorder, Hx Schizophrenia Traumatic Medical History: Reports: Hx Fractures Infectious Medical History: Denies: Hx Hepatitis Past Surgical History: Reports: Hx Cardiac Catheterization, Hx Cardiac Surgery - single bypass, Hx Cholecystectomy, Hx Coronary Stent, Hx Dilation and Curettage, Hx Orthopedic Surgery - L leg amputation, Hx Tonsillectomy, Other - Left ab [id number] amputation status post failed revascularization. Denies: Hx Hysterectomy, Hx Mastectomy, Hx Open Heart Surgery, Hx Pacemaker - Immunizations Immunizations up to date: No Hx Diphtheria, Pertussis, Tetanus Vaccination: No Hx Pneumococcal Vaccination: 09/30/15 Review of Systems - Review of Systems Notes: My Normal Review Basic REVIEW OF SYSTEMS: CONSTITUTIONAL : Denies fever, chills, or sweats. Denies recent illness. EENT: Denies eye, ear, throat, or mouth pain or symptoms. Denies nasal or sinus congestion. CARDIOVASCULAR: Denies chest pain. RESPIRATORY: Denies cough, cold, or chest congestion. Denies shortness of breath, difficulty breathing, or wheezing. GASTROINTESTINAL: Denies abdominal pain. Denies nausea, vomiting. Chronic diarrhea GENITOURINARY: Denies difficulty urinating, painful urination, burning, frequency, or blood in urine. MUSCULOSKELETAL: Denies neck or back pain or joint pain or swelling. SKIN: Denies rash or skin lesions. NEUROLOGICAL: Denies altered mental status or loss of consciousness. Denies headache. Denies weakness or paralysis or loss of use of either side. Denies problems with gait or speech. Denies sensory or motor loss. ALL OTHER SYSTEMS REVIEWED AND NEGATIVE. Physical Exam - Vital signs Vitals: Resp Pulse Ox 17 95 05/12/19 02:19 05/12/19 02:19 - Notes Notes: General Appearance: Well nourished, alert, cooperative, no acute distress, no obvious discomfort. Vitals: reviewed, See vital signs table. Head: no swelling or tenderness to the head Eyes: PERRL, EOMI, Conjuctiva clear Mouth: No decreasd moisture Lungs: No wheezing, No rales, No rhonci, No accessory muscle use, good air exchange bilaterally. Heart: Normal rate, Regular rythm, No murmur, no rub Back: No pain to palpation of thoracic or lumbar spine. Abdomen: Normal BS, soft, No rigidity, No abdominal tenderness, No guarding, no rebound, no abdominal masses, no organomegaly Extremities: Has below the knee leg amputation., no swelling or tenderness in the extremities, no edema. Skin: warm, dry, appropriate color, no rash Neuro: speech clear, oriented x 3, normal affect, responds appropriately to questions. Course - Re-evaluation Re-evalutation: 05/12/19 04:50 Patient's renal function is elevated again. Last time she is admitted for this she received IV fluids and was discharged home. Reviewing her previous discharge summary this appears to occur because she has chronic diarrhea leads to a prerenal acute kidney injury. Patient says she prefers not to be admitted if possible. I told her we will give her a liter of IV fluids and recheck her chemistry panel. If her kidney function is improving significantly and her potassium is improving then she will be able to go home, but if it is not improving then I told her we may have to admit her at that time. Patient is agreeable to go forward with this plan. 05/12/19 04:52 05/12/19 07:32 She is current blood pressure is 97/44. Has been as low as into the 80s. I did reposition her cuff. She is receiving IV fluids. Blood pressure has been as high as in the low 100s systolically. Waiting for urine results come back to determine whether or not she has urinary tract infection if this could be potentially affecting her blood pressure. 05/12/19 07:59 Patient's urinalysis is positive. She does have a slight leukocytosis but no f ever. Being that her blood pressure has been running a bit low I suspect she probably has urosepsis. I spoke with Dr. Ferreira, covering hospitalist, who agrees to accept the patient and request I speak with Lorraine Sánchez, nurse practitioner about the admission. I have initially ordered Rocephin but I spoke with the admitting nurse practitioner, Lorraine Sánchez, who requested to place her on cefepime and Vanco instead being that she was recently hospitalized a month ago. I have ordered this. Of ordered blood cultures and lactic acid. Current blood pressure is 97/44. Patient is agreeable plan to being admitted. Dictation of this chart was performed using voice recognition software; the refore, there may be some unintended grammatical errors. 05/12/19 08:01 - Vital Signs Vital signs: Temp Pulse Resp BP Pulse Ox 14 97/44 L 99 05/12/19 07:30 05/12/19 07:30 05/12/19 07:30 - Laboratory Result Diagrams: 05/12/19 04:57 05/12/19 06:24 Laboratory results interpreted by me: 05/12/19 05/12/19 05/12/19 03:11 04:57 06:24 WBC 14.7 H RBC 3.20 L Hgb 9.6 L Hct 28.4 L Lymphocytes % 12.8 L Absolute Neutrophils 11.3 H Sodium 134.8 L 136.6 L Potassium 5.8 H 5.4 H Chloride 109 H 111 H Carbon Dioxide 17 L 17 L BUN 53 H 56 H Creatinine 2.17 H 2.18 H Est GFR ( Amer) 28 L 27 L Est GFR (Non-Af Amer) 23 L 23 L Glucose 159 H 130 H Urine Protein Urine Glucose (UA) Urine Blood Ur Leukocyte Esterase 05/12/19 07:00 WBC RBC Hgb Hct Lymphocytes % Absolute Neutrophils Sodium Potassium Chloride Carbon Dioxide BUN Creatinine Est GFR ( Amer) Est GFR (Non-Af Amer) Glucose Urine Protein 100 H Urine Glucose (UA) >=500 H Urine Blood LARGE H Ur Leukocyte Esterase LARGE H Discharge - Discharge Clinical Impression: Acute kidney injury UTI (urinary tract infection) Qualifiers: Urinary tract infection type: site unspecified Hematuria presence: without hematuria Qualified Code(s): N39.0 - Urinary tract infection, site not specified Sepsis Qualifiers: Sepsis type: sepsis due to unspecified organism Qualified Code(s): A41.9 - Sepsis, unspecified organism Condition: Stable Disposition: ADMITTED INPATIENT Admitting Provider: Elizabeth (Hospitalist) Unit Admitted: [facility] Referrals: CHUY BRIAN MANAGER PHOTO-C [Primary Care Provider] - Follow up as needed
[2019-05-12 05:09] LABS: ABSOLUTE BASOPHILS # (AUTO) 0.1 10^3/uL (0.0-0.2); ABSOLUTE EOSINOPHILS # (AUTO) 0.1 10^3/uL (0.0-0.6); ABSOLUTE LYMPHOCYTES (AUTO) 1.9 10^3/uL (0.5-4.7); ABSOLUTE MONOCYTES (AUTO) 1.3 10^3/uL (0.1-1.4); ABSOLUTE NEUT (AUTO) 11.3 10^3/uL (1.7-8.2); BASOPHILS % (AUTO) 0.6 % (0-2); EOSINOPHILS % (AUTO) 0.6 % (0-6); HEMATOCRIT 28.4 % (36.0-47.0); HEMOGLOBIN 9.6 g/dL (12.0-15.5); LYMPHOCYTES % (AUTO) 12.8 % (13-45); MEAN CORPUSCULAR HGB CONC 33.8 g/dL (32.0-36.0); MEAN CORPUSCULAR VOLUME 89 fl (80-97); MONOCYTES % (AUTO) 8.9 % (3-13); PLATELET COUNT 239 10^3/uL (150-450); RED CELL DISTRIBUTION WIDTH 13.8 % (11.5-14.0); SEGMENTED NEUTROPHILS % (AUTO) 77.1 % (42-78); TOTAL CELLS COUNTED % (AUTO) 100 %; WHITE BLOOD COUNT 14.7 10^3/uL (4.0-10.5)
[2019-05-12 06:47] LABS: ANION GAP 9 (5-19); BLOOD UREA NITROGEN 56 mg/dL (7-20); CALCIUM 8.9 mg/dL (8.4-10.2); CARBON DIOXIDE 17 mmol/L (22-30); CHLORIDE 111 mmol/L (98-107); GLUCOSE 130 mg/dL (75-110); POTASSIUM 5.4 mmol/L (3.6-5.0); SODIUM 136.6 mmol/L (137-145)
[2019-05-12] MEDS ORDERED: NORMAL SALINE 500 ML IV ONE (06:49)
[2019-05-12 07:47] LABS: APPEARANCE,URINE CLOUDY; BILIRUBIN,URINE NEGATIVE (NEGATIVE); GLUCOSE, URINE >=500 mg/dL (NEGATIVE); KETONES,URINE NEGATIVE (NEGATIVE); LEUKOCYTE ESTERASE,URINE LARGE (NEGATIVE); NITRITE,URINE NEGATIVE (NEGATIVE); PROTEIN,URINE 100 mg/dL (NEGATIVE); URINE SPECIFIC GRAVITY 1.017; UROBILINOGEN,URINE NEGATIVE mg/dL (<2.0)
[2019-05-12 07:50] LABS: COLOR,URINE DARK YELLOW
[2019-05-12] MEDS ORDERED: CEFTRIAXONE INJ 1000 MG VIAL IV ONE (07:54)
[2019-05-12] MEDS ORDERED: VANCOMYCIN HCL INJ 1000 MG VIAL IV ONE (07:58)
[2019-05-12] MEDS ORDERED: CEFEPIME 1 GM/D5W RTU 1 GM/50 ML RTUPB IV SCH (08:00)
[2019-05-12] MEDS ORDERED: VANCOMYCIN HCL 0 MG in DEXTROSE 5%-WATER 250 ML IV NR (08:30)
[2019-05-12] MEDS ORDERED: (PENDING PHARMACY ID) (Levothyroxine Sodium [Synthroid] 175 MCG) PO SCH (08:45)
[2019-05-12] MEDS ORDERED: CEFEPIME 2 GM/D5W RTU 2 GM/50 ML RTUPB IV SCH (10:00)
[2019-05-12] MEDS: VANCOMYCIN HCL 1,250 MG in DEXTROSE 5%-WATER 250 ML IV SCH (11:30)
[2019-05-12] MEDS ORDERED: GLUCAGON,HUMAN RECOMB 1 MG INJ IM PRN (12:44)
[2019-05-12] MEDS ORDERED: DEXTROSE 50%-WATER 25 GM/50 ML DISP.SYRIN IV PRN ×2 (12:44)
[2019-05-12] MEDS ORDERED: DEXTROSE 40% GEL 15 GM TUBE PO PRN ×2 (12:44)
[2019-05-12] MEDS: CEFEPIME HCL 2 GM in DEXTROSE 5%-WATER 50 ML IV SCH ×2 (14:25→22:52)
--- NOTE | 2019-05-12 17:08 | PDOC H&P ---
History of Present Illness Admission Date/PCP: 05/12/19 08:17 CHUY Boyce SNEHAL, KEIKOC Patient complains of: SEPSIS. UTI History of Present Illness: JOSIE BAIRES is a 63 year old female with a PMH of diabetes type 2, HTN, chronic back pain, CVA, left AKA, chronic UTIs. Patient resides at [facility]. Reportedly she fell out of bed, when EMS arrived the patient was very diaphoretic. En route to [facility] the patient became hypotensive. Upon arrival to the emergency department, the patient is awake, alert and oriented. She states she does not recall what happened. States she does not remember falling out of bed. Remembers being asleep and woke up with EMS standing over her. Laboratory studies upon arrival revealed leukocytosis (WBC 14), anemia (Hgb 9), hyponatremia (Na 134), acute on chronic kidney injury (creatinine 2.1 baseline 1.0-1.5). Urinalysis was (+) UTI: +blood, large leuk esterase, WBC>182. BP 80/32 MAP 48. HR, RR, SPO2 and Temperature were all normal. On exam, the patient is awake, alert and oriented. Her service dog is at the bedside with her. The patient's physical exam is relatively benign except mild abdominal tenderness. The patient denies nausea, vomiting, diarrhea, anorexia, or bloating. The patient has a history of chronic UTIs, has been seen by urologist "years ago "but he told her to simply "drink more water." The patient received 3.5L IVF fluid resuscitation (30ml per KG) in the emergency department. Additionally she was given a dose of IV Rocephin. Plan to admit the patient to hospitalist service for sepsis and UTI. Past Medical History Cardiac Medical History: Reports: Coronary Artery Disease, Myocardial Infarction, Hyperlipidema, Hypertension Denies: Congestive Heart Failure Pulmonary Medical History: Reports: Asthma, Pneumonia Denies: Bronchitis, Chronic Obstructive Pulmonary Disease (COPD), Tuberculosis Neurological Medical History: Denies: Seizures Endocrine Medical History: Reports: Diabetes Mellitus Type 2, Hypothyroidism Renal/ Medical History: Denies: End Stage Renal Disease GI Medical History: Reports: Diverticulitis Denies: Cirrhosis, Gastroesophageal Reflux Disease, Hepatitis, Hiatal Hernia Musculoskeltal Medical History: Reports: Arthritis Psychiatric Medical History: Reports: Depression Denies: Bipolar Disorder Hematology: Reports: Anemia Denies: Bleeding Tendencies Past Surgical History Past Surgical History: Reports: Cardiac Catheterization, Cholecystectomy, Coronary Stent, Orthopedic Surgery - L leg amputation, Tonsillectomy, Other - Left [id number] amputation status post failed revascularization Denies: Hysterectomy, Mastectomy, Pacemaker Social History Information Source: Patient Lives with: [facility] Smoking Status: Never Smoker Frequency of Alcohol Use: None Hx Recreational Drug Use: No Drugs: None Hx Prescription Drug Abuse: No - Advance Directive Resuscitation Status: Full Code Family History Family History: Reviewed & Not Pertinent Parental Family History Reviewed: Yes Children Family History Reviewed: NA Sibling(s) Family History Reviewed.: NA Medication/Allergy Home Medications: Acetaminophen [Tylenol Extra Strength 500 mg Tablet] 500 mg PO Q4HP PRN 05/12/19 Almacone 30 ml PO Q4HP PRN 05/12/19 Alprazolam [Xanax 0.5 mg Tablet] 0.5 mg PO QHS 05/12/19 Aspirin [Adult Low Dose Aspirin EC] 81 mg PO QAM 05/12/19 Atorvastatin Calcium [Lipitor 40 mg Tablet] 40 mg PO QHS 05/12/19 Calcium Carbonate [Calcium] 600 mg PO Q12 05/12/19 Calcium Citrate/Vitamin D3 [Citracal-Vit D3 200 mg-250 Tab] 1 tab PO QAM 05/12/19 Citalopram Hydrobromide [Celexa 20 mg Tablet] 20 mg PO QA 05/12/19 Clopidogrel Bisulfate [Plavix 75 mg Tablet] 75 mg PO QAM 05/12/19 Cranberry 1,000 mg PO QA 05/12/19 Cyanocobalamin (Vitamin B-12) [Vitamin B-12 Inj 1000 Mcg/1 ml Vial] 1,000 mcg PO [id number] 05/12/19 Diclofenac Sodium/Misoprostol [Arthrotec EC 75 Tablet] 1 tab PO Q12 05/12/19 Docusate Sodium [Colace 100 mg Capsule] 100 mg PO DAILYP PRN 05/12/19 Empagliflozin [Jardiance] 25 mg PO QA 05/12/19 Exenatide Microspheres [Bydureon Pen] 2 mg SQ .Q7DAYS 05/12/19 Ferrous Sulfate [Feosol 325 mg Tablet] 325 mg PO QAM 05/12/19 Gabapentin [Neurontin 300 mg Capsule] 300 mg PO Q12 05/12/19 Guaifenesin [Mucus-Chest Congestion] 10 ml PO Q4HP PRN 05/12/19 Guaifenesin/D-Methorphan Hb [Robafen-Dm Syrup] 10 ml PO Q4HP PRN 05/12/19 Insulin Lispro [Humalog Kwikpen U-100] 0 units SQ .PERSLIDINGSCALE 05/12/19 Iron Aspgly,Ps/C/B12/FA/Ca/Suc [Ferrex 150 Forte Plus Capsule] 1 cap PO QAM 05/12/19 Isosorbide Mononitrate [Imdur 60 mg Tablet.er] 60 mg PO QAM 05/12/19 Levocetirizine Dihydrochloride [Xyzal] 5 mg PO QAM 05/12/19 Levothyroxine Sodium 175 mcg PO Q6AM 05/12/19 Linaclotide [Linzess] 290 mg PO QAM 05/12/19 Loperamide HCl [Anti-Diarrhea] 2 mg PO .ASDIR 05/12/19 Losartan Potassium [Cozaar 100 mg Tablet] 100 mg PO QAM 05/12/19 Magnesium Hydroxide [Milk of Magnesia 30 ml Udcup] 30 ml PO DAILYP PRN 05/12/19 Melatonin 10 mg PO QHS 05/12/19 Metformin HCl [Glucophage 500 mg Tablet] 1,000 mg PO BIDBS 05/12/19 Metoprolol Tartrate [Lopressor 25 mg Tablet] 37.5 mg PO QPM 05/12/19 Mirabegron [Myrbetriq] 50 mg PO QAM 05/12/19 Montelukast Sodium [Singulair 10 mg Tablet] 10 mg PO QPM 05/12/19 [place]-3 Fatty Acids/Fish Oil [Fish Oil 1,000 mg Capsule] 1 cap PO Q12 05/12/19 Pantoprazole Sodium [Protonix [address] Tablet] 40 mg PO QAM 05/12/19 Sitagliptin Phosphate [Januvia] 100 mg PO QAM 05/12/19 Allergies/Adverse Reactions: metoclopramide [From Reglan] Allergy (Verified 05/12/19 08:40) Review of Systems Constitutional: PRESENT: night sweats Eyes: ABSENT: visual disturbances Ears: ABSENT: hearing changes Nose, Mouth, and Throat: ABSENT: headache(s) Cardiovascular: ABSENT: chest pain Respiratory: ABSENT: dyspnea Gastrointestinal: PRESENT: abdominal pain. ABSENT: diarrhea Genitourinary: PRESENT: dysuria - CHRONIC Musculoskeletal: ABSENT: back pain Integumentary: PRESENT: diaphoresis Neurological: ABSENT: syncope, vertigo, weakness Psychiatric: ABSENT: anxiety, depression Endocrine: ABSENT: cold intolerance, heat intolerance Hematologic/Lymphatic: ABSENT: easy bleeding, easy bruising Physical Exam Vital Signs: Temp Pulse Resp BP Pulse Ox 97.5 F 72 16 113/41 L 98 05/12/19 15:51 05/12/19 15:51 05/12/19 15:51 05/12/19 15:51 05/12/19 15:51 Intake & Output 05/11/19 05/12/19 05/13/19 06:59 06:59 06:59 Intake Total 2049 Output Total 700 Balance 1350 Weight 120.5 kg General appearance: PRESENT: no acute distress, obese Head exam: PRESENT: atraumatic, normocephalic Eye exam: PRESENT: conjunctiva pink, EOMI, PERRLA. ABSENT: scleral icterus Ear exam: PRESENT: normal external ear exam Mouth exam: PRESENT: moist, tongue midline Teeth exam: PRESENT: poor dentation Neck exam: PRESENT: full ROM. ABSENT: carotid bruit, JVD, lymphadenopathy, thyromegaly Respiratory exam: PRESENT: clear to auscultation urvashi, symmetrical, unlabored. ABSENT: rales, rhonchi, wheezes Cardiovascular exam: PRESENT: RRR. ABSENT: diastolic murmur, rubs, systolic murmur Pulses: PRESENT: normal radial pulses, normal dorsalis pedis pul Vascular exam: PRESENT: normal capillary refill GI/Abdominal exam: PRESENT: normal bowel sounds, soft, tenderness - DIFFUSE TENDERNESS BUT VERY MILD (PER PATIENT). ABSENT: distended, guarding, mass, or ganolmegaly, rebound Rectal exam: PRESENT: deferred Extremities exam: PRESENT: full ROM. ABSENT: calf tenderness, clubbing, pedal edema Musculoskeletal exam: PRESENT: full ROM Neurological exam: PRESENT: alert, awake, oriented to person, oriented to place, oriented to time, oriented to situation Psychiatric exam: PRESENT: appropriate affect, normal mood Skin exam: PRESENT: dry, intact, warm. ABSENT: cyanosis, rash Results Laboratory Results: 05/12/19 04:57 05/12/19 06:24 05/12/19 05/12/19 05/12/19 03:11 04:57 06:24 WBC 14.7 H RBC 3.20 L Hgb 9.6 L Hct 28.4 L MCV 89 MCH 30.0 MCHC 33.8 RDW 13.8 Plt Count 239 Seg Neutrophils % 77.1 Lymphocytes % 12.8 L Monocytes % 8.9 Eosinophils % 0.6 Basophils % 0.6 Absolute Neutrophils 11.3 H Absolute Lymphocytes 1.9 Absolute Monocytes 1.3 Absolute Eosinophils 0.1 Absolute Basophils 0.1 Sodium 134.8 L 136.6 L Potassium 5.8 H 5.4 H Chloride 109 H 111 H Carbon Dioxide 17 L 17 L Anion Gap 9 9 BUN 53 H 56 H Creatinine 2.17 H 2.18 H Est GFR ( Amer) 28 L 27 L Est GFR (Non-Af Amer) 23 L 23 L Glucose 159 H 130 H Lactic Acid Calcium 9.3 8.9 Magnesium 1.7 Urine Color Urine Appearance Urine pH Ur Specific [place] Urine Protein Urine Glucose (UA) Urine Ketones Urine Blood Urine Nitrite Ur Leukocyte Esterase Urine WBC (Auto) Urine RBC (Auto) 05/12/19 05/12/19 07:00 08:36 WBC RBC Hgb Hct MCV MCH MCHC RDW Plt Count Seg Neutrophils % Lymphocytes % Monocytes % Eosinophils % Basophils % Absolute Neutrophils Absolute Lymphocytes Absolute Monocytes Absolute Eosinophils Absolute Basophils Sodium Potassium Chloride Carbon Dioxide Anion Gap BUN Creatinine Est GFR ( Amer) Est GFR (Non-Af Amer) Glucose Lactic Acid 0.6 L Calcium Magnesium Urine Color DARK YELLOW Urine Appearance CLOUDY Urine pH 5.0 Ur Specific [place] 1.017 Urine Protein 100 H Urine Glucose (UA) >=500 H Urine Ketones NEGATIVE Urine Blood LARGE H Urine Nitrite NEGATIVE Ur Leukocyte Esterase LARGE H Urine WBC (Auto) >182 Urine RBC (Auto) 42 Status: Imported from PACS Assessment and Plan - Diagnosis (1) Sepsis Qualifiers: Sepsis type: sepsis due to unspecified organism Qualified Code(s): A41.9 - Sepsis, unspecified organism Is this a current diagnosis for this admission?: Yes Plan: Secondary to UTI As evidenced by hypotension (80/54 MAP48), leukocytosis (WBC 14), acute on chronic kidney injury (creatinine 2.1 baseline 1.0-1.5), and Urinalysis (+) UTI IVF resuscitation with 3.5 L normal saline Continue maintenance IVF Complicated UTI treated with IV cefepime and vancomycin Blood and urine cultures pending Tylenol for fever or pain Ignacio catheter for critical I&O (2) FLORES (acute kidney injury) Is this a current diagnosis for this admission?: Yes Plan: Creatinine 2.14 baseline 1.0-1.2 Likely secondary to dehydration, hypovolemia, urinary tract infection IVF resuscitation in the emergency department Plan for maintenance IVF Avoid nephrotoxic medications If creatinine remains elevated, consider consulting nephrology (3) UTI (urinary tract infection) Qualifiers: Urinary tract infection type: site unspecified Hematuria presence: without hematuria Qualified Code(s): N39.0 - Urinary tract infection, site not specified Is this a current diagnosis for this admission?: Yes Plan: Urinalysis was (+) UTI: +blood, large leuk esterase History of frequent UTIs and numerous hospitalizations Previous urine cultures positive for E. coli, Klebsiella, Pseudomonas Treat complicated UTI with IV cefepime and vancomycin Urine culture pending (4) Coronary artery disease Qualifiers: Coronary Disease-Associated Artery/Lesion type: bypass graft Is this a current diagnosis for this admission?: Yes Plan: Endorses history of single-vessel CABG and previous CA Continue home dose antiplatelet agent, Plavix Imdur and beta-lane currently on hold due to hypotension (5) Obesity, morbid, BMI 40.0-49.9 Is this a current diagnosis for this admission?: Yes Plan: Dietary weight management (6) Type 2 diabetes mellitus Qualifiers: Diabetes mellitus long term care pharmacist insulin use: with long term care pharmacist use Diabetes mellitus complication status: without complication Qualified Code(s): E11.9 - Type 2 diabetes mellitus without complications; Z79.4 - senior care (current) use of insulin Is this a current diagnosis for this admission?: Yes Plan: [facility] diabetes type 2 Check hemoglobin A1c with a.m. labs Accu-Cheks AC at bedtime Humalog sliding scale insulin - Time Time Spent with patient: 15-24 minutes Medications reviewed and adjusted accordingly: Yes Anticipated discharge: SNF Within: Other - When medically stable - Inpatient Certification Based on my medical assessment, after consideration of the patient's comorbidities, presenting symptoms, or acuity I expect that the services needed warrant INPATIENT care.: Yes I certify that my determination is in accordance with my understanding of Medicare's requirements for reasonable and necessary INPATIENT services [42 CFR 412.3e].: Yes Medical Necessity: Need for IV Antibiotics, Risk of Complication if Not Cared For in Hospital
[2019-05-12] MEDS: INSULIN LISPRO 100 UNIT/ML 3 ML VIAL SUBCUT SCH ×2 (17:24→21:18)
[2019-05-12] MEDS: PANTOPRAZOLE SODIUM 40 MG TABLET.DR PO SCH (17:43)
[2019-05-12] MEDS: CLOPIDOGREL BISULFATE 75 MG TABLET PO SCH (17:43)
[2019-05-12] MEDS: ACETAMINOPHEN 325 MG TABLET PO PRN (22:55)
[2019-05-13] MEDS: LEVOTHYROXINE SODIUM 0.075 MG TABLET PO SCH (05:03)
[2019-05-13] MEDS: LEVOTHYROXINE SODIUM 0.1 MG TABLET PO SCH (05:03)
[2019-05-13] MEDS: ACETAMINOPHEN 325 MG TABLET PO PRN ×2 (05:03→11:50)
[2019-05-13] MEDS: PANTOPRAZOLE SODIUM 40 MG TABLET.DR PO SCH ×2 (05:04→17:07)
[2019-05-13 06:30] LABS: ABSOLUTE EOSINOPHILS # (AUTO) 0.3 10^3/uL (0.0-0.6); ABSOLUTE LYMPHOCYTES (AUTO) 1.6 10^3/uL (0.5-4.7); ABSOLUTE MONOCYTES (AUTO) 1.1 10^3/uL (0.1-1.4); ABSOLUTE NEUT (AUTO) 9.1 10^3/uL (1.7-8.2); BASOPHILS % (AUTO) 0.3 % (0-2); EOSINOPHILS % (AUTO) 2.2 % (0-6); HEMATOCRIT 27.4 % (36.0-47.0); HEMOGLOBIN 9.1 g/dL (12.0-15.5); LYMPHOCYTES % (AUTO) 13.1 % (13-45); MEAN CORPUSCULAR HEMOGLOBIN 29.9 pg (27.0-33.4); MEAN CORPUSCULAR HGB CONC 33.4 g/dL (32.0-36.0); MEAN CORPUSCULAR VOLUME 89 fl (80-97); MONOCYTES % (AUTO) 9.3 % (3-13); PLATELET COUNT 250 10^3/uL (150-450); RED BLOOD COUNT 3.07 10^6/uL (3.72-5.28); SEGMENTED NEUTROPHILS % (AUTO) 75.1 % (42-78); TOTAL CELLS COUNTED % (AUTO) 100 %; WHITE BLOOD COUNT 12.1 10^3/uL (4.0-10.5)
[2019-05-13 06:51] LABS: ALANINE AMINOTRANSFERASE 13 U/L (9-52); ALBUMIN 3.4 g/dL (3.5-5.0); ALKALINE PHOSPHATASE 61 U/L (38-126); ANION GAP 9 (5-19); ASPARTATE AMINO TRANSFERASE 9 U/L (14-36); BILIRUBIN,DIRECT 0.3 mg/dL (0.0-0.4); BILIRUBIN,TOTAL 0.3 mg/dL (0.2-1.3); BLOOD UREA NITROGEN 37 mg/dL (7-20); CARBON DIOXIDE 17 mmol/L (22-30); CHLORIDE 113 mmol/L (98-107); GLUCOSE 101 mg/dL (75-110); POTASSIUM 5.4 mmol/L (3.6-5.0); TOTAL PROTEIN 6.3 g/dL (6.3-8.2)
[2019-05-13] MEDS: INSULIN LISPRO 100 UNIT/ML 3 ML VIAL SUBCUT SCH ×4 (09:39→21:20)
[2019-05-13] MEDS: CEFEPIME HCL 2 GM in DEXTROSE 5%-WATER 50 ML IV SCH ×2 (09:49→21:23)
[2019-05-13] MEDS: VANCOMYCIN HCL 1,250 MG in DEXTROSE 5%-WATER 250 ML IV SCH (10:36)
[2019-05-13] MEDS ORDERED: DOCUSATE SODIUM 100 MG CAPSULE PO PRN (12:46)
[2019-05-13] MEDS ORDERED: ALMACONE PO PRN (12:46)
[2019-05-13] MEDS ORDERED: MAGNESIUM HYDROXIDE SUSP 30 ML UDCUP PO PRN (12:46)
[2019-05-13] MEDS ORDERED: (PENDING PHARMACY ID) (Levothyroxine Sodium [Levothyroxine Sodium] 175 MCG) PO SCH (13:00)
[2019-05-13] MEDS: ISOSORBIDE MONONITRATE 60 MG TAB.ER.24H PO SCH (13:53)
--- NOTE | 2019-05-13 17:00 | PDOC PROGRESS REPORT ---
Subjective Progress Note for:: 05/13/19 Reason For Visit: SEPSIS,UTI Physical Exam Vital Signs: Temp Pulse Resp BP Pulse Ox 98.0 F 75 16 124/49 L 100 05/13/19 15:58 05/13/19 15:58 05/13/19 15:58 05/13/19 15:58 05/13/19 15:58 Intake & Output 05/12/19 05/13/19 05/14/19 06:59 06:59 06:59 Intake Total 2340 522 Output Total 3350 700 Balance -1010 -178 Weight 114.7 kg General appearance: PRESENT: no acute distress, morbidly obese Head exam: PRESENT: atraumatic, normocephalic Eye exam: PRESENT: conjunctiva pink, EOMI, PERRLA. ABSENT: scleral icterus Ear exam: PRESENT: normal external ear exam Mouth exam: PRESENT: moist, tongue midline Teeth exam: PRESENT: poor dentation Neck exam: PRESENT: full ROM. ABSENT: carotid bruit, JVD, lymphadenopathy, thyromegaly Respiratory exam: PRESENT: clear to auscultation urvashi, decreased breath sounds - BILATERAL LOWER LOBES, symmetrical, unlabored. ABSENT: rales, rhonchi, wheezes Cardiovascular exam: PRESENT: RRR, +S1, +S2. ABSENT: diastolic murmur, rubs, systolic murmur Pulses: PRESENT: normal radial pulses Vascular exam: PRESENT: pallor GI/Abdominal exam: PRESENT: normal bowel sounds, soft. ABSENT: distended, guarding, mass, organolmegaly, rebound, tenderness Rectal exam: PRESENT: deferred Extremities exam: PRESENT: full ROM. ABSENT: calf tenderness, clubbing, pedal edema Musculoskeletal exam: PRESENT: full ROM Neurological exam: PRESENT: alert, awake, oriented to person, oriented to place, oriented to time, oriented to situation Psychiatric exam: PRESENT: appropriate affect, normal mood Skin exam: PRESENT: dry, erythema - AREA OF ERYTHEMA SURROUNDING R ANKLE. OPEN WOUND, SOME ESCHAR AROUND THE EDGES. TENDON IS VISIBLE., intact, warm. ABSENT: cyanosis, rash Results Laboratory Results: 05/13/19 05:13 05/13/19 05:13 05/13/19 05/13/19 05:13 05:13 WBC 12.1 H RBC 3.07 L Hgb 9.1 L Hct 27.4 L MCV 89 MCH 29.9 MCHC 33.4 RDW 14.0 Plt Count 250 Seg Neutrophils % 75.1 Lymphocytes % 13.1 Monocytes % 9.3 Eosinophils % 2.2 Basophils % 0.3 Absolute Neutrophils 9.1 H Absolute Lymphocytes 1.6 Absolute Monocytes 1.1 Absolute Eosinophils 0.3 Absolute Basophils 0.0 Sodium 139.0 Potassium 5.4 H Chloride 113 H Carbon Dioxide 17 L Anion Gap 9 BUN 37 H Creatinine 1.47 H Est GFR ( Amer) 43 L Est GFR (Non-Af Amer) 36 L Glucose 101 Calcium 9.0 Total Bilirubin 0.3 AST 9 L ALT 13 Alkaline Phosphatase 61 Total Protein 6.3 Albumin 3.4 L Status: Imported from PACS Assessment and Plan - Diagnosis (1) Sepsis Qualifiers: Sepsis type: sepsis due to unspecified organism Qualified Code(s): A41.9 - Sepsis, unspecified organism Is this a current diagnosis for this admission?: Yes Plan: Improving Secondary to UTI Upon admission there was evidence of hypotension (80/54 MAP48), leukocytosis (WBC 14), acute on chronic kidney injury (creatinine 2.1 baseline 1.0-1.5), and Urinalysis (+) UTI IVF resuscitation with 3.5 L normal saline followed by 24hr maintenance IVF Complicated UTI treated with IV cefepime and vancomycin Blood and cultures pending Urine cultures positive for GNR, awaiting C&S Tylenol for fever or pain Ignacio catheter for critical I&O (2) FLORES (acute kidney injury) Is this a current diagnosis for this admission?: Yes Plan: Improving Creatinine 2.14-->1.47 baseline 1.0-1.2 Likely secondary to dehydration, hypovolemia, urinary tract infection IVF resuscitation in the emergency department Maintenance IVF discontinued due to CHF hx and risk of overload, allow patient to maintain on PO intake Avoid nephrotoxic medications (3) UTI (urinary tract infection) Qualifiers: Urinary tract infection type: site unspecified Hematuria presence: without hematuria Qualified Code(s): N39.0 - Urinary tract infection, site not specified Is this a current diagnosis for this admission?: Yes Plan: Urinalysis was (+) UTI: +blood, large leuk esterase History of frequent UTIs and numerous hospitalizations Previous urine cultures positive for E. coli, Klebsiella, Pseudomonas Treat complicated UTI with IV cefepime and vancomycin Urine culture pending (4) Coronary artery disease Qualifiers: Coronary Disease-Associated Artery/Lesion type: bypass graft Is this a current diagnosis for this admission?: Yes Plan: Endorses history of single-vessel CABG and previous [place] Continue home dose antiplatelet agent, Plavix Imdur and beta-lane currently on hold due to hypotension (5) Obesity, morbid, BMI 40.0-49.9 Is this a current diagnosis for this admission?: Yes Plan: Dietary weight management (6) Type 2 diabetes mellitus Qualifiers: Diabetes mellitus meterman insulin use: with penitentiary use Diabetes mellitus complication status: without complication Qualified Code(s): E11.9 - Type 2 diabetes mellitus without complications; Z79.4 - residential (current) use of insulin Is this a current diagnosis for this admission?: Yes Plan: [facility] diabetes type 2 Check hemoglobin A1c with a.m. labs Accu-Cheks AC at bedtime Humalog sliding scale insulin (7) Diabetic ulcer of ankle Is this a current diagnosis for this admission?: Yes Plan: Open wound with visible ligament on the R lateral malleolus Surrounding erythema Will obtain MRI to evaluate for osteomyelitis - Time Time Spent with patient: 15-24 minutes Medications reviewed and adjusted accordingly: Yes Anticipated discharge: SNF Within: Other - When medically stable - Inpatient Certification Based on my medical assessment, after consideration of the patient's co morbidities, presenting symptoms, or acuity I expect that the services needed warrant INPATIENT care.: Yes I certify that my determination is in accordance with my understanding of Medicare's requirements for reasonable and necessary INPATIENT services [42 CFR 412.3e].: Yes Medical Necessity: Need for IV Antibiotics, Risk of Complication if Not Cared For in Hospital
[2019-05-13] MEDS: MONTELUKAST SODIUM 10 MG TABLET PO SCH (17:06)
[2019-05-13] MEDS: METOPROLOL TARTRATE 25 MG TABLET PO SCH (17:07)
[2019-05-13] MEDS: CLOPIDOGREL BISULFATE 75 MG TABLET PO SCH (17:07)
[2019-05-13] MEDS: MELATONIN 5 MG TABLET PO SCH (21:19)
[2019-05-13] MEDS: OMEGA-3 ACID ETHYL ESTERS 1 GM CAPSULE PO SCH (21:19)
[2019-05-13] MEDS: ALPRAZOLAM 0.5 MG TABLET PO SCH (21:19)
[2019-05-13] MEDS: CALCIUM CARBONATE 500 MG TABLET PO SCH (21:19)
[2019-05-13] MEDS: ATORVASTATIN CALCIUM 40 MG TABLET PO SCH (21:19)
[2019-05-13] MEDS ORDERED: (PENDING PHARMACY ID) (Melatonin [Melatonin] 10 MG) PO SCH (22:00)
[2019-05-13] MEDS ORDERED: (PENDING PHARMACY ID) (Omega-3 Fatty Acids/Fish Oil [Fish Oil 1,000 Mg Capsule] 1 CAP) PO SCH (22:00)
[2019-05-13] MEDS ORDERED: (PENDING PHARMACY ID) (Calcium Carbonate [Calcium] 600 MG) PO SCH (22:00)
--- NOTE | 2019-05-13 22:11 | RADIOLOGY REPORT (SQ) ---
EXAM DESCRIPTION: MR LOWER EXTREMITY WITHOUT IV CONTRAST COMPLETED DATE/TME: 05/13/2019 12:56 CLINICAL HISTORY: 63 years, Female, eval for osteo R ankle COMPARISON: Right foot x-ray 04/13/2019 TECHNIQUE: 145 Images stored on PACS. LIMITATIONS: None. FINDINGS: Diffuse subcutaneous edema of the ankle and foot. The plantar fascia is preserved. Tibialis anterior, tibialis posterior, flexor hallucis longus, flexor digitorum longus tendons are intact and unremarkable. The peroneal brevis and longus tendons are intact and unremarkable. The Achilles tendon is intact and unremarkable. There is no bone marrow edema or sinus tract formation. One body width susceptibility artifact in the medial foot distally. No bony destructive or expansile process to suggest acute osteomyelitis. IMPRESSION: No MR evidence for acute osteomyelitis. Diffuse subcutaneous edema of the ankle and foot. Findings are more pronounced laterally. No sinus tract formation or bone marrow edema. copyright 2010 [employer]- All Rights Reserved
[2019-05-14 04:53] LABS: HEMATOCRIT 26.1 % (36.0-47.0); HEMOGLOBIN 8.8 g/dL (12.0-15.5); MEAN CORPUSCULAR HEMOGLOBIN 29.9 pg (27.0-33.4); MEAN CORPUSCULAR HGB CONC 33.9 g/dL (32.0-36.0); MEAN CORPUSCULAR VOLUME 88 fl (80-97); PLATELET COUNT 281 10^3/uL (150-450); RED BLOOD COUNT 2.96 10^6/uL (3.72-5.28); RED CELL DISTRIBUTION WIDTH 13.7 % (11.5-14.0); WHITE BLOOD COUNT 10.1 10^3/uL (4.0-10.5)
[2019-05-14] MEDS: PANTOPRAZOLE SODIUM 40 MG TABLET.DR PO SCH ×2 (05:07→17:20)
[2019-05-14] MEDS: LEVOTHYROXINE SODIUM 0.1 MG TABLET PO SCH (05:07)
[2019-05-14] MEDS: LEVOTHYROXINE SODIUM 0.075 MG TABLET PO SCH (05:07)
[2019-05-14 05:13] LABS: ALANINE AMINOTRANSFERASE 18 U/L (9-52); ALKALINE PHOSPHATASE 59 U/L (38-126); ASPARTATE AMINO TRANSFERASE 14 U/L (14-36); BILIRUBIN,DIRECT 0.3 mg/dL (0.0-0.4); BILIRUBIN,TOTAL 0.4 mg/dL (0.2-1.3)
[2019-05-14 05:23] LABS: ALBUMIN 3.5 g/dL (3.5-5.0); ANION GAP 8 (5-19); BLOOD UREA NITROGEN 27 mg/dL (7-20); CALCIUM 9.3 mg/dL (8.4-10.2); CARBON DIOXIDE 18 mmol/L (22-30); CHLORIDE 112 mmol/L (98-107); GLUCOSE 124 mg/dL (75-110); PHOSPHORUS 3.5 mg/dL (2.5-4.5); POTASSIUM 4.9 mmol/L (3.6-5.0); SODIUM 138.2 mmol/L (137-145); TOTAL PROTEIN 6.8 g/dL (6.3-8.2)
[2019-05-14] MEDS ORDERED: LEVOTHYROXINE SODIUM 0.1 MG TABLET PO SCH (06:00)
[2019-05-14] MEDS: CITALOPRAM HYDROBROMIDE 20 MG TABLET PO SCH (07:59)
[2019-05-14] MEDS: FERROUS SULFATE 325 MG TABLET PO SCH (07:59)
[2019-05-14] MEDS: CALCIUM CARBONATE 250 MG/VITAMIN D3 125 UNIT TABLET PO SCH (07:59)
[2019-05-14] MEDS ORDERED: VITAMIN D3 PO SCH (08:00)
[2019-05-14] MEDS ORDERED: PANTOPRAZOLE SODIUM 40 MG TABLET.DR PO SCH (08:00)
[2019-05-14] MEDS ORDERED: CALCIUM CITRATE PO SCH (08:00)
[2019-05-14] MEDS ORDERED: [UNRECOGNIZED DRUG - OTHER] PO SCH (08:00)
[2019-05-14] MEDS ORDERED: (PENDING PHARMACY ID) (Mirabegron [Myrbetriq] 50 MG) PO SCH (08:00)
[2019-05-14] MEDS: ASPIRIN 81 MG TABLET, ENT COATED PO SCH (08:00)
[2019-05-14] MEDS: ISOSORBIDE MONONITRATE 60 MG TAB.ER.24H PO SCH (08:00)
[2019-05-14] MEDS: INSULIN LISPRO 100 UNIT/ML 3 ML VIAL SUBCUT SCH ×4 (08:12→22:10)
[2019-05-14] MEDS: CEFEPIME HCL 2 GM in DEXTROSE 5%-WATER 50 ML IV SCH (09:41)
[2019-05-14] MEDS: CALCIUM CARBONATE 500 MG TABLET PO SCH ×2 (09:47→22:05)
[2019-05-14] MEDS: OMEGA-3 ACID ETHYL ESTERS 1 GM CAPSULE PO SCH ×2 (09:47→22:05)
[2019-05-14] MEDS ORDERED: LOSARTAN POTASSIUM 50 MG TABLET PO SCH (10:00)
[2019-05-14] MEDS: VANCOMYCIN HCL 1,250 MG in DEXTROSE 5%-WATER 250 ML IV SCH (10:33)
[2019-05-14] MEDS: POLYETHYLENE GLYCOL 3350 POWDER 17 GM/1 PACKET PO SCH (12:15)
[2019-05-14] MEDS: SENNOSIDES/DOCUSATE 8.6-50 MG 1 EACH TABLET PO SCH ×2 (12:15→17:19)
--- NOTE | 2019-05-14 16:13 | PDOC PROGRESS REPORT ---
Subjective Progress Note for:: 05/14/19 Subjective:: JOSIE BAIRES is a 63 year old female with a PMH of diabetes type 2, HTN, chronic back pain, CVA, left AKA, chronic UTIs. Patient resides at [facility]. She is admitted to the hospitalist service for complicated UTI. Urine cultures resulted today, (+) Enterobacter. Resistant to a few antibiotics. Based on cultures and sensitivities, plan to change patient's current regimen from IV vancomycin and cefepime to ciprofloxacin. Patient was seen this morning on rounds, she is resting comfortably in bed. Patient denies symptoms of dysuria, lower abdominal pain, fever, lower back pain. Patient states she has not had a bowel movement in over 48 hours. This is abnormal for her. She states she does not feel "like herself "because she has not had a bowel movement. Plan to expand her bowel regimen, will add twice daily senna, daily MiraLAX and continue PRN milk of magnesia. The patient remains stable, likely discharge back to [facility] tomorrow. Reason For Visit: SEPSIS,UTI Physical Exam Vital Signs: Temp Pulse Resp BP Pulse Ox 97.7 F 83 16 110/40 L 99 05/14/19 15:34 05/14/19 15:34 05/14/19 15:34 05/14/19 15:39 05/14/19 15:34 Intake & Output 05/13/19 05/14/19 05/15/19 06:59 06:59 06:59 Intake Total 2340 809 50 Output Total 3350 2300 Balance -1010 -1491 50 Weight 114.7 kg 113.5 kg General appearance: PRESENT: no acute distress, morbidly obese Head exam: PRESENT: atraumatic, normocephalic Eye exam: PRESENT: conjunctiva pink, EOMI, PERRLA. ABSENT: scleral icterus Ear exam: PRESENT: normal external ear exam Mouth exam: PRESENT: moist, tongue midline Teeth exam: PRESENT: poor dentation Neck exam: PRESENT: full ROM. ABSENT: carotid bruit, JVD, lymphadenopathy, thyromegaly Respiratory exam: PRESENT: clear to auscultation urvashi, symmetrical, unlabored. ABSENT: rales, rhonchi, wheezes Cardiovascular exam: PRESENT: RRR. ABSENT: diastolic murmur, rubs, systolic murmur Pulses: PRESENT: normal radial pulses, normal dorsalis pedis pul - r foot only Vascular exam: PRESENT: pallor GI/Abdominal exam: PRESENT: normal bowel sounds, soft. ABSENT: distended, guarding, mass, organolmegaly, rebound, tenderness Rectal exam: PRESENT: deferred Extremities exam: PRESENT: full ROM. ABSENT: calf tenderness, clubbing, pedal edema Musculoskeletal exam: PRESENT: full ROM Neurological exam: PRESENT: alert, awake, oriented to person, oriented to place, oriented to time, oriented to situation Psychiatric exam: PRESENT: appropriate affect, normal mood Skin exam: PRESENT: dry, intact, warm, other - LARGE OPEN WOUND TO THE R ANKLE. TENDON IS VISIBLE. SURROUNDING CELLULITIS.. ABSENT: cyanosis, rash Results Laboratory Results: 05/14/19 04:35 05/14/19 04:35 05/14/19 05/14/19 04:35 04:35 WBC 10.1 RBC 2.96 L Hgb 8.8 L Hct 26.1 L MCV 88 MCH 29.9 MCHC 33.9 RDW 13.7 Plt Count 281 Sodium 138.2 Potassium 4.9 Chloride 112 H Carbon Dioxide 18 L Anion Gap 8 BUN 27 H Creatinine 1.22 Est GFR ( Amer) 54 L Est GFR (Non-Af Amer) 44 L Glucose 124 H Calcium 9.3 Phosphorus 3.5 Magnesium 1.7 Total Bilirubin 0.4 AST 14 ALT 18 Alkaline Phosphatase 59 Total Protein 6.8 Albumin 3.5 05/12/19 07:00 Catheterized Urine Urine Culture - Final Enterobacter Cloacae Impressions: Lower Extremity MRI 05/13/19 12:56 IMPRESSION: No MR evidence for acute osteomyelitis. Diffuse subcutaneous edema of the ankle and foot. Findings are more pronounced laterally. No sinus tract formation or bone marrow edema. copyright 2010 [employer]- All Rights Reserved Status: Imported from PACS Assessment and Plan - Diagnosis (1) Sepsis Qualifiers: Sepsis type: sepsis due to unspecified organism Qualified Code(s): A41.9 - Sepsis, unspecified organism Is this a current diagnosis for this admission?: Yes Plan: Improving Secondary to UTI Upon admission there was evidence of hypotension (80/54 MAP48), leukocytosis (WBC 14), acute on chronic kidney injury (creatinine 2.1 baseline 1.0-1.5), and Urinalysis (+) UTI IVF resuscitation with 3.5 L normal saline followed by 24hr maintenance IVF Complicated UTI initially treated with IV cefepime and vancomycin, now switched to ciprofloxacin Blood and cultures negative 48 hrs Urine cultures positive enterobacter Tylenol for fever or pain Ignacio catheter for critical I&O (2) FLORES (acute kidney injury) Is this a current diagnosis for this admission?: Yes Plan: Improved Creatinine 2.14-->1.22 baseline 1.0-1.2 Likely secondary to dehydration, hypovolemia, urinary tract infection IVF resuscitation in the emergency department Maintenance IVF discontinued due to CHF hx and risk of overload, allow patient to maintain on PO intake Avoid nephrotoxic medications (3) UTI (urinary tract infection) Qualifiers: Urinary tract infection type: site unspecified Hematuria presence: without hematuria Qualified Code(s): N39.0 - Urinary tract infection, site not specified Is this a current diagnosis for this admission?: Yes Plan: Urinalysis was (+) UTI: +blood, large leuk esterase History of frequent UTIs and numerous hospitalizations Previous urine cultures positive for E. coli, Klebsiella, Pseudomonas Initially treated complicated UTI with IV cefepime and vancomycin C&S shows Enterobacter, resistant to a few antibiotics. Will switch from cefepime/vancomycin to ciprofloxacin. (4) Coronary artery disease Qualifiers: Coronary Disease-Associated Artery/Lesion type: bypass graft Is this a current diagnosis for this admission?: Yes Plan: Endorses history of single-vessel CABG and previous OR Continue home dose antiplatelet agent, Plavix Imdur and beta-lane currently on hold due to hypotension (5) Obesity, morbid, BMI 40.0-49.9 Is this a current diagnosis for this admission?: Yes Plan: Dietary weight management (6) Type 2 diabetes mellitus Qualifiers: Diabetes mellitus sql manager insulin use: with alf use Diabetes mellitus complication status: without complication Qualified Code(s): E11.9 - Type 2 diabetes mellitus without complications; Z79.4 - FPC (current) use of insulin Is this a current diagnosis for this admission?: Yes Plan: [facility] diabetes type 2 Check hemoglobin A1c with a.m. labs Accu-Cheks AC at bedtime Humalog sliding scale insulin (7) Diabetic ulcer of ankle Is this a current diagnosis for this admission?: Yes Plan: Open wound with visible ligament on the R lateral malleolus Surrounding erythema MRI (-) NEGATIVE for osteomyelitis Cover with dressing Patient will continue to follow up with [facility] [facility] (8) HTN (hypertension) Qualifiers: Hypertension type: essential hypertension Qualified Code(s): I10 - Essential (primary) hypertension Is this a current diagnosis for this admission?: Yes Plan: PMH HTN Initially hypotensive upon arrival Able to resume home dose yesterday but decreased home dose losartan from 100 mg to 50 mg - Time Time Spent with patient: 15-24 minutes Medications reviewed and adjusted accordingly: Yes Anticipated discharge: SNF Within: within 24 hours, within 48 hours - Inpatient Certification Based on my medical assessment, after consideration of the patient's comorbidities, presenting symptoms, or acuity I expect that the services needed warrant INPATIENT care.: Yes I certify that my determination is in accordance with my understanding of Medicare's requirements for reasonable and necessary INPATIENT services [42 CFR 412.3e].: Yes Medical Necessity: Need For Continuous Telemetry Monitoring, Need for IV Antibiotics, Risk of Complication if Not Cared For in Hospital
[2019-05-14] MEDS ORDERED: NORMAL SALINE 1000 ML 500 ML IV ONE (16:30)
[2019-05-14] MEDS: METOPROLOL TARTRATE 25 MG TABLET PO SCH (17:19)
[2019-05-14] MEDS: MONTELUKAST SODIUM 10 MG TABLET PO SCH (17:20)
[2019-05-14] MEDS: CLOPIDOGREL BISULFATE 75 MG TABLET PO SCH (17:20)
[2019-05-14] MEDS: ALPRAZOLAM 0.5 MG TABLET PO SCH (22:06)
[2019-05-14] MEDS: ATORVASTATIN CALCIUM 40 MG TABLET PO SCH (22:09)
[2019-05-14] MEDS: CIPROFLOXACIN HCL 500 MG TABLET PO SCH (22:14)
[2019-05-15] MEDS: MELATONIN 5 MG TABLET PO SCH (00:43)
[2019-05-15] MEDS: ACETAMINOPHEN 325 MG TABLET PO PRN (04:24)
[2019-05-15] MEDS ORDERED: ONDANSETRON HCL INJ/PF 4 MG/2 ML SDV IV PRN (04:41)
[2019-05-15] MEDS: PANTOPRAZOLE SODIUM 40 MG TABLET.DR PO SCH (06:47)
[2019-05-15] MEDS: LEVOTHYROXINE SODIUM 0.075 MG TABLET PO SCH (06:48)
[2019-05-15] MEDS: LEVOTHYROXINE SODIUM 0.1 MG TABLET PO SCH (06:48)
[2019-05-15] MEDS: CITALOPRAM HYDROBROMIDE 20 MG TABLET PO SCH (08:45)
[2019-05-15] MEDS: CALCIUM CARBONATE 250 MG/VITAMIN D3 125 UNIT TABLET PO SCH (08:45)
[2019-05-15] MEDS: FERROUS SULFATE 325 MG TABLET PO SCH (08:45)
[2019-05-15] MEDS: ASPIRIN 81 MG TABLET, ENT COATED PO SCH (08:45)
[2019-05-15] MEDS: INSULIN LISPRO 100 UNIT/ML 3 ML VIAL SUBCUT SCH (08:45)
[2019-05-15] MEDS: OMEGA-3 ACID ETHYL ESTERS 1 GM CAPSULE PO SCH (09:40)
[2019-05-15] MEDS: CALCIUM CARBONATE 500 MG TABLET PO SCH (09:40)
[2019-05-15] MEDS: POLYETHYLENE GLYCOL 3350 POWDER 17 GM/1 PACKET PO SCH (09:40)
[2019-05-15] MEDS: SENNOSIDES/DOCUSATE 8.6-50 MG 1 EACH TABLET PO SCH (09:40)
[2019-05-15] MEDS: CIPROFLOXACIN HCL 500 MG TABLET PO SCH (09:41)
[2019-05-15] MEDS ORDERED: LOSARTAN POTASSIUM 50 MG TABLET PO SCH (10:00)
[2019-05-15] MEDS ORDERED: ALMACONE PO PRN (10:34)
--- NOTE | 2019-05-15 10:36 | PDOC TRANSFER SUMMARY ---
General - Admit/Disc Date/PCP Admission Date/Primary Care Provider: 05/12/19 08:17 [facility] Discharge Date: 05/15/19 - Discharge Diagnosis (1) Sepsis Is this a current diagnosis for this admission?: Yes (2) FLORES (acute kidney injury) Is this a current diagnosis for this admission?: Yes (3) UTI (urinary tract infection) Is this a current diagnosis for this admission?: Yes (4) Coronary artery disease Is this a current diagnosis for this admission?: Yes (5) Obesity, morbid, BMI 40.0-49.9 Is this a current diagnosis for this admission?: Yes (6) Type 2 diabetes mellitus Is this a current diagnosis for this admission?: Yes (7) Diabetic ulcer of ankle Is this a current diagnosis for this admission?: Yes (8) HTN (hypertension) Is this a current diagnosis for this admission?: Yes - Additional Information Resuscitation Status: Full Code Discharge Diet: As Tolerated Prescriptions: Ciprofloxacin HCl [Cipro 500 mg Tablet] 500 mg PO Q12 #14 tablet Lactulose [Cephulac Syrup 20 gm/30 ml Udcup] 20 gm PO DAILY PRN #10 udc PRN Reason: constipation Polyethylene Glycol 3350 [Miralax Powder 17 gm/Packet] 17 gm PO DAILYP PRN #25 powd.pack PRN Reason: Sennosides [Senna] 2 tab PO BIDP PRN #60 tablet PRN Reason: Home Medications: Acetaminophen [Tylenol Extra Strength 500 mg Tablet] 500 mg PO Q4HP PRN 05/12/19 Almacone 30 ml PO Q4HP PRN 05/12/19 Alprazolam [Xanax 0.5 mg Tablet] 0.5 mg PO QHS 05/12/19 Aspirin [Adult Low Dose Aspirin EC] 81 mg PO QAM 05/12/19 Atorvastatin Calcium [Lipitor 40 mg Tablet] 40 mg PO QHS 05/12/19 Calcium Carbonate [Calcium] 600 mg PO Q12 05/12/19 Calcium Citrate/Vitamin D3 [Citracal-Vit D3 200 mg-250 Tab] 1 tab PO QAM 05/12/19 Citalopram Hydrobromide [Celexa 20 mg Tablet] 20 mg PO QAM 05/12/19 Clopidogrel Bisulfate [Plavix 75 mg Tablet] 75 mg PO QAM 05/12/19 Cranberry 1,000 mg PO QAM 05/12/19 Cyanocobalamin (Vitamin B-12) [Vitamin B-12 Inj 1000 Mcg/1 ml Vial] 1,000 mcg PO [id number] 05/12/19 Diclofenac Sodium/Misoprostol [Arthrotec EC 75 Tablet] 1 tab PO Q12 05/12/19 Docusate Sodium [Colace 100 mg Capsule] 100 mg PO DAILYP PRN 05/12/19 Empagliflozin [Jardiance] 25 mg PO QAM 05/12/19 Exenatide Microspheres [Bydureon Pen] 2 mg SQ .Q7DAYS 05/12/19 Ferrous Sulfate [Feosol 325 mg Tablet] 325 mg PO QAM 05/12/19 Gabapentin [Neurontin 300 mg Capsule] 300 mg PO Q12 05/12/19 Guaifenesin [Mucus-Chest Congestion] 10 ml PO Q4HP PRN 05/12/19 Guaifenesin/D-Methorphan Hb [Robafen-Dm Syrup] 10 ml PO Q4HP PRN 05/12/19 Insulin Lispro [Humalog Kwikpen U-100] 0 units SQ .PERSLIDINGSCALE 05/12/19 Iron Aspgly,Ps/C/B12/FA/Ca/Suc [Ferrex 150 Forte Plus Capsule] 1 cap PO QAM 05/12/19 Isosorbide Mononitrate [Imdur 60 mg Tablet.er] 60 mg PO QAM 05/12/19 Levocetirizine Dihydrochloride [Xyzal] 5 mg PO QAM 05/12/19 Levothyroxine Sodium 175 mcg PO Q6AM 05/12/19 Linaclotide [Linzess] 290 mg PO QAM 05/12/19 Loperamide HCl [Anti-Diarrhea] 2 mg PO .ASDIR 05/12/19 Losartan Potassium [Cozaar 100 mg Tablet] 100 mg PO QAM 05/12/19 Magnesium Hydroxide [Milk of Magnesia 30 ml Udcup] 30 ml PO DAILYP PRN 05/12/19 Melatonin 10 mg PO QHS 05/12/19 Metformin HCl [Glucophage 500 mg Tablet] 1,000 mg PO BIDBS 05/12/19 Metoprolol Tartrate [Lopressor 25 mg Tablet] 37.5 mg PO QPM 05/12/19 Mirabegron [Myrbetriq] 50 mg PO QAM 05/12/19 Montelukast Sodium [Singulair 10 mg Tablet] 10 mg PO QPM 05/12/19 [place]-3 Fatty Acids/Fish Oil [Fish Oil 1,000 mg Capsule] 1 cap PO Q12 05/12/19 Pantoprazole Sodium [Protonix [address] Tablet] 40 mg PO QAM 05/12/19 Sitagliptin Phosphate [Januvia] 100 mg PO QAM 05/12/19 Ciprofloxacin HCl [Cipro 500 mg Tablet] 500 mg PO Q12 #14 tablet 05/15/19 Clopidogrel Bisulfate [Plavix 75 mg Tablet] 75 mg PO QPM tablet 05/15/19 Lactulose [Cephulac Syrup 20 gm/30 ml Udcup] 20 gm PO DAILY PRN #10 udc 05/15/19 Levothyroxine Sodium [Synthroid 0.075 mg Tablet] 0.075 mg PO Q6AM tablet 05/15/19 Levothyroxine Sodium [Synthroid 0.1 mg Tablet] 0.1 mg PO Q6AM tablet 05/15/19 Polyethylene Glycol 3350 [Miralax Powder 17 gm/Packet] 17 gm PO DAILYP PRN #25 powd.pack 05/15/19 Sennosides [Senna] 2 tab PO BIDP PRN #60 tablet 05/15/19 History of Present Illness Admission Date/PCP: 05/12/19 08:17 TREVAAnkita Carli BRIAN, [employer] History of Present Illness: JOSIE BAIRES is a 63 year old female with a PMH of diabetes type 2, HTN, chronic back pain, CVA, left AKA, chronic UTIs. Patient resides at [facility]. Reportedly she fell out of bed, when EMS arrived the patient was very diaphoretic. En route to [facility] the patient became hypotensive. Upon arrival to the emergency department, the patient is awake, alert and oriented. She states she does not recall what happened. States she does not remember falling out of bed. Remembers being asleep and woke up with EMS standing over her. Laboratory studies upon arrival revealed leukocytosis (WBC 14), anemia (Hgb 9), hyponatremia (Na 134), acute on chronic kidney injury (creatinine 2.1 baseline 1.0-1.5). Urinalysis was (+) UTI: +blood, large leuk esterase, WBC>182. BP 80/32 MAP 48. HR, RR, SPO2 and Temperature were all normal. On exam, the patient is awake, alert and oriented. Her service dog is at the bedside with her. The patient's physical exam is relatively benign except mild abdominal tenderness. The patient denies nausea, vomiting, diarrhea, anorexia, or bloating. The patient has a history of chronic UTIs, has been seen by urologist "years ago "but he told her to simply "drink more water." The patient received 3.5L IVF fluid resuscitation (30ml per KG) in the emergency department. Additionally she was given a dose of IV Rocephin. Plan to admit the patient to hospitalist service for sepsis and UTI. Hospital Course Hospital Course: JOSIE BAIRES is a 63 year old female with a PMH of diabetes type 2, HTN, chronic back pain, CVA, left AKA, chronic UTIs. Patient resides at [facility]. She is admitted to the hospitalist service for complicated UTI. Initially treated with IV vancomycin and cefepime. Urine cultures resulted (+) Enterobacter. Resistant to a few antibiotics. Based on cultures and sensitivities, changed antibiotic regimen to ciprofloxacin. Will treat for a total of 10 days, final treatment May 21, 2019. Given her history of frequent UTIs, strongly recommend follow-up appointment with urology. Patient has a long-standing history of constipation. She takes a number of motility agents/stool softeners at home. Throughout her hospital stay, the patient complained that she was unable to have movement. Offered her milk of magnesia or Fleet Enema, but the patient refused. Recommend 2 tabs of senna twice daily, daily MiraLAX and PRN lactulose. Physical Exam Vital Signs: Temp Pulse Resp BP Pulse Ox 98.7 F 70 20 127/37 H 99 05/14/19 23:15 05/15/19 02:00 05/14/19 23:15 05/14/19 23:15 05/14/19 23:15 Intake & Output 05/14/19 05/15/19 05/16/19 06:59 06:59 06:59 Intake Total 809 771 Output Total 2300 2300 Balance -1491 -1529 Weight 113.5 kg 112.7 kg General appearance: PRESENT: no acute distress, morbidly obese Head exam: PRESENT: atraumatic, normocephalic Eye exam: PRESENT: conjunctiva pink, EOMI, PERRLA. ABSENT: scleral icterus Ear exam: PRESENT: normal external ear exam Mouth exam: PRESENT: moist, tongue midline Teeth exam: PRESENT: poor dentation Neck exam: ABSENT: carotid bruit, JVD, lymphadenopathy, thyromegaly Respiratory exam: PRESENT: clear to auscultation urvashi, symmetrical, unlabored. ABSENT: rales, rhonchi, wheezes Cardiovascular exam: PRESENT: RRR. ABSENT: diastolic murmur, rubs, systolic murmur Pulses: PRESENT: normal radial pulses, normal dorsalis pedis pul Vascular exam: PRESENT: pallor GI/Abdominal exam: PRESENT: normal bowel sounds, soft. ABSENT: distended, guarding, mass, organolmegaly, rebound, tenderness Rectal exam: PRESENT: deferred Extremities exam: PRESENT: full ROM. ABSENT: calf tenderness, clubbing, pedal edema Musculoskeletal exam: ABSENT: normal inspection - L AKA Neurological exam: PRESENT: alert, awake, oriented to person, oriented to place, oriented to time, oriented to situation Psychiatric exam: PRESENT: appropriate affect, normal mood Skin exam: PRESENT: dry, intact, warm. ABSENT: cyanosis, rash Results Laboratory Results: 05/14/19 04:35 05/14/19 04:35 05/12/19 07:00 Catheterized Urine Urine Culture - Final Enterobacter Cloacae Impressions: Lower Extremity MRI 05/13/19 12:56 IMPRESSION: No MR evidence for acute osteomyelitis. Diffuse subcutaneous edema of the ankle and foot. Findings are more pronounced laterally. No sinus tract formation or bone marrow edema. copyright 2010 [employer]- All Rights Reserved Status: Imported from PACS Transfer Plan - Disposition Transfer Plan: send back to [facility] - Time Spent with Patient Time spent with patient: Less than 30 Minutes Qualifiers - * PATIENT BEING DISCHARGED WITH ANY OF THE FOLLOWING DIAGNOSIS: No Acute Heart Failure - Is this a Heart Failure Patient?: No
[2019-05-15] MEDS ORDERED: (PENDING PHARMACY ID) (Mirabegron [Myrbetriq] 50 MG) PO SCH (11:00)
[2019-05-15 12:38] VITALS: BP 123/65
== END 2019-05-15 13:15 | disposition home health service (06) | DRG 872 ==
LOC: ER 01:57 → EH 08:17 → 3N 09:28 → UNDODISIN 05-15 10:06
PROVIDERS: ADMIT Internal Medicine; ATTEND Internal Medicine
DX: A41.9 Sepsis, unspecified organism (principal); N39.0 Urinary tract infection, site not specified; E87.1 Hypo-osmolality and hyponatremia; N17.9 Acute kidney failure, unspecified; L97.318 Non-pressure chronic ulcer of right ankle with other specified severity; Z68.41 Body mass index [BMI] 40.0-44.9, adult; I25.10 Atherosclerotic heart disease of native coronary artery without angina pectoris; E78.5 Hyperlipidemia, unspecified; I10 Essential (primary) hypertension; E11.622 Type 2 diabetes mellitus with other skin ulcer; E03.9 Hypothyroidism, unspecified; E66.9 Obesity, unspecified; I25.2 Old myocardial infarction; Z86.73 Personal history of transient ischemic attack (TIA), and cerebral infarction without residual deficits; Z89.612 Acquired absence of left leg above knee; Z79.01 Long term (current) use of anticoagulants; Z79.84 Long term (current) use of oral hypoglycemic drugs; Z79.82 Long term (current) use of aspirin; Z79.4 Long term (current) use of insulin; Z79.891 Long term (current) use of opiate analgesic; Z79.899 Other long term (current) drug therapy
CPT/HCPCS: 36415; 80048; 80053; 81001; 82962; 83605; 83735; 84100; 85025; 85027; 87040; 87086; 87088; 87186; 96360; 96361; 99285; J0692; J1642; J1815; J2405; J3370; J3490; J7030; J7060

== ENCOUNTER 2019-11-13 09:57 | Emergency (ER) | payer MEDICARE, OTHER ==
--- NOTE | 2019-11-13 11:54 | ER Document Report ---
ED Fall - General Chief Complaint: Fall Injury Stated Complaint: FALL Time Seen by Provider: 11/13/19 11:49 TRAVEL OUTSIDE OF THE [place] IN LAST 30 DAYS: No - HPI Notes: 63-year-old female to the emergency department via EMS with complaints of a fall that she sustained just prior to arrival. She states she lives at the [facility]. She states she was transferring to a wheelchair when wheelchair fell back and she struck her head onto a concrete floor. She states that her head kind of "bounced". She states she did not have loss of consciousness. She has not had blurry vision, nausea, vomiting. She is not on any blood thinners. She states that she had a little bit of a headache initially after the incident but has none now. She states that she feels very well. She denies any back pain, chest pain, shortness of breath, belly pain, leg pain. Of note she is a patient who has an [id number] amputation of her left leg. She states that she would not of come to the emergency department but per the [facility] protocol she had to be checked out. - Related data Allergies/Adverse Reactions: metoclopramide [From Reglan] Allergy (Verified 05/12/19 08:40) Past Medical History - General Information source: Patient - Social History Smoking Status: Former Smoker Frequency of alcohol use: None Drug Abuse: None Lives with: Other - Lives at [facility] Family History: Reviewed & Not Pertinent - Past Medical History Cardiac Medical History: Reports: Hx Coronary Artery Disease, Hx Heart Attack, Hx Hypercholesterolemia, Hx Hypertension Denies: Hx Congestive Heart Failure Pulmonary Medical History: Reports: Hx Asthma, Hx Pneumonia Denies: Hx Bronchitis, Hx COPD, Hx Tuberculosis Neurological Medical History: Reports: 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 Denies: Hx Seizures, Hx Parkinson's Disease Endocrine Medical History: Reports: Hx Diabetes Mellitus Type 2, Hx Graves' Disease, Hx Hypothyroidism Renal/ Medical History: Denies: Hx End Stage Renal Disease, Hx Kidney Stones, Hx Peritoneal Dialysis GI Medical History: Reports: Hx Diverticulitis, Hx Gastritis, Hx Ulcer. Denies: Hx Cirrhosis, Hx Gastroesophageal Reflux Disease, Hx Hepatitis, Hx Hiatal Hernia Musculoskeletal Medical History: Reports Hx Arthritis, Denies Hx Multiple Sclerosis, Reports Hx Musculoskeletal Deformity, Reports Hx Musculoskeletal Trauma Psychiatric Medical History: Reports: Hx Depression Denies: Hx Bipolar Disorder, Hx Schizophrenia Traumatic Medical History: Reports: Hx Fractures Infectious Medical History: Denies: Hx Hepatitis Past Surgical History: Reports: Hx Cardiac Catheterization, Hx Cardiac Surgery - single bypass, Hx Cholecystectomy, Hx Coronary Stent, Hx Dilation and Curettage, Hx Orthopedic Surgery - L leg amputation, Hx Tonsillectomy, Other - Left [id number] amputation status post failed revascularization. Denies: Hx Hysterectomy, Hx Mastectomy, Hx Open Heart Surgery, Hx Pacemaker - Immunizations Immunizations up to date: No Hx Diphtheria, Pertussis, Tetanus Vaccination: No Hx Pneumococcal Vaccination: 09/30/15 Review of Systems - Review of Systems Constitutional: denies: Chills, Fever EENT: denies: Blurred vision, Double vision, Ear pain Cardiovascular: denies: Chest pain, Palpitations, Syncope, Dizziness, Lightheaded Respiratory: denies: Cough, Short of breath Gastrointestinal: denies: Abdominal pain, Diarrhea, Nausea, Vomiting Genitourinary: No symptoms reported Musculoskeletal: denies: Back pain, Joint pain, Joint swelling, Muscle pain, Muscle stiffness, Neck pain Skin: No symptoms reported Neurological/Psychological: See HPI, Headaches - Brief headache initially after incident which has since resolved without any interventions -: Yes All other systems reviewed and negative Physical Exam - Vital signs Vitals: Temp Pulse Resp BP Pulse Ox 97.8 F 62 16 131/62 H 99 11/13/19 10:33 11/13/19 10:33 11/13/19 10:33 11/13/19 10:33 11/13/19 10:33 Interpretation: Normal - General General appearance: Appears well, Alert - HEENT Head: Normocephalic, Atraumatic Eyes: Normal Pupils: PERRL Ears: Normal External canal: Normal Tympanic membrane: Normal Sinus: Normal Nasal: Normal Mouth/Lips: Normal Pharynx: Normal. No: Potential airway comprom. Neck: Normal, Supple. No: Lymphadenopathy, Meningismus - Respiratory Respiratory status: No respiratory distress Chest status: Nontender. No: Accessory muscle use Breath sounds: Normal. No: Productive cough, Rales, Rhonchi, Stridor, Wheezing Chest palpation: Normal - Cardiovascular Rhythm: Regular Heart sounds: Normal auscultation Murmur: No - Abdominal Inspection: Normal Distension: No distension Bowel sounds: Normal Tenderness: Nontender Organomegaly: No organomegaly - Back Back: Normal, Nontender. No: Deformity/step-off, CVA tenderness - Music, Vertebra tenderness - Extremities General upper extremity: Normal inspection, Nontender, Normal color, Normal ROM, Normal temperature General lower extremity: Nontender, Normal color, Normal ROM, Normal temperature , Normal weight bearing. No: Normal inspection - Patient has an [id number] amputation to her left leg. She has a stable and nontender pelvic rock. She has no tenderness to palpation over the midline cervical, thoracic, lumbar spine. She is nontender to palpation of all joints. She denies any pain - Neurological Neuro grossly intact: Yes Cognition: Normal Orientation: AAOx4 [place] Coma Scale Eye Opening: Spontaneous Rafat Coma Scale Verbal: Oriented [place] Coma Scale Motor: Obeys Commands Rafat Coma Scale Total: 15 Speech: Normal Cranial nerves: Normal. No: Facial palsy, Forehead sparing, Gaze palsy, Sensory deficit, Tongue deviation Cerebellar coordination: Normal Motor strength normal: LUE, RUE, LLE, RLE Additional motor exam normals: Equal installers mechanical. No: Pronator drift Sensory: Normal - Psychological Associated symptoms: Normal affect, Normal mood - Skin Skin Temperature: Warm Skin Moisture: Dry Skin Color: Normal Course - Re-evaluation Re-evalutation: Impression: Fall. Patient looks very well today. She is nontender throughout palpation of bony joints. She did not lose consciousness, have blurry vision, change in behavior, she is not confused. She has no headache. She is not been vomiting. She has no blurry vision. Do not think that she needs imaging today. Patient agrees. Will discharge home. - Vital Signs Vital signs: Temp Pulse Resp BP Pulse Ox 98.2 F 63 18 135/67 H 99 11/13/19 11:57 11/13/19 11:57 11/13/19 11:57 11/13/19 11:57 11/13/19 11:57 Discharge - Discharge Clinical Impression: Fall Qualifiers: Encounter type: initial encounter Qualified Code(s): W19.XXXA - Unspecified fall, initial encounter Minor head injury Qualifiers: Encounter type: initial encounter Qualified Code(s): S09.90XA - Unspecified injury of head, initial encounter Condition: Stable Disposition: HOME, SELF-CARE Additional Instructions: Follow up with primary care. Return if worsening symptoms. Push fluids. Rest. FOLLOW UP WITH DR. IRWIN THIS UPCOMING WEEK.
[2019-11-13 12:07] VITALS: BP 135/67
== END 2019-11-13 12:20 | disposition home or self-care (01) ==
LOC: ER 09:57
DX: S09.90XA Unspecified injury of head, initial encounter (principal); W05.0XXA Fall from non-moving wheelchair, initial encounter; Y92.199 Unspecified place in other specified residential institution as the place of occurrence of the external cause; Z89.612 Acquired absence of left leg above knee
CPT/HCPCS: 99284

== ENCOUNTER → 2020-05-04 | Outpatient (CLI) | payer MEDICARE, OTHER ==
--- NOTE | 2020-05-04 16:22 | RADIOLOGY REPORT (SQ) ---
EXAM DESCRIPTION: U/S RETROPERITON LTD IMAGES COMPLETED DATE/TIME: 05/04/2020 4:04 pm REASON FOR STUDY: R94.4 ABNORMAL RESULTS OF KIDNEY FUNCTION STUDIES R94.4 ABNORMAL RESULTS OF KIDNE Y FUNCTION STUDIES COMPARISON: None. TECHNIQUE: Dynamic and static grayscale images acquired of the kidneys and bladder and recorded on P ACS. Additional selected color Doppler and spectral images recorded. LIMITATIONS: None. FINDINGS: RIGHT KIDNEY: The right kidney measures 10.9 x 5.0 x 4.3 cm, normal size. Normal echoge nicity. No solid or suspicious masses. No hydronephrosis. No calcifications. LEFT KIDNEY: Suboptimal visualization of the left kidney due to overlying bowel gas and patient body habitus. BLADDER: No masses. Bilateral ureteral jets not visualized. OTHER FINDINGS: No other significant finding. IMPRESSION: 1. The left kidney is suboptimally visualized due to overlying bowel gas and patient pascale dy habitus. 2. No evidence of hydronephrosis involving the right kidney. TECHNICAL DOCUMENTATION: JOB ID: [id number] 2010 [employer]- All Rights Reserved Reading location - IP/workstation name: [email or web address]
== END ==
LOC: RAD 15:42
PROVIDERS: ATTEND Internal Medicine
DX: R94.4 Abnormal results of kidney function studies (principal)
CPT/HCPCS: 76775

== ENCOUNTER 2020-08-23 10:14 | Outpatient (CLI) | payer MEDICARE, OTHER ==
[~2020-08-23 10:14] MED LIST: FERRIC CARBOXYMALTOSE 750 MG in NORMAL SALINE 250 ML IV PRN
[2020-08-23 10:39] VITALS: BP 119/61
== END 2020-08-23 11:30 | disposition home or self-care (01) ==
LOC: II 10:14 → 5TH 10:18 → II 11:30
PROVIDERS: ATTEND Internal Medicine
DX: E61.1 Iron deficiency (principal); E11.42 Type 2 diabetes mellitus with diabetic polyneuropathy
CPT/HCPCS: 96365; J7050; J1439; J1642; 96374

== ENCOUNTER 2020-08-30 09:53 | Outpatient (CLI) | payer MEDICARE, OTHER ==
[2020-08-30 10:21] VITALS: BP 139/79
== END 2020-08-30 10:40 | disposition home or self-care (01) ==
LOC: II 09:53 → 5TH 10:00 → II 10:40
PROVIDERS: ATTEND Internal Medicine
DX: E61.1 Iron deficiency (principal); E11.42 Type 2 diabetes mellitus with diabetic polyneuropathy
CPT/HCPCS: 96374; J7050; J1439; J1642

== ENCOUNTER → 2020-12-14 | Outpatient (CLI) | payer MEDICARE, OTHER ==
--- NOTE | 2020-12-14 10:31 | PDOC PROGRESS REPORT ---
Subjective Date:: 12/14/20 Reason For Visit: NURSING SERVICES Patient was examined in [facility] due to inability for her to use outpatient facility for pelvic exam and Pap smear. She has a left [id number] amputation is morbidly obese basically wheelchair-bound Physical Exam - Gynecological Exam Labia: normal Urethra: normal Introitus: normal Perineum: normal Vagina: normal Cervix: normal Cervix: normal, other - Stenotic Uterus: other - Am limited by patient size Adhexa: other - Exam limited by patient size Rectal: normal Assessment & Plan - Time Time Spent with patient: 25-34 minutes Anticipated discharge: Home Anticipated DC Timeframe: within 24 hours
== END ==
LOC: LC 08:49
PROVIDERS: ATTEND Specialist
DX: Z01.419 Encounter for gynecological examination (general) (routine) without abnormal findings (principal)